=== PATIENT | female | born 1940 | race Caucasian/White ===

== ENCOUNTER 2020-12-29 07:42 | Outpatient (CLI) | payer MEDICARE, SELFPAY ==
--- NOTE | ~2020-12-29 | NM_ITS ---
EXAMINATION: NM bone scan whole body EXAM DATE: 12/29/2020 11:08 INDICATION: Right breast malignancy. TECHNIQUE: Bone scan was performed after injection of 26.4 mCi technetium 99 HDP and planar whole bod y images were obtained. COMPARISON: CT chest earlier same date FINDINGS: There is physiologic amount of renal excretion. Increased activity in the acromioclavicula r joints and knees bilaterally consistent with osteoarthritis. There is mild lumbar levoscoliosis. So me increased facet arthropathy projecting over the left T11 pedicle without any corresponding lesion identified on CT, probably the moderate to severe left facet arthropathy at T10-11 and T11-12. Simila r appearance to a left mid cervical vertebral body, probably C3-4, also most likely osteoarthritis bu t there is no other imaging of this location for correlation. IMPRESSION: 1. Mid cervical vertebral body activity most also likely arthritis. Consider correlating with fronta l and lateral cervical x-ray, or CT. 2. Polyarticular osteoarthritis. Reviewed, dictated and finalized at location B. IMPRESSION: 1. Mid cervical vertebral body activity most also likely arthritis. Consider c orrelating with frontal and lateral cervical x-ray, or CT. 2. Polyarticular osteoarthritis.
--- NOTE | ~2020-12-29 | CT_ITS ---
EXAMINATION: CT diagnostic chest w con EXAM DATE: 12/29/2020 08:25 INDICATION: Uterine, metastatic breast cancer. TECHNIQUE: Spiral CT of the chest following intravenous injection of 75 mL Omnipaque 350. Axial, cor onal and sagittal images of the chest were reviewed. Coronal maximum intensity pixel images of chest reviewed. The dose-length product (DLP) for this examination was 140.67 mGy-cm. The exposure was t ailored according to patient size (auto mA exposure control), and iterative reconstruction (ASIR) was used as additional dose reduction technique. There is no prior study for comparison. FINDINGS: Moderate to severe amount of bibasilar, moderate mid and upper lung zone interlobular sept al thickening with some interspersed groundglass opacities. 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 There are no pleural or pericardial effusions. T racheobronchial tree is patent. There is a right breast region measuring 1.7 cm, centrally low density but with focus of calcificatio n. Could be breast cancer or postoperative, please clinically correlate. Mildly enlarged right axilla ry lymph nodes, largest has some calcification, measures 9 x 12 mm. Smaller left breast opacity proba inna postoperative scarring given the additional left axillary surgical clips. No mediastinal or hilar lymphadenopathy. Moderate bronchiectasis. There is no pneumothorax. Mild ca rdiomegaly. There is mild to moderate coronary arterial calcification, arterial sclerosis. Several l iver lesions, density consistent with cysts. No osteoblastic or osteolytic lesions identified. IMPRESSION: 1. Right breast mass or postoperative scarring. Right axillary lymphadenopathy. 2. NSIP pattern interstitial lung disease. 3. Moderate bronchiectasis. 4. Cardiomegaly. Reviewed, dictated and finalized at location B. IMPRESSION: 1. Right breast mass or postoperative scarring. Right axillary lymphadenopathy . 2. NSIP pattern interstitial lung disease. 3. Moderate bronchiectasis. 4. Cardiomegaly.
[2020-12-29 08:17] LABS: Estimated Glomerular Filt Rate 48
== END 2020-12-29 07:43 | disposition home or self-care (01) ==
PROVIDERS: PCP Internal Medicine; Visit Provider Internal Medicine Medical Oncology
DX: C50.511 Malignant neoplasm of lower-outer quadrant of right female breast (principal); Z17.0 Estrogen receptor positive status [ER+]; R59.0 Localized enlarged lymph nodes; R92.8 Other abnormal and inconclusive findings on diagnostic imaging of breast; J84.89 Other specified interstitial pulmonary diseases; J47.9 Bronchiectasis, uncomplicated; I51.7 Cardiomegaly
CPT/HCPCS: 71260; 78306; A9561; Q9967

== ENCOUNTER 2021-04-19 09:55 | Outpatient (CLI) | payer MEDICARE, SELFPAY ==
--- NOTE | ~2021-04-19 | CT_ITS ---
EXAMINATION: CT diagnostic chest w con DATE: 04/19/2021 10:21 INDICATION: Shortness of breath, prior smoker, history of breast cancer TECHNIQUE: Transaxial computed tomographic images of the chest were obtained after the administration of 75 cc of Omnipaque 350 intravenous contrast. The dose-length product (DLP) was 134.43 mGy-cm. Ite rative reconstruction was used. COMPARISON: 12/29/2020 FINDINGS: A left internal jugular Port-A-Cath has been inserted which ends with its tip in the proxim al superior vena cava. There are unchanged widespread subpleural reticular and groundglass opacities. Some honeycombing is present in the lower lobes. The lungs are free of focal airspace opacities. The re is no pleural effusion or pneumothorax. No pathologically enlarged thoracic lymph nodes are identi fied. Cardiomegaly is noted. Coronary artery atherosclerosis is noted. Lumpectomy changes are present in the left breast. There are also changes of left axillary lymph node dissection. Heterogeneous att enuation of the spleen likely reflects phase of contrast administration. Cysts of the liver measure u p to 1.9 cm in the left hepatic lobe. There is moderate thoracic spondylosis. IMPRESSION: 1. Chronic interstitial lung disease with honeycombing of the lung bases, consistent with usual inter stitial pneumonia (UIP). 2. Cardiomegaly. Reviewed, dictated and finalized at location A. IMPRESSION: 1. Chronic interstitial lung disease with honeycombing of the lung bases, consi stent with usual interstitial pneumonia (UIP). 2. Cardiomegaly.
[2021-04-19 10:15] LABS: Estimated Glomerular Filt Rate 48
== END 2021-04-19 09:56 | disposition home or self-care (01) ==
LOC: ANHIMG 09:58
PROVIDERS: PCP Internal Medicine; Visit Provider Internal Medicine Medical Oncology
DX: C50.511 Malignant neoplasm of lower-outer quadrant of right female breast (principal); Z17.0 Estrogen receptor positive status [ER+]; J84.9 Interstitial pulmonary disease, unspecified; I51.7 Cardiomegaly
CPT/HCPCS: 71260; Q9967

== ENCOUNTER 2021-06-03 09:36 | Outpatient (CLI) | payer MEDICARE, SELFPAY ==
--- NOTE | ~2021-06-03 | CT_ITS ---
EXAMINATION: CT chest abdomen pelvis w con DATE: 06/03/2021 10:13 INDICATION: Breast cancer TECHNIQUE: Transaxial computed tomographic images of the chest, abdomen, and pelvis were obtained aft er the administration of 100 cc of Omnipaque 350 intravenous contrast. The dose-length product (DLP) was 574.32 mGy-cm. Automated exposure control and iterative reconstruction technique were employed. COMPARISON: 04/09/2021, 12/29/2020 FINDINGS: CHEST CT: There are changes of interval lumpectomy and axillary node dissection on the right. There is a 4.2 x 2.0 cm seroma in the right breast. There is a 2.2 cm seroma in the right axilla. Lumpectomy changes a re again noted in the left breast. There are changes of left axillary lymph node dissection. A left i nternal Port-A-Cath ends with its tip in the superior vena cava. Again noted are widespread subpleura l reticular and groundglass opacities. Areas of honeycombing are present in the lower lobes. No acute airspace opacities are identified. There is no pleural effusion or pneumothorax. Cardiomegaly is not ed. There are no pathologically enlarged thoracic lymph nodes. There is moderate thoracic spondylosis . ABDOMEN/PELVIS CT: Cysts of the liver measure up to 1.5 cm in the left hepatic lobe. The spleen, pancreas, gallbladder, and adrenal glands are normal. The kidneys are unremarkable. The kidneys are unremarkable. There is c alcified atherosclerosis of the aorta and many of the other arteries. No pathologically enlarged abdo bhaskar or pelvic lymph nodes are identified. There is no free intraperitoneal gas or evidence of bowel obstruction. Colonic diverticulosis is present without evidence of diverticulitis. IMPRESSION: 1. Changes of interval right lumpectomy and right axillary lymph node dissection with postoperative s eromas of the right breast and right axilla. 2. Chronic interstitial lung disease in a pattern of usual interstitial pneumonia (UIP). 3. No evidence of metastatic disease. Reviewed, dictated and finalized at location A. OL SPEECH LANGUAGE PATHOLOGIST IMPRESSION: 1. Changes of interval right lumpectomy and right axillary lymph node dissectio n with postoperative seromas of the right breast and right axilla. 2. Chronic interstitial lung disease in a pattern of usual interstitial pneumon ia (UIP). 3. No evidence of metastatic disease.
[2021-06-03 10:03] LABS: Estimated Glomerular Filt Rate 60
== END 2021-06-03 09:37 | disposition home or self-care (01) ==
LOC: ANHIMG 09:40
PROVIDERS: PCP Internal Medicine; Visit Provider Internal Medicine Medical Oncology
DX: C50.511 Malignant neoplasm of lower-outer quadrant of right female breast (principal); Z17.0 Estrogen receptor positive status [ER+]; J84.9 Interstitial pulmonary disease, unspecified
CPT/HCPCS: 71260; 74177; Q9967

== ENCOUNTER 2021-06-10 13:43 | Outpatient (CLI) | payer MEDICARE, SELFPAY ==
--- NOTE | 2021-06-10 | ECHO_ITS ---
Patient Info Name: Nesha Bettencourt Age: 80 years : 1940 Gender: Female Ht: 66 in Wt: 159 lbs BSA: 1.84 m2 HR: 97 bpm BP: 111 / 79 mmHg Technical Quality: Good Exam Date: 06/10/2021 2:05 PM Exam Location: [facility] Patient Status: Outpatient Admit Date: 06/10/2021 Staff Ordering Physician: Karina, Joshua Gamble DO Blockmason: Clara Kraft RDCS Attending Provider: Karina, Joshua Gamble DO Referring Physician: Karina LOUIE; Exam Type: CA echo doppler color flow Study Info Indications C50.011 - Malignant neoplasm of nipple and areola, right female breast Complete two-dimensional, color flow and Doppler transthoracic echocardiogram is performed. Summary 1. Complete two-dimensional, color flow and Doppler transthoracic echocardiogram is performed. 2. Left ventricular chamber dimension is normal. 3. Left ventricular systolic function is normal, estimated at 60-65%. 4. There is mildly increased left ventricular wall thickness. 5. The left ventricular diastolic function is grade I diastolic dysfunction. 6. E/e' 12 is mildly elevated. 7. Global longitudinal strain is abnormal at -15.2%. 8. There is moderate aortic valve sclerosis. 9. There is mild aortic valve stenosis with a peak velocity of 189 cm/s, mean gradient of 9 mmHg, and aortic valve area of 2.8 cm2. By planimetry, valve area is 1.9 cm2. 10. The mitral valve has moderately calcified annulus. 11. There is trace tricuspid valve regurgitation. 12. No pulmonary hypertension, estimated pulmonary arterial systolic pressure is 29 mmHg. Left Ventricle E/e' 12 is mildly elevated. Global longitudinal strain is abnormal at -15.2%. Left ventricular chamber dimension is normal. Left ventricular systolic function is normal, estimated at 60-65%. There is mildly increased left ventricular wall thickness. The left ventricular diastolic function is grade I diastolic dysfunction. Right Ventricle Moderator band noted in RV which is normal. Right ventricular chamber dimension is normal. Right ventricular systolic function is normal. Left Atria Left atrial chamber dimension is normal. Right Atria Right atrial chamber dimension is normal. Aortic Valve There is mild aortic valve stenosis with a peak velocity of 189 cm/s, mean gradient of 9 mmHg, and aortic valve area of 2.8 cm2. By planimetry, valve area is 1.9 cm2. The aortic valve is trileaflet. There is moderate aortic valve sclerosis. There is no aortic valve regurgitation. Pulmonic Valve There is no pulmonic regurgitation. Mitral Valve The mitral valve has moderately calcified annulus. There is no mitral valve stenosis. There is no mitral valve regurgitation. Tricuspid Valve There is trace tricuspid valve regurgitation. No pulmonary hypertension, estimated pulmonary arterial systolic pressure is 29 mmHg. Pericardium/Pleural There is no pericardial effusion. Inferior Vena Cava Normal inferior vena cava with >50% collapse upon inspiration consistent with normal right atrial pressure, 5 mmHg. Aorta The aortic root size at the sinus of Valsalva is normal. Left Ventricular Outflow Tract Name Value Normal LVOT 2D LVOT Diameter 2.0 cm
== END 2021-06-10 13:44 | disposition home or self-care (01) ==
PROVIDERS: PCP Internal Medicine; Visit Provider Internal Medicine Medical Oncology
DX: C50.511 Malignant neoplasm of lower-outer quadrant of right female breast (principal); Z17.0 Estrogen receptor positive status [ER+]; I35.0 Nonrheumatic aortic (valve) stenosis; I34.0 Nonrheumatic mitral (valve) insufficiency
CPT/HCPCS: 93306

== ENCOUNTER 2021-10-11 14:19 | Outpatient (CLI) | payer MEDICARE, SELFPAY ==
--- NOTE | ~2021-10-11 | CT_ITS ---
EXAMINATION:CT diagnostic chest wo con DATE: 10/11/2021 14:44 INDICATION: Dyspnea. TECHNIQUE: Computed tomography (CT) of the chest was performed without intravenous contrast. Automate d exposure control and iterative reconstruction technique were employed. The dose-length product (DLP ) was 129.31 mGy-cm. COMPARISON: Chest CT 06/03/2021 FINDINGS: The lung volumes are normal. There is widespread septal thickening in the lungs with a shilpa pheral and lower lung predominance that is out of proportion to the degree of associated groundglass opacities and small airspace opacities. There is bronchiectasis in the lungs with a lower lung predom inance. There are areas of peripheral honeycombing in the lungs. A calcified right lung nodule is con sistent with old granulomatous disease. There is a calcified pleural plaque at left lung apex. No ple ural effusion. Partially visualized are surgical changes in the breasts. There are surgical clips in the axillae. Partially visualized is a cyst in right axilla, likely a seroma. Partially visualized is a fluid collection in right breast, likely a seroma. The heart size is normal. There are coronary ar nati calcifications. No pericardial effusion. There are cysts in the liver measuring up to 15 mm. The re is mild thoracic spondylosis. IMPRESSION: 1. Severe diffuse lung disease with worsening in peripheral right lung, consistent with chronic inter stitial lung disease in a pattern of usual interstitial pneumonia (UIP). Worsened findings may be sup erimposed radiation pneumonitis or pneumonia. Reviewed, dictated and finalized at location B. IMPRESSION: 1. Severe diffuse lung disease with worsening in peripheral right lung, consist ent with chronic interstitial lung disease in a pattern of usual interstitial p neumonia (UIP). Worsened findings may be superimposed radiation pneumonitis or pneumonia.
== END 2021-10-11 14:20 | disposition home or self-care (01) ==
LOC: ANHIMG 14:28
PROVIDERS: PCP Internal Medicine; Visit Provider Internal Medicine
DX: R06.00 Dyspnea, unspecified (principal); R91.8 Other nonspecific abnormal finding of lung field
CPT/HCPCS: 71250

== ENCOUNTER 2021-12-15 08:53 | Outpatient (CLI) | payer MEDICARE, SELFPAY ==
--- NOTE | 2021-12-15 | ECHO_ITS ---
Patient Info Name: Nesha Bettencourt Age: 81 years : 1940 Gender: Female Ht: 66 in Wt: 150 lbs BSA: 1.79 m2 HR: 87 bpm BP: 128 / 84 mmHg Technical Quality: Good Exam Date: 12/15/2021 9:29 AM Exam Location: [facility] Patient Status: Outpatient Admit Date: 12/15/2021 Staff Ordering Physician: Karina, Joshua Gamble DO Director Of Nuclear Medicine: Clara Kraft RDCS Attending Provider: Karina, Joshua Gamble DO Referring Physician: Karina LOUIE; Exam Type: CA echo doppler color flow Study Info Indications R06.00 - Dyspnea, unspecified Complete two-dimensional, color flow and Doppler transthoracic echocardiogram is performed. Summary 1. Complete two-dimensional, color flow and Doppler transthoracic echocardiogram is performed. 2. Left ventricular chamber dimension is normal. 3. Left ventricular systolic function is normal, estimated at 60-65%. 4. There is mildly increased left ventricular wall thickness. 5. The left ventricular diastolic function is grade I diastolic dysfunction. 6. E/e' 13 is mildly elevated. 7. Global longitudinal strain is abnormal at -13.4%. 8. Left atrial chamber dimension is mildly enlarged. 9. There is severe aortic valve sclerosis. 10. There is moderate aortic valve stenosis with a peak velocity of 217 cm/s, mean gradient of 12 mmHg, and aortic valve area of 1.8 cm2. By planimetry aortic valve area is 1.3 cm2. 11. The mitral valve has moderately calcified annulus. 12. There is mild mitral valve regurgitation. 13. There is trace tricuspid valve regurgitation. 14. Severe pulmonary hypertension, estimated pulmonary arterial systolic pressure is 62 mmHg. 15. Small atheroma in posterior aortic root. Left Ventricle E/e' 13 is mildly elevated. Global longitudinal strain is abnormal at -13.4%. Left ventricular chamber dimension is normal. Left ventricular systolic function is normal, estimated at 60-65%. There is mildly increased left ventricular wall thickness. The left ventricular diastolic function is grade I diastolic dysfunction. Right Ventricle Right ventricular chamber dimension is normal. Right ventricular systolic function is normal. Left Atria Left atrial chamber dimension is mildly enlarged. Right Atria Right atrial chamber dimension is normal. Aortic Valve There is moderate aortic valve stenosis with a peak velocity of 217 cm/s, mean gradient of 12 mmHg, and aortic valve area of 1.8 cm2. By planimetry aortic valve area is 1.3 cm2. The aortic valve is trileaflet. There is severe aortic valve sclerosis. There is no aortic valve regurgitation. Pulmonic Valve There is no pulmonic regurgitation. Mitral Valve The mitral valve has moderately calcified annulus. There is no mitral valve stenosis. There is mild mitral valve regurgitation. Tricuspid Valve There is trace tricuspid valve regurgitation. Severe pulmonary hypertension, estimated pulmonary arterial systolic pressure is 62 mmHg. Pericardium/Pleural There is no pericardial effusion. Inferior Vena Cava Normal inferior vena cava with >50% collapse upon inspiration consistent with normal right atrial pressure, 5 mmHg. Aorta Small atheroma in posterior aortic root. The aortic root size at the sinus of Valsalva is normal. Left Ventricular Outflow Tract Name Value Normal
== END 2021-12-15 08:54 | disposition home or self-care (01) ==
LOC: ANHCARD 08:54
PROVIDERS: PCP Internal Medicine; Visit Provider Internal Medicine Medical Oncology
DX: C50.511 Malignant neoplasm of lower-outer quadrant of right female breast (principal); Z17.0 Estrogen receptor positive status [ER+]; R06.00 Dyspnea, unspecified; I08.3 Combined rheumatic disorders of mitral, aortic and tricuspid valves
CPT/HCPCS: 93306

== ENCOUNTER → 2022-07-20 12:12 | Outpatient (CLI) | payer MEDICARE, SELFPAY ==
--- NOTE | ~2022-07-20 | DEXA_ITS ---
Bone Density Report Name: [facility] Age: 81 Sex: Female Ethnicity: White Date of : 1940 Indication: osteopenia; height loss; hysterectomy; postmenopausal Referring Provider: PAUL, WILLIAM Bui Study: Bone densitometry was performed. Exam Date: July 20, 2022 Accession number: [id number] Bone Density: Region BMD T-score Z-score Classification AP Spine (L1-L4) 0.838 -1.9 0.8 Osteopenia Femoral Neck (Left) 0.709 -1.3 1.1 Osteopenia Total Hip (Left) 0.856 -0.7 1.4 Normal Femoral Neck (Right) 0.705 -1.3 1.0 Osteopenia Total Hip (Right) 0.777 -1.4 0.8 Osteopenia Total Hip Mean 0.817 -1.1 1.1 Osteopenia World Health Organization criteria for BMD impression classify patients as: Normal (T-score at or above -1.0), Osteopenia (T-score between -1.0 and -2.5), or Osteoporosis (T-score at or below -2.5). 10-year Fracture Risk(1): Major Osteoporotic Fracture 13% Hip Fracture 2.9% Reported Risk Factors: [place] (), Neck BMD=0.705, BMI=26.3 (1) FRAX(R) Version 3.08. Fracture probability calculated for an untreated patient. Fracture probability may be lower if the patient has received treatment. Previous Exams: Region Exam Age BMD T-score BMD Change BMD Change Date g/cm2 vs Baseline vs Previous AP Spine(L1-L4) 07/20/2022 81 0.838 -1.9 0.016 0.017 03/03/2009 68 0.821 -2.1 -0.001 -0.001 02/19/2006 65 0.822 -2.0 Total Hip(Left) 07/20/2022 81 0.856 -0.7 0.020 0.000 03/03/2009 68 0.855 -0.7 0.020 0.020 02/19/2006 65 0.836 -0.9 Total Hip(Right) 07/20/2022 81 0.777 -1.4 -0.048 -0.067* 03/03/2009 68 0.844 -0.8 0.018 0.018 02/19/2006 65 0.825 -1.0 *Denotes significance at 95% confidence level, LSC for AP Spine = 0.022 g/cm2, LSC for Total Hip = 0.027 g/cm2 Clinical Information Provided by Patient: Has used the following medications: Vitamin D, Calcium Has the following medical conditions: Hysterectomy Patient maximum height was 65.75 Menopause Age: 51 No regular weight bearing exercise Drinks caffeinated beverages Onset of menses at age 14 Number of children 3 Impression: The patient has low bone mass, based on the Total Spine T-score. The patient has an estimated ten-year risk of hip fracture of 2.9% and an estimated ten-year risk of major fracture of 13%, based on the WHO FRA
== END ==
PROVIDERS: PCP Internal Medicine; Visit Provider Internal Medicine
DX: Z78.0 Asymptomatic menopausal state (principal); M85.88 Other specified disorders of bone density and structure, other site; M85.852 Other specified disorders of bone density and structure, left thigh; M85.851 Other specified disorders of bone density and structure, right thigh
CPT/HCPCS: 77080

== ENCOUNTER 2023-03-21 06:36 | Outpatient (CLI) | payer MEDICARE, SELFPAY ==
--- NOTE | ~2023-03-21 | MR_ITS ---
EXAMINATION: MR brain IAC wo/w con DATE: 03/21/2023 07:50 INDICATION: Sensorineural hearing loss of left ear. TECHNIQUE: Magnetic resonance imaging (MRI) of the brain, brainstem, and internal auditory canals was performed without and with 14 mL MultiHance intravenous contrast. COMPARISON: head CT 05/08/19 FINDINGS: There are scattered areas of nonspecific increased T2-weighted signal intensity in the cere bral white matter and kelsey, which is within normal limits for the patient's age. There is an old lac unar infarct in the left basal ganglia. There is no intracranial hemorrhage, acute infarction, or abn ormal intracranial mass lesion. The ventricles are normal in size. There are likely changes of ocular lens replacement surgeries. There is mild mucosal thickening in the paranasal sinuses. The mastoid a ir cells are normal. The internal auditory canals are normal. IMPRESSION: 1. Old lacunar infarct in the left basal ganglia. Reviewed, dictated and finalized at location E.
== END 2023-03-21 06:37 | disposition home or self-care (01) ==
PROVIDERS: PCP Internal Medicine; Visit Provider Otolaryngology
DX: H90.5 Unspecified sensorineural hearing loss (principal)
CPT/HCPCS: 70553; A9577

== ENCOUNTER 2023-07-06 09:56 | Emergency (ER) | payer MEDICARE, SELFPAY ==
[2023-07-06] VITALS (11 sets, daily range): BP systolic 115–137; BP diastolic 58–84; PULSE 57–100; RESP 18–24; TEMP 36.7; O2SAT 92–100
--- NOTE | ~2023-07-06 | CT_ITS ---
EXAMINATION: CTA chest PE protocol DATE: 07/06/2023 11:50 INDICATION: Shortness of breath TECHNIQUE: Computed tomography angiography (CTA) of the chest was performed with 100 mL Omnipaque-350 intravenous contrast timed to evaluate the pulmonary arteries. Coronal maximum intensity projection 3D-reconstructions were created by the technologist. Automated exposure control and iterative reconst ruction technique were employed. Exam dose: 220.43 mGy-cm total exam DLP. COMPARISON: 07/06/2023 2 view chest 10/11/2021 CT chest 06/03/2021 CT chest abdomen FINDINGS: There is diagnostic contrast enhancement of the pulmonary arteries and no evidence of pulmo nary embolism. There is thoracic aortic, great vessel and coronary artery calcification. No thoracic aortic aneurysm or dissection is evident. There is extensive atherosclerotic change of the abdominal aorta as well, with prominent calcifications at the origins of celiac, superior mesenteric arteries. Cardiomegaly. No pericardial or pleural effusion. No hilar or mediastinal mass lesion or lymphadenopathy. 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 Small sliding hiatal hernia. Postoperative change and soft tissue asymmetry of the lower outer right breast. Chronic approximately 10 and 16 mm left hepatic hypoattenuating lesions, stable since 06/03/2021, con sistent with cysts. Normal morphology of the adrenal glands. IMPRESSION: No CT evidence of pulmonary embolism Usual interstitial pneumonia interstitial pulmonary fibrosis Cardiomegaly Small sliding hiatal hernia Stable left hepatic cysts Reviewed, dictated and finalized at Location A. Reviewed, dictated and finalized at location B. O TELEVISION TECHNICAL DIRECTOR
--- NOTE | ~2023-07-06 | XR_ITS ---
XR chest 2V DATE: 07/06/2023 10:42 INDICATION: Shortness of breath and cough for 2 to 3 weeks TECHNIQUE: PA and lateral views COMPARISON: October 11, 2021 CTA chest May 08, 2019 portable AP chest FINDINGS: There are extensive fibrotic changes of both lungs as demonstrated on October 11, [address] examination showing pattern of usual interstitial pneumonia interstitial fibrosis. Mild pulmonary vascular congestion and redistribution are suggested. Small right pleural effusion. Gi angelo the presence of small right pleural effusion and mild pulmonary vascular prominence/redistributio n, pulmonary interstitial edema superimposed upon chronic interstitial fibrosis is likely. Cardiomegaly. Thoracic aortic calcification. Mild bilateral apical capping. No hilar or mediastinal enlargement is noted. Surgical clips overlie the right breast and right axillary area. Status post left mastectomy, with donnelly rgical clips in the left axillary region. Diffuse osteopenia. 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
--- NOTE | 2023-07-06 10:00 | ECG_ITS ---
Measurements Intervals [place] Rate: 84 P: 42 [place]: 158 QRS: -20 QRSD: 93 T: 8 QT: 340 QTc: 403 Interpretive Statements SINUS RHYTHM LEFT VENTRICULAR HYPERTROPHY BORDERLINE R WAVE PROGRESSION, ANTERIOR LEADS BORDERLINE T WAVE ABNORMALITY- ANT/INF LEADS BASELINE ARTIFACT- I, II, III, AVR, AVL, AVF, V1, V2-V3 BORDERLINE ECG COMPARED TO ECG 05/08/2019 03:13:40 NO SIGNIFICANT CHANGES Electronically Signed On 07-06-2023 11:00:37 WEBSITE PROJECT MANAGER by Marino Dominguez D.O.
[2023-07-06] MEDS: IPRATROPIUM 0.5 MG/ALBUTEROL SULFATE 2.5 MG AMPUL.NEB 3 ML INHALATION (10:52)
--- NOTE | 2023-07-06 10:55 | ED.SOB ---
HPI - SOB/Dyspnea General Chief Complaint: Shortness of Breath/Dyspnea Stated Complaint: SOB Time Seen by Provider: 07/06/23 10:08 Source: patient Mode of arrival: ambulatory Limitations: no limitations History of Present Illness HPI Narrative: 82-year-old female with history of lung disease after radiation therapy for breast cancer several years ago presenting with shortness of breath worsening since Emilie. It has been worsening for the last approximately 3 weeks. She is not short of breath at all 1 number at rest but feels like she has got more short of breath when she exerts herself. Typically can walk to the mailbox and back without issue but has felt a little short of breath when getting in the house afterward. No chest pain. No other complaints. Related Data Home Medications Medication Instructions Recorded Confirmed aspirin 81 mg tablet,delayed 81 mg PO DAILY 03/01/21 03/15/21 release (Adult Low Dose Aspirin) calcium carbonate 600 mg calcium 600 mg PO BID 03/01/21 03/15/21 (1,500 mg) tablet (Calcium) clopidogrel 75 mg tablet 75 mg PO DAILY 03/01/21 03/15/21 ezetimibe 10 mg tablet 10 mg PO DAILY 03/01/21 03/15/21 hydrochlorothiazide 25 mg tablet 25 mg PO DAILY 03/01/21 03/15/21 levofloxacin 500 mg tablet 500 mg PO TID 03/01/21 03/15/21 levothyroxine 75 mcg capsule 75 mcg PO DAILY 03/01/21 03/15/21 losartan 100 mg tablet 100 mg PO DAILY 03/01/21 03/15/21 gabapentin 300 mg capsule 300 mg PO DAILY 03/15/21 03/15/21 Allergies Allergy/AdvReac Type Severity Reaction Status Date / Time No Known Allergies Allergy Verified 07/06/23 10:04 Review of Systems Review of Systems: All systems reviewed & are unremarkable except as noted in HPI and below (HPI) PMFSH Past Medical History Medical History Breast cancer Hypercholesterolemia Hypertension Uterine cancer Surgical History Surgical History H/O: hysterectomy History of lumpectomy Social History Social History Smoking status: Former smoker Additional smoking assessment comments: Quit 40 years ago Gender identity (if verbalized by the patient): Female Exam Narrative: Constitutional: Generally well appearing, no acute distress Head: Atraumatic, no deformities. Eyes: Pupils equal, round, and reactive to light. Neck: Supple, no tracheal deviation, no JVD. ENMT: Mucous membranes moist Cardiovascular: S1, S2 auscultated. No murmurs, rubs, or gallops. No S3/S4. Normal Distal pulses. No peripheral edema. Respiratory: Lung sounds equal. No wheezes, rales, or rhonchi. Gastrointestinal: Abdomen was soft and non-tender. Non-distended. No rebound or guarding. Genitourinary: Deferred Musculoskeletal: Normal muscle tone and bulk. No obvious deformities or tenderness over extremities. Skin: No rashes. Neurological: Strength 5/5 in extremities. Cranial nerves I-XII grossly intact. Distal sensation intact. Mental Status: Awake, alert and oriented x3. Follows commands Course Vital Signs Vital signs: Vital Signs Temperature 36.7 C 07/06/23 10:00 Pulse Rate 57 L 07/06/23 10:00 Respiratory Rate 23 H 07/06/23 10:00 Blood Pressure 128/58 L 07/06/23 10:00 Pulse Oximetry 93 07/06/23 10:00 Oxygen Delivery Room Air 07/06/23 10:00 Temperature 36.7 C 07/06/23 10:00 Pulse Rate 90 07/06/23 12:02 Respiratory Rate 22 H 07/06/23 12:02 Blood Pressure 117/63 07/06/23 12:02 Pulse Oximetry 94 07/06/23 12:11 Oxygen Delivery Room Air 07/06/23 12:11 MDM - SOB/Dyspnea MDM Narrative Medical decision making narrative: 82-year-old female presenting with shortness of breath on exertion for the last 3 weeks. Seems to be worse over the last few days. No other complaints. On exam, she is on the low-normal SpO2 at 93% on room air, otherwise normal vitals. Lungs
[2023-07-06 11:01] LABS: Basophils Percent Auto 0.2 % (0.2-1.2); Eosinophils Absolute Auto 0.2 K/mm3 (0-0.3); Eosinophils Percent Auto 3.9 % (0-4.4); Hematocrit 36.2 % (37.0-47.0); Hemoglobin 11.9 g/dL (12.0-15.0); Immature Granulocyte Absolute 0.01 K/mm3 (0.00-0.031); Immature Granulocyte Percent A 0.2 % (0-0.5); Lymphocytes Absolute Auto 1.14 K/mm3 (0.9-3.2); Lymphocytes Percent Auto 22.2 % (18.3-44.2); Mean Corpuscular HGB Conc 32.9 g/dl (32-36); Mean Corpuscular Volume 97.3 fl (80-100); Mean Platelet Volume 9.2 fl (7.4-10.4); Monocytes Absolute Auto 0.4 K/mm3 (0.1-0.6); Monocytes Percent Auto 7.6 % (2.6-8.5); Neutrophils Absolute Auto 3.4 K/mm3 (1.3-6.7); Neutrophils Percent Auto 65.9 % (45.5-73.1); Platelet Count Result 210 k/mm3 (150-375); Red Blood Count 3.72 M/mm3 (4.2-5.4); White Blood Count 5.1 K/mm3 (4.5-10.0)
[2023-07-06 11:14] LABS: Alanine Aminotransferase 15 U/L (6-35); Albumin Level 4.1 g/dL (3.5-5.1); Alkaline Phosphatase 50 U/L (38-126); Anion Gap 11 mmol/L (8-16); Aspartate Amino Transferase 26 U/L (14-36); Bilirubin,Total 0.6 mg/dL (0.2-1.3); Blood Urea Nitrogen 30 mg/dL (7-17); Calcium 9.9 mg/dL (8.4-10.2); Carbon Dioxide 24 mmol/L (22-30); Chloride 102 mmol/L (98-107); Estimated CRCL calculation 25 ml/min; Estimated Glomerular Filt Rate 36; Glucose 122 mg/dL (65-110); Potassium 3.1 mmol/L (3.4-5.0); Sodium 137 mmol/L (137-145)
[2023-07-06 11:23] LABS: NT Pro B Type Natriuretic Pept 329 pg/mL (19.9-100)
[2023-07-06 11:26] LABS: Troponin I < 0.012 ng/mL (0.000-0.034)
[2023-07-06 11:48] LABS: Influenza A QL RT-PCR Negative (Negative); Influenza B QL RT-PCR Negative (Negative); RSV RNA, RT-PCR Negative (Negative); SARS-CoV-2 RNA PCR Negative (Negative)
== END 2023-07-06 12:52 | disposition home or self-care (01) ==
PROVIDERS: Emergency Provider Emergency Medicine; PCP Internal Medicine
DX: J40 Bronchitis, not specified as acute or chronic (principal); J43.9 Emphysema, unspecified; Z20.822 Contact with and (suspected) exposure to COVID-19; I10 Essential (primary) hypertension; E78.00 Pure hypercholesterolemia, unspecified; Z85.3 Personal history of malignant neoplasm of breast; Z92.3 Personal history of irradiation; Z85.42 Personal history of malignant neoplasm of other parts of uterus; Z87.891 Personal history of nicotine dependence; Z90.710 Acquired absence of both cervix and uterus; Z79.82 Long term (current) use of aspirin; R94.31 Abnormal electrocardiogram [ECG] [EKG]; I51.7 Cardiomegaly; K44.9 Diaphragmatic hernia without obstruction or gangrene; K76.89 Other specified diseases of liver; I70.0 Atherosclerosis of aorta; Z90.13 Acquired absence of bilateral breasts and nipples; M85.88 Other specified disorders of bone density and structure, other site; J84.10 Pulmonary fibrosis, unspecified; J84.111 Idiopathic interstitial pneumonia, not otherwise specified
CPT/HCPCS: 36415; 71046; 71275; 80053; 83880; 84484; 85025; 85380; 87637; 93005; 94640; 96374; 99284; J1100; Q9967

== ENCOUNTER 2024-01-19 14:09 | Inpatient (IN) | payer MEDICARE, SELFPAY ==
[2024-01-19] VITALS (12 sets, daily range): BP systolic 124–146; BP diastolic 60–77; PULSE 76–101; RESP 18–26; TEMP 36.6–37; O2SAT 92–100
--- NOTE | ~2024-01-19 | US_ITS ---
US venous doppler [facility] DATE: 01/20/2024 07:51 INDICATION: Elevated d-dimer.] COVID positive patient. TECHNIQUE: Real-time and color flow imaging and Doppler analysis of the veins of the lower extremitie s COMPARISON: None FINDINGS: The greater saphenous veins are patent. There is spontaneous and phasic flow and normal aug mentation and color flow signal of the deep veins of both lower extremities. IMPRESSION: No evidence of deep venous thrombosis of the lower extremities Reviewed, dictated and finalized at Location A. Reviewed, dictated and finalized at location J.
--- NOTE | ~2024-01-19 | XR_ITS ---
XR chest 2V Ordering provider: Janes Palomino APRN History: 83 years Female with . sob/covid positive . Comparison: July 06, 2023 FINDINGS: MEDIASTINUM: The cardiac silhouette is slightly enlarged. Congestive brie. LUNGS: No effusions or pneumothorax. Bilateral basal opacification with opacification the left mid zo ne suggestive of bilateral pneumonia. Underlying fibrotic changes. Underlying pulmonary edema also no t excluded. OTHER: No free air under the diaphragm. Degenerative changes of the spine. IMPRESSION: Bilateral pneumonia. Underlying pulmonary edema is not excluded. Reviewed, dictated and finalized at location A.
--- NOTE | ~2024-01-19 | XR_ITS ---
EXAMINATION: XR hip LT min 2V DATE: 01/22/2024 16:42 INDICATION: Left groin pain. Fall. TECHNIQUE: 2 views of left hip were obtained. COMPARISON: None. FINDINGS: Bone alignment is normal. No fracture. There is mild left hip osteoarthritis. IMPRESSION: 1. Mild left hip osteoarthritis. Reviewed, dictated and finalized at location A.
--- NOTE | ~2024-01-19 | CT_ITS ---
CTA chest PE protocol Ordering provider: Janes Palomino APRN History: 83 years Female with . sob/covid +/elevated d-dimer . Comparison: July 06, 2023 Technique: CT angiogram chest was performed following timed intravenous injection of contrast. Thin s lice axial images and reformatted coronal images were obtained. Three dimensional reformatted images of the chest were also obtained using a [employer] workstation. . Automated exposure control and iterati ve reconstruction technique were employed. The dose-length product was 379.03 mGy-cm. 100 MLO Omnipaq ue 350 was given IV. Findings: PULMONARY ARTERIES: No pulmonary embolus. VISUALIZED THORACIC INLET: Normal. MEDIASTINUM: Aorta/coronary arteries: Mild atheromatous disease. Ascending aorta measures 3 cm. Multiple Intramura l hematomas seen in the descending aorta versus prominent atherosclerotic changes and noncalcified pl aques. Similar appearances seen in the upper abdominal aorta. Heart/other: The heart is slightly enlarged.. Prominent main pulmonary arteries which may indicate p ulmonary hypertension. Lymph nodes: No mediastinal or hilar adenopathy. LUNGS: Bilateral fibroticchanges of the lungs more prominent in the lower lobes. Superimpose pneumonitis is not excluded. No pulmonary nodules or masses. No infiltrates or effusions. No pneumothorax. VISUALIZED UPPER ABDOMEN: Hypodensity in the left lobe of the liver. This area measures 1.6 cm. Anoth er smaller one is seen which measures 0.9 cm. Both may represent cysts and appear unchanged from prev ious examination.. Slightly prominent pancreatic duct measuring 4.4 mm.. Otherwise, the visualized u pper abdomen is normal. MUSCULOSKELETAL: Soft tissues: The superficial soft tissues are normal. Bones: Age appropriate degenerative changes of the spine. IMPRESSION: 1. No pulmonary embolism. 2. Fibrotic changes of the lungs. Superimposed pneumonitis in the lower lobes cannot be excluded. 3. Intramural hematomas in the aorta versus prominent noncalcified plaques. 4. Hypodensities in the liver which are most likely cysts unchanged from previous examination. 5. prominent pancreatic duct. Follow-up advised. Reviewed, dictated and finalized at location A. IMPRESSION: 1. No pulmonary embolism. 2. Fibrotic changes of the lungs. Superimposed pneumonitis in the lower lobes cannot be excluded. 3. Intramural hematomas in the aorta versus prominent noncalcified plaques. 4. Hypodensities in the liver which are most likely cysts unchanged from previ ous examination. 5. prominent pancreatic duct. Follow-up advised.
--- NOTE | ~2024-01-19 | XR_ITS ---
XR foot LT min 3V Ordering provider: Janes Palomino APRN History: . 2nd and 3rd toe pain . Comparison: None. FINDINGS: BONES: No acute fracture or dislocation. Calcaneus spur. JOINT SPACES: Narrowing of the proximal and distal interphalangeal joints. No tarsal coalition. SOFT TISSUES: Normal. IMPRESSION: No acute osseous abnormality left foot. Reviewed, dictated and finalized at location A.
--- NOTE | 2024-01-19 14:27 | ED.SOB ---
HPI - SOB/Dyspnea General Chief Complaint: Shortness of Breath/Dyspnea Stated Complaint: COVID Positive Time Seen by Provider: 01/19/24 14:27 Source: patient and family Mode of arrival: ambulatory Limitations: no limitations History of Present Illness HPI Narrative: Nesha is an 83-year-old female patient with complaints of shortness of breath and nonproductive cough this been going on over the last 2-3 days. She has reports the shortness of breath was worse this morning. Took an at-home COVID test and it was positive. Oxygen level was in the 80s upon arrival. She denies any fevers but has had some hot sweats. Does report some weakness. Reports also that she fell in the shower a few days ago and injured her left groin and her 2nd and 3rd toe of the left foot. Related Data Home Medications Medication Instructions Recorded Confirmed aspirin 81 mg tablet,delayed 81 mg PO DAILY 03/01/21 03/15/21 release (Adult Low Dose Aspirin) calcium carbonate (Calcium 600) 600 mg PO BID 03/01/21 01/19/24 clopidogrel 75 mg tablet 75 mg PO DAILY 03/01/21 01/19/24 ezetimibe 10 mg tablet 10 mg PO DAILY 03/01/21 03/15/21 hydrochlorothiazide 25 mg tablet 25 mg PO DAILY 03/01/21 01/19/24 levofloxacin 500 mg tablet 500 mg PO TID 03/01/21 03/15/21 levothyroxine 75 mcg capsule 75 mcg PO DAILY 03/01/21 01/19/24 losartan 100 mg tablet 100 mg PO DAILY 03/01/21 01/19/24 gabapentin 300 mg capsule 300 mg PO DAILY 03/15/21 03/15/21 albuterol sulfate 90 mcg/actuation inhalation 01/19/24 aerosol inhaler ezetimibe 10 mg tablet mg 01/19/24 hydrochlorothiazide 25 mg tablet mg 01/19/24 levothyroxine 75 mcg tablet mcg 01/19/24 levothyroxine 75 mcg tablet mcg 01/19/24 tiotropium bromide 2.5 inhalation 01/19/24 mcg/actuation mist for inhalation (Spiriva Respimat) Allergies Allergy/AdvReac Type Severity Reaction Status Date / Time No Known Allergies Allergy Verified 07/06/23 10:04 Review of Systems Review of Systems: Pertinent positives per HPI. Patient denies any fever, rash, headache, visual changes, dizziness, runny nose, sore throat, chest pain, palpitations, nausea, vomiting, diarrhea, constipation, abdominal pain, or any urinary issues. [facility] Past Medical History Medical History (Updated 01/19/24 @ 17:43 by Padmini Romero PA-C) Breast cancer Hypercholesterolemia Hypertension Uterine cancer Surgical History Surgical History (Updated 01/19/24 @ 17:27 by Padmini Romero PA-C) History of hysterectomy History of lumpectomy Social History Social History (Updated 01/19/24 @ 17:27 by Padmini Romero PA-C) Smoking status: Former smoker Additional smoking assessment comments: Quit 40 years ago Comments At the time of my signature, I reviewed and agree with the nursing past medical, surgical, social, and family history. There is no relevant family history pertinent to the patient complaint. Exam Narrative: General: Well-developed, well nourished, in no apparent distress Head: Normocephalic, atraumatic Eyes: Pupils equally round and reactive to light bilaterally, EOM intact, sclera and conjunctive clear, no discharge, lids normal Ears: TMs intact and clear, ear canals clear, no drainage, grossly hearing normal. Nose: Nares patent, clear nasal discharge, no inflammation, no sinus tenderness. Mouth: Oropharynx without lesions or masses, good dentition, MMM. Neck: Supple, trachea midline, no enlargement of anterior or posterior cervical nodes, no thyroid masses or goiter palpable. Cardio: Regular rate and rhythm, s1 and s2 normal, no murmur appreciated. Resp: Lung sounds diminished, faint rhonchi and rales bilateral, no wheezing or rubs Musculoskeletal: No deformity, tender to palpation palpation of the 2nd and 3rd left toes with mild distal bruising, pain with flexion of the hip over the left inner groin muscle, grossly normal range of motion, muscle strength strong and equal, peripheral pulse strong,
--- NOTE | 2024-01-19 14:35 | ECG_ITS ---
Test Date: 2024-01-19 14:49:40 Measurements Intervals [place] Rate: 87 P: 38 SC: 152 QRS: -28 QRSD: 76 T: -11 QT: 358 QTc: 431 Interpretive Statements SINUS RHYTHM LEFT VENTRICULAR HYPERTROPHY BORDERLINE R WAVE PROGRESSION, ANTERIOR LEADS BORDERLINE T WAVE ABNORMALITY- ANT/INF LEADS BORDERLINE ECG No previous ECG available for comparison Electronically Signed On 01-20-2024 08:02:35 CDT by Marino Dominguez D.O.
[2024-01-19 14:59] LABS: Basophils Percent Auto 0.2 % (0.2-1.2); Eosinophils Absolute Auto 0.2 K/mm3 (0-0.3); Eosinophils Percent Auto 3.1 % (0-4.4); Hematocrit 31.8 % (37.0-47.0); Hemoglobin 10.5 g/dL (12.0-15.0); Immature Granulocyte Absolute 0.02 K/mm3 (0.00-0.031); Immature Granulocyte Percent A 0.4 % (0-0.5); Lymphocytes Absolute Auto 0.59 K/mm3 (0.9-3.2); Lymphocytes Percent Auto 12.3 % (18.3-44.2); Mean Corpuscular Hemoglobin 32.4 pg (26-34); Mean Corpuscular Volume 98.1 fl (80-100); Mean Platelet Volume 9.5 fl (7.4-10.4); Monocytes Absolute Auto 0.4 K/mm3 (0.1-0.6); Monocytes Percent Auto 8.1 % (2.6-8.5); Neutrophils Absolute Auto 3.7 K/mm3 (1.3-6.7); Neutrophils Percent Auto 75.9 % (45.5-73.1); Platelet Count Result 127 k/mm3 (150-375); Red Blood Count 3.24 M/mm3 (4.2-5.4); Red Cell Distribution Width 13.9 % (11.5-14.5); White Blood Count 4.8 K/mm3 (4.5-10.0)
--- NOTE | 2024-01-19 15:02 | PC.NURSE ---
Pt states being treated with Spiriva & Albuterol for lung issue Denies COPD. Pt unable to speak in full sentences without stopping to take a breath. History of bilateral breast CA. States fell in the shower couple days ago c/o left groin, left leg & left foot pain.
[2024-01-19 15:09] LABS: INR 1.1
[2024-01-19 15:10] LABS: Partial Thromboplastin Time 27.1 Seconds (22.3-36.8)
[2024-01-19 15:13] LABS: Alanine Aminotransferase 14 U/L (6-35); Albumin Level 3.8 g/dL (3.5-5.1); Alkaline Phosphatase 45 U/L (38-126); Anion Gap 9 mmol/L (4-12); Aspartate Amino Transferase 29 U/L (14-36); Bilirubin,Total 0.5 mg/dL (0.2-1.3); Blood Urea Nitrogen 34 mg/dL (7-17); Carbon Dioxide 24 mmol/L (22-30); Chloride 104 mmol/L (98-107); Estimated CRCL calculation 27 ml/min; Estimated Glomerular Filt Rate 39; Glucose 126 mg/dL (65-110); Potassium 3.9 mmol/L (3.4-5.0); Sodium 137 mmol/L (137-145)
[2024-01-19 15:21] LABS: D Dimer 1.67 ug/mL (<0.48)
[2024-01-19 15:33] LABS: Troponin I 0.183 ng/mL (0.000-0.034)
[2024-01-19 15:40] LABS: Influenza A QL RT-PCR Negative (Negative); Influenza B QL RT-PCR Negative (Negative); RSV RNA, RT-PCR Negative (Negative); SARS-CoV-2 RNA PCR Positive (Negative)
[2024-01-19] MEDS: SODIUM CHLORIDE 0.9% IV 1,000 ML 150 ML IV CONT (16:14)
--- NOTE | 2024-01-19 17:23 | PC.NURSE ---
Pt assessment unchanged. Pt seen by hospital & discussed POC. Pt & family agreeable. Padmini DETECTIVE SUPERVISOR verbal order to discontinue Lovenox.
--- NOTE | 2024-01-19 17:26 | PM.IMHP ---
H&P: HPI History of Present Illness Date/Time: 01/19/24 16:30 Chief Complaint: Shortness of breath. Narrative: This is a very pleasant 83-year-old female with history of stroke, hypertension, dyslipidemia, hypothyroidism, breast cancer, and chronic interstitial lung disease who presented to the emergency department from home for evaluation of shortness of breath. The patient provides the following history. She returned from a bus trip to [place] late last week and a couple of days thereafter she developed a nonproductive cough. Since that time she has started to feel a bit short of breath with decreased appetite, sweats, and generalized weakness. She took a COVID test today and was positive and she felt it was best to come in for evaluation. She also mentions injuring her left groin and the left 2nd and 3rd toe when she slipped in the shower last Sunday and that has impeded her walking some. She does not have any known sick contacts. She denies fever, headache, sinus congestion, change in smell and taste, chest and pleuritic pain, vomiting, diarrhea, calf pain, syncope, and near syncope. In the ED: She was afebrile on arrival with an SpO2 of 92% on room air and stable blood pressures. Labs are significant for WBC count of 4.8, hemoglobin 10.5, platelet 127, D-dimer 1.67, BUN 34, creatinine 1.30, lactic acid 0.9, troponin 0.183. SARS-CoV-2 by PCR was positive. X-ray of the foot did not show any acute findings. Chest CTA was negative for pulmonary embolism and showed fibrotic changes of the lungs with possible superimposed infection, prominent pancreatic duct, hyperdensities in the liver which are most likely cysts as they are unchanged from previous examination, and findings of intramural hematomas in the aorta versus prominent noncalcified plaques. Call was placed to [facility] and her imaging was reviewed with Dr. Rader, cardiothoracic surgeon. These findings were also noted on CT earlier this year and he feels a likely represent thrombosed calcified plaques. She is being admitted in this setting for further treatment and evaluation. Review of Systems Review of Systems: 12 systems were reviewed and are negative except for as per HPI. ON LICENSE OF [facility] Past Medical History Medical History (Updated 01/19/24 @ 22:03 by Padmini Romero PA-C) Breast cancer Cerebrovascular accident (2019) Chronic interstitial lung disease Hypercholesterolemia Hypertension Hypothyroidism Uterine cancer Surgical History Surgical History (Updated 01/19/24 @ 17:27 by Padmini Romero PA-C) History of hysterectomy History of lumpectomy Family History Family History Father Acute myocardial infarction Sibling Acute myocardial infarction Mother Asthma Son Diabetes mellitus Social History Social History (Updated 01/19/24 @ 22:06 by Padmini Romero PA-C) Social History: Surrogate medical decision maker: Mitch Bettencourt, son. Code status: Full code. Smoking packs per day: 0.75 Smoking cigarettes per day: 15.0 Years smoked: 10 Smoking pack-years: 7.50 Smoking status: Former smoker Tobacco type: cigarettes Additional smoking assessment comments: Quit 40 years ago Alcohol intake: never Substance use: never Substance use type: does not use Do You Feel Safe in your Home?: Yes Lack of Transportation: No Lack of Food: Never True Current Housing: I Have Housing Concerned About Future Housing: No Difficulty Paying Gas/Electric Bills: No Difficulty Paying for Meds: No Currently Unemployed: No Education: Decline to Answer Difficulty w/ Childcare or Family Care: No Spiritual care concerns: No Meds Home Medications and Allergies Home Medications Medication Instructions Recorded Confirmed Type calcium carbonate (Calcium 600) 600 mg PO BID 03/01/21 01/19/24 History clopidogrel 75 mg tablet 75 mg PO DAILY 03/01/21 0
--- NOTE | 2024-01-19 17:44 | PC.NURSE ---
This patient, Nesha Bettencourt, was admitted to IMU Room 203-01. Patient/family oriented to hospital policies and general routines including ID bracelet, bed and alarms, visiting hours, pain management, procedures, bathroom and other care routines, personal items, smoking policy, room service/diet, and visiting hours. Information on how to activate the Rapid Response Team has been discussed. Patient/Family are encouraged to report perceived risks to care and to ask questions if they do not understand what they are told or what they should do.
[2024-01-19 18:20] LABS: Procalcitonin 0.1 ng/mL
[2024-01-19 18:25] LABS: Lactic Acid Reflex 0.9 mmol/L (0.7-2.0)
[2024-01-19 18:31] LABS: CRP 2.5 mg/dL (<1.0)
[2024-01-19] MEDS: dexAMETHasone SOD PHOS INJ 10 MG/ML 1 ML VIAL 6 MG IV PUSH (18:31)
[2024-01-19] MEDS: AZITHROMYCIN 500 MG/NS 250 ML 500 MG/250 ML BAG 250 MG IVPB (18:31)
[2024-01-19 18:45] LABS: Troponin I 0.204 ng/mL (0.000-0.034)
[2024-01-19] MEDS: REMDESIVIR 200 MG/NS 250 ML 200 MG/250 ML BAG 250 MG IVPB (20:28)
[2024-01-19] MEDS: guaiFENesin 12 HR 600 MG TABCR 1200 MG PO (20:29)
[2024-01-19] MEDS: ALBUTEROL SULFATE (*SP) AEROSOL 1 PUFF 2 PUFF INHALATION (21:30)
[2024-01-19 22:30] LABS: Troponin I 0.164 ng/mL (0.000-0.034)
[2024-01-19 22:55] LABS: MRSA (PCR) NOT DETECTED (NOT DETECTE)
[2024-01-20] VITALS (17 sets, daily range): BP systolic 113–136; BP diastolic 50–73; PULSE 68–102; RESP 14–20; TEMP 36.4–37; O2SAT 93–100
[2024-01-20] MEDS: ALBUTEROL SULFATE (*SP) AEROSOL 1 PUFF 2 PUFF INHALATION ×4 (02:10→21:15)
[2024-01-20 04:48] LABS: Basophils Percent Auto 0.4 % (0.2-1.2); Hematocrit 29.7 % (37.0-47.0); Hemoglobin 9.7 g/dL (12.0-15.0); Immature Granulocyte Absolute 0.01 K/mm3 (0.00-0.031); Immature Granulocyte Percent A 0.4 % (0-0.5); Lymphocytes Absolute Auto 0.36 K/mm3 (0.9-3.2); Lymphocytes Percent Auto 13.1 % (18.3-44.2); Mean Corpuscular HGB Conc 32.7 g/dl (32-36); Mean Corpuscular Hemoglobin 32.9 pg (26-34); Mean Corpuscular Volume 100.7 fl (80-100); Mean Platelet Volume 9.4 fl (7.4-10.4); Monocytes Absolute Auto 0.1 K/mm3 (0.1-0.6); Monocytes Percent Auto 4.4 % (2.6-8.5); Neutrophils Absolute Auto 2.2 K/mm3 (1.3-6.7); Neutrophils Percent Auto 81.7 % (45.5-73.1); Platelet Count Result 117 k/mm3 (150-375); Red Blood Count 2.95 M/mm3 (4.2-5.4); Red Cell Distribution Width 13.4 % (11.5-14.5); White Blood Count 2.7 K/mm3 (4.5-10.0)
[2024-01-20 05:05] LABS: Alanine Aminotransferase 13 U/L (6-35); Albumin Level 3.4 g/dL (3.5-5.1); Alkaline Phosphatase 37 U/L (38-126); Anion Gap 12 mmol/L (4-12); Aspartate Amino Transferase 29 U/L (14-36); Bilirubin,Total 0.4 mg/dL (0.2-1.3); Blood Urea Nitrogen 25 mg/dL (7-17); Calcium 8.2 mg/dL (8.4-10.2); Carbon Dioxide 20 mmol/L (22-30); Chloride 105 mmol/L (98-107); Estimated CRCL calculation 34 ml/min; Estimated Glomerular Filt Rate 53; Glucose 141 mg/dL (65-110); Lactate Dehydrogenase 292 U/L (120-246); Magnesium 1.8 mg/dL (1.6-2.3); Sodium 137 mmol/L (137-145)
[2024-01-20] MEDS: LEVOTHYROXINE SODIUM 75 MCG TABLET PO (06:42)
[2024-01-20] MEDS: UMECLIDINIUM BROMIDE 62.5 MCG ELLIPTA 1 PUFF INHALATION (08:09)
[2024-01-20] MEDS: MULTIVITAMINS /C LUTEIN (CENTRUM SILVER) TABLET *BKC 1 TAB PO (08:47)
[2024-01-20] MEDS: FENOFIBRATE NANOCRYSTALLIZED 145 MG TABLET PO (08:47)
[2024-01-20] MEDS: guaiFENesin 12 HR 600 MG TABCR 1200 MG PO ×2 (08:47→21:51)
[2024-01-20] MEDS: CLOPIDOGREL BISULFATE 75 MG TABLET PO (08:48)
--- NOTE | 2024-01-20 11:48 | PM.IMPN ---
Progress Note: A&P Assessment and Plan (1) COVID-19: Code(s): U07.1 - COVID-19 Status: Acute (2) Pneumonia: Code(s): J18.9 - Pneumonia, unspecified organism Status: Acute (3) Elevated troponin: Code(s): R79.89 - Other specified abnormal findings of blood chemistry Status: Acute (4) Weakness: Code(s): R53.1 - Weakness Status: Acute (5) Renal insufficiency: Code(s): N28.9 - Disorder of kidney and ureter, unspecified Status: Acute (6) Chronic interstitial lung disease: Code(s): J84.9 - Interstitial pulmonary disease, unspecified Status: Acute (7) Hypothyroidism: Code(s): E03.9 - Hypothyroidism, unspecified Status: Acute Plan This is a very pleasant 83-year-old female with history of stroke, hypertension, dyslipidemia, hypothyroidism, breast cancer, and chronic interstitial lung disease who presented to the emergency department from home for evaluation of shortness of breath. The patient provides the following history. She returned from a bus trip to [place] late last week and a couple of days thereafter she developed a nonproductive cough. Since that time she has started to feel a bit short of breath with decreased appetite, sweats, and generalized weakness. She took a COVID test and was positive and she felt it was best to come in for evaluation. She also mentions injuring her left groin and the left 2nd and 3rd toe when she slipped in the shower last Sunday and that has impeded her walking some. She does not have any known sick contacts. She denies fever, headache, sinus congestion, change in smell and taste, chest and pleuritic pain, vomiting, diarrhea, calf pain, syncope, and near syncope. In the ED: She was afebrile on arrival with an SpO2 of 92% on room air and stable blood pressures. Labs are significant for WBC count of 4.8, hemoglobin 10.5, platelet 127, D-dimer 1.67, BUN 34, creatinine 1.30, lactic acid 0.9, troponin 0.183. SARS-CoV-2 by PCR was positive. X-ray of the foot did not show any acute findings. Chest CTA was negative for pulmonary embolism and showed fibrotic changes of the lungs with possible superimposed infection, prominent pancreatic duct, hyperdensities in the liver which are most likely cysts as they are unchanged from previous examination, and findings of intramural hematomas in the aorta versus prominent noncalcified plaques. Call was placed to [facility] and her imaging was reviewed with Dr. Rader, cardiothoracic surgeon. These findings were also noted on CT earlier this year and he feels a likely represent thrombosed calcified plaques. She is being admitted in this setting for further treatment and evaluation. Acute COVID infection with pneumonia: Evidence of pneumonia in addition to chronic interstitial lung disease on chest x-ray. CT chest CTA was negative for PE started on remdesivir and dexamethasone. Also started on ceftriaxone azithromycin for concomitant bacterial pneumonia she does have normal WBC count. Sputum culture to attempt. CRP 2.5 and procalcitonin 0.1 acute hypoxic respiratory failure on oxygen supplementation via nasal cannula Elevated troponin flat trend cardiology has been consulted. 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 prior levels used to be normal Moderate aortic valve stenosis 2021 recheck echo grade 1 diastolic dysfunction DVT prophylaxis: Lovenox Subjective Date/time seen: 01/20/24 11:48 Interval history: feeling better. Has minimal cough. Shortness of breath with exertion. No chest pain. Review of Systems Review of Systems: All systems reviewed & are unremarkable except as noted in HPI and below Exam Narrative: General: Elderl
[2024-01-20] MEDS: ENOXAPARIN 40 MG/0.4 ML SYRINGE SUB-Q (12:45)
--- NOTE | 2024-01-20 13:25 | PM.CNCAR ---
Assessment and Plan Assessment and plan (1) Elevated troponin: Code(s): R79.89 - Other specified abnormal findings of blood chemistry Status: Acute Plan Mildly elevated troponin likely demand ischemia type 2 in the setting of acute hypoxemic respiratory failure and pneumonia Acute hypoxemic respiratory failure secondary to COVID pneumonia BERTRAND improving Hypertension controlled Calcified thrombosed plaque in the aorta Plan Transthoracic echocardiogram Plavix 75 mg daily Continue ezetimibe Continue losartan History of Present Illness History of Present Illness Consult date/time: 01/20/24 13:25 Reason For Visit: Pneumonia/Elevated D Dimer/Trop/Covid Narrative: 83-year-old female patient presents to the hospital with cough and shortness of breath has been present for 3 days. The patient was not travel when she started feeling weak fatigue night sweats associated with cough is mostly dry associated with shortness of breath that has been moderate to severe. She has limited physical activity using a cane and has been short of breath with minor activity. She denies any chest pain or prior history of heart disease. She has history of lung cancer prior chemo radiotherapy last more than 2 years ago. She was noted on admission to have mildly elevated cardiac enzymes. Review of Systems Review of Systems: All systems reviewed & are unremarkable except as noted in HPI and below PMFSH Past Medical History Medical History (Updated 01/19/24 @ 22:03 by Padmini Romero PA-C) Breast cancer Cerebrovascular accident (2019) Chronic interstitial lung disease Hypercholesterolemia Hypertension Hypothyroidism Uterine cancer Surgical History Surgical History (Updated 01/19/24 @ 17:27 by Padmini Romero PA-C) History of hysterectomy History of lumpectomy Family History Family History Father Acute myocardial infarction Sibling Acute myocardial infarction Mother Asthma Son Diabetes mellitus Social History Social History (Updated 01/19/24 @ 22:06 by Padmini Romero PA-C) Social History: Surrogate medical decision maker: Mitch Bettencourt, son. Code status: Full code. Smoking packs per day: 0.75 Smoking cigarettes per day: 15.0 Years smoked: 10 Smoking pack-years: 7.50 Smoking status: Former smoker Tobacco type: cigarettes Additional smoking assessment comments: Quit 40 years ago Alcohol intake: never Substance use: never Substance use type: does not use Do You Feel Safe in your Home?: Yes Lack of Transportation: No Lack of Food: Never True Current Housing: I Have Housing Concerned About Future Housing: No Difficulty Paying Gas/Electric Bills: No Difficulty Paying for Meds: No Currently Unemployed: No Education: Decline to Answer Difficulty w/ Childcare or Family Care: No Spiritual care concerns: No Meds Home Medications and Allergies Home Medications Medication Instructions Recorded Confirmed Type calcium carbonate (Calcium 600) 600 mg PO HS 03/01/21 01/20/24 History clopidogrel 75 mg tablet 75 mg PO QAM 03/01/21 01/20/24 History levothyroxine 75 mcg capsule 75 mcg PO DAILY 03/01/21 01/19/24 History losartan 100 mg tablet 100 mg PO HS 03/01/21 01/20/24 History albuterol sulfate 90 mcg/actuation 2 puff inhalation QID PRN 01/19/24 01/19/24 History aerosol inhaler Shortness Of Breath Or Wheezing ezetimibe 10 mg tablet 10 mg PO HS 01/19/24 01/20/24 History fenofibrate nanocrystallized 145 145 mg PO QAM 01/19/24 01/20/24 History mg tablet multivitamin-ferrous 1 tablet PO QAM 01/19/24 01/20/24 History fumarate-folic acid 18 mg-400 mcg tablet (Centrum Women) tiotropium bromide 2.5 2 puff inhalation QNOON 01/19/24 01/19/24 History mcg/actuation mist for inhalation (Spiriva Respimat) anastrozole 1 mg tablet 1 mg PO QAM 01/20/24 01/20/24 History cholecalciferol (vitamin
[2024-01-20] MEDS: dexAMETHasone SOD PHOS INJ 10 MG/ML 1 ML VIAL 6 MG IV PUSH (17:15)
[2024-01-20] MEDS: AZITHROMYCIN 500 MG/NS 250 ML 500 MG/250 ML BAG 250 MG IVPB (17:15)
[2024-01-20] MEDS: LOSARTAN POTASSIUM 100 MG TABLET PO (21:50)
[2024-01-20] MEDS: REMDESIVIR 100 MG/NS 250 ML 100 MG/250 ML BAG 250 MG IVPB (21:51)
[2024-01-20] MEDS: EZETIMIBE 10 MG TABLET PO (21:51)
[2024-01-20] MEDS: CALCIUM CARBONATE (OSCAL) 500 MG TABLET PO (21:51)
[2024-01-20] MEDS: ACETAMINOPHEN 325 MG TABLET 650 MG PO (21:54)
[2024-01-21] VITALS (22 sets, daily range): BP systolic 115–150; BP diastolic 58–72; PULSE 56–105; RESP 14–28; TEMP 36.6–37.4; O2SAT 92–100
--- NOTE | 2024-01-21 | ECHO_ITS ---
Patient Info Name: Nesha Bettencourt Age: 83 years : 1940 Gender: Female Ht: 65 in Wt: 154 lbs BSA: 1.80 m2 HR: 71 bpm BP: 132 / 59 mmHg Heart Rhythm: Sinus Rhythm Technical Quality: Good Exam Date: 01/21/2024 2:35 PM Exam Location: Echo Lab Patient Status: Inpatient Admit Date: 01/19/2024 Staff Ordering Physician: Padmini Romero PA-C Digital X Ray Service Engineer: Ness Maxwell RDCS Attending Provider: Bakari Burleson MD Referring Physician: Nick FIGUEROA; Exam Type: CA echo doppler color flow Study Info Indications - elevated troponin, murmur Complete two-dimensional, color flow and Doppler transthoracic echocardiogram is performed. Summary 1. Complete two-dimensional, color flow and Doppler transthoracic echocardiogram is performed. 2. Normal left ventricular size with mild concentric hypertrophy and preserved systolic function. 3. Left atrial enlargement. 4. Moderate aortic valve stenosis. 5. Tricuspid regurgitation velocity consistent with at least moderately elevated pulmonary artery pressure. Left Ventricle Left ventricular chamber dimension is normal. Left ventricular systolic function is normal, estimated at 55-60%. There is mild concentric increased left ventricular wall thickness. The left ventricular diastolic function is grade I diastolic dysfunction. Right Ventricle Right ventricular chamber dimension is normal. Left Atria Left atrial chamber dimension is moderately enlarged. Right Atria Right atrial chamber dimension is normal. Aortic Valve The aortic valve is trileaflet. There is moderate aortic valve stenosis with a peak velocity of 258 cm/s, mean gradient of 18 mmHg, and aortic valve area of 1.1 cm2. Pulmonic Valve The pulmonic valve is not well visualized. Mitral Valve The mitral valve has normal leaflets. There is trace mitral valve regurgitation. The mitral valve annulus is mildly calcified. Tricuspid Valve The tricuspid valve leaflets are normal. There is mild tricuspid valve regurgitation. Moderate pulmonary hypertension, estimated pulmonary arterial systolic pressure is 57 mmHg. Pericardium/Pleural The pericardium appears normal. Aorta The aortic root size at the sinus of Valsalva is normal. Left Ventricular Outflow Tract Name Value Normal LVOT 2D LVOT Diameter 2.1 cm LVOT Doppler LVOT Peak Gradient 3 mmHg LVOT Mean Gradient 2 mmHg LVOT VTI 22 cm LVOT VTI/AV VTI Ratio 0.3 LVOT Stroke Volume 78 ml LVOT CO 5.9 l/min LVOT CI 3.3 l/min/m2 Pulmonic Valve Name Value Normal PV Doppler PV Peak Gradient 6 mmHg Mitral Valve Name Value Normal
[2024-01-21] MEDS: ALBUTEROL SULFATE (*SP) AEROSOL 1 PUFF 2 PUFF INHALATION ×4 (02:28→20:26)
[2024-01-21 04:35] LABS: Hematocrit 29.6 % (37.0-47.0); Hemoglobin 9.7 g/dL (12.0-15.0); Immature Granulocyte Absolute 0.01 K/mm3 (0.00-0.031); Immature Granulocyte Percent A 0.3 % (0-0.5); Lymphocytes Absolute Auto 0.36 K/mm3 (0.9-3.2); Lymphocytes Percent Auto 11.1 % (18.3-44.2); Mean Corpuscular HGB Conc 32.8 g/dl (32-36); Mean Corpuscular Volume 97.7 fl (80-100); Mean Platelet Volume 9.3 fl (7.4-10.4); Monocytes Absolute Auto 0.2 K/mm3 (0.1-0.6); Monocytes Percent Auto 6.5 % (2.6-8.5); Neutrophils Absolute Auto 2.7 K/mm3 (1.3-6.7); Neutrophils Percent Auto 82.1 % (45.5-73.1); Platelet Count Result 135 k/mm3 (150-375); Red Blood Count 3.03 M/mm3 (4.2-5.4); Red Cell Distribution Width 13.5 % (11.5-14.5); White Blood Count 3.3 K/mm3 (4.5-10.0)
[2024-01-21 04:41] LABS: INR 1.1; Prothrombin Time 14.9 Seconds (11.1-14.7)
[2024-01-21 04:50] LABS: Alanine Aminotransferase 15 U/L (6-35); Albumin Level 3.5 g/dL (3.5-5.1); Alkaline Phosphatase 46 U/L (38-126); Anion Gap 9 mmol/L (4-12); Aspartate Amino Transferase 29 U/L (14-36); Bilirubin,Total 0.3 mg/dL (0.2-1.3); Blood Urea Nitrogen 24 mg/dL (7-17); Calcium 8.9 mg/dL (8.4-10.2); Carbon Dioxide 23 mmol/L (22-30); Chloride 105 mmol/L (98-107); Estimated CRCL calculation 32 ml/min; Estimated Glomerular Filt Rate 48; Glucose 147 mg/dL (65-110); Magnesium 1.8 mg/dL (1.6-2.3); Potassium 3.8 mmol/L (3.4-5.0); Sodium 137 mmol/L (137-145)
[2024-01-21 04:51] LABS: Alanine Aminotransferase 14 U/L (6-35); Albumin Level 3.4 g/dL (3.5-5.1); Alkaline Phosphatase 46 U/L (38-126); Aspartate Amino Transferase 29 U/L (14-36); Bilirubin,Total 0.3 mg/dL (0.2-1.3)
[2024-01-21] MEDS: LEVOTHYROXINE SODIUM 75 MCG TABLET PO (06:17)
[2024-01-21] MEDS: UMECLIDINIUM BROMIDE 62.5 MCG ELLIPTA 1 PUFF INHALATION (07:55)
[2024-01-21] MEDS: ACETAMINOPHEN 325 MG TABLET 650 MG PO ×2 (08:14→19:04)
[2024-01-21] MEDS: MULTIVITAMINS /C LUTEIN (CENTRUM SILVER) TABLET *BKC 1 TAB PO (08:16)
[2024-01-21] MEDS: FENOFIBRATE NANOCRYSTALLIZED 145 MG TABLET PO (08:16)
[2024-01-21] MEDS: CLOPIDOGREL BISULFATE 75 MG TABLET PO (08:16)
[2024-01-21] MEDS: guaiFENesin 12 HR 600 MG TABCR 1200 MG PO ×2 (08:16→20:54)
[2024-01-21] MEDS: ENOXAPARIN 40 MG/0.4 ML SYRINGE SUB-Q (08:17)
--- NOTE | 2024-01-21 11:31 | PM.IMPN ---
Progress Note: A&P Assessment and Plan (1) COVID-19: Code(s): U07.1 - COVID-19 Status: Acute (2) Pneumonia: Code(s): J18.9 - Pneumonia, unspecified organism Status: Acute (3) Elevated troponin: Code(s): R79.89 - Other specified abnormal findings of blood chemistry Status: Acute (4) Weakness: Code(s): R53.1 - Weakness Status: Acute (5) Renal insufficiency: Code(s): N28.9 - Disorder of kidney and ureter, unspecified Status: Acute (6) Chronic interstitial lung disease: Code(s): J84.9 - Interstitial pulmonary disease, unspecified Status: Acute (7) Hypothyroidism: Code(s): E03.9 - Hypothyroidism, unspecified Status: Acute Plan This is a very pleasant 83-year-old female with history of stroke, hypertension, dyslipidemia, hypothyroidism, breast cancer, and chronic interstitial lung disease who presented to the emergency department from home for evaluation of shortness of breath. The patient provides the following history. She returned from a bus trip to [place] late last week and a couple of days thereafter she developed a nonproductive cough. Since that time she has started to feel a bit short of breath with decreased appetite, sweats, and generalized weakness. She took a COVID test and was positive and she felt it was best to come in for evaluation. She also mentions injuring her left groin and the left 2nd and 3rd toe when she slipped in the shower last Sunday and that has impeded her walking some. She does not have any known sick contacts. She denies fever, headache, sinus congestion, change in smell and taste, chest and pleuritic pain, vomiting, diarrhea, calf pain, syncope, and near syncope. In the ED: She was afebrile on arrival with an SpO2 of 92% on room air and stable blood pressures. Labs are significant for WBC count of 4.8, hemoglobin 10.5, platelet 127, D-dimer 1.67, BUN 34, creatinine 1.30, lactic acid 0.9, troponin 0.183. SARS-CoV-2 by PCR was positive. X-ray of the foot did not show any acute findings. Chest CTA was negative for pulmonary embolism and showed fibrotic changes of the lungs with possible superimposed infection, prominent pancreatic duct, hyperdensities in the liver which are most likely cysts as they are unchanged from previous examination, and findings of intramural hematomas in the aorta versus prominent noncalcified plaques. Call was placed to [facility] and her imaging was reviewed with Dr. Rader, cardiothoracic surgeon. These findings were also noted on CT earlier this year and he feels a likely represent thrombosed calcified plaques. She is being admitted in this setting for further treatment and evaluation. Acute COVID infection with pneumonia: Evidence of pneumonia in addition to chronic interstitial lung disease on chest x-ray. CT chest CTA was negative for PE started on remdesivir and dexamethasone. Also started on ceftriaxone azithromycin for concomitant bacterial pneumonia she does have normal WBC count. Sputum culture to attempt. CRP 2.5 and procalcitonin 0.1. Day 3 of remdesivir and dexamethasone. acute hypoxic respiratory failure on oxygen supplementation via nasal cannula continue taper Elevated troponin flat trend cardiology has been consulted. Likely due to underlying hypoxia and COVID infection. 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 prior levels used to be normal Moderate aortic valve stenosis 2021 recheck echo grade 1 diastolic dysfunction DVT prophylaxis: Lovenox Subjective Date/time seen: 01/21/24 11:31 Interval history: No overnight events. Shortness of breath improving. Remains on 2 L oxygen. Desaturates with exertion. Review of Systems Review of Systems: All systems reviewed & are
[2024-01-21] MEDS: AZITHROMYCIN 500 MG/NS 250 ML 500 MG/250 ML BAG 250 MG IVPB (17:41)
[2024-01-21] MEDS: dexAMETHasone SOD PHOS INJ 10 MG/ML 1 ML VIAL 6 MG IV PUSH (17:41)
[2024-01-21] MEDS: CALCIUM CARBONATE (OSCAL) 500 MG TABLET PO (20:54)
[2024-01-21] MEDS: EZETIMIBE 10 MG TABLET PO (20:55)
[2024-01-21] MEDS: LOSARTAN POTASSIUM 100 MG TABLET PO (20:55)
[2024-01-21] MEDS: REMDESIVIR 100 MG/NS 250 ML 100 MG/250 ML BAG 250 MG IVPB (22:12)
[2024-01-22] VITALS (15 sets, daily range): BP systolic 124–155; BP diastolic 53–78; PULSE 64–92; RESP 14–22; TEMP 36.3–37.2; O2SAT 93–99
[2024-01-22] MEDS: ALBUTEROL SULFATE (*SP) AEROSOL 1 PUFF 2 PUFF INHALATION ×4 (02:25→19:41)
[2024-01-22 04:44] LABS: Basophils Percent Auto 0.3 % (0.2-1.2); Hematocrit 31.9 % (37.0-47.0); Hemoglobin 10.4 g/dL (12.0-15.0); Immature Granulocyte Absolute 0.01 K/mm3 (0.00-0.031); Immature Granulocyte Percent A 0.3 % (0-0.5); Lymphocytes Absolute Auto 0.56 K/mm3 (0.9-3.2); Lymphocytes Percent Auto 16.4 % (18.3-44.2); Mean Corpuscular HGB Conc 32.6 g/dl (32-36); Mean Corpuscular Hemoglobin 31.8 pg (26-34); Mean Corpuscular Volume 97.6 fl (80-100); Mean Platelet Volume 9.3 fl (7.4-10.4); Monocytes Absolute Auto 0.2 K/mm3 (0.1-0.6); Monocytes Percent Auto 5.6 % (2.6-8.5); Neutrophils Absolute Auto 2.6 K/mm3 (1.3-6.7); Neutrophils Percent Auto 77.4 % (45.5-73.1); Platelet Count Result 162 k/mm3 (150-375); Red Blood Count 3.27 M/mm3 (4.2-5.4); Red Cell Distribution Width 13.6 % (11.5-14.5); White Blood Count 3.4 K/mm3 (4.5-10.0)
[2024-01-22 05:08] LABS: Alanine Aminotransferase 15 U/L (6-35); Albumin Level 3.7 g/dL (3.5-5.1); Alkaline Phosphatase 47 U/L (38-126); Anion Gap 8 mmol/L (4-12); Aspartate Amino Transferase 27 U/L (14-36); Bilirubin,Total 0.3 mg/dL (0.2-1.3); Blood Urea Nitrogen 25 mg/dL (7-17); Calcium 9.1 mg/dL (8.4-10.2); Carbon Dioxide 26 mmol/L (22-30); Chloride 103 mmol/L (98-107); Estimated CRCL calculation 32 ml/min; Estimated Glomerular Filt Rate 48; Glucose 133 mg/dL (65-110); Magnesium 1.8 mg/dL (1.6-2.3); Sodium 137 mmol/L (137-145)
[2024-01-22] MEDS: LEVOTHYROXINE SODIUM 75 MCG TABLET PO (05:49)
[2024-01-22] MEDS: UMECLIDINIUM BROMIDE 62.5 MCG ELLIPTA 1 PUFF INHALATION (08:27)
[2024-01-22] MEDS: guaiFENesin 12 HR 600 MG TABCR 1200 MG PO ×2 (08:59→21:45)
[2024-01-22] MEDS: CLOPIDOGREL BISULFATE 75 MG TABLET PO (08:59)
[2024-01-22] MEDS: FENOFIBRATE NANOCRYSTALLIZED 145 MG TABLET PO (08:59)
[2024-01-22] MEDS: MULTIVITAMINS /C LUTEIN (CENTRUM SILVER) TABLET *BKC 1 TAB PO (08:59)
[2024-01-22] MEDS: ENOXAPARIN 40 MG/0.4 ML SYRINGE SUB-Q (08:59)
--- NOTE | 2024-01-22 12:10 | PM.IMPN ---
Progress Note: A&P Assessment and Plan (1) COVID-19: Code(s): U07.1 - COVID-19 Status: Acute (2) Pneumonia: Code(s): J18.9 - Pneumonia, unspecified organism Status: Acute (3) Elevated troponin: Code(s): R79.89 - Other specified abnormal findings of blood chemistry Status: Acute (4) Weakness: Code(s): R53.1 - Weakness Status: Acute (5) Renal insufficiency: Code(s): N28.9 - Disorder of kidney and ureter, unspecified Status: Acute (6) Chronic interstitial lung disease: Code(s): J84.9 - Interstitial pulmonary disease, unspecified Status: Acute (7) Hypothyroidism: Code(s): E03.9 - Hypothyroidism, unspecified Status: Acute Plan This is a very pleasant 83-year-old female with history of stroke, hypertension, dyslipidemia, hypothyroidism, breast cancer, and chronic interstitial lung disease who presented to the emergency department from home for evaluation of shortness of breath. The patient provides the following history. She returned from a bus trip to [place] late last week and a couple of days thereafter she developed a nonproductive cough. Since that time she has started to feel a bit short of breath with decreased appetite, sweats, and generalized weakness. She took a COVID test and was positive and she felt it was best to come in for evaluation. She also mentions injuring her left groin and the left 2nd and 3rd toe when she slipped in the shower last Sunday and that has impeded her walking some. She does not have any known sick contacts. She denies fever, headache, sinus congestion, change in smell and taste, chest and pleuritic pain, vomiting, diarrhea, calf pain, syncope, and near syncope. In the ED: She was afebrile on arrival with an SpO2 of 92% on room air and stable blood pressures. Labs are significant for WBC count of 4.8, hemoglobin 10.5, platelet 127, D-dimer 1.67, BUN 34, creatinine 1.30, lactic acid 0.9, troponin 0.183. SARS-CoV-2 by PCR was positive. X-ray of the foot did not show any acute findings. Chest CTA was negative for pulmonary embolism and showed fibrotic changes of the lungs with possible superimposed infection, prominent pancreatic duct, hyperdensities in the liver which are most likely cysts as they are unchanged from previous examination, and findings of intramural hematomas in the aorta versus prominent noncalcified plaques. Call was placed to [facility] and her imaging was reviewed with Dr. Rader, cardiothoracic surgeon. These findings were also noted on CT earlier this year and he feels a likely represent thrombosed calcified plaques. She is being admitted in this setting for further treatment and evaluation. Acute COVID infection with pneumonia: Evidence of pneumonia in addition to chronic interstitial lung disease on chest x-ray. CT chest CTA was negative for PE started on remdesivir and dexamethasone. Also started on ceftriaxone azithromycin for concomitant bacterial pneumonia she does have normal WBC count. Sputum culture to attempt. CRP 2.5 and procalcitonin 0.1. Day 4/5 of remdesivir and dexamethasone. Will give a bit early remdesivir tomorrow for potential discharge tomorrow acute hypoxic respiratory failure on oxygen supplementation via nasal cannula continue taper. Still needing oxygen supplementation with exertion. Will do home oxygen evaluation in Elevated troponin flat trend cardiology has been consulted. Likely due to underlying hypoxia and COVID infection. 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 prior levels used to be normal Moderate aortic valve stenosis 2021 recheck echo grade 1 diastolic dysfunction DVT prophylaxis: Lovenox Subjective Date/time seen:
[2024-01-22] MEDS: AMOXICILLIN/CLAVULANATE K 875-125 MG TAB 1 TABLET PO ×2 (12:39→21:45)
[2024-01-22] MEDS: AZITHROMYCIN 250 MG TABLET 500 MG PO (17:22)
[2024-01-22] MEDS: dexAMETHasone SOD PHOS INJ 10 MG/ML 1 ML VIAL 6 MG IV PUSH (17:22)
--- NOTE | 2024-01-22 18:20 | PC.NURSE ---
This patient, Nesha Bettencourt, was received from [id number] on 01/22/24 at 1820. Patient/family oriented to unit policies and routines
--- NOTE | 2024-01-22 18:33 | PC.NURSE ---
This patient, Nesha Bettencourt, was transferred to [facility] on 01/22/24 at 1818. Personal belongings sent with patient. Report given to Ellie. Appropriate documentation sent with patient.
[2024-01-22] MEDS: LOSARTAN POTASSIUM 100 MG TABLET PO (21:45)
[2024-01-22] MEDS: EZETIMIBE 10 MG TABLET PO (21:45)
[2024-01-22] MEDS: CALCIUM CARBONATE (OSCAL) 500 MG TABLET PO (21:45)
[2024-01-22] MEDS: REMDESIVIR 100 MG/NS 250 ML 100 MG/250 ML BAG 250 MG IVPB (21:45)
[2024-01-23] VITALS (7 sets, daily range): BP systolic 146; BP diastolic 69–76; PULSE 72–92; RESP 16–18; TEMP 36.3–36.7; O2SAT 92–97
[2024-01-23] MEDS: LEVOTHYROXINE SODIUM 75 MCG TABLET PO (06:09)
[2024-01-23] MEDS: ACETAMINOPHEN 325 MG TABLET 650 MG PO ×2 (06:09→14:12)
[2024-01-23 06:19] LABS: INR 1.1; Prothrombin Time 14.7 Seconds (11.1-14.7)
[2024-01-23 06:28] LABS: Alanine Aminotransferase 15 U/L (6-35); Albumin Level 3.9 g/dL (3.5-5.1); Alkaline Phosphatase 47 U/L (38-126); Aspartate Amino Transferase 29 U/L (14-36); Bilirubin,Total 0.5 mg/dL (0.2-1.3)
--- NOTE | 2024-01-23 06:52 | PC.NURSE ---
I have reviewed the LPNs charting at this time and I agree with the documentation. Will continue to monitor patient at this time.
[2024-01-23 07:54] LABS: Anion Gap 14 mmol/L (4-12); Blood Urea Nitrogen 28 mg/dL (7-17); Calcium 9.3 mg/dL (8.4-10.2); Carbon Dioxide 22 mmol/L (22-30); Chloride 102 mmol/L (98-107); Estimated CRCL calculation 32 ml/min; Estimated Glomerular Filt Rate 48; Glucose 104 mg/dL (65-110); Potassium 4.1 mmol/L (3.4-5.0); Sodium 138 mmol/L (137-145)
[2024-01-23] MEDS: UMECLIDINIUM BROMIDE 62.5 MCG ELLIPTA 1 PUFF INHALATION (08:02)
[2024-01-23] MEDS: ALBUTEROL SULFATE (*SP) AEROSOL 1 PUFF 2 PUFF INHALATION ×2 (08:06→14:21)
[2024-01-23] MEDS: FENOFIBRATE NANOCRYSTALLIZED 145 MG TABLET PO (08:54)
[2024-01-23] MEDS: ENOXAPARIN 40 MG/0.4 ML SYRINGE SUB-Q (08:54)
[2024-01-23] MEDS: AMOXICILLIN/CLAVULANATE K 875-125 MG TAB 1 TABLET PO (08:55)
[2024-01-23] MEDS: CLOPIDOGREL BISULFATE 75 MG TABLET PO (08:55)
[2024-01-23] MEDS: guaiFENesin 12 HR 600 MG TABCR 1200 MG PO (08:55)
[2024-01-23] MEDS: MULTIVITAMINS /C LUTEIN (CENTRUM SILVER) TABLET *BKC 1 TAB PO (08:55)
--- NOTE | 2024-01-23 11:36 | HOMEO2EVAL ---
Evaluation was performed at [facility] Home Oxygen Evaluation RC: Home Oxygen (O2) Evaluation Start: 01/23/24 07:21 Freq: ONCE Status: Active Protocol: RPE Activity Type Activity Date Activity User E-sign Co-sign Detail Recorded Client Recorded Date Recorded By Document 01/23/24 11:00 [facility] [id number] 01/23/24 11:35 [facility] Document 01/23/24 11:05 [facility] [id number] 01/23/24 11:35 [facility] Document 01/23/24 11:15 [facility] [id number] 01/23/24 11:35 [facility] 01/23/24 01/23/24 01/23/24 11:00 11:05 11:15 Home O2 Evaluation [Oxygen] -Test Phase Resting Exercise Resting -Oxygen Delivery Room Air Room Air Room Air [Pulse Oximetry] -Pulse Oximetry (90-100 %) 95 93 95 [Pulse Rate] -Pulse Rate (60-100 beats/min) 72 92 79 [Evaluation] -Activity Tolerance Fair
--- NOTE | 2024-01-23 11:36 | PCRCNOTE ---
HOME O2 EVAL COMPLETE, NO REQUIREMENTS
--- NOTE | 2024-01-23 11:47 | PM.IMPN ---
Progress Note: A&P Assessment and Plan (1) COVID-19: Code(s): U07.1 - COVID-19 Status: Acute (2) Pneumonia: Code(s): J18.9 - Pneumonia, unspecified organism Status: Acute (3) Elevated troponin: Code(s): R79.89 - Other specified abnormal findings of blood chemistry Status: Acute (4) Weakness: Code(s): R53.1 - Weakness Status: Acute (5) Renal insufficiency: Code(s): N28.9 - Disorder of kidney and ureter, unspecified Status: Acute (6) Chronic interstitial lung disease: Code(s): J84.9 - Interstitial pulmonary disease, unspecified Status: Acute (7) Hypothyroidism: Code(s): E03.9 - Hypothyroidism, unspecified Status: Acute Plan This is a very pleasant 83-year-old female with history of stroke, hypertension, dyslipidemia, hypothyroidism, breast cancer, and chronic interstitial lung disease who presented to the emergency department from home for evaluation of shortness of breath. The patient provides the following history. She returned from a bus trip to [place] late last week and a couple of days thereafter she developed a nonproductive cough. Since that time she has started to feel a bit short of breath with decreased appetite, sweats, and generalized weakness. She took a COVID test and was positive and she felt it was best to come in for evaluation. She also mentions injuring her left groin and the left 2nd and 3rd toe when she slipped in the shower last Sunday and that has impeded her walking some. She does not have any known sick contacts. She denies fever, headache, sinus congestion, change in smell and taste, chest and pleuritic pain, vomiting, diarrhea, calf pain, syncope, and near syncope. In the ED: She was afebrile on arrival with an SpO2 of 92% on room air and stable blood pressures. Labs are significant for WBC count of 4.8, hemoglobin 10.5, platelet 127, D-dimer 1.67, BUN 34, creatinine 1.30, lactic acid 0.9, troponin 0.183. SARS-CoV-2 by PCR was positive. X-ray of the foot did not show any acute findings. Chest CTA was negative for pulmonary embolism and showed fibrotic changes of the lungs with possible superimposed infection, prominent pancreatic duct, hyperdensities in the liver which are most likely cysts as they are unchanged from previous examination, and findings of intramural hematomas in the aorta versus prominent noncalcified plaques. Call was placed to [facility] and her imaging was reviewed with Dr. Rader, cardiothoracic surgeon. These findings were also noted on CT earlier this year and he feels a likely represent thrombosed calcified plaques. She is being admitted in this setting for further treatment and evaluation. Acute COVID infection with pneumonia: Evidence of pneumonia in addition to chronic interstitial lung disease on chest x-ray. CT chest CTA was negative for PE started on remdesivir and dexamethasone. Also started on ceftriaxone azithromycin for concomitant bacterial pneumonia she does have normal WBC count. Sputum culture to attempt. CRP 2.5 and procalcitonin 0.1 acute hypoxic respiratory failure on oxygen supplementation via nasal cannula Elevated troponin flat trend cardiology has been consulted. 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 prior levels used to be normal Moderate aortic valve stenosis 2021 recheck echo grade 1 diastolic dysfunction DVT prophylaxis: Lovenox Subjective Date/time seen: 01/23/24 11:47 Interval history: 83yo female with CVA, HTN, breat CA and ILD here for shortness of breath. Assuming care. Chart reviewed. S Feeling better. Minimal cough. Desaturates when ambulate. Complains of left hip pain. Exam Narrative: General: Elderly
[2024-01-23] MEDS: REMDESIVIR 100 MG/NS 250 ML 100 MG/250 ML BAG 250 MG IVPB (14:58)
--- NOTE | 2024-01-23 15:19 | PM.DS ---
DS: Admitting Diagnosis Discharge Date 01/23/24 Admitting Diagnosis Shortness of breath DS: Discharge Diagnosis Discharge Diagnosis (1) COVID-19: Code(s): U07.1 - COVID-19 Status: Acute (2) Pneumonia: Code(s): J18.9 - Pneumonia, unspecified organism Status: Acute (3) Elevated troponin: Code(s): R79.89 - Other specified abnormal findings of blood chemistry Status: Acute (4) Weakness: Code(s): R53.1 - Weakness Status: Acute (5) Renal insufficiency: Code(s): N28.9 - Disorder of kidney and ureter, unspecified Status: Acute (6) Chronic interstitial lung disease: Code(s): J84.9 - Interstitial pulmonary disease, unspecified Status: Acute (7) Hypothyroidism: Code(s): E03.9 - Hypothyroidism, unspecified Status: Acute DS: Summary Hospital Course Reason for hospitalization: 83yo female with hx of CVA, HTN, breast CA and ILD here for shortness of breath. Please see H&P for details. Hospital Course: In the ED: She was afebrile on arrival with an SpO2 of 92% on room air and stable blood pressures. Labs are significant for WBC count of 4.8, hemoglobin 10.5, platelet 127, D-dimer 1.67, BUN 34, creatinine 1.30, lactic acid 0.9, troponin 0.183. SARS-CoV-2 by PCR was positive. X-ray of the foot did not show any acute findings. Chest CTA was negative for pulmonary embolism and showed fibrotic changes of the lungs with possible superimposed infection, prominent pancreatic duct, hyperdensities in the liver which are most likely cysts as they are unchanged from previous examination, and findings of intramural hematomas in the aorta versus prominent noncalcified plaques. Call was placed to [facility] and her imaging were reviewed with Dr. Rader, cardiothoracic surgeon. These findings were also noted on CT earlier this year and he feels it likely represents thrombosed calcified plaques. She was started on remdesivir and dexamethasone. She needed up to 2L of oxygen. She was also started on Rocephin and azithromycin. She was weaned off oxygen. She completed azithromycin. She began to feel better. She had leukopenia at 2700 but this improved. Hemoglobin dropped to 9.7 before improving. She platelet count dropped to 117K before normalizing. Venous Doppler was negative for DVT. Hip x-ray showed mild left hip osteoarthritis. Creatinine trend down to 1.1. TSH normal. Procalcitonin 0.1. Blood cultures are no growth to date. Sputum culture pending. EKG showed LVH, normal sinus rhythm, borderline R-wave progression and borderline T-wave changes. Echocardiogram showed normal LV size and mild concentric LVH with EF 55-60%. She had moderate aortic stenosis and grade 1 diastolic dysfunction. She has at least moderate pulmonary hypertension. She worked with therapy and did well. She did not require oxygen at discharge. She overall did well and was able be discharged home on 01/23/2024. Discussed with family. All questions were answered. Status at Discharge Cognitive/behavioral status at discharge: stable Time Spent with Patient Time attestation: Total time spent providing and/or coordinating discharge services: 36 minutes Time spent: Greater than 30 minutes Exam Narrative: AF 98.0 146/69 79 16 96% ra Gen - NARD Chest - dry, bibasilar inspiratory crackles CV - RRR S1/S2 with murmur loudest in the upper sternal border. Abd - Soft, NT/ND, Positive BS Ext - No pedal edema. 2+ DP pulses bilaterally. Neuro - Alert and appropriate Psych - Nml mood and affect Skin - Warm and dry DS: Data Data Completed and Pending Labs on day of discharge: Labs from last 24 hours 01/23/24 05:50 PT 14.7 INR 1.1 Sodium 138 Potassium 4.1 Chloride 102 Carbon Dioxide 22 Anion Gap 14 H BUN 28 H Creatinine 1.10 H Estim Creat Clear Calc 32 Estimated GFR 48 L Glucose 104 Calcium 9.3 Total Bilirubin 0.5 Direct B
[2024-01-23] MEDS: AZITHROMYCIN 250 MG TABLET 500 MG PO (17:00)
--- NOTE | 2024-01-29 08:50 | PC.NURSE ---
Sputum cx shows no growth. Dr. Senthil martins.
== END 2024-01-23 17:25 | disposition home or self-care (01) | DRG 177 ==
LOC: ANHED 16:30 → ANHIMU 01-22 16:16 → ANH3MEDSUR 01-23 15:39 → ANHIMU 01-24 09:07
PROVIDERS: Internal Medicine; Physician Assistant; Admitting Provider Hospitalist; Emergency Provider Nurse Practitioner Family; PCP Internal Medicine; Visit Provider Internal Medicine
DX: U07.1 COVID-19 (principal); J12.82 Pneumonia due to coronavirus disease 2019; J84.9 Interstitial pulmonary disease, unspecified; E78.00 Pure hypercholesterolemia, unspecified; E03.9 Hypothyroidism, unspecified; I10 Essential (primary) hypertension; I70.0 Atherosclerosis of aorta; I27.20 Pulmonary hypertension, unspecified; M16.12 Unilateral primary osteoarthritis, left hip; R79.89 Other specified abnormal findings of blood chemistry; Z85.42 Personal history of malignant neoplasm of other parts of uterus; Z86.73 Personal history of transient ischemic attack (TIA), and cerebral infarction without residual deficits; Z79.82 Long term (current) use of aspirin; Z79.02 Long term (current) use of antithrombotics/antiplatelets; Z85.3 Personal history of malignant neoplasm of breast; Z87.891 Personal history of nicotine dependence
CPT/HCPCS: 36415; 71046; 71275; 73502; 73630; 80048; 80053; 80076; 82728; 83605; 83615; 83735; 84145; 84443; 84484; 85025; 85380; 85610; 85730; 86140; 87040; 87070; 87205; 87637; 87641; 93005; 93306; 93970; 94640; 97110; 97116; 97161; 97166; 99285; A9270; J0248; J0456; J0696; J1100; J1650; J7030; Q9967

== ENCOUNTER 2024-07-31 13:34 | Emergency (ER) | payer MEDICARE, SELFPAY ==
--- OUTSIDE RECORDS SUMMARY | 2024-07-31 13:43 | XMS_ITS | Referral Summary ---
Author Organization [place] [id number] [facility] Address [address] [place] [address] Care Team Providers Care Erp Implementation Consultant Name Role Phone Bar Gomez MD Primary Care Provider [phone] Joshua Collins DO Unavailable [phone] Neisha Mathis MD Unavailable [phone] Kristopher Elizabeth MD Unavailable [phone] Krishna Keen MD Unavailable [phone] Encounters Date Type Department Care Team Description 06/06/2024 11:15 AM PUMP ROOM OPERATOR Office Visit [facility] [address] [place] [address] [address] [place] [address] Joshua Collins DO 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, estrogen receptor positive (HCC) (Primary Dx) from Last 3 Months Allergies Active Allergy Reactions Criticality Noted Date Comments Adhesive Rash Medium 11/19/2020 Lisinopril Cough Low 01/09/2022 Zdkvqnl-Isv-Npc Reductase Inhibitors Muscle pain,Unknown High 01/09/2022 Medications levothyroxine (SYNTHROID) 75 mcg tablet Take 1 tablet (75 mcg total) 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 Active losartan (COZAAR) 100 mg tablet Take 1 tablet (100 mg total) by mouth daily Active hydroCHLOROthiazide (HYDRODIURIL) 25 mg tablet Take 1 tablet (25 mg total) by mouth daily Active ezetimibe (ZETIA) 10 mg tablet Take 1 tablet (10 mg total) by mouth daily Active tiotropium bromide (SPIRIVA RESPIMAT) 2.5 mcg/actuation inhaler Spiriva Respimat 2.5 mcg/actuation solution for inhalation INHALE 2 PUFFS BY MOUTH EVERY DAY Active calcium carbonate-vitamin D3 (CALTRATE 600 + D) 1500 mg (600 mg elemental) -400 units per tablet Act vinicio cholecalciferol (VITAMIN D-3) 50,000 unit capsule Vitamin D3 50mcg Active clopidogreL (PLAVIX) 75 mg tablet Take 1 tablet (75 mg total) by mouth daily 01/14/20 22 Active triamcinolone (NASACORT) 55 mcg nasal inhalerIndications:N baltazar congestion Administer 2 sprays into each nostril daily 16.9 mL 3 03/02/20 23 Active multivitamin capsule Take by mouth Active fenofibrate nanocrystallized (TRICOR) 145 mg tablet Take 1 tablet (145 mg total) by mouth daily 05/10/20 23 Active albuterol HFA (PROVENTIL HFA,VENTOLIN HFA,PROAIR HFA) 90 mcg/actuation inhaler as needed for shortness of breath or wheezing 11/01/19 24 Active cyanocobalamin (Vitamin B-12) 1,000 mcg sublingual tablet Take 1 tablet (1,000 mcg total) by mouth daily Active anastrozole (ARIMIDEX) 1 mg tablet Take 1 tablet (1 mg total) by mouth daily 90 tablet 1 03/12/20 24 Active Active Problems Patient Care Coordination No te Formatting of this note migh t be different from the original. Survivorship careplan given to patient Problem Noted Date Diagnosed Date Sensorineural hearing loss ( SNHL) of left ear with restricted hearing of right ear 03/02/2023 Nasal congestion 03/02/2023 Dysfunction of left eustachian tube 03/02/2023 MGUS (monoclonal gammopathy of unknown significa nce) 08/24/2022 Personal history of radiation therapy 09/14/2021 Epistaxis 04/27/2021 HX: anticoagulation 04/27/2021 Occlusion of central line (CMS/HCC) 01/28/2021 Malignant neoplasm of lower- outer quadrant of right breast of female, estrogen receptor positive 11/17/2020 Cancer Staging:Clinical stage from 12/09/2020:Stage IA(cT1c, cN0, cM0, G3, ER+, OH+, HER2-) - Signed by Neisha Mathis MD on 12/09/2020 Pathologic stage from 06/02/2021:No Stage Recommended(ypT1c, pN2, cM0, G3, ER+, OH+, HER2+) - Signed by Neisha Mathis MD on 06/02/2021 Hot flashes due to menopause 10/09/2016 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 14 Urinary tract infection 03/21/2013 Bacterial vaginosis 08/22/2012 Postmenopausal bleeding 07/08/2012 Hyperlipidemia 07/08/2012 Immunizations Name Administration Dates Next Due Influenza, Quadrivalent, Hig h Dose, Preservative Free, Intrr 04/14/2022 Influenza, Unspecified 06/08/2021 Pfizer SARS-CoV-2 Monovalent Vaccination (12+ Yrs) PURPLE 09/09/2020,08/17/2020 Social History Tobacco Use Types Packs/Day Years Used Date Smoking Tobacco: Former Cigarettes 0.5 11 1 962 - 06/25/1972 Smokeless Tobacco: Never Tobacco Cessation:Counseling Given: Not Answered AUDIT-C Answer Date Recorded Q1: How often do you have a drink containing alc ohol? Monthly or less 01/14/2021 Q2: How many drinks containi ng alcohol do you have on a typical day when you are drinking? 1 or 2 01/14/2021 Q3: How often do you have si x or more drinks on one occasion? 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 Not on file Not on file Last Filed Vital Signs Vital Sign Reading Time Taken Comments Blood Pressure 135/75 06/06/2024 11:08 AM PUMP ROOM OPERATOR Pulse 87 06/06/2024 11:08 AM PUMP ROOM OPERATOR Temperature 36.4 C (97.5 F) 06/06/2024 11:08 AM PUMP ROOM OPERATOR Respiratory Rate 18 06/06/2024 11:0 8 AM PUMP ROOM OPERATOR Oxygen Saturation 96% 06/06/2024 11: 08 AM PUMP ROOM OPERATOR Inhaled Oxygen Concentration - - Weight 68.5 kg (151 lb 0.2 oz) 06/06/20 11:08 AM PUMP ROOM OPERATOR with shoes Height 166.4 cm (5' 5.5 ) 06/01/2023 10 :59 AM PUMP ROOM OPERATOR Body Mass Index 24.75 06/01/2023 10:59 AM PUMP ROOM OPERATOR Plan of Treatment Not on file Medical Devices Explanted Type Area Meal Temperer Device Identifier Shelf Expiration Date Model / Serial / Lot [employer] [id number] Powerport Mri Airguard 8fr 1 Lumen Attachable Catheter Latex Free - [id number] Implanted:Qty: 1 on 01/20/2021 by Kristopher Elizabeth MD at [facility] Explanted:Qty: 1 on 05/05/2021 by Kristopher Elizabeth MD [employer] [id number] / / [employer] [id number] [employer] 20ga 7.5cm 2 Part Stabilizer Repositionable Depth Kodi - [id number] Explanted:Qty: 1 on 05/05/2021 at [facility] Right: Breast [employer] [id number] 10/22/2025 [id number] / / [id number] Insurance TNA MEDICARE AETNA MEDICARE AET MEDICARE [address] [place] [id number] Care Teams Erp Implementation Consultant Relationship Specialty Start Date End Date Bar Gomez MD PCP - General 11/24/20 Joshua Collins DO [address] [place] [address] MEDICAL ONCOLOGY, [address] [address] Medical Oncologist/[facility] 11/17/20 Neisha Mathis MD [address] [place] [address] MEDICAL ONCOLOGY, [facility] [address] [place] [address] Radiation Oncologist Radiation Oncology 12/09/20 Kristopher Elizabeth MD [address] [place] [address] [phone] Surgeon Surgery 12/09/20 Krishna Keen MD [address] [place] [address] [phone] Surgeon General Surgery 03/22/23
--- OUTSIDE RECORDS SUMMARY | 2024-07-31 13:43 | XMS_ITS | Encounter Summary ---
Author Organization [facility] Address [address] [address] Care Team Providers Care [place] Name Role Phone Bar Gomez MD Primary Care Provider + [phone] Reason for Visit * Reason Comments Shortness of Breath Pt presents to the E D with c/o SOB x1 week. Pt has hx of interstitial lung disease and states this has happened before but never this bad. Pt has a couple of inhalers at home, including rescue inhaler but hasn't used rescue inhaler. Pt arrives O2 88% RA, was placed on 2L NC and went up to 97%. Pt denies chest pain. Pt also endorses chills but denies fever, n/v/d, or cough. Encounter Details Date Type Department Care Team (Late st Contact Info) Description 07/29/2024 6:55 PM GRILL ATTENDANT - 07/29/2024 8:26 PM [facility] Emergency [facility] EMERGENCY DEPARTMENT [address] [place] [address] Shortness of breath Discharge Disposition: Left Against Medical Advice/Discontinued Care Social History Tobacco Use Types Packs/Day Years Used Date Smoking Tobacco: Former Cigarettes Smokeless Tobacco: Never Alcohol Use Standard Drinks/Week Comments Yes 0 (1 standard drink = 0.6 oz pur e alcohol) social, infrequent PHQ-2 Answer Date Recorded PHQ2 TOTAL SCORE 0 06/22/2022 Sex and Gender Information Value Date Recorded Sex Assigned at Not on file Gender Identity Not on file Sexual Orientation Not on file documented as of this encounter Last Filed Vital Signs Vital Sign Reading Time Taken Comments Blood Pressure 145/72 07/29/2024 2:02 PM GRILL ATTENDANT Pulse 88 07/29/2024 2:02 PM GRILL ATTENDANT Temperature 36.6 C (97.8 F) 07/29/2024 2:02 PM GRILL ATTENDANT Respiratory Rate 20 07/29/2024 2:02 PM GRILL ATTENDANT Oxygen Saturation 97% 07/29/2024 2:02 PM GRILL ATTENDANT Inhaled Oxygen Concentration - - Weight 65.3 kg (144 lb) 07/29/2024 2:02 PM GRILL ATTENDANT Height 165.1 cm (5' 5 ) 07/29/2024 2:02 PM GRILL ATTENDANT Body Mass Index 23.96 07/29/2024 2:02 PM GRILL ATTENDANT documented in this encounter Functional Status Functional Status Response Date of Assess ment Is person deaf or have serious hearing difficult y? No 05/08/2019 Is person blind or have serious difficulty seein g? No 05/08/2019 Does person have serious dif ficulty walking/climbing stairs? No 05/08/2019 Does person have difficulty dressing/bathing? No 05/08/2019 Does person have difficulty doing errands alone? No 05/08/2019 Cognitive Status Response Date of Assessm ent Does person have difficulty concentrating/remembering/making decisions? No 05/08/2019 documented as of this encounter Medications at Time of Discharge Medication Sig Dispensed Refills Start Date End Date Albuterol Sulfate 108 (90 Base) MCG/ACT Inhale 2 puffs by mouth every 6 hours as needed amoxicillin-clavulanate (Augmentin) 875-125 MG tablet Take 1 (one) tablet by mouth 2 times daily with morning and evening meal anastrozole (ARIMIDEX) 1 MG tablet Take 1 (one) tablet by mouth once daily 11/28/2021 Calcium Carbonate+Vitamin D 600-200 MG-UNIT TABS Take 1 tablet by mouth once daily Cholecalciferol (VITAMIN D3) 1.25 MG (08931 UT) capsule Take 1 (one) capsule by mouth every 7 days clopidogrel (PLAVIX) 75 MG tablet Take 1 tablet by mouth once daily 30 tablet 05/10/2019 ezetimibe (Zetia) 10 MG tablet Take 1 (one) tablet by mouth once daily fenofibrate (Tricor) 145 MG tablet Take 1 (one) tablet by mouth once daily 05/10/2023 hydroCHLOROthiazide (Hydrodiuril) 25 MG tablet Take 1 (one) tablet by mouth once daily 07/10/2022 levothyroxine (Synthroid) 300 MCG tablet Take 1 (one) tablet by mouth once daily levothyroxine (Synthroid) 75 MCG tablet Take 1 (one) tablet by mouth once daily 04/05/2023 losartan (Cozaar) 100 MG tablet Take 1 (one) tablet by mouth once daily 04/10/2022 Multiple Vitamin (MULTI-VITAMINS PO) tiotropium (SPIRIVA RESPIMAT) 2.5 MCG/ACT inhaler 2 (two) puffs once daily documented as of this encounter ED Notes * Lindsey Salazar RN - 07/29/2024 6:42 PM CST Pt approached desk stating they were going to leave. Pt signed AMA form and form uploaded into chart. Pt exited ED WR independently. L ATTENDANT * Dinah Flores - 07/29/2024 5:41 PM CST Patient continues to wait in WR att. L ATTENDANT * Nicole Abernathy APRN-CNP - 07/29/2024 2:47 PM CST Medical Screening Exam 07/29/2024 2:47 PM Provider contact with the patient Nesha Bettencourt CC: Shortness of Breath (Pt presents to the ED with c/o SOB x1 week. Pt has hx of interstitial lungdisease and states this has happened before but never this bad. Pt has a couple of inhalers at home, including rescue inhaler but hasn't used rescue inhaler. Pt arrives O2 88% RA, was placed on 2L NCand went up to 97%. Pt denies chest pain. Pt also endorses chills but denies fever, n/v/d, or cough. ) Chief complaint narrative was entered by triage nurse, not by provider Provider in Triage HPI: Nesha Bettencourt is a 83 year old female PMH as noted below who presents withincreasing shortness of breath over the last week. PMH of interstitial lung disease and pulmonary fibrosis. Is not on oxygen at home. No nasal drainage or fevers. +cough not atypical from her regularcough. Noting night sweats recently. No cp or nausea. Pt at rest is mid 90s but when tries to walk across the room, drops to the 80s. Pt sent down from [employer] [facility] office. Pt is on oxygen-2 liters n/c. PMH breast cancer. No leg swelling. Pt is on clopidogrel. Limited Chart History: Past Medical History: Diagnosis Date Depression Hyperlipidemia Hypertension Hypothyroidism Malignant neoplasm of female breast (HCC) of both breasts at different times Uterine cancer (HCC) Past Surgical History: Procedure Laterality Date Breast Lumpectomy Bilateral Hysterectomy No current facility-administered medications for this encounter. Current Outpatient Medications Medication Sig Dispense Refill Albuterol Sulfate 108 (90 Base) MCG/ACT Inhale 2 puffs by mouth every 6 hours as needed amoxicillin-clavulanate (Augmentin) 875-125 MG tablet Take 1 (one) tablet by mouth 2 times daily with morning and evening meal (Patient not taking: Reported on 08/31/2023) anastrozole (ARIMIDEX) 1 MG tablet Take 1 (one) tablet by mouth once daily Calcium Carbonate+Vitamin D 600-200 MG-UNIT TABS Take 1 tablet by mouth once daily Cholecalciferol (VITAMIN D3) 1.25 MG (97129 UT) capsule Take 1 (one) capsule by mouth every 7 days clopidogrel (PLAVIX) 75 MG tablet Take 1 tablet by mouth once daily 30 tablet 0 ezetimibe (Zetia) 10 MG tablet Take 1 (one) tablet by mouth once daily fenofibrate (Tricor) 145 MG tablet Take 1 (one) tablet by mouth once daily hydroCHLOROthiazide (Hydrodiuril) 25 MG tablet Take 1 (one) tablet by mouth once daily (Patient nottaking: Reported on 11/06/2023) levothyroxine (Synthroid) 300 MCG tablet Take 1 (one) tablet by mouth once daily levothyroxine (Synthroid) 75 MCG tablet Take 1 (one) tablet by mouth once daily losartan (Cozaar) 100 MG tablet Take 1 (one) tablet by mouth once daily Multiple Vitamin (MULTI-VITAMINS PO) tiotropium (SPIRIVA RESPIMAT) 2.5 MCG/ACT inhaler 2 (two) puffs once daily Allergies Allergen Reactions Hmg-Coa-R Inhibitors Myalgias Lisinopril Cough 5-Alpha Reductase Inhibitors Unknown PCP: Bar Gomez MD (Above may be pending completion) Review of Systems: Primary System Noted in HPI. All other systems reviewed and are negative. Vital Signs reviewed in Triage BP 145/72 Pulse 88 Temp 97.8 ??F (36.6 ??C) (Temporal) Resp 20 Ht 1.651 m (5' 5 ) Wt 65.3kg (144 lb) SpO2 97% Pertinent Physical Findings: Constitutional: vitals as above, groomed, nontoxic, nad at rest in wheelchair Head: Head normocephalic, atraumatic Eyes: conjunctiva clear ENT: no rhinorrhea Neck: neck supple, Resp: respirations even and unlabored, lungs clear bilaterally, oxygen on 2 liters, mask given. CV: regular rate and rhythm Skin: warm, dry,color normal for ethnicity MSK: wheelchair Neuro: A&O x 3, Psych: Normal affect Complete physical exam is limited due to patient sitting in up right position in chair MDM: I have reviewed all lab and imaging resulted ordered during this visit and available at the time ofthis note. Triage notes and available nursing notes reviewed. Previous medical record reviewed whenavailable. Management options include but not limited to: physical exam, laboratory testing, discussion with other providers. PLAN Diagnostic tests ordered: No orders of the defined types were placed in this encounter. MEDICATIONS FOR CURRENT ENCOUNTER: SCHEDULED MEDICATIONS: No current facility-administered medications for this encounter. CONTINUOUS MEDICATIONS: No current facility-administered medications for this encounter. PRN MEDICATIONS: No current facility-administered medications for this encounter. Clinical Impression: 1.SOB, Hypoxia. Based on the Medical Screening Exam performed and diagnostic tests at this time, further evaluationis indicated and will be performed. Patient will be transferred to a main ED room when one is available and care will be transferred to ER provider. KATHRINE Bernabe L ATTENDANT * Loreto Phan RN - 07/29/2024 2:02 PM CST Pt presents to the ED with c/o SOB x1 week. Pt has hx of interstitial lung disease and states this has happened before but never this bad. Pt has a couple of inhalers at home, including rescue inhaler but hasn't used rescue inhaler. Pt arrives O2 88% RA, was placed on 2L NC and went up to 97%. Pt denies chest pain. Pt also endorses chills but denies fever, n/v/d, or cough. Past Medical History: Diagnosis Date Depression Hyperlipidemia Hypertension Hypothyroidism Malignant neoplasm of female breast (HCC) of both breasts at different times Uterine cancer (HCC) Past Surgical History: Procedure Laterality Date Breast Lumpectomy Bilateral Hysterectomy L ATTENDANT documented in this encounter Plan of Treatment Upcoming Encounters Date Type Department Care Team (Late st Contact Info) Description 03/18/2025 10:00 AM CDT Ancillary Procedure [facility] - Echosonography [address] [facility], [address] [address] 03/18/2025 11:20 AM CDT Office Visit [facility] - Cardiology [address] [facility], [place] [id number] [place] [address] Verito Norris MD [address] [address] Pending Results Name Type Priority Associated Diagnoses Date /Time EKG 12-LEAD ECG STAT Shortness of breath 07/29/2024 3:14 PM GRILL ATTENDANT Scheduled Orders Name Type Priority Associated Diagnoses Orde r Schedule TROPONIN-I HIGH SENSITIVE REFLEX 1HOUR Lab Timed Once for 1 Occurrences starting 07/29/2024 until 07/29/2024 documented as of this encounter Procedures Procedure Name Priority Date/Time Associated Diagnosis Comments CT CHEST WO CONTRAST STAT 07/29/2024 4:18 PM GRILL ATTENDANT Shortness of breath RESPIRATORY PANEL WITH SARS-COV-2 BY PCR (STL) STAT 07/29/2024 3:33 PM GRILL ATTENDANT PT-INR [facility] STAT 07/29/2024 3:31 PM GRILL ATTENDANT TROPONIN-I HIGH SENSITIVE BASELINE + 1HR STAT 07/29/2024 3:31 PM GRILL ATTENDANT CBC W AUTO DIFFERENTIAL STAT 07/29/2024 3:31 PM GRILL ATTENDANT B-TYPE NATRIURETIC PEPTIDE STAT 07/29/2024 3:31 PM GRILL ATTENDANT COMPREHENSIVE METABOLIC PANEL STAT 07/29/2024 3:31 PM GRILL ATTENDANT MAGNESIUM BLOOD STAT 07/29/2024 3:31 PM GRILL ATTENDANT EKG 12-LEAD STAT 07/29/2024 3:14 PM GRILL ATTENDANT Shortness of breath documented in this encounter Results * CT Chest Wo Contrast (07/29/2024 4:18 PM GRILL ATTENDANT) Anatomical Region Laterality Modality Chest Computed Tomogra phy 07/29/2024 5:20 PM GRILL ATTENDANT Impressions 07/29/2024 7:08 PM GRILL ATTENDANT Impression: Bilateral bronchiectasis, honeycombing at the lower lobes, as well as peripheral reticulation. The appearance is similar to prior and consistent with UIP pattern interstitial lung disease. No new acute process in the chest. > Dictated by Angela Ordoñez MD (residential direct support professional). I, Josemanuel Shelby have personally reviewed and interpreted this examination/study. > Interpreting Provider: Josemanuel Shelby on 07/29/2024 7:08 PM Narrative 07/29/2024 7:08 PM GRILL ATTENDANT PROCEDURE: CT CHEST WO CONTRAST, DATE/TIME OF EXAM: 07/29/2024 4:18 PM, LOCATION [facility] INDICATION: R06.02: Shortness of breath ADDITIONAL CLINICAL INFORMATION: Ordering Provider Reason For Exam: r/o pneumonia, other, Technologist Note: Additional: COMPARISON: None. TECHNIQUE: CT of the chest was performed without contrast according to standard protocol. Findings: Evaluation of visceral and vascular structures is limited due to lack of intravenous contrast administration. Lower Neck and Axillae: Normal. Lungs: Bilateral bronchiectasis, honeycombing at the lower lobes, as well as peripheral reticulation. The appearance is similar to prior and consistent with UIP pattern interstitial lung disease. No pleural fluid or pneumothorax is present. Heart and Pericardium: The cardiac chambers are normal in size. Coronary calcifications. No pericardial fluid or thickening is present. Mediastinum and Deanne: Subcentimeter mediastinal lymph nodes are present. Thoracic Vasculature: The aorta and its branch vessels are atherosclerotic. Bones and Chest Wall: Bone windows demonstrate no suspicious lytic or blastic lesions. The visible osseous structures are intact. Postoperative changes of the bilateral breasts and bilateral axilla. Upper Abdomen: The visible portions of the upper abdominal organs are normal. Procedure Note Josemanuel Shelby MD - 07/29/2024 PROCEDURE: CT CHEST WO CONTRAST, DATE/TIME OF EXAM: 07/29/2024 4:18 PM, LOCATION [facility] INDICATION: R06.02: Shortness of breath ADDITIONAL CLINICAL INFORMATION: Ordering Provider Reason For Exam: r/o pneumonia, other, Technologist Note: Additional: COMPARISON: None. TECHNIQUE: CT of the chest was performed without contrast according to standard protocol. Findings: Evaluation of visceral and vascular structures is limited due to lack of intravenous contrast administration. Lower Neck and Axillae: Normal. Lungs: Bilateral bronchiectasis, honeycombing at the lower lobes, as well as peripheral reticulation. The appearance is similar to prior andconsistent with UIP pattern interstitial lung disease. No pleural fluid or pneumothorax is present. Heart and Pericardium: The cardiac chambers are normal in size. Coronary calcifications. No pericardial fluid or thickening is present. Mediastinum and Deanne: Subcentimeter mediastinal lymph nodes are present. Thoracic Vasculature: The aorta and its branch vessels are atherosclerotic. Bones and Chest Wall: Bone windows demonstrate no suspicious lytic or blastic lesions. The visible osseous structures are intact. Postoperative changes of the bilateral breasts and bilateral axilla. Upper Abdomen: The visible portions of the upper abdominal organs are normal. Impression: Bilateral bronchiectasis, honeycombing at the lower lobes, as well as peripheral reticulation. The appearance is similar to prior andconsistent with UIP pattern interstitial lung disease. No new acute process in the chest. > Dictated by Angela Ordoñez MD (residential direct support professional). IJosemanuel have personally reviewed and interpreted this examination/study. > Interpreting Provider: Josemanuel Shelby on 07/29/2024 7:08 PM Nicole Abernathy DELIVERY MGR-HAND WORKER CT ORDERABLE S * RESPIRATORY PANEL WITH SARS-COV-2 BY PCR (STL) (07/29/2024 3:33 PM GRILL ATTENDANT) Adenovirus PCR Not detected Not detected 07/30/2024 12:03 AM GRILL ATTENDANT [facility] Coronavirus 229E PCR Not detected Not detected 07/30/2024 12:03 AM GRILL ATTENDANT [facility] Coronavirus HKU1 PCR Not detected Not detected 07/30/2024 12:03 AM GRILL ATTENDANT [facility] Coronavirus NL63 PCR Not detected Not detected 07/30/2024 12:03 AM GRILL ATTENDANT [facility] Coronavirus OC43 PCR Not detected Not detected 07/30/2024 12:03 AM GRILL ATTENDANT [facility] COVID-19 PCR Not detected Not detected 07/30/2024 12:03 AM GRILL ATTENDANT [facility] Human Metapneumovirus PCR Not detected Not detected 07/30/2024 12:03 AM GRILL ATTENDANT [facility] Human Rhinovirus/Enterov irus PCR Not detected Not detected 07/30/2024 12:03 AM GRILL ATTENDANT [facility] Influenza A PCR Not detected Not detected 07/30/2024 12:03 AM GRILL ATTENDANT [facility] Influenza B PCR Not detected Not detected 07/30/2024 12:03 AM GRILL ATTENDANT [facility] Parainfluenza Virus 1 PCR Not detected Not detected 07/30/2024 12:03 AM GRILL ATTENDANT [facility] Parainfluenza Virus 2 PCR Not detected Not detected 07/30/2024 12:03 AM GRILL ATTENDANT [facility] Parainfluenza Virus 3 PCR Not detected Not detected 07/30/2024 12:03 AM GRILL ATTENDANT [facility] Parainfluenza Virus 4 PCR Not detected Not detected 07/30/2024 12:03 AM GRILL ATTENDANT [facility] Respiratory Syncytial Virus PCR Not detected Not detected 07/30/2024 12:03 AM GRILL ATTENDANT [facility] Bordetella parapertussis PCR Not detected Not detected 07/30/2024 12:03 AM GRILL ATTENDANT [facility] Bordetella pertussis PCR Not detected Not detected 07/30/2024 12:03 AM GRILL ATTENDANT [facility] Chlamydia pneumoniae PCR Not detected Not detected 07/30/2024 12:03 AM [facility] Mycoplasma pneumoniae PCR Not detected Not detected 07/30/2024 12:03 AM [facility] Microbiology SPECIMEN FROM NASOPHARYNGEAL STRUCTURE / Unknown Collection / Unknown 07/29/2024 3:33 PM GRILL ATTENDANT 07/29/2024 3:38 PM GRILL ATTENDANT Narrative [facility] - 07/30/2024 12:03 AM GRILL ATTENDANT This nucleic amplification assay has received FDA authorization via the [employer]. Nicole Abernathy DELIVERY MGR-HAND WORKER LAB - MICROB IOLOGY ORDERABLES [facility] [address] [place] [address], [facility] [phone] * PT-INR [facility] (07/29/2024 3:31 PM GRILL ATTENDANT) PT 13.7 12.1 - 14.8 Seconds 07/29/2024 4:07 PM [facility] INR 1.1 See Comment 07/29/2024 4:07 PM [facility] Comment:The suggested therap eutic range for standard coumadin (warfarin) therapy is an INR of 2.0-3.0. For high-risk patients (Mechanical Mitral Valve Prosthesis, etc.), the suggested prophylactic therapeutic range is an INR of 2.5-3.5. Blood BLOOD SPECIMEN / Unknown Venipuncture / Unknown 07/29/2024 3:31 PM GRILL ATTENDANT 07/29/2024 3:38 PM GRILL ATTENDANT Nicole Abernathy DELIVERY MGR-HAND WORKER LAB - COAGUL ATION ORDERABLES [facility] [address] [place] [address], [place] [phone] * MAGNESIUM BLOOD (07/29/2024 3:31 PM GRILL ATTENDANT) Magnesium 2.0 1.6 - 2.6 mg/dL 07/29/2024 4:39 PM [facility] Blood BLOOD SPECIMEN / Unknown Venipuncture / Unknown 07/29/2024 3:31 PM GRILL ATTENDANT 07/29/2024 3:41 PM GRILL ATTENDANT Nicole Calderontravis [place]-HAND WORKER [facility] - CHEMIS TRY ORDERABLES Performing Organization Address City/[facility]/ZIP Co de Phone Number [facility] [address] [place] [address], [facility] [phone] * (ABNORMAL) B-TYPE NATRIURETIC PEPTIDE (07/29/2024 3:31 PM GRILL ATTENDANT) Pathologist [facility] BNP 102(H) <100 pg/mL 07/29/2024 4:41 PM GRILL ATTENDANT [facility] Comment: A decision threshold of 100 pg/mL has been demonstrated to provide the maximal combination of sensitivity, specificity and predictive value for the diagnosis of congestive heart failure (CHF). Virtually all patients with no evidence of CHF have BNP values less than 100 pg/mL. A BNP value greater than 100 pg/mL is consistent with the diagnosis of CHF in the appropriate clinical setting. In a study of 693 patients (male and female) with diagnosed CHF, the following values were determined based on the NYHA functional classification system: NYHA Functional Class Mean Valule (pg/mL) % >100 pg/mL I 320 58.1 II 432 73.0 III 656 79.0 IV 1635 98.3 Blood BLOOD SPECIMEN / Unknown Venipuncture / Unknown 07/29/2024 3:31 PM GRILL ATTENDANT 07/29/2024 3:41 PM GRILL ATTENDANT Nicole Calderontravis DELIVERY MGR-HAND WORKER LAB - CHEMIS TRY ORDERABLES [facility] [address] [place] [address], [facility] [phone] * (ABNORMAL) COMPREHENSIVE METABOLIC PANEL (07/29/2024 3:31 PM GRILL ATTENDANT) Pathologist [facility] BUN 19 7 - 26 mg/dL 07/29/2024 4:39 PM GRILL ATTENDANT [facility] Creatinine 1.07(H) 0.56 - 0.96 mg/dL 07/29/2024 4:39 PM GRILL ATTENDANT [facility] Sodium 139 136 - 145 mmol/L 07/29/2024 4:39 PM [facility] Potassium 3.9 3.5 - 4.5 mmol/L 07/29/2024 4:39 PM [facility] Chloride 106 98 - 107 mmol/L 07/29/2024 4:39 PM [facility] CO2 25 22 - 29 mmol/L 07/29/2024 4:39 PM [facility] Glucose 101(H) 70 - 99 mg/dL 07/29/2024 4:39 PM [facility] Calcium 9.6 8.4 - 10.2 mg/dL 07/29/2024 4:39 PM [facility] Protein Total 7.5 6.0 - 8.3 g/dL 07/29/2024 4:39 PM [facility] Albumin 3.5 3.4 - 5.0 g/dL 07/29/2024 4:39 PM [facility] Bilirubin Total 0.4 0.2 - 1.2 mg/dL 07/29/2024 4:39 PM [facility] Alkaline Phosphatase 46 40 - 150 U/L 07/29/2024 4:39 PM [facility] ALT 9 5 - 55 U/L 07/29/2024 4:39 PM [facility] AST 18 5 - 34 U/L 07/29/2024 4:39 PM [facility] Anion Gap 8 6 - 16 07/29/2024 4:39 PM [facility] BUN/Creatinine Ratio 18 7 - 23 07/29/2024 4:39 PM [facility] Osmolality Calculated 290 275 - 295 mOsm/kg 07/29/2024 4:39 PM [facility] Albumin/Globulin Ratio 0.9(L) 1.1 - 2.3 07/29/2024 4:39 PM [facility] eGFR by CKD-EPI 52(L) >=90 mL/min/1.7 3 m2 07/29/2024 4:39 PM [facility] Blood BLOOD SPECIMEN / Unknown Venipuncture / Unknown 07/29/2024 3:31 PM GRILL ATTENDANT 07/29/2024 3:41 PM [facility] Nicole Abernathy DELIVERY MGR-HAND WORKER LAB - CHEMIS TRY ORDERABLES [facility] [address] [place] [phone], [facility] [phone] * (ABNORMAL) CBC W AUTO DIFFERENTIAL (07/29/2024 3:31 PM GRILL ATTENDANT) WBC 5.1 4.0 - 10.7 x10E9/L 07/29/2024 3:56 PM [facility] RBC Count 3.88(L) 3.90 - 5.20 x10E12/L 07/29/2024 3:56 PM [facility] Hemoglobin 12.0 11.9 - 15.8 g/dL 07/29/2024 3:56 PM [facility] Hematocrit 36.0 34.8 - 46.1 % 07/29/2024 3:56 PM [facility] MCV 92.8 80.0 - 98.0 fL 07/29/2024 3:56 PM [facility] MCH 30.9 26.7 - 33.6 pg 07/29/2024 3:56 PM [facility] MCHC 33.3 31.7 - 36.3 g/dL 07/29/2024 3:56 PM [facility] RDW-CV 13.4 11.3 - 14.8 % 07/29/2024 3:56 PM [facility] Platelet Count 224 150 - 420 x10E9/L 07/29/2024 3:56 PM [facility] MPV 8.7 7.8 - 11.4 fL 07/29/2024 3:56 PM [facility] Neutrophil % 64.0 41.0 - 74.0 % 07/29/2024 3:56 PM [facility] Lymphocyte % 25.1 17.0 - 47.0 % 07/29/2024 3:56 PM [facility] Monocyte % 7.2 3.0 - 11.0 % 07/29/2024 3:56 PM [facility] Eosinophil % 2.9 0.0 - 7.0 % 07/29/2024 3:56 PM [facility] Basophil % 0.2 0.0 - 1.6 % 07/29/2024 3:56 PM [facility] Immature Granulocytes % 0.6 0.0 - 1.0 % 07/29/2024 3:56 PM [facility] Neutrophil Absolute 3.28 1.60 - 7.50 x10E9/L 07/29/2024 3:56 PM [facility] Lymphocyte Absolute 1.29 1.00 - 4.40 x10E9/L 07/29/2024 3:56 PM [facility] Monocyte Absolute 0.37 0.15 - 1.00 x10E9/L 07/29/2024 3:56 PM [facility] Eosinophil Absolute 0.15 0.00 - 0.60 x10E9/L 07/29/2024 3:56 PM [facility] Basophil Absolute 0.01 0.00 - 0.13 x10E9/L 07/29/2024 3:56 PM [facility] Blood BLOOD SPECIMEN / Unknown Venipuncture / Unknown 07/29/2024 3:31 PM GRILL ATTENDANT 07/29/2024 3:41 PM GRILL ATTENDANT Nicole Abernathy APRN-HAND WORKER LAB - HEMATO LOGY ORDERABLES [address] [address], [facility] [phone] * TROPONIN-I HIGH SENSITIVE BASELINE + 1HR (07/29/2024 3:31 PM GRILL ATTENDANT) Troponin I High Sensitive 7 <=14 ng/L 07/29/2024 4:44 PM GRILL ATTENDANT [facility] Blood BLOOD SPECIMEN / Unknown Venipuncture / Unknown 07/29/2024 3:31 PM GRILL ATTENDANT 07/29/2024 3:41 PM GRILL ATTENDANT Nicole Abernathy APRN-HAND WORKER LAB - CHEMIS TRY ORDERABLES [address] [address], [facility] [phone] documented in this encounter Visit Diagnoses Diagnosis Shortness of breath documented in this encounter Administered Medications Inactive Administered Medications - up to 3 most recent administrations Medication Order MAR Action Action Date Dose Rate Site 0.9% NaCl injection 1-10 mL 1-10 mL, Intracatheter, PRN, Other, peripheral line flush, Starting on Sun07/29/24 at 1455, Until Sun07/29/24 at 2126, Flush peripheral IV catheter with 1-10 mL of normal saline before and after medications and prn to clear blood from the line or to verify patency. 0.9% NaCl injection 3 mL 3 mL, Intracatheter, EVERY 8 HOURS, First dose on Sun07/29/24 at 1530, Until Discontinued, Flush peripheral IV catheter with 3 mL of normal saline every 8 hours. documented in this encounter Active and Recently Administered Medications Times are shown in GRILL ATTENDANT. Scheduled Medication Order 07/27/2024 07/28/2024 07/29/2024 0.9% NaCl injection 3 mL(Linked Group 1) 3 mL, Intracatheter, EVERY 8 HOURS, First dose on Sun07/29/24 at 1530, Until Discontinued, Flush peripheral IV catheter with 3 mL of normal saline every 8 hours. 1533 (Canceled Entry - Provider: Alfred Hunt RN) PRN Medication Order 07/27/2024 07/28/2024 07/29/2024 0.9% NaCl injection 1-10 mL(Linked Group 1) 1-10 mL, Intracatheter, PRN, Other, peripheral line flush, Starting on Sun07/29/24 at 1455, Until Sun07/29/24 at 2126, Flush peripheral IV catheter with 1-10 mL of normal saline before and after medications and prn to clear blood from the line or to verify patency. Linked Groups Order Group 1: SALINE LOCK, INSERT AND MAINTAIN (CANCELED) Routine, CONTINUOUS, Starting on Sun07/29/24 at 1500, Until Specified, New collection, Task Completed: Yes And 0.9% NaCl injection 3 mLJump to med 3 mL, Intracatheter, EVERY 8 HOURS, First dose on Sun07/29/24 at 1530, Until Discontinued, Flush peripheral IV catheter with 3 mL of normal saline every 8 hours. And 0.9% NaCl injection 1-10 mLJump to med 1-10 mL, Intracatheter, PRN, Other, peripheral line flush, Starting on 07/29/24 at 1455, Until 07/29/24 at 2126, Flush peripheral IV catheter with 1-10 mL of normal saline before and after medications and prn to clear blood from the line or to verify patency. 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
--- OUTSIDE RECORDS SUMMARY | 2024-07-31 13:43 | XMS_ITS | Encounter Summary ---
Author Organization [facility] Health Address [address] [place] [address] Care Team Providers Care Rug Receiving Clerk Name Role Phone Bar Gomez MD Primary Care Provider Encounter Details Date Type Department Care Team (Late st Contact Info) Description 07/30/2024 Telephone [facility] - Pulmonology [address] [facility] [place] [id number] Brody Yoder MD [address] [place] [address] Social History Tobacco Use Types Packs/Day Years [...] on file documented as of this encounter Functional Status Functional Status Response [...] No 05/08/2019 documented as of this encounter Miscellaneous Notes * Telephone Encounter - Kira Bragg RN - 07/30/2024 3:32 PM CST Patient called inquiring about a medication you were possibly going to prescribe her. She was in the ED last night, and said she had a lot of test done, but did not get anything. Patients call back number is [phone]. 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 documented in this encounter Plan of Treatment Upcoming Encounters Date Type Department Care Team (Late st Contact Info) Description 03/18/2025 10:00 AM CDT Ancillary Procedure [facility] - Echosonography [address] [facility], [address] [phone] 03/18/2025 11:20 AM CDT Office Visit [facility] - Cardiology [address] [facility], [place] [id number] [place] [address] Verito Norris MD [address] [place] [id number] documented as of this encounter Visit Diagnoses Not on filedocumented in this encounter Additional Health Concerns Infection Onset Date Last Indicated Resolved Time COVID-19 Under Investigation 07/29/2024 07/29/2024 07/30/2024 12:03 AM 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
--- OUTSIDE RECORDS SUMMARY | 2024-07-31 13:43 | XMS_ITS | Data Portability ---
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 Edger Tailer variances may occur. Despite proofreading, typographical errors may occur. Occasional wrong-word or 'zguoy-[id number]' substitutions may have occurred due to the inherent limitations of voice recording. Read the chart carefully and recognize, using context, where substitutions have occurred. Not available 12/31/2023 14:22:16 Plan of Treatment Reminders Order Date Submit Date Provider Last Modified By Organization Details Last Modified Time Details Appointments Any 15 2024 11:30A Efren Miller MD Not available Not available Not available Establish ed Patient 30 2024 01:00P Efren Jones MD Not available Not available Not available Medicare Wellness 15 2024 11:00A Efren Miller MD Not available Not available Not available Lab lipid panel, serum [address] [facility] (Lab), [address] [place], [address], 01/24/2024 08:11:28 TSH, serum or plasma [address] [facility] (Lab), [address] [place], [address], 01/24/2024 08:11:28 Referral home health referral - please eval and treat with PT/OT for leg pain, she is not able to drive and needs in home therapy; if she is not able to obtain in home therapy, can we try to arrange for transport ation to outpient 2023 024 [email or web address] [facility] ([facility] [address], [address], 03/06/2024 10:36:58 Procedures None recorded. Surgeries None recorded. Imaging XR, foot, 3 or more view [email or web address] [place] [address] [facility] [place], [address], [place], [address], 12/31/2023 15:14:17 XR, foot, 3 or more view [email or web address] [place] [address] [facility] [place], [address], [place], [address], 03/10/2024 08:53:26 Medication Orders cyclobenz aprine 5 mg tablet 2023 024 [id number], [address] [facility] [address] [place] [address], [id number], 05/15/2024 09:57:36 tramadol 50 mg tablet 2023 024 [email or web address] #36149, [address] [facility] [address] [place] [address], [id number], 05/15/2024 09:57:28 pregabali n 50 mg capsule 2023 024 JUAN [facility] #[id number], [address], [id number], 05/15/2024 10:31:05 Patient Targets Encounter Date Encounter Id Patient Goals Patient Target Last Modified By Organization Details Last Modified Time This note is dictated and transcribed by [employer] Direct Software. Edger Tailer variances may occur. Despite proofreading, typographical errors may occur. Occasional wrong-word or '[id number]' substitutions may have occurred due to the inherent limitations of voice recording. Read the chart carefully and recognize, using context, where substitutions have occurred. Not available 03/10/2024 08:52:20 Patient Instructions Encounter Date Encounter Id Patient Instructions Last Modified By Organization Details Last Modified Time 01/10/2024 [id number] dementia rating scale-2* Not available 01/10/2024 12:54:33 alcohol misuse* Not available 01/10/2024 12:54:33 depression screening* Not available 01/10/2024 12:54:33 multi-dimensiona l health assessment questionnaire* Not available 01/10/2024 12:54:33 Personalized a lt Plan and Screening Recommendations Advance Directives - Do you have one? Yes You have indicated that you are capable of preparing your advance care directive Advance Directives - Do we have your advance directive on file in your health record? No, please bring in a copy at your earliest convenience Primary Prevention/Interven tion (prevents or decreases the chance of common diseases from occurring) Smoking Risk: Non Smoker Alcohol Misuse Screening: Negative Weight: Appropriate Physical activity: Need more exercise/physical activity minimum of 10-20 minutes of activity that causes mild breathlessness/day Nutrition: Good Average Refer to attached handout Heart-Healthy Diet: After Your Visit Fall Risk (screened today): Low Refer to attached handout Preventing Falls: After your Visit Vaccines Pneumococcal: Ordered Recommended today Recommended today, but you have declined No further needed Influenza: Your next one in the fall of this year Chronic Disease Risks Stroke: Low Risk Intermediate Risk I have no recommendations Act vinicio diagnosis, Continue current treatment plan Heart Attack: Low risk Intermediate Risk I have no recommendations Act vinicio diagnosis, Continue current treatment plan Clogging of the Arteries: Low risk Intermediate Risk I have no recommendations Act vinicio diagnosis, Continue current treatment plan Diabetes: Low Risk I have no recommendations Secondary Prevention/Interven tion (detects treatable diseases before they may cause symptoms, disability, or ) Breast Cancer Screening with mammogram: No screening necessary Cervical/Uterine/Ov carlos enrique Cancer Screening: No screening necessary Osteoporosis Screening: No screening necessary Date Screening Last Performed: Colon Cancer Screening: Colonoscopy No screening necessary Date Screening Last Performed: 2019 Eye Disease Screening: Dementia Risk: Low I have no recommendations Depression Screening: Negative [email or web address] Not available 01/10/2024 12:03:58 Reason for Referral Home Health Referral for Bunny n in left lower limb please eval and treat with PT/OT for leg pain, she is not able to drive and needs in home therapy; if she is not able to obtain in home therapy, can we try to arrange for transportation to outpient Referring Physician: Lucia Ratliff, Family Medicine, Encounter Date: 02/01/2024 Results Created Date Observation Date Name Description Value Unit Range Abnormal Flag Note LastModifiedBy Organization Detail LastModifiedTime 12/31/19 24 XR, foot, 3 or more view No observ ation record ed. [email or web address] [facility] [place] [address], [place], [address], 12/31/2023 15:14:15 03/10/20 24 XR, foot, 3 or more view No observ ation record ed. [email or web address] [facility] [place] [address], [place], [address], 03/10/2024 08:53:24 Result Notes None recorded. 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 Not Available [facility] 4 12:21:55 Laborato ry test result abnormal 060109898 Completed Not Available [facility] 3 02:55:29 Impacted cerumen 12961485 Completed Not Available [facility] 3 02:55:29 Intersti tial lung disease 210569906 Active 2021 Not Available [facility] 4 12:21:55 Malignan t tumor of breast 490170062 Active 2021 Not Available [facility] 4 12:21:55 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 730776291 Active 2021 Not Available [facility] 4 12:21:55 History of cerebrov ascular disease 589740672 Active 2020 Not Available [facility] 4 12:21:55 Knee pain Completed Not Available [facility] 3 02:55:30 Osteopen ia 202299314 Active Not Available [facility] 4 12:21:56 Vitamin D deficien cy 69298492 Active Not Available [facility] 4 12:21:56 Arthriti s 8078472 Active Not Available [facility] 4 12:21:56 Neuropat hy 011223597 Active 2021 Not Available [facility] 4 12:21:56 Divertic ular disease 705558350 Active Not Available [facility] 4 12:21:56 Onychomy cosis of toenails 589604059 Completed 201809/12/2018 Not Available [facility] 3 02:55:30 Hypothyr oidism 10760747 Active Not Available [facility] 4 12:21:56 Acute urinary tract infectio n 700108249 Completed 202102/08/2022 Chance Jones MD [address] [place] [address], [address] , [facility] 4 17:04:20 Hyperlip idemia 12006968 Active Not Available [facility] 4 12:21:56 Essentia l hyperten deb 15895125 Active 2018 Not Available [facility] 4 12:21:56 Tinea pedis 2722328 Completed 201802/08/2022 Not Available [facility] 3 02:55:31 Aortic valve stenosis 33686154 Active 2021 Not Available [facility] 4 12:21:56 Pulmonar y hyperten deb 66484778 Active 2021 Not Available [facility] 4 12:21:56 Neck pain 65128174 Completed Not Available [facility] 3 02:55:31 Dystroph ia unguium 48399221 Completed 201702/08/2022 Not Available [facility] 3 02:55:31 Heart murmur 85562237 Active 2017 Not Available [facility] 4 12:21:56 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 267767685 Active 2022 Not Available [facility] 4 12:21:56 Hearing loss 63968038 Active 2022 Not Available [facility] 4 12:21:55 Mixed hyperlip idemia 750031313 Active 2022 Not Available [facility] 4 12:21:55 Closed fracture of fifth metatars al bone 31870765 Active 2023 Tej Madrigal DPM [address], [place], [address] , [facility] 4 16:17:33 Chronic diarrhea 277416510 Active 2023 Ashly verduzco, A null, [place] [facility] 4 10:04:50 Chronic kidney disease stage 3 609244263 Active 2023 William Miller MD [address], [address], [place], [address] , [facility] 4 10:29:24 Kidney disease 68273707 Active 2023 William Miller MD [address], [address], [place], [address] , [facility] 4 10:29:37 Fracture of foot 79592789 Active 2023 William Miller MD [address], [address], [place], [address] , [place] [employer] 4 10:33:50 Pain in left lower limb 118687401 Active 2023 Lucia Ratliff NP [address] [facility], [facility] [address], [place], [address] , [employer] 4 14:40:17 Notes:Medical History: CVA D epression COVID infection 05/2021 Eosinophils 160/uL IgE 31 IU/mL Hypothyroidism Mixed hyperlipidemia Hypertension HFpEF 60% Mild MR Mod Alpha-1 antitrypsin PiMM 191 mg% Mild COPD Mod ILD with bronchiectasis, off exertional O2 (+) Aurebasidium pullulans antibodies (+) SIMONE 1:640 homogeneous (+) SIMONE 1:160 speckled (+) CCP antibodies Severe pulm hypertension Small hiatal hernia Left hepatic cysts Diverticulosis Vit D deficiency Osteopenia Thoracic spondylosis DVT on Xarelto Tinea pedis Procedure History: Colonoscopy 2008 [facility]TER-BSO for ca Left breast lumpectomy + radiation 1994 Right breast lumpectomy + chemo + radiation 2020 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 Procedures Surgical History Date Name Laterality Status Provider Name and Address Organization Details Recorded Time 01/10/20 24 Medicare Wellness CPT Code, subsequent completed Juanita Richards RN [place] [facility] 01/10/2024 10:54:16 12/07/19 23 Medicare Wellness CPT Code, subsequent completed Kerri De Guzman RN [place] [facility] 12/06/2022 10:23:44 10/30/19 20 Date of Last Colonoscopy completed Not Available [facility] 08/23/2022 02:48:28 09/22/19 20 Most Recent Bone Density completed Not Available [facility] 08/23/2022 02:48:28 screening for malignant neoplasm of breast completed Sandra Gruber [employer] 09/03/2023 14:55:32 Imaging Results Imaging Date Name Status LastModified by Organiz ation Details LastModified Time 12/31/2023 XR, foot, 3 or more view completed [email or web address] [facility] [place] [address], [place], [address], 12/31/2023 15:14:15 03/10/2024 XR, foot, 3 or more view completed [email or web address] [facility] [place] [address], [place], [address], 03/10/2024 08:53:24 Procedure Notes None recorded. Medical Equipment None Reported. Allergies Allergen ID Allergen Name Allergen Category Reaction Reaction Severity Criticality Documentation Date Start Date Code Code System Note Provider Name and Address Organization Details Recorded Time 4852 Product containin g 3-hydroxy -3-methyl glutaryl- coenzyme A reductase inhibitor (product) medicatio n Not available Not available Not available 08/23/2022 89714 009 SNOMED muscl e cramp s Not Available [facility] 3 03:04:07 4853 lisinopri l medicatio n cough Not available Not available 08/23/2022 42230 RxNorm Not Available [facility] 3 03:04:07 Medications Name Sig Start Date Stop Date Status Note LastModified by Organization Details LastModified Time losartan 50 mg tablet TAKE 1 TABLET BY MOUTH DAILY 08/21 completed Not Available Not Available Not Available atorvasta tin 40 mg tablet TK 1 T PO QD active Not Available Not Available No t Available anastrozo le 1 mg tablet Take 1 tablet every day by oral route for 90 days. active Not Available Not Available No t Available venlafaxi ne ER 37.5 mg capsule,e xtended release 24 hr Take 1 capsule every day by oral route. 01/14 completed Not Available Not Available Not Available venlafaxi ne ER 75 mg capsule,e xtended release 24 hr TAKE 1 CAPSULE BY MOUTH EVERY DAY active Not Available Not Available No t Available azithromy natalia 250 mg tablet 2 tabs po qd x 1 day then 1 tab po qd x 4 days 07/31 completed Not Available Not Available Not Available lisinopri l 20 mg tablet TAKE 1 TABLET BY MOUTH EVERY DAY active Not Available Not Available No t Available ondansetr on HCl 4 mg tablet 10/12 completed Not Available Not Available Not Available clindamyc in HCl 150 mg capsule TAKE 1 CAPSULE BY MOUTH EVERY 8 HOURS FOR 10 DAYS 06/08 completed Not Available Not Available Not Available clopidogr el 75 mg tablet TAKE 1 TABLET BY MOUTH EVERY DAY 2024 active Not Available Not Available Not Avai lable ciproflox acin 250 mg tablet TAKE 1 TABLET BY MOUTH TWICE DAILY FOR 5 DAYS DIRECTED 09/02 completed Not Available Not Available Not Available aspirin 81 mg tablet,de layed release Take 1 tablet every day by oral route. 06/08 completed Not Available Not Available Not Available tramadol 50 mg tablet TAKE 1 TABLET BY MOUTH EVERY 8 HOURS 05/15 completed Not Available Not Available Not Available simvastat in 40 mg tablet TAKE 1 TABLET BY MOUTH EVERY DAY active Not Available Not Available No t Available levothyro xine 25 mcg tablet Take 1 tablet every day by oral route. active Not Available Not Available No t Available levothyro xine 75 mcg tablet TAKE 1 TABLET BY MOUTH EVERY DAY 2024 active Not Available Not Available Not Avai lable ciclopiro x 8 % topical solution APPLY TO THE AFFECTED AREA(S) BY TOPICAL ROUTE ONCE DAILY PREFERAB LY AT BEDTIME OR 8 HOURS BEFORE WASHING active Not Available Not Available No t Available prednisol one acetate 1 % eye drops,fantasma pension 01/14 completed Not Available Not Available Not Available triamcino lone acetonide 0.025 % topical cream JACQUELINE SML AMT EXT AA BID 01/14 completed Not Available Not Available Not Available Kenalog 10 mg/mL suspensio n for injection In office injectio n administ ered by the provider 12/16 completed [facility]: [phone] 4-20 Not Available Not Available Not Available phenazopy ridine 100 mg tablet TAKE 2 TABLETS BY MOUTH THREE TIMES DAILY FOR 2 DAYS 05/08 completed Not Available Not Available Not Available benzonata te 100 mg capsule 09/02 completed Not Available Not Available Not Available levothyro xine 50 mcg tablet TAKE 1 TABLET BY MOUTH EVERY DAY 09/04 completed Not Available Not Available Not Available venlafaxi ne 37.5 mg tablet TK 1 T PO QD active Not Available Not Available No t Available clotrimaz ole-betam ethasone 1 %-0.05 % topical cream APPLY TO THE AFFECTED AND SURROUND ING AREAS OF Great toe SKIN BY TOPICAL ROUTE 2 TIMES PER DAY IN THE MORNING AND EVENING FOR 2 WEEKS active Not Available Not Available No t Available triamcino lone acetonide 55 mcg nasal spray aerosol USE 2 SPRAYS IN EACH NOSTRIL DAILY 05/08 completed Not Available Not Available Not Available gabapenti n 300 mg capsule 05/08 completed Not Available Not Available Not Available diclofena c sodium 75 mg tablet,de layed release Take 1 tablet every 12 hours by oral route as needed. active Not Available Not Available No t Available hydrochlo rothiazid e 25 mg tablet TAKE 1 TABLET BY MOUTH EVERY DAY 10/28 completed Not Available Not Available Not Available mupirocin 2 % topical ointment APPLY TO ANTERIOR NASAL PASSAGE TWICE DAILY 06/08 completed Not Available Not Available Not Available levofloxa natalia 500 mg tablet 06/08 completed Not Available Not Available Not Available methylpre dnisolone 4 mg tablets in a dose pack TK UTD 08/21 completed Not Available Not Available Not Available albuterol sulfate HFA 90 mcg/actua tion aerosol inhaler INHALE 1 PUFF BY MOUTH EVERY 4 HOURS NEEDED active Not Available Not Available No t Available Vitamin D2 1,250 mcg (50,000 unit) capsule Take 1 capsule every week by oral route. active Not Available Not Available No t Available losartan 100 mg tablet TAKE 1 TABLET BY MOUTH EVERY DAY 2023 active Not Available Not Available Not Avai lable doxycycli ne hyclate 100 mg tablet TAKE 1 TABLET BY MOUTH TWICE DAILY 09/02 completed Not Available Not Available Not Available amoxicill in 875 mg-potass ium clavulana te 125 mg tablet TAKE 1 TABLET BY MOUTH EVERY 12 HOURS 01/31 completed Not Available Not Available Not Available amoxicill in 500 mg-potass ium clavulana te 125 mg tablet 08/21 completed Not Available Not Available Not Available oxycodone 5 mg tablet 06/08 completed Not Available Not Available Not Available neomycin 3.5 mg/g-poly myxin B 10,000 unit/g-de xameth 0.1 % eye oint 08/21 completed Not Available Not Available Not Available ezetimibe 10 mg tablet TAKE 1 TABLET BY MOUTH EVERY DAY 2023 active HARPAL 05/15/24 NOV 09/11/24 ok to rf Not Available Not Available Not Available cyclobenz aprine 5 mg tablet TAKE 1 TABLET BY MOUTH THREE TIMES DAILY NEEDED 05/15 completed Not Available Not Available Not Available rosuvasta tin 10 mg tablet TK 1 T PO QD 09/12 completed insuranc e switched to tier 2 Not Available Not Available Not Available rosuvasta tin 20 mg tablet TK 1 T PO ONCE D 08/21 completed Not Available Not Available Not Available nitrofura ntoin monohydra te/macroc rystals 100 mg capsule TAKE 1 CAPSULE BY MOUTH TWICE DAILY FOR 7 DAYS 05/15 completed Not Available Not Available Not Available Vytorin 10 mg-40 mg tablet Take 1 tablet(s ) every day by oral route. active Not Available Not Available No t Available pregabali n 50 mg capsule Take 1 capsule twice a day by oral route. 2023 active Not Available Not Available Not Avai lable Aspir-81 05/17 completed Not Available Not Available Not Available Vitamin D3 50mcg 2021 active Not Available Not Available Not Avai lable Centrum active Not Available Not Avail able Not Available Calcium with Vitamin D QD 12/31 completed Not Available Not Available Not Available Calcium 600 + D(3) 2021 active Not Available Not Available Not Avai lable fenofibra te 09/05 completed Not Available Not Available Not Available lidocaine (PF) 10 mg/mL (1 %) injection solution In office injectio n administ ered by the provider 12/16 completed [facility]: 0409-427 6-17 Not Available Not Available Not Available fenofibra te nanocryst allized 145 mg tablet TAKE 1 TABLET BY MOUTH EVERY DAY 2023 active HARPAL 05/15/24 NOV 09/12/23 ok to rf Not Available Not Available Not Available FeroSul 325 mg (65 mg iron) tablet TAKE 1 TABLET BY MOUTH DAILY WITH BREAKFAS T 10/17 completed Not Available Not Available Not Available Gavilyte- C 240 gram-22.7 2 gram-6.72 gram-5.84 gram oral solution MIX AND DRINK UTD active Not Available Not Available No t Available Suprep Bowel Prep Kit 17.5 gram-3.13 gram-1.6 gram oral solution active Not Available Not Available Not Available Xarelto 20 mg tablet 01/30 completed Not Available Not Available Not Available Ofev 150 mg capsule 05/08 completed Not Available Not Available Not Available Spiriva Respimat 2.5 mcg/actua tion solution for inhalatio n INHALE 2 PUFFS BY MOUTH EVERY DAY active Not Available Not Available No t Available Caltrate- D3 Plus Minerals QD 10/12 completed Not Available Not Available Not Available Vitals Date Recorded Body height Heart rate Systolic blood pressure Diastolic blood pressure Provider Name and Address Organization Details Last Updated DateTime 12/31/2023 165.1 cm 80 /min 170 mm[Hg] 94 mm[Hg] Michelle Love [facility] [employer] 12/31/2023 14:24:34 Date Recorded Body height Body mass index (BMI) Body weight Body temperature Heart rate Oxygen saturation Oxygen saturation in Arterial blood by Pulse oximetry Systolic blood pressure Diastolic blood pressure Provider Name and Address Organization Details Last Updated DateTime 4 165.1 cm 25.6 kg/m2 55141.2 2 g 97.6 [degF] 90 /min 92 % 92 % 164 mm[Hg] 84 mm[Hg] MARYBEL Olmedo [facility] [employer] 4 10:27:11 Date Recorded Pain severity - 0-10 verbal numeric rating [Score] - Reported Provider Name and Address Organization Details Last Updated DateTime 01/10/2024 0 Juanita Richards RN [facility] [employer] [facility] 01/10/2024 11:59:53 Date Recorded Body height Body mass index (BMI) Body weight Body temperature Heart rate Oxygen saturation Oxygen saturation in Arterial blood by Pulse oximetry Systolic blood pressure Diastolic blood pressure Provider Name and Address Organization Details Last Updated DateTime 4 165.1 cm 25 kg/m2 52524.8 6 g 98.4 [degF] 94 /min 97 % 97 % 130 mm[Hg] 72 mm[Hg] Kelli Nagel [place] [employer] [facility] [employer] [facility] 4 14:32:23 Date Recorded Body height Body mass index (BMI) Body weight Heart rate Respiratory rate Body temperature Systolic blood pressure Diastolic blood pressure Provider Name and Address Organization Details Last Updated DateTime 4 165.1 cm 25 kg/m2 68233.8 6 g 86 /min 14 /min 98.6 [degF] 130 mm[Hg] 70 mm[Hg] Kerri Lorenzo MA [facility] 4 16:13:39 Date Recorded Body height Body mass index (BMI) Body weight Body temperature Heart rate Oxygen saturation Oxygen saturation in Arterial blood by Pulse oximetry Systolic blood pressure Diastolic blood pressure Provider Name and Address Organization Details Last Updated DateTime 4 165.1 cm 25 kg/m2 79177.8 6 g 97.4 [degF] 94 /min 98 % 98 % 136 mm[Hg] 72 mm[Hg] MARYBEL Olmedo [facility] 4 09:52:38 Social History Question Answer Notes LastModified by Organization Details LastModified Time Tobacco Smoking Status Former Smoker Sandra tovar [facility] 05/08/2023 10:19:54 Do You Have An Advance Directive? Yes [id number] Information not available 08/23/2022 What Is Your Level Of Alcohol Consumption? Occasional [id number] Information not available 08/23/2022 How Many Years Have You Consumed Alcohol? 21 [email or web address] Information not available 01/10/2024 Are You Blind Or Do You Have Difficulty Seeing? No Information not available 05/08/2023 Is Blood Transfusion Acceptable In An Emergency? Yes [email or web address] Information not available 01/10/2024 What Is Your Level Of Caffeine Consumption? Occasional Information not available 09/03/2023 What Is Your Code Status? Other [email or web address] Information not available 01/10/2024 In The 14 Days Before Symptom Onset, Have You Had Close Contact With A Laboratory-confi rmed COVID-19 While That Case Was Ill? No Information not available 05/08/2023 In The 14 Days Before Symptom Onset, Have You Had Close Contact With A Person Who Is Under Investigation For COVID-19 While That Person Was Ill? No Information not available 05/08/2023 Are You Currently Employed? No [email or web address] Information not available 01/10/2024 Are You Deaf Or Do You Have Serious Difficulty Hearing? Yes Has A Hearing Aid For The Left Ear, Since Mar 2023 [email or web address] Information not available 01/10/2024 What Type Of Diet Are You Following? REGULAR [id number] [id number] Information not available 08/23/2022 Do You Or Have You Ever Used E-cigarettes Or Vape? Never Used Electronic Cigarettes Information not available 05/08/2023 What Is The Highest Grade Or Level Of School You Have Completed Or The Highest Degree You Have Received? [id number] [email or web address] Information not available 01/10/2024 Do You Have An Electrostatic Air Filter? No Information not available 05/08/2023 What Is Your Occupation? Retired Information not available 05/08/2023 How Many Days Of Moderate To Strenuous Exercise, Like A Brisk Walk, Did You Do In The Last 7 Days? 5 [email or web address] Information not available 01/10/2024 On Those Days That You Engage In Moderate To Strenuous Exercise, How Many Minutes, On Average, Do You Exercise? 20 [email or web address] Information not available 01/10/2024 Have There Been Any Changes To Your Family Or Social Situation? No [email or web address] Information not available 01/10/2024 What Is The Fluoride Status Of Your Home? Fluoridated Information not available 05/08/2023 When Did You Quit Smoking? 16+yearssincelastc igarette Information not available 05/08/2023 Are There Any Guns Present In Your Home? No Information not available 05/08/2023 Do You Have A Humidifier? Yes Information not available 05/08/2023 Do You Use Insect Repellent Routinely? No [email or web address] Information not available 01/10/2024 Where Do You Live? SingleLevelHouse Information not available 05/08/2023 Presence Of Domestic Violence No [email or web address] Information not available 01/10/2024 Guns Present In The Home? No [email or web address] Information not available 01/10/2024 Are You Able To Care For Yourself? Yes [email or web address] Information not available 01/10/2024 Are You Blind Or Do Yo Have Difficulty Seeing? No [email or web address] Information not available 01/10/2024 Are You Deaf Or Do You Have Serious Difficulty Hearing? Yes [email or web address] Information not available 01/10/2024 General Stress Level? Low [email or web address] Information not available 01/10/2024 Live Alone Of With Others? Alone [email or web address] Information not available 01/10/2024 Do You Have A Medical Power Of Board [place]? Yes Information not available 05/08/2023 Do You Have Moisture Problems In Your Home? No Information not available 05/08/2023 What Was The Date Of Your Most Recent Tobacco Screening? 01/10/2024 [email or web address] Information not available 01/10/2024 How Many Children Do You Have? 3 [email or web address] Information not available 01/10/2024 What Is Your Current Pack Years? 10packyears [email or web address] Information not available 01/10/2024 Have You Ever Been Counseled For Unhealthy Alcohol Use? No Information not available 05/08/2023 Do You Have Any Pets? No Information not available 05/08/2023 What Is Your Relationship Status? [email or web address] Information not available 01/10/2024 Do You Use Your Seat Belt Or Car Seat Routinely? Yes Information not available 05/08/2023 Are You Sexually Active? No [email or web address] Information not available 01/10/2024 Do You Have Smoke And Carbon Monoxide Detectors In Your Home? Yes Information not available 05/08/2023 At What Age Did You Start Smoking Tobacco? 21 Information not available 05/08/2023 Are You Passively Exposed To Smoke? No Information not available 05/08/2023 Do You Or Have You Ever Used Smokeless Tobacco? Never Used Smokeless Tobacco [id number] [id number] Information not available 08/23/2022 Are There Any Smokers In Your House? No [email or web address] Information not available 01/10/2024 How Much Tobacco Do You Smoke? 0.5 PPD [id number] [id number] Information not available 08/23/2022 What Types Of Sporting Activities Do You Participate In? None [email or web address] Information not available 01/10/2024 Do You Feel Stressed (tense, Restless, Nervous, Or Anxious, Or Unable To Sleep At Night)? [id number] [email or web address] Information not available 01/10/2024 Do You Use Any Illicit Or Recreational Drugs? No Information not available 05/08/2023 Do You Use Sunscreen Routinely? Yes Information not available 05/08/2023 Has Tobacco Cessation Counseling Been Provided? No Information not available 09/03/2023 How Many Years Have You Smoked Tobacco? 10 Information not available 05/08/2023 Have You Recently Traveled Abroad? No Information not available 05/08/2023 Do You Have Any Dietary Restrictions? No Information not available 05/08/2023 Do You Or Have You Ever Used Any Other Forms Of Tobacco Or Nicotine? No Information not available 05/08/2023 How Many Days In The Past Year Have You Consumed 4 Or More Drinks? 0 [email or web address] Information not available 01/10/2024 Sex: Unknown Functional Status Question Answer Note LastModified by Organizat ion Details LastModified Time Do you have difficulty walking or climbing stairs? No Information not available 05/08/2023 Do you have transportation difficulties? No Information not available 05/08/2023 Are you able to walk? [email or web address] Information not available 05/08/2023 Do you have difficulty doing errands alone? No Information not available 05/08/2023 Are you able to care for yourself? Yes Information n ot available 05/08/2023 Do you have difficulty dressing or bathing? No Information not available 05/08/2023 What is your exercise level? Occasional [email or web address] Information not available 01/10/2024 Mental Status Question Answer Note LastModified by Organization D etails LastModified Time Do you have difficulty concentrating, remembering or making decisions? No Information no t available 05/08/2023 Family History Relationship Description Onset Age of this Age Resolved Age Notes LastModified by Organization Details LastModified Time Father Hypertensive disorder [id number] Not available 08/23/2022 02:48:34 Father Coronary arterioscler osis [email or web address] Not available 2023 15:51:04 Father Heart disease [email or web address] Not available 2023 14:54:43 Brother Coronary arterioscler osis [email or web address] Not available 2023 15:51:04 Brother Heart disease [email or web address] Not available 2023 14:54:43 Brother Hypertensive disorder [id number] Not available 08/23/2022 02:48:34 Son Crohn's disease [email or web address] Not available 2023 15:51:04 Mother Family history of malignant neoplasm [email or web address] Not available 2023 15:51:04 Notes:cancer - mother Medical History Condition Response MRSA N SLEEP APNEA N ALLERGIES/HAYFEVER N LUNG DISEASE/DISORDER Y INSOMNIA N HISTORY OF DRUG ABUSE N RADIATION / CHEMOTHERAPY Y COPD N HIGH CHOLESTEROL / HYPERLIPIDEMIA Y HYPERTHYROIDISM N BLOOD DISEASES N EAR OR HEARING PROBLEMS N HYPOTHYROIDISM N SHINGLES N DEPRESSION (INCLUDING POST ) N BOWEL PROBLEMS Y HAVE YOU BEEN HOSPITALIZED OR SEEN IN [facility] ER IN THE PAST YEAR ? N STROKE/TIA Y THYROID DISEASE Y ULCERS N OBESITY N ANEURYSM N HISTORY WITH COMPLICATIONS WITH ANESTHES IA ? N URINARY/BLADDER/KIDNEY PROBLEMS Y ARTHRITIS Y USE OF BLOOD THINNERS Y NO SIGNIFICANT PAST MEDICAL HISTORY N DIABETES, TYPE N PARATHYROID DISEASE N ENT N SEASONAL ALLERGIES N HEARTBURN / REFLUX N BLOOD CLOTS Y HEPATITIS / LIVER DISEASE N SLEEP DISORDER N HEADACHES/MIGRAINES N SEIZURES/EPILEPSY N CHF N PACEMAKER N DIZZINESS N HEART DISEASE/HEART PROBLEMS N AIDS/HIV N FRACTURES N HYPERTENSION N CANCER: SPECIFY Y TOURETTE'S N BLOOD TRANSFUSION N ANESTHESIA COMPLICATIONS N ANEMIA/BLOOD DISORDER N CHRONIC EAR INFECTIONS N TUBERCULOSIS N Gynecological History Statement/Question Response Date of Last Mammogram 10/27/2020 Date of Last Colonoscopy 10/30/2019 Most Recent Bone Density 09/22/2019 Obstetrics History GPAL:G 0 P 0 0 0 0 Immunizations Vaccine Type Date Status Note Provider Nam e and Address Organization Details Recorded Time influenza, unspecified formulation 3 completed Not Available [facility] 08/04/2023 12:21:57 pneumococcal polysaccharide PPV23 7 completed Not Available [facility] 08/04/2023 12:21:57 SARS-COV-2 (COVID-19) vaccine, UNSPECIFIED 1 completed Not Available [facility] 08/04/2023 12:21:57 SARS-COV-2 (COVID-19) vaccine, UNSPECIFIED 1 completed Not Available [facility] 08/04/2023 12:21:57 pneumococcal polysaccharide PPV23 6 completed Not Available [facility] 08/04/2023 12:21:57 Influenza, high-dose, quadrivalent, PF 1 completed Not Available [facility] 08/04/2023 12:21:57 Influenza, high-dose, quadrivalent, PF 0 completed Not Available [facility] 08/04/2023 12:21:57 Influenza, high-dose, trivalent, PF 9 completed Not Available [facility] 08/04/2023 12:21:57 Pneumococcal conjugate PCV 13 6 completed Not Available [facility] 08/04/2023 12:21:57 Past Encounters Encounter ID Performer Location Encounter Start Date Encounter Closed Date Diagnosis/Indication Diagnosis SNOMED-CT Code Diagnosis ICD10 Code Diagnosis Note [id number] [facility] [address] [facility] [place] [place] [address] 09/13/2020 00:00:00 09/13/2020 14:02:06 [id number] [facility] [place] [address] [facility] [address] [place] [address] 10/15/2020 00:00:00 10/15/2020 09:54:52 [id number] [facility] [address] [place] [address] 01/06/2021 00:00:00 01/06/2021 13:38:02 [id number] [facility] [place] [address] [facility] [address] [place] [address] 02/03/2021 00:00:00 02/03/2021 16:47:16 [id number] [facility] [address] [place] [address] 06/08/2021 00:00:00 06/08/2021 17:22:17 [id number] [facility] [address] [place] [address] 10/07/2021 00:00:00 10/10/2021 13:16:22 [id number] [facility] [address] [place] [address] 10/17/2021 00:00:00 10/17/2021 16:59:01 [id number] [facility] [address] [address] 10/31/2021 00:00:00 10/31/2021 19:10:59 [id number] [facility] [address] [address] 01/30/2022 00:00:00 01/30/2022 14:43:49 [id number] [facility] [address] [address] 02/10/2022 00:00:00 02/10/2022 11:56:12 [id number] [facility] [address] [address] 06/06/2022 00:00:00 06/06/2022 09:49:52 [id number] Chance Jones MD [facility] [address] [address] 11/16/2022 09:44:06 11/17/2022 08:29:03 Interstitial lung disease 093571986 J84.9 Mild chron ic obstructive pulmonary disease 129717726 J44.9 [id number] William Miller MD [facility] [address] [address] 12/06/2022 09:37:57 12/06/2022 10:20:14 Essential hypertension 42567305 I10 under control Hyperlipidemia 73961828 E78.5 watch diet Malignant tumor of breast 524844301 C50.919 s/p right lumpectomy Menopausal syndrome 1237 92499 N95.9 Off Effexor and has no symptoms Osteopenia 456175428 M85 .80 Dexa up to date Vitamin D deficiency 347 86887 E55.9 on otc Hypothyroidism 44807307 E03.9 TSH Diverticular disease 397 760507 K57.90 s/p colonoscop y and barium enema due to incomplete colon exam in 2013 Heart murmur 57287053 R0 1.1 echo 01/2022 History of cerebrovascular disease 125514405 Z86.79 plavix Idiopathic pulmonary fibrosis 101360894 J84.112 seeing pulmonary Pulmonary hypertension 77697817 I27.20 seeing pulmonary Neuropathy 828015030 G62 .9 no meds History of deep vein thrombosis 382968537 Z86.718 off meds Adult heal th examination 369703725 Z00.00 Colonoscop y- 07/08/2018 , then 2013, was not complete, Had CT, Colonogram 10/2019 Mammogram- 10/27/20 DEXA- 06/2022 Pneumovax- 01/16/2007 Prevnar 13- 10/07/2015 FLU- 05/2021 COVID- 08/17/20, 09/09/20 Interstiti al lung disease 900826075 J84.9 Aortic valve stenosis 60 997153 I35.0 gets echo at cardiology Hearing loss 81002404 H9 1.92 wants to wait for the hearing testing Screening for disorder 212504687 Z13.9 [id number] William Miller MD [facility] [address] [place] [address] 05/08/2023 10:19:26 05/08/2023 11:10:00 Mixed hyperlipidemia 891136815 E78.2 watch diet Essential hypertension 77076345 I10 under control Malignant tumor of breast 513323827 C50.919 s/p right lumpectomy Menopausal syndrome 1237 58207 N95.9 Off Effexor and has no symptoms Osteopenia 728216135 M85 .80 Dexa up to date Vitamin D deficiency 347 79439 E55.9 on otc Hypothyroidism 21610145 E03.9 TSH Diverticular disease 397 926993 K57.90 s/p colonoscop y and barium enema due to incomplete colon exam in 2013 Heart murmur 02627027 R0 1.1 echo 01/2022 History of cerebrovascular disease 748446272 Z86.79 plavix Idiopathic pulmonary fibrosis 899271545 J84.112 seeing pulmonary Pulmonary hypertension 14462880 I27.20 seeing pulmonary Neuropathy 773950115 G62 .9 no meds History of deep vein thrombosis 395382214 Z86.718 off meds Adult heal th examination 718741454 Z00.00 Colonoscop y- 07/08/2018 , then 2013, was not complete, Had CT, Colonogram 10/2019Mam mogram- 10/27/20DEXA - ne umovax- 01/16/2007 Prevnar 13- 10/07/2015 FLU- 05/08/2023 COVID- 08/17/20, 09/09/20 Interstiti al lung disease 663307458 J84.9 seeing pulm Aortic valve stenosis 60 953067 I35.0 gets echo at cardiology Hearing loss 73379431 H9 1.92 needs hearing testing Chronic diarrhea 0626089 09 K52.9 otc, metamucil [id number] Tej Madrigal DPM [facility] [place] [address] [place] [address] 09/03/2023 14:44:50 09/03/2023 17:24:11 Closed fracture of fifth metatarsal bone 89004317 S92.352A Crutches dispensedR x cam boot, dispenseri ce therapyrec ommend nonweightb earing left foot- 5 weeksfollo w-up 3 weeks for repeat x-rays [id number] William Miller MD [facility] [address] [place] [address] 09/06/2023 09:58:24 09/06/2023 10:38:26 Mixed hyperlipidemia 777635866 E78.2 watch diet Essential hypertension 82314206 I10 under control Malignant tumor of breast 671756945 C50.919 s/p right lumpectomy Menopausal syndrome 1237 77354 N95.9 Off Effexor and has no symptoms Osteopenia 960845789 M85 .80 Dexa up to date Vitamin D deficiency 347 71629 E55.9 on otc Hypothyroidism 84791389 E03.9 TSH Diverticular disease 397 990431 K57.90 s/p colonoscop y and barium enema due to incomplete colon exam in 2013 Heart murmur 73431405 R0 1.1 echo 01/2022 History of cerebrovascular disease 226260780 Z86.79 plavix Pulmonary hypertension 05755194 I27.20 seeing pulmonary Neuropathy 851945193 G62 .9 no meds History of deep vein thrombosis 293568755 Z86.718 off meds Adult heal th examination 258096195 Z00.00 Colonoscop y- 07/08/2018 , then 2013, was not complete, Had CT, Colonogram 10/2019Mam mogram- gets it sitemanDEX A- 07/19/2022 Pneumovax- 01/16/2007 Prevnar 13- 10/07/2015 FLU- 05/08/2023 COVID- 08/17/20, 09/09/20 Interstiti al lung disease 517016007 J84.9 seeing pulm Aortic valve stenosis 60 061782 I35.0 gets echo at cardiology Hearing loss 49912662 H9 1.92 had hearing testing Chronic diarrhea 5728950 09 K52.9 otc, metamucil Kidney disease 89494392 N08 stop HCTZ Fracture of foot 6782080 5 S92.902A has a boot [id number] Tej Madrigal DPM [facility] [place] [address] [place] [address] 09/24/2023 14:11:16 09/24/2023 16:20:51 Closed fracture of fifth metatarsal bone 35636385 S92.352A Crutches dispensed , not usingRx cam boot, dispenseri ce therapyrec ommend nonweightb earing left foot- 5 weeksfollo w-up 4 weeks for repeat x-rays [id number] Tej Madrigal DPM [facility] [place] [address] [place] [address] 10/29/2023 17:31:11 10/30/2023 13:22:15 Closed fracture of fifth metatarsal bone 77334016 S92.352D Crutches dispensed , not usingRx cam boot, continuedr ecommend completely nonweightb earingreco mmend crutches/w heelchair- not usingrice therapyrec ommend nonweightb earing left foot- 5 weeksfollo w-up 4-5 weeks for repeat x-rays [id number] Chance Jones MD [facility] [place] [address] [facility] [address] [place] [address] 11/14/2023 14:03:53 11/14/2023 15:41:50 Mild chronic obstructive pulmonary disease 893841046 J44.9 Interstiti al lung disease 364205210 J84.9 [id number] Tej Madrigal DPM [facility] [place] [address] [place] [address] 11/26/2023 15:34:26 12/20/2023 14:05:20 Fracture of foot 83723217 S92.902A continue minimal weight-trisha ringmay transition to normal shoe gearfollow -up 5 weeks for repeat x-rays [id number] Tej Madrigal DPM [facility] [place] [address] [place] [address] 12/31/2023 14:13:20 12/31/2023 16:12:15 Fracture of foot 35311639 S92.902A continue minimal weight-trisha ringmay transition to normal shoe gearfollow -up 5 weeks for repeat x-rays [id number] William Miller MD [facility] [address] [place] [address] 01/10/2024 10:21:42 01/10/2024 11:17:39 Mixed hyperlipidemia 763557664 E78.2 watch diet Essential hypertension 94978555 I10 BP was high, rechecked and was 144/88, watch Malignant tumor of breast 469937689 C50.919 s/p right lumpectomy Menopausal syndrome 1237 08089 N95.9 Off Effexor and has no symptoms Osteopenia 416353139 M85 .80 Dexa 07/17 Vitamin D deficiency 347 51382 E55.9 on otc Hypothyroidism 45082251 E03.9 Diverticular disease 397 573628 K57.90 s/p colonoscop y and barium enema due to incomplete colon exam in 2013 Heart murmur 31254788 R0 1.1 echo 01/2022 History of cerebrovascular disease 058605188 Z86.79 plavix Pulmonary hypertension 76500778 I27.20 seeing pulmonary Neuropathy 311985718 G62 .9 no meds History of deep vein thrombosis 850910400 Z86.718 off meds Interstiti al lung disease 748940914 J84.9 seeing pulm Aortic valve stenosis 60 068889 I35.0 gets echo at cardiology Hearing loss 87435765 H9 1.92 had hearing testing Chronic diarrhea 5483134 09 K52.9 otc, metamucil Adult heal th examination 912095960 Z00.00 Colonoscop y- 07/08/2018 , then 2013, was not complete, Had CT, Colonogram 10/2019Mam mogram- gets it siteman. Last one was EXA - 07/19/2022 Pneumovax- 01/16/2007 Prevnar 13- 10/07/2015 FLU- 05/08/2023 COVID- 08/17/20, 09/09/20 Kidney disease 66800367 N08 SEEING NEPHROLOGY Fracture of foot 5206754 5 S92.902A has a boot Screening for disorder 208797398 Z13.9 [id number] Lucia Ratliff NP [facility] [address] [place] [address] 02/01/2024 14:15:29 02/01/2024 14:59:37 Pain in left lower limb 254855859 M79.605 has no transporta tion to go to inpatient therapy, would like to try for home health to eval and treat with PT/OTwould like some medication for pain and for muscle relaxation . hospital records reviewed and states that she was evaluated for dvt and was negative and also hip xray was normal discussed redoing hip xray but she feels she has more of a muscle problem as apposed to a break; she would like pain meds, muscle relaxer and home health for PT/OTwe discussed ortho and she has seen ortho years ago but wants to see if PT will help her first. [id number] Tej Madrigal DPM [facility] [place] [address] [place] [address] 03/06/2024 15:49:40 03/10/2024 10:49:12 Fracture of foot 01145623 S92.902A continue minimal weight-trisha ringmay transition to normal shoe gearfollow -up 5 weeks for repeat x-rays Closed fra cture of fifth metatarsal bone 62687332 S92.352D x-rays reviewed with the patientPat ient may wear normal shoe gearIf pain or swelling starts to the area of fracture she needs to return to the boot.Follo w-up as needed, no strenuous activities for 1 month [id number] William Miller MD [facility] [address] [place] [address] 05/15/2024 09:44:46 05/15/2024 10:37:30 Essential hypertension 93679927 I10 under control Mixed hyperlipidemia 267 570871 E78.2 watch diet, better Malignant tumor of breast 473115064 C50.919 s/p right lumpectomy Menopausal syndrome 1237 98318 N95.9 Off Effexor and has no symptoms Osteopenia 372455013 M85 .80 Dexa 07/17 Vitamin D deficiency 347 77171 E55.9 on otc Hypothyroidism 32745127 E03.9 under control Diverticular disease 397 441901 K57.90 s/p colonoscop y and barium enema due to incomplete colon exam in 2013 History of cerebrovascular disease 856624525 Z86.79 plavix Pulmonary hypertension 59761453 I27.20 seeing pulmonary Neuropathy 020651220 G62 .9 no meds History of deep vein thrombosis 110303722 Z86.718 off meds Interstiti al lung disease 631292825 J84.9 seeing pulm Aortic valve stenosis 60 242931 I35.0 gets echo at cardiology Hearing loss 88884207 H9 1.92 had hearing testing Chronic diarrhea 1475644 09 K52.9 otc Adult heal th examination 751174082 Z00.00 Colonoscop y- 07/08/2018 , then 2013, was not complete, Had CT[facility] Last one was EXA - 07/19/2022 Pneumovax- 01/16/2007 Prevnar 13- 10/07/2015 FLU- 03/27/2024 ([facility] )RSV- 03/27/2024 OVID- 08/17/20, 09/09/20 Kidney disease 82702630 N08 improving Health Concerns Section Related Observation LastModified by Organization Detai ls LastModified Time None Recorded Concern Status LastModified by Organization Details LastModified Time None Recorded Advance Directives Directive Y: Payers Encounter Date Sequence Insurance Name Policy Number Policy Clark Covered Member ID Clark Member ID Guarantor Name 12/31/2023 1 [employer] (MEDICARE REPLACEMENT PPO) [id number] 1 Nesha A Sg [id number] Nesha A Sg 01/10/2024 1 [employer] (MEDICARE REPLACEMENT PPO) [id number] 1 Nesha A Sg [id number] Nesha A Sg 02/01/2024 1 [employer] (MEDICARE REPLACEMENT PPO) [id number] 1 Nesha A Sg [id number] Nesha A Sg 03/06/2024 1 [employer] (MEDICARE REPLACEMENT PPO) [id number] Nesha A Sg [id number] Nesha A Sg 05/15/2024 1 [employer] (MEDICARE REPLACEMENT PPO) [id number] 1 Nesha A Sg [id number] Nesha A Sg Notes Date Note Type Note Provider Name and Address Organization Details Recorded Time 12/31/2023 text/html . Patient is an 83-year-old female who returns the office for follow-up left foot fracture x-rays. patient states overall she has continued normal shoe gear she states that she has not been walking significant distances. Patient states that overall she is doing better. Patient states she does have an occasional discomfort but states it is very mild in nature and intermittent. Patient states she still has some mild swelling to the area but denies any open wounds. Patient states when she is at rest she has no pain at all. Patient had repeat x-rays which does show a healing fracture of an avulsion of the 5th metatarsal. Patient denies wanting any surgery and does not want to be nonweightbearing As she lives alone and has no help at home. Tej Madrigal, DANIELE [address] [facility], [facility] [address], [place], [address], [facility] [employer] 12/31/2023 15:14:33 01/10/2024 text/html Here for a follo w up. compliant with meds. HEARING LOSS, USING HEARING AIDS Medicare Wellness Exam Pt is fasting HTN- bp is under control , HCTZ was stoppedMeds- Losartan 100 mg daily, Hypothyroidism- on meds, TSH was nlMeds- Levothyroxine 75 mcg dailyHyperlipidemia- TC- was 264, now 216, Stopped taking simvastatin due to leg cramps, all statins bother her. she is watching diet,Meds- Ezetimibe 10 mg daily Post- menopausal symptoms- symptoms are better without effexor H/o CVA 2019- s/p right sided weakness. and slurred speech,Meds- Clopidogrel 75mg dailyCT of head and MRI of Brain were done while in hospital. she had small lacunar infarct, . Dx- small vessel ischemic stroke.Left IJ DVT diagnosed in 04/14, finished xareltoMeds- Clopidogrel 75mg daily Vit D def- on taking OTC H/o breast cancer- left in the past, had recurrence, s/p right lumpectomy, chemo and surgery and RT, Dr jama, mammogram 11/15 ,in remissionOsteopenia- on Calcium +Vit D, dexa 07/17 Pulm fibrosis- seen dr JONES, sent to dr Shin, had PFT 11/01/2023, Does have some SOBMeds- Spirive daily, alb prn Pulm HTN- Aortic stenosis- moderate, seeing cardiology, Dr at [facility]- was on gabapentin, seen neurology, some times gets stiffness in the legs in the morning. Dr. Madrigal started her on Vitamin B12 to see if that helpsRecurrent uti- Currently on ABX Chronic diarrhea- imodium helps , TR- HAD echo, seen cardiology at [facility], no symptoms Kidney disease- GFR was 36, seeing nephrology William Miller MD [address] [facility], [facility] [address], [place], [address], [place] [facility] [employer] 01/10/2024 12:54:38 02/01/2024 text/html She was seen in the ER almost 2 weeks ago with positive covid and pneumonia, she was admitted to the hospital at that time. She also made them aware that she had fallen in the shower and over stretched her left leg and her hip and thigh were hurting at the time. xray normal and no dvt per hospital records reviewed. She got PT in the hospital and began to feel better but now the leg pain is getting worse and she is having a hard time walking. Lucia Ratliff, ARMANDO [address] [facility], [place], [address], [facility] [employer] [facility] [employer] 02/01/2024 15:09:13 03/06/2024 text/html . Patient is an 83-year-old female she returns the office for follow-up on metatarsal fracture of the left foot. Patient had x-rays today which shows healing she states she has been walking she has absolutely no pain or swelling to the area. Patient denies any other complaints or difficulty with weight-bearing. Tej Madrigal, DANIELE [address] [facility], [address], [place], [address], [facility] [employer] [facility] [employer] 03/10/2024 08:53:44 05/15/2024 text/html Here for her [facility] m [facility] follow up. compliant with meds. HEARING LOSS, USING HEARING AIDS PT IS NOT FASTING End of December she had Covid and it went to pneumonia and was in [place] for 4 days HTN- bp is under control , HCTZ was stoppedMeds- Losartan 100 mg daily, Hypothyroidism- on meds, TSH was nlMeds- Levothyroxine 75 mcg dailyHyperlipidemia- TC- was 264, now 178, Stopped taking simvastatin due to leg cramps, all statins bother her. she is watching diet,Meds- Ezetimibe 10 mg daily, Fenofibrate 145mg daily Post- menopausal symptoms- symptoms are better without effexor H/o CVA 2018- s/p right sided weakness. and slurred speech,Meds- Clopidogrel 75mg dailyCT of head and MRI of Brain were done while in hospital. she had small lacunar infarct, . Dx- small vessel ischemic stroke.Left IJ DVT diagnosed in 04/14, finished xareltoMeds- Clopidogrel 75mg daily Vit D def- on taking OTC H/o breast cancer- left in the past, had recurrence, s/p right lumpectomy, chemo and surgery and RT, Dr jama, mammogram 11/15 ,in remissionOsteopenia- on Calcium +Vit D, dexa 07/17 Pulm fibrosis- seen dr JONES, sent to dr Shin, had PFT 11/01/2023, Does have some SOB, not getting worseMeds- spiriva daily, alb prn Pulm HTN- Aortic stenosis- moderate, seeing cardiology, Dr at [facility]- was on gabapentin, seen neurology, some times gets stiffness in the legs in the morning. Dr. Madrigal started her on Vitamin B12 to see if that helps, not helpingsymptoms are getting worseRecurrent uti- nothing recent Chronic diarrhea- imodium helps , TR- HAD echo, seen cardiology at [place], no symptoms Kidney disease- GFR was 36, seeing nephrology, Dr Dedrick Miller MD [address] [facility], [facility] [address], [place], [address], [place] [facility] 05/15/2024 10:31:42 OBGyn Episode No OBEpisode recorded.
--- OUTSIDE RECORDS SUMMARY | 2024-07-31 13:43 | XMS_ITS | Clinical Summary ---
Author Organization [place] [id number] [facility] Address [address] [place] [address] Care Team Providers Care Accountant Bookkeeper Name Role Phone Bar Gomez MD Primary Care Provider Joshua Collins DO Unavailable [phone] Neisha Mathis MD Unavailable [phone] Kristopher Elizabeth MD Unavailable [phone] Krishna Keen MD Unavailable [phone] Allergies Active Allergy Reactions Criticality Noted Date Comments Adhesive Rash Medium 11/19/2020 Lisinopril Cough Low 01/09/2022 Julxzrj-[id number]-Kcv Reductase Inhibitors Muscle pain,Unknown High 01/09/2022 Medications levothyroxine (SYNTHROID) 75 mcg tablet Take 1 tablet (75 mcg total) by mouth radiologist diagnostic before breakfast Active losartan (COZAAR) 100 mg [...] from 12/09/2020:Stage IA(cT1c, cN0, cM0, G3, ER+, WY+, HER2-) - Signed by Neisha Mathis MD on 12/09/2020 Pathologic stage from 06/02/2021:No Stage Recommended(ypT1c, pN2, cM0, G3, ER+, WY+, HER2+) - Signed by Neisha Mathis MD on 06/02/2021 Hot flashes due to menopause 10/09/2016 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, estrogen receptor positive (HCC) (Primary Dx) from Last 3 Months Immunizations Name Administration Dates Next Due Influenza, Quadrivalent, Hig h Dose, Preservative Free, Intrr 04/14/2022 Influenza, Unspecified 06/08/2021 Pfizer SARS-CoV-2 Monovalent Vaccination (12+ Yrs) PURPLE 09/09/2020,08/17/2020 Surgical History Surgery Date Site/Laterality Comments WY COLONOSCOPY FLX DX W/COLLJ SPEC WHEN PFRMD Complete Colonoscopy - (Added by TW Conv) WY TOTAL ABDOMINAL HYSTERECT W/WO RMVL TUBE OVARY 06/25/2012 - 06/24/2013 Hysterectomy - (Added by TW Conv) CATARACT EXTRACTION Bilateral Cataract Surgery - (Added by TW Conv) COLONOSCOPY US GUIDED BIOPSY LYMPH NODE SUPERFICIAL LEFT 12/14/2020 N/A WY EXC CYST/ABERRANT BREAST TISSUE OPEN 1/> LESION 06/25/1993 - 06/24/1994 Left Breast Surgery Lumpectomy - (Added by TW Conv) BREAST BIOPSY 10/23/2020 - 11/22/2020 Right Invasive ductal carcinoma BREAST LUMPECTOMY 05/05/2021 Right Invasive Ductal Carcinoma Medical History Medical History Date Comments Hyperlipidemia Hypothyroidism Malignant neoplasm of female breast Left (CMS/HCC) 1993 Breast cancer - (Added by TW Conv) Breast cancer, right breast (HCC) 07/2020 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 Hypertension 2017 Frequent nosebleeds 04/26/2021 pt is seeing ENT 04/27 regarding this--may be related to xarelto Deep vein thrombosis (CMS/HCC) (HCC) Breast cancer (HCC) Left breast- -approx 1996 History of radiation therapy 05/2021 Rig ht breast History of chemotherapy 05/2021 Breast C ancer Ear problems Family History Medical History Relation Name Comments Heart failure Brother Cardiac Failur e - (Added by TW Conv) Heart failure Father Cardiac Failur e - (Added by TW Conv) Cancer Maternal Grandmother Cancer Mother Cancer - (Added by TW Conv) Breast cancer Neg Hx Relation Name Status Comments Brother Alive Father Maternal Grandmother Mother Social History Tobacco Use Types Packs/Day Years [...] on file Legal Sex Female 4:29 AM BOXING AND PRESSING SUPERVISOR Gender Identity Not on file Sexual Orientation Choose not to disclose 2023 10:51 AM CDT Sexual Orientation Straight 11/16/2023 10 :51 AM CDT 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 file Not on file Not on file Obstetrics History Para Term AB IAB SAB Ectopic Multiple Livin g Live Births 3 3 3 Date Outcome GA Total Labor Labor/2nd/3rd Weight Sex Type Anes PTL Jonelle A1 A5 Name Clin Term Term Term Last Filed Vital Signs Vital Sign Reading Time Taken Comments Blood Pressure 135/75 06/06/2024 11:08 AM BOXING AND PRESSING SUPERVISOR Pulse 87 06/06/2024 11:08 AM BOXING AND PRESSING SUPERVISOR Temperature 36.4 C (97.5 F) 06/06/2024 11:08 AM BOXING AND PRESSING SUPERVISOR Respiratory Rate 18 06/06/2024 11:0 8 AM BOXING AND PRESSING SUPERVISOR Oxygen Saturation 96% 06/06/2024 11: 08 AM BOXING AND PRESSING SUPERVISOR Inhaled Oxygen Concentration - - Weight 68.5 kg (151 lb 0.2 oz) 06/06/20 11:08 AM BOXING AND PRESSING SUPERVISOR with shoes Height 166.4 cm (5' 5.5 ) 06/01/2023 10 :59 AM BOXING AND PRESSING SUPERVISOR Body Mass Index 24.75 06/01/2023 10:59 AM BOXING AND PRESSING SUPERVISOR Plan of Treatment Health Maintenance Due Date Last Done Comments Depression Screening 1941 Pneumococcal vaccine 65+ (1 of 2 - PCV) 1947 DTaP/Tdap/Td Vaccine (1 - Tdap) 1952 Hepatitis B Screening 1959 Zoster Vaccine (1 of 2) 1960 Well Visit 65+ 2006 Fall Risk Assessment 01/20/2022 01/20/2021 Osteoporosis Screening-Bone Density Scan 02/09/2024 02/08/2022 Covid-19 Vaccine ( season) 2024 09/28/2021, 09/09/2020, 08/17/2020 Influenza Vaccine (#1) 2024 , 04/14/2022, 06/08/2021 Medical Devices Explanted Type Area Medicaid Specialist Device Identifier Shelf Expiration Date Model / Serial / Lot [employer] [id number] Powerport Mri Airguard 8fr 1 Lumen Attachable Catheter Latex Free - [id number] Implanted:Qty: 1 on 01/20/2021 by Kristopher Elizabeth MD at [facility] Explanted:Qty: 1 on 05/05/2021 by Kristopher Elizabeth MD [employer] [id number] / / [employer] [id number] [place] 20ga 7.5cm 2 Part Stabilizer Repositionable Depth Kodi - [id number] Explanted:Qty: 1 on 05/05/2021 at [facility] Right: Breast [employer] [id number] 10/22/2025 [id number] / / [id number] Insurance [employer] MEDICARE MEDICARE Care Teams Accountant Bookkeeper Relationship Specialty Start Date End Date Bar Gomez MD PCP - General 11/24/20 Joshua Collins DO [address] [place] [address] MEDICAL ONCOLOGY, [address] [address] Medical Oncologist/Tungsten Refiner Hematology and Oncology 11/17/20 Neisha Mathis MD [address] [place] [address] MEDICAL ONCOLOGY, [address] [address] Radiation Oncologist Radiation Oncology 12/09/20 Kristopher Elizabeth MD [address] [place] [address] [phone] Surgeon Surgery 12/09/20 Krishna Keen MD [address] [place] [address] [phone] Surgeon General Surgery 03/22/23
--- OUTSIDE RECORDS SUMMARY | 2024-07-31 13:43 | XMS_ITS ---
Author Organization [place] [id number] [facility] Address [address] [place] [address] Care Team Providers Care Oracle Forms Developer Name Role Phone Bar Gomez MD Primary Care Provider [phone] Joshua Collins DO Unavailable [phone] Neisha Mathis MD Unavailable [phone] Kristopher Elizabeth MD Unavailable [phone] Krishna Keen MD Unavailable [phone] Active Problems Patient Care Coordination No te [...] from 12/09/2020:Stage IA(cT1c, cN0, cM0, G3, ER+, AL+, HER2-) - Signed by Neisha Mathis MD on 12/09/2020 Pathologic stage from 06/02/2021:No Stage Recommended(ypT1c, pN2, cM0, G3, ER+, AL+, HER2+) - Signed by Neisha Mathis MD on 06/02/2021 Hot flashes due to menopause 10/09/2016 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 Past Plans Line Care Plan Name Start Date Discontinue Date Treatment Medications Discontinue Reason Plan Provider IV Maintenance Therapy Plan 01/28/2021 11/29/2021 No medications scheduled. Therapy Complete Joshua Collins DO Oncology Chemotherapy Treatment Plan Name Start Date Discontinue Date Treatment Medications Discontinue Reason Plan Provider Cycles PACLItaxel / Trastuzumab Weekly x 4 Cycles then Trastuzumab Q21 Days - Breast 1 11/29/2021 PACLitaxel (TAXOL)PACLItaxe l (TAXOL) IVPB in 250 mLtrastuzumab (HERCEPTIN)trast uzumab (HERCEPTIN) IVPB Therapy Complete Joshua Collins DO 5 of 17 cycles started Radiation Treatments * Plan Last Treated On Elapsed Days Fractions Treated Prescribed Fraction Dose Prescribed Total Dose R BREAST 08/08/2021 56 25 200 cGy 5,000 cGy R SCV 08/08/2021 56 25 200 cGy 5,000 cGy RLOQ RBRS BST 08/01/2021 49 5 200 cGy 1,000 cGy Reference Point Last Treated On Elapsed Days Session Dose Total Dose scv dpv 08/08/2021 56 200 cGy 5,000 cGy saucedo dpv 08/08/2021 56 200 cGy 5,000 cGy BST DPV 08/01/2021 49 200 cGy 1,000 cGy Lifetime Dose Tracking * Chemical Lifetime Dose Automatic Entry Manual Entr y Fluoro Time 2 minutes 2 minutes 0 minutes Air kerma at the reference point (Ka,r) 1.6 mGy 1 .6 mGy 0 mGy DLP 320 mGycm 320 mGycm 0 mGycm Treatment Summaries 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, estrogen receptor positive (HCC)* Images from the original note were not included. [facility] [address], [address] [place], [place] [id number] This Survivorship Care Plan is a cancer treatment summary and follow-up plan and is provided to youto keep with your health care records and to share with your primary care provider or any of your doctors and nurses. This summary is a brief record of major aspects of your cancer treatment not a detailed or comprehensive record of your care. You should review this with your cancer provider. Treatment Summary and Survivorship Care Plan for Breast Cancer General Information Patient name Nesha Bettencourt (home) Date of 1940 Health Care Providers (Including Names, Institutions) Provider Name: Contact Information: Primary Care Physician Bar Gomez MD [phone] Surgeon Kristopher Elizabeth MD [phone] Radiation Oncologist Neisha Mathis MD [phone] Medical Oncologist Joshua Collins DO [phone] Treatment Summary Cancer Diagnosis Information Diagnosis 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, estrogen receptor positive (CMS/HCC) (HCC) Diagnosis date 11/17/2020 Staging information Cancer Staging 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, estrogen receptor positive (CMS/HCC) (HCC) Staging form: Breast, AJCC 8th Edition - Clinical stage from 12/09/2020: Stage IA (cT1c, cN0, cM0, G3, ER+, AL+, HER2-) - Signed by Neisha Mathis MD on 12/09/2020 Estrogen: Positive Progesterone: Positive HER2: Negative Treatment Completed Surgery Surgery date 12/14/2020 Surgical procedure / location / findings Ultrasound guided needle biopsy of right axillary lymph node Surgery date 01/20/2021 Surgical procedure / location / findings Power port a cath placement Surgery date 05/05/2021 Surgical procedure / location / findings RIGHT NEEDLE LOCALIZATION LUMPECTOMY WITH SENTINEL LYMPH NODE DISSECTION PORT A CATH REMOVAL Radiation Radiation Treatments Active Plans R BREAST Most recent treatment: Dose planned: 200 cGy (fraction 25 on 08/08/2021) Total: Dose planned: 5,000 cGy Elapsed Days: 56 R SCV Most recent treatment: Dose planned: 200 cGy (fraction 25 on 08/08/2021) Total: Dose planned: 5,000 cGy Elapsed Days: 56 RLOQ RBRS BST Most recent treatment: Dose planned: 200 cGy (fraction 5 on 08/01/2021) Total: Dose planned: 1,000 cGy Elapsed Days: 49 Reference Points BST DPV Most recent treatment: Dose given: 200 cGy (on 08/01/2021) Total: Dose given: 1,000 cGy Elapsed Days: 49 scv dpv Most recent treatment: Dose given: 200 cGy (on 08/08/2021) Total: Dose given: 5,000 cGy Elapsed Days: 56 saucedo dpv Most recent treatment: Dose given: 200 cGy (on 08/08/2021) Total: Dose given: 5,000 cGy Elapsed Days: 56 Historical No historical radiation treatments to show. Systemic Therapy (chemotherapy, hormonal therapy, other) PACLItaxel / Trastuzumab Weekly x 4 Cycles then Trastuzumab Q21 Days - Breast Treatment goal [No plan goal] Status Active Start Date 01/21/2021 End Date 02/17/2022 (Planned) Provider Joshua Collins, DO Chemotherapy trastuzumab (HERCEPTIN) 315 mg in sodium chloride 0.9% 250 mL IVPB, 4 mg/kg = 315 mg, intravenous, Once, 4 of 17 cycles Administration: 315 mg (01/21/2021), 159 mg (02/04/2021), 155 mg (02/11/2021), 155 mg (03/11/2021), 158mg (01/28/2021), 155 mg (02/18/2021), 155 mg (02/25/2021), 155 mg (03/04/2021), 155 mg (03/18/2021), 153 mg (03/25/2021), 153 mg (04/01/2021), 149 mg (04/08/2021) PACLitaxeL (TAXOL) 153 mg in sodium chloride 0.9% (PVC-FREE) 250 mL IVPB, 80 mg/m2 = 153 mg, intravenous, Once, 4 of 4 cycles Administration: 153 mg (01/21/2021), 150 mg (02/11/2021), 150 mg (03/11/2021), 153 mg (01/28/2021), 150 mg (02/18/2021), 150 mg (03/04/2021), 150 mg (03/25/2021), 150 mg (04/01/2021) Lifetime Dose Tracking Lifetime Dose Tracking No doses have been documented on this patient for the following tracked chemicals: doxorubicin, epirubicin, idarubicin, daunorubicin, mitoxantrone, bleomycin, mitomycin, cyclophosphamide, carmustine,cisplatin, ifosfamide, carboplatin, fluorouracil, etoposide, doxorubicin HCl pegylated liposomal, et oposide phosphate, valrubicin, doxorubicin isotoxic equivalent Research Studies Persistent symptoms or side effects that have continued after finishing treatment: fatigue, numbness Family History Cancer Cancer-related family history includes Cancer in her maternal grandmother andmother. Genetic Testing Lab Performed: Testing Complete Results Oncotype DX Recurrence Score 41 Tell your provider if there is a history of cancer in your family, if another member of your familywas diagnosed with cancer since your last visit. The following risk factors may indicate that breast cancer could run in the family: Congregational heritage History of ovarian cancer in the patient or any 1st or 2nd degree relative Any 1st degree relative with breast cancer before the age of 50 Two or more 1st or 2nd degree relative diagnosed with breast cancer at any age Patient or relative diagnosed with bilateral breast cancer History of breast cancer in a male relative Treatment Ongoing Additional Treatment Start Date Planned Duration Possible Side Effects Aromatase Inhibitors (anastrozole, exemestane and letrozole) 09/05/2021 5 years Hot flashes, joint/muscle aches, vaginal dryness and bone loss (common); hair thinning (rare) Other rare side effects may occur. Herceptin 01/21/2021 04/08/2021 Rarely shortness of breath, new swelling in legs (if these occur please notify your medical oncologist). Calcium + Vitamin D 19-50 years age and males age 51-70 years: recommend 1,000 mg/day calcium & 600 IU/day vitamin D Females age 51-70 1200 mg/day calcium and 600 IU/day vitamin D Over 70 years age take 1200 mg/day calcium and 800 IU/day of vitamin D 2000 international units daily Lifelong An irregular heartbeat; nausea, constipation; weakness, drowsiness, headache; dry mouth,or a metallic taste in your mouth; or muscle or bone pain. Follow-up Care Plan Your follow-up care plan is design to inform you and primary care providers regarding the recommended and required follow-up, cancer screening and routine health maintenance that is needed to maintain optimal health. Coordinating Provider When/How often Joshua Collins DO Every 3-6 months for year 1 to 3 Joshua Collins DO Every 6-12 months for year 4 to 5 Neisha Mathis MD Every 3 to 6 months for the first year and then yearly Kristopher Elizabeth MD Yearly Bar Gomez After 5 years, annual follow up Cancer Surveillance or other Recommended Tests Coordinating Provider Test How Often Joshua Collins DO - Year 1-5, Bar Gomez MD - After year 5 Mammogram for remaining breast(s) Yearly Joshua Collins DO Cardiac monitoring Every 3 months while on Herceptin INTERNAL AUDITOR: No care collection team lead to display Pap/pelvic exam (woman only) As indicated by provider Medical Oncologist: Joshua Collins DO, PCP: Bar Gomez Bone Density Every 2 years if on anaromatase inhibitor or as indicated by your provider CT/PET and tumor markers. Not recommended in the absence of signs or symptoms of cancer recurrence Possible late- and long-term effects that someone with this type of cancer and treatment may experience: Peripheral Neuropathy This may feel like numbness, tingling or painful sensations that develop in your hands and feet. Neuropathy can occur during or shortly after treatment. Sometimes it goes away. For some patients the symptoms can be chronic. Talk to your provider about your symptoms. Some medications may lessen the symptoms. Other approaches include acupuncture, physical therapy and exercise. Cardiovascular disease Some patients may be at risk of developing heart disease due to previous chemotherapy or local effects of radiation to the left chest. Congestive heart failure may develop in a small number of patients. Contact your provider is you have the following symptoms: Shortness of breath Difficulty breathing Fast or irregular heartbeat New or increased cough Swelling of the feet or lower legs A heart healthy lifestyle that includes diet and physical activity are proven to be helpful. Fatigue Many patients experience some level of fatigue. Some patients experience severe and ongoing fatigue. An active lifestyle with healthy sleep patterns can improve your energy levels. Talk to your provider about ongoing (more than 3 months) fatigue. It is important to remember that these symptoms can be due to other causes like diabetes or with normal aging. If these or any other new symptoms occur bring these to attention of your health care provider. These symptoms should be brought to the attention of your provider: Anything that represents a brand new symptom; Anything that represents a persistent symptom; Anything you are worried about that might be related to the cancer coming back. Please continue to see your primary care provider for all general health care recommended for a patient your age such as routine immunizations, and routine non-breast cancer screening like colonoscopy or bone density exams. Consult with your health care provider about prevention and screening for bone loss using bone density tests. Cancer survivors may experience issues with the areas listed below. If you have any concerns in these or other areas, please speak with your doctors or nurses to find out how you can get help with them. Anxiety and depression Emotional and mental health Fatigue Fertility Financial advice or assistance Insurance Memory or concentration loss Parenting Physical functioning School/work Sexual functioning Stopping smoking Weight changes Other A number of lifestyle/behaviors can affect your ongoing health, including the risk for the cancer coming back or developing another cancer. Discuss these recommendations with your doctor or nurse: Eat a healthy diet: focus on lean meats and proteins, more fruits, vegetables and whole grains and low in sugars and fats. Limit red meat and avoid processed meat. Maintain a healthy weight; avoid being overweight. Aim for a normal body mass index (BMI) of 18.5-24.9. Help learning to eat healthier, call the sausage wrapper at: Nicole Fisher [phone] Have an active lifestyle, strive for 30 minutes of moderate exercise 5 times a week and strength orresistance training at least twice a week. Use broad-spectrum (UVA+UVB) sunscreen with SPF 30 or greater, is water resistant, limit time spentin the sun (10 am-4 pm), wear hat, wear UV protective clothing, wear sunglasses. Never use a tanning bed. Skin that was irradiated may be more sensitive over your lifetime. Do not smoke or chew tobacco; participate in a smoking cessation program. Limit alcohol intake, 1 drink per day for a woman and 2 drinks per day for a man. Resources you may be interested in: [facility] A National Cancer [place] [facility] http://www.[facility]/ [facility] Information [facility] [address] [facility] [phone]. Computer access, educational material, counseling services (FREE) Cancer Resources: www.cancer.net French Disabilities Act: The U.S. Department of Justice provides information about the Americans with Disabilities Act (ADA). Toll free number http://www.ada.gov/ Occupational Therapy at [facility]. Improve memory and thinking following chemotherapy. Improve your performance at home, work and in the community. or Toll free www.ot.[facility]/patients Managing your weight after a cancer diagnosis: http://www.cancer.net/sites/cancer.net/files/weight_after_cancer_diagnosis.pdf National Coalition for Cancer Survivorship: http://www.canceradvocacy.org/ French Cancer Society Cancer Survivors Network: http://csn.cancer.org/ [employer] Beyond Cancer: https://survivorship.cancer.gov/ an online tool for cancer survivors andcaregivers created by the French Cancer Society and the National Cancer [place] Portal. It provides: Information on dealing with side effects from cancer and treatment Caregivers with support and resources Practical advice about talking to friends and family about cancer Questions to ask their health care team Help understanding their rights in the workplace
[2024-07-31 13:44] VITALS: BP 140/77; PULSE 97; RESP 28; TEMP 36.9; O2SAT 91
--- NOTE | 2024-07-31 13:44 | ED.URI ---
HPI - URI/Sore Throat General Chief Complaint: Upper Respiratory Infection Stated Complaint: SOB Time Seen by Provider: 07/31/24 13:35 Source: patient Mode of arrival: ambulatory Limitations: no limitations History of Present Illness HPI Narrative: Patient is an 83-year-old female that presents with shortness of breath on exertion. States that she went to her airport maintenance chief MD Yoder at [facility] on Sunday and was sent to the ER for blood work, EKG and CT scan. Patient states after she was told it would be 3-4 more hours for results she left AMA. Patient states she called pulmonology office for results and they were dismissive to her on the phone. Patient states she was told by pulmonology that she needs steroids or antibiotic course but has not received them. Patient denies any fever, chills, nausea, vomiting, diarrhea, congestion, cough. Patient has chronic interstitial lung disease since having chemo and radiation for breast cancer. Related Data Home Medications ?Medication ?Instructions ?Recorded ?Confirmed ?Last Taken ?Type calcium carbonate (Calcium 600) 600 mg PO 03/01/21 01/20/24 Unknown History clopidogrel 75 mg tablet 75 mg PO QAM 03/01/21 01/20/24 Unknown History levothyroxine 75 mcg capsule 75 mcg PO DAILY 03/01/21 01/19/24 Unknown History losartan 100 mg tablet 100 mg PO HS 03/01/21 01/20/24 Unknown History albuterol sulfate 90 mcg/actuation 2 puff inhalation QID PRN 01/19/24 01/19/24 Unknown History aerosol inhaler Shortness Of Breath Or Wheezing ezetimibe 10 mg tablet 10 mg PO HS 01/19/24 01/20/24 Unknown History fenofibrate nanocrystallized 145 145 mg PO QAM 01/19/24 01/20/24 Unknown History mg tablet tiotropium bromide 2.5 2 puff inhalation QNOON 01/19/24 01/19/24 Unknown History mcg/actuation mist for inhalation (Spiriva Respimat) anastrozole 1 mg tablet 1 mg PO QAM 01/20/24 01/20/24 Unknown History cholecalciferol (vitamin D3) 50 50 mcg PO HS 01/20/24 01/20/24 Unknown History mcg (2,000 unit) capsule (Vitamin D3) cyanocobalamin (vitamin B-12) 500 mcg PO DAILY 07/31/24 Unknown History 1,000 mcg tablet (Vitamin B-12) Allergies Allergy/AdvReac Type Severity Reaction Status Date / Time No Known Allergies Allergy Verified 07/31/24 13:46 Review of Systems Review of Systems: All systems reviewed & are unremarkable except as noted in HPI and below Constitutional: Constitutional: Denies chills, Denies fatigue, Denies fever(s), Denies headache(s), Denies malaise and Denies weakness Eyes: Eyes: Denies blurry vision, Denies itchy eyes and Denies loss of vision ENT: Denies otalgia, Denies headache(s), Denies nasal congestion, Denies sinus pain and Denies sore throat Cardiovascular: Cardiovascular: Denies chest pain, Denies irregular heart rhythm and Reports dyspnea Respiratory: Respiratory: Denies cough and Denies dyspnea Gastrointestinal: Gastrointestinal: Denies abdominal pain, Denies diarrhea, Denies nausea and Denies vomiting Musculoskeletal: Musculoskeletal: Denies back pain, Denies myalgias and Denies arthralgias Integumentary/Breasts: Skin/Breast: Denies pruritus and Denies rash Neurologic: Denies headache(s), Denies loss of vision and Denies weakness Psychiatric: Psychiatric: Reports no additional psychiatric complaints Endocrine: Endocrine: Denies fatigue Allergic/Immunologic: Allergic/Immunologic: Denies itchy eyes PMFSH Past Medical History Medical History Hypothyroidism Cerebrovascular accident (2019) Chronic interstitial lung disease Hypercholesterolemia Hypertension Uterine cancer Breast cancer Surgical History Surgical History History of hysterectomy History of lumpectomy Family History Family History Father Acute myocardial infarction Sibling Acute myocardial infarction Mother Asthma Son Diabetes mellitus Social History Social History Social History: Surrogate medical decision maker: Mitch Bettencourt, son. Code status: Full code. Smoking packs per day: 0.75 Smoking cigarettes per day: 15.0 Years smoked: 10 Smoking pack-years: 7.50 Smoking status: Former smoker Tobacco type: cigarettes Additional smoking assessment comments: Quit 40 years ago Alcohol intake: never Substance use: never Substance use type: does not use Do You Feel Safe in your Home?: Yes Lack of Transportation: No Lack of Food: Never True Current Housing: I Have Housing Concerned About Future Housing: No Difficulty Paying Gas/Electric Bills: No Difficulty Paying for Meds: No Currently Unemployed: No Education: Decline to Answer Difficulty w/ Childcare or Family Care: No Spiritual care concerns: No Comments At time of signature, agree with nursing past medical, surgical, social and family history. There is no relevant family history pertinent to the presenting complaint. Exam Const: General: cooperative, healthy appearing, comfortable, no acute distress and well nourished Nutritional Appearance: well nourished Orientation/consciousness: patient oriented x3 Limitations: no limitations HENMT: Head: normal to inspection, normocephalic and atraumatic Ears: hearing grossly normal bilaterally, external ears normal, TM's normal bilaterally, EAC's normal and no periauricular adenopathy Face/Nose/Sinus: Normal external nose present, Abnormal mucous membranes and turbinates present erythematous bilateral and diffuse, normal facial exam, sinuses nontender and face symmetric Face and sinus: normal facial exam, sinuses nontender and face symmetric Mouth: Yes Normal oral and palatal mucosa present, Yes lip normal, Yes tongue normal, Yes Normal salivary glands and ducts present, Yes oropharynx normal and Yes moist mucous membranes Teeth and gingiva: dentition normal Throat: posterior oropharynx normal, tonsils normal and uvula midline Eyes: General: appearance normal, both eyes and all related structures Alignment and Position: alignment normal and position normal Periorbital: periorbital findings normal Eyelids: eyelids normal Pupils: Equal, round and reactive pupils present Neck: Neck: normal visual inspection, full ROM, no lymphadenopathy and supple Chest: Chest palpation & inspection: normal inspection of the chest and normal palpation of entire chest wall Resp: Effort & Inspection: normal respiratory effort, able to speak in complete sentences, no grunting, not labored, no nasal flaring, no pursed lip breathing, no respiratory distress and tachypneic Auscultation: clear to auscultation bilaterally, no crackles, no rales, no rhonchi and no wheezes Cardio: Rate: regular rate Rhythm: regular rhythm Heart sounds: S1 normal heart sound present and S2 normal heart sound present GI: Inspection: normal to inspection Skin: General skin exam: normal color and no rashes or lesions noted Neuro: General: patient oriented x3 and moves all extremities Cranial nerves: Yes Equal, round and reactive pupils present Speech: normal speech Gait exam (Neuro): Normal gait present Extrem: General: normal to inspection, full ROM and no edema Psych: Appearance: grossly normal and well kempt Mental Status: mental status grossly normal Speech and movement: Normal speech and movement present Affect: normal affect Attitude: cooperative Thought process: Normal thought process present Course Course Emergency Course: Discharge instructions reviewed with patient, as well as provided in writing per nursing staff. The instructions also include specific and strict return/GO TO THE ER as well as f/u information. All questions have been answered, and the patient deny any further questions with discharge and discharge plan. Portions of this record may have been created with voice recognition software Level of Care: Express Care Visit Vital Signs Vital signs: Vital Signs Temperature 36.9 C 07/31/24 13:44 Pulse Rate 97 07/31/24 13:44 Respiratory Rate 28 H 07/31/24 13:44 Blood Pressure 140/77 07/31/24 13:44 Pulse Oximetry 91 07/31/24 13:44 Oxygen Delivery Room Air 07/31/24 13:44 Temperature 36.9 C 07/31/24 13:44 Pulse Rate 97 07/31/24 13:44 Respiratory Rate 34 H 07/31/24 13:48 Blood Pressure 140/77 07/31/24 13:44 Pulse Oximetry 91 07/31/24 13:48 Oxygen Delivery Room Air 07/31/24 13:48 Reviewed MDM - URI/Sore Throat MDM Narrative Medical decision making narrative: While examining patient, patient received call from Dr. Yoder.While on speaker, discussed symptoms with Dr including that she is sating low 80s while active. MD Yoder then states so the same as you were in clinic on Sunday? Patient states yes the same. went over CT results with patient and denies evidence of pneumonia, however is given her a short course of antibiotics. Dr. Yoder also prescribed 5 day course of steroids and states he will call her on Sunday to see if there is improvement. If there is he will prescribed longer course for a taper. Informed patient if symptoms persist or worsen to call office or go straight to the ER. Patient and son-in-law verbalize understanding and are happy with plan of care. Pt well hydrated appearing, hemodynamically stable. Is in no respiratory distress but is anxious and tachypneic. Recommend supportive care. The patient is stable at time of discharge the clinical impression was discussed and the patient was given the opportunity to ask questions, which were addressed as completely as possible given the information available at present. Anticipatory guidance and return to care precautions were discussed and the importance of primary care follow-up was stressed and encouraged. The patient voiced understanding of the plan, indications to return, and the need for follow-up. Differential diagnosis considered: Little virus, strep pharyngitis, allergic rhinitis, upper respiratory tract infection, sinusitis, rhinosinusitis, nasopharyngitis. viral pharyngitis, otitis media, otitis externa, otitis effusion, foreign body, cerumen impaction, viral syndrome, and influenza.? Exam findings show no acute concerns or changes; patient is non-toxic appearing and is in no distress.? Patient is appropriate for outpatient treatment and follow-up.? Medical Records Attestation: I reviewed the patient's medical records. Discharge Plan Discharge Clinical Impression: Shortness of breath, Chronic interstitial lung disease Patient Disposition: Home, Self-Care Condition: Stable Instructions: Chronic Lung Disease and Infection Prevention (ED) Additional Instructions: Per , you have received antibiotics and steroids. Take antibiotic as prescribed. Take steroids in the morning with food for 5 days. Your airport maintenance chief will call you on Sunday and see if that is helping. If it is you will be prescribed additional steroids for taper. If you are having worsening shortness of breath or oxygen levels are not returning to normal after rest please go directly to the emergency department or call Dr. Collier's office. Other symptomatic treatments include: -Alternate Tylenol and Motrin per package directions for fever or pain: Tylenol 650-1000mg by mouth every 4-6 hours. Do not exceed 4000mg in 24 hours. Advil (Ibuprofen) 600 mg by mouth every 6 hours. Do not exceed 2400mg in 24 hours. 8 AM: Tylenol 11 AM: Ibuprofen 2 PM: Tylenol 5 PM: Ibuprofen 8 PM: Tylenol 11 PM: Ibuprofen 2 AM: Tylenol 5 AM: Ibuprofen -Antihistamine medication such as Benadryl at night and Zyrtec/Claritin/Karoline during the day can help improve symptoms. -Use Flonase twice a day for 5 days then daily to help reduce the inflammation and dry up your sinuses. -You can also use Sudafed or Mucinex. Be sure to drink plenty of water with these medications at least 8 ounces with every dose and it is important to drink 8 to 10 glasses of water per day. Water is a natural decongestant -Eat and drink things that are easy to swallow, like tea or soup, or popsicles. -Oral rinses such as: Salt water gargles and/or may use topical anesthetic (eg. Chloraseptic spray) or lozenges to relieve dryness or throat pain). -Frequent hand washing or hand environmental remediation consultant is one of the best ways to prevent spread of infection. -Using a vaporizer or humidifier at night will also help thin secretions and help with coughing up phlegm. -Follow up with primary care provider in 3-5 days if condition is not improving - For new or worsening symptoms go directly to the nearest ER Patient Language: Burkinan Prescriptions: No Action cyanocobalamin (vitamin B-12) [Vitamin B-12] 1,000 mcg tablet 500 mcg PO DAILY levothyroxine 75 mcg capsule 75 mcg PO DAILY clopidogrel 75 mg tablet 75 mg PO QAM losartan 100 mg tablet 100 mg PO HS calcium carbonate [Calcium 600] 600 mg calcium (1,500 mg) tablet 600 mg PO HS albuterol sulfate 90 mcg/actuation HFA aerosol inhaler 2 puff INHALATION QID PRN (Reason: Shortness Of Breath Or Wheezing) ezetimibe 10 mg tablet 10 mg PO HS Spiriva Respimat 2.5 mcg/actuation mist 2 puff INHALATION QNOON fenofibrate nanocrystallized 145 mg tablet 145 mg PO QAM anastrozole 1 mg Tablet 1 mg PO QAM cholecalciferol (vitamin D3) [Vitamin D3] 50 mcg (2,000 unit) Capsule 50 mcg PO HS Follow-up/Referrals: Nando,Brody Helms [Other] - 3 Days Time of Disposition: 14:03
--- OUTSIDE RECORDS SUMMARY | 2024-07-31 13:44 | XMS_ITS | Clinical Summary ---
Author Organization [facility] Facility Address [address] [place] [address] Care Team Providers Care Supervisor Riveting Name Role Phone Patricia Dinero MD Primary Care Provider [phone] Social History Tobacco Use Types Packs/Day Years Used Date Smoking Tobacco: Never Assessed Comments Unknown Sex and Gender Information Value Date Recorded Sex Assigned at Not on file Legal Sex Female 3:26 PM EDT Gender Identity Not on file Sexual Orientation Not on file Last Filed Vital Signs Vital Sign Reading Time Taken Comments Blood Pressure 160/80 04/15/2024 1:31 PM CDT Pulse 83 04/15/2024 1:31 PM CDT Temperature 36.7 C (98 F) 04/15/2024 1:31 PM CDT Respiratory Rate 18 04/15/2024 1:31 PM CDT Oxygen Saturation 97% 04/15/2024 1:31 PM CDT Inhaled Oxygen Concentration - - Weight 67.5 kg (148 lb 12.8 oz) 04/15/2024 1:31 PM CDT Height - - Body Mass Index - - Plan of Treatment Upcoming Encounters Date Type Department Care Team (Late st Contact Info) Description 04/21/2025 12:30 PM CDT Office Visit [facility], [facility] [address] [place] [address] Kishor Tse DO [address] [facility] [address] [place] [address] Health Maintenance Due Date Last Done Comments Influenza Vaccine (#1) 2024 3, 06/08/2021, 05/20/2019 Pneumococcal Vaccine: 65+ Years Completed 10/07/2015, 10/07/2015, 01/16/2007 Hepatitis B Vaccine Aged Out No longe r eligible based on patient's age to complete this topic Insurance [employer] MCR ADV PPO ([id number]) Advance Directives Documents on File Type Date Recorded Patient Supervising Deputy Expl anation Advance Care Planning 10/12/2023 2:00 PM Care Teams Supervisor Riveting Relationship Specialty Start Date End Date Patricia Dinero MD [address] [place] [id number] PCP - General Internal Medicine 09/06/23
--- OUTSIDE RECORDS SUMMARY | 2024-07-31 13:44 | XMS_ITS | Referral Summary ---
Author Organization [facility] Address [address] [facility] [place] [address] Care Team Providers Care Supervisor Roving Department Name Role Phone Bar Gomez MD Primary Care Provider Source Comments [facility],non-owned Affiliates and Associated Physician Practices is amultiple site organization consisting of ambulatory clinics and hospital sitesin [place], [place], [place] and [place]. This disclosure is being madepursuant to the Care Everywhere program and may not contain all information available regarding this patient. Last updated 18.[facility] Encounters Date Type Department Care Team Description 07/30/2024 Telephone [facility] - Pulmonology [address] [place] [phone] Brody Yoder MD 07/29/2024 6:55 PM PULVERIZING AND SIFTING OPERATOR - 07/29/2024 8:26 PM PULVERIZING AND SIFTING OPERATOR Emergency [facility] EMERGENCY [facility]PART[facility] [address] [place] [address] Shortness of breath Discharge Disposition: Left Against Medical Advice/Discontinued Care 07/29/2024 Travel 07/29/2024 1:00 PM PULVERIZING AND SIFTING OPERATOR Office Visit [facility] - Pulmonology [address] [place] [phone] Brody Yoder MD ILD (interstitial lung disease) (HCC) (Primary Dx); Pulmonary hypertension (HCC); Restrictive ventilatory defect; Dyspnea on exertion 06/19/2024 Telephone [facility] - Pulmonology [address] [facility], [place] [address] Brody Yoder MD Results 06/04/2024 Travel 06/04/2024 7:58 AM PULVERIZING AND SIFTING OPERATOR - 06/04/2024 11:59 PM PULVERIZING AND SIFTING OPERATOR Hospital Encounter [facility] PFT [address] [place] [address] Chano Du MD Discharge Disposition: Home or Self Care 05/13/2024 Travel 05/13/2024 3:30 PM PULVERIZING AND SIFTING OPERATOR Office Visit [facility] - Pulmonology [address] [place] [address] Brody Yoder MD ILD (interstitial lung disease) (HCC) (Primary Dx); Pulmonary hypertension (HCC); Restrictive ventilatory defect; Encounter for immunization from Last 3 Months Allergies Active Allergy Reactions Criticality Noted Date Comments 5-Alpha Reductase Inhibitors Unknown 023 Hmg-Coa-R Inhibitors Myalgias High 01/09/2022 Lisinopril Cough Medium 01/09/2022 Medications * Be aware that medications may not be up to date on this document. Alwaysverify current medications with the patient. Medication Sig Dispensed Refills Start Date End Date Status clopidogrel (PLAVIX) 75 MG tablet Take 1 tablet by mouth once daily 30 tablet 05/10/2019 Active Calcium Carbonate+Vitamin D 600-200 MG-UNIT TABS Take 1 tablet by mouth once daily Active tiotropium (SPIRIVA RESPIMAT) 2.5 MCG/ACT inhaler 2 (two) puffs once daily Active Cholecalciferol (VITAMIN D3) 1.25 MG (98412 UT) capsule Take 1 (one) capsule by mouth every 7 days Active ezetimibe (Zetia) 10 MG tablet Take 1 (one) tablet by mouth once daily Active anastrozole (ARIMIDEX) 1 MG tablet Take 1 (one) tablet by mouth once daily 11/28/2021 Active levothyroxine (Synthroid) 300 MCG tablet Take 1 (one) tablet by mouth once daily Active losartan (Cozaar) 100 MG tablet Take 1 (one) tablet by mouth once daily 04/10/2022 Active hydroCHLOROthiazide (Hydrodiuril) 25 MG tablet Take 1 (one) tablet by mouth once daily 07/10/2022 Active Albuterol Sulfate 108 (90 Base) MCG/ACT Inhale 2 puffs by mouth every 6 hours as needed Active Multiple Vitamin (MULTI-VITAMINS PO) Activ e fenofibrate (Tricor) 145 MG tablet Take 1 (one) tablet by mouth once daily 05/10/2023 Active levothyroxine (Synthroid) 75 MCG tablet Take 1 (one) tablet by mouth once daily 04/05/2023 Active amoxicillin-clavulana te (Augmentin) 875-125 MG tablet Take 1 (one) tablet by mouth 2 times daily with morning and evening meal Active Active Problems Problem Noted Date Diagnosed Date Aortic stenosis 09/15/2022 Pulmonary hypertension 09/15/2022 Dyslipidemia 09/15/2022 Atherosclerosis of aorta 09/15/2022 Dyspnea 09/15/2022 ILD (interstitial lung disease) 09/15/2022 Weakness 05/08/2019 Immunizations Name Administration Dates Next Due INFLUENZA VACCINE 04/05/2023 INFLUENZA VACCINE, HIGH-DOSE , QUADR. (FLUZONE HIGH-DOSE QUADRIVALENT; 65Y+), 0.7 ML (HD-IIV4) 04/06/2023,04/14/2022,06/08/2021,2019,05/20/2019 PNEUMOCOCCAL PPSV23 10/07/2015 PNEUMOCOCCAL PPV VACCINE 01/16/2007 Pneumococcal Pcv13 Conj 10/07/2015 Social History Tobacco Use Types Packs/Day Years Used Date Smoking Tobacco: Former Cigarettes Smokeless Tobacco: Never Tobacco Cessation:Counseling Given: Not Answered Alcohol Use Standard Drinks/Week Comments Yes 0 [...] Comments Blood Pressure 145/72 07/29/2024 2:02 PM PULVERIZING AND SIFTING OPERATOR Pulse 88 07/29/2024 2:02 PM PULVERIZING AND SIFTING OPERATOR Temperature 36.6 C (97.8 F) 07/29/2024 2:02 PM PULVERIZING AND SIFTING OPERATOR Respiratory Rate 20 07/29/2024 2:02 PM PULVERIZING AND SIFTING OPERATOR Oxygen Saturation 97% 07/29/2024 2:02 PM PULVERIZING AND SIFTING OPERATOR Inhaled Oxygen Concentration - - Weight 65.3 kg (144 lb) 07/29/2024 2:02 PM PULVERIZING AND SIFTING OPERATOR Height 165.1 cm (5' 5 ) 07/29/2024 2:02 PM PULVERIZING AND SIFTING OPERATOR Body Mass Index 23.96 07/29/2024 2:02 PM PULVERIZING AND SIFTING OPERATOR Functional Status Functional Status Response Date of [...] person have difficulty concentrating/remembering/making decisions? No 05/08/2019 Plan of Treatment Upcoming Encounters Date Type Department Care Team (Late st Contact Info) Description 03/18/2025 10:00 AM CDT Ancillary Procedure [facility] - Echosonography [address] [facility], [address] [address] 03/18/2025 11:20 AM CDT Office Visit [facility] - Cardiology [address] [facility], [place] [phone] [place] [address] Verito Norris MD [address] [address] Procedures Procedure Name Priority Date/Time Associated Diagnosis Comments CT CHEST WO CONTRAST STAT 07/29/2024 4:18 PM PULVERIZING AND SIFTING OPERATOR Shortness of breath RESPIRATORY PANEL WITH SARS-COV-2 BY PCR (STL) STAT 07/29/2024 3:33 PM PULVERIZING AND SIFTING OPERATOR PT-INR [facility] STAT 07/29/2024 3:31 PM PULVERIZING AND SIFTING OPERATOR MAGNESIUM BLOOD STAT 07/29/2024 3:31 PM PULVERIZING AND SIFTING OPERATOR B-TYPE NATRIURETIC PEPTIDE STAT 07/29/2024 3:31 PM PULVERIZING AND SIFTING OPERATOR COMPREHENSIVE METABOLIC PANEL STAT 07/29/2024 3:31 PM PULVERIZING AND SIFTING OPERATOR CBC W AUTO DIFFERENTIAL STAT 07/29/19 3:31 PM PULVERIZING AND SIFTING OPERATOR TROPONIN-I HIGH SENSITIVE BASELINE + 1HR STAT 07/29/2024 3:31 PM PULVERIZING AND SIFTING OPERATOR EKG 12-LEAD STAT 07/29/2024 3:14 PM PULVERIZING AND SIFTING OPERATOR Shortness of breath COMPLETE PFT W/WO BRONCHODILATOR Routine 06/04/2024 3:57 PM PULVERIZING AND SIFTING OPERATOR ILD (interstitial lung disease) (HCC) SIX MINUTE WALK Routine 06/04/2024 2:29 PM PULVERIZING AND SIFTING OPERATOR ILD (interstitial lung disease) (HCC) HOME O2 EVAL (DESATURATION SCREEN) Routine 06/04/2024 1:24 PM PULVERIZING AND SIFTING OPERATOR ILD (interstitial lung disease) (HCC) from Last 3 Months Results * CT Chest Wo Contrast (07/29/2024 4:18 PM PULVERIZING AND SIFTING OPERATOR) Anatomical Region Laterality Modality Chest Computed Tomogra phy 07/29/2024 5:20 PM PULVERIZING AND SIFTING OPERATOR Impressions 07/29/2024 7:08 PM PULVERIZING AND SIFTING OPERATOR Impression: Bilateral bronchiectasis, honeycombing at the lower lobes, as well as peripheral reticulation. The appearance is similar to prior and consistent with UIP pattern interstitial lung disease. No new acute process in the chest. > Dictated by Angela Ordoñez MD (residential green building designer). IJosemanuel have personally reviewed and interpreted this examination/study. > Interpreting Provider: Josemanuel Shelby on 07/29/2024 7:08 PM Narrative 07/29/2024 7:08 PM PULVERIZING AND SIFTING OPERATOR PROCEDURE: CT CHEST WO CONTRAST, DATE/TIME OF EXAM: 07/29/2024 4:18 PM, LOCATION [facility] INDICATION: R06.02: Shortness of breath ADDITIONAL CLINICAL [...] DATE/TIME OF EXAM: 07/29/2024 4:18 PM, LOCATION [facility] INDICATION: R06.02: Shortness of breath ADDITIONAL CLINICAL [...] > Dictated by Angela Ordoñez MD (residential green building designer). I, Josemanuel Shelby have personally reviewed and interpreted this examination/study. > Interpreting Provider: Josemanuel Shelby on 07/29/2024 7:08 PM Nicole Abernathy PROGRAM FACILITATOR-MANAGER INTELLIGENCE CT ORDERABLE S * RESPIRATORY PANEL WITH SARS-COV-2 BY PCR (STL) (07/29/2024 3:33 PM PULVERIZING AND SIFTING OPERATOR) Adenovirus PCR Not detected Not detected 07/30/2024 12:03 AM PULVERIZING AND SIFTING OPERATOR [facility] Coronavirus 229E PCR Not detected Not detected 07/30/2024 12:03 AM PULVERIZING AND SIFTING OPERATOR [facility] Coronavirus HKU1 PCR Not detected Not detected 07/30/2024 12:03 AM PULVERIZING AND SIFTING OPERATOR [facility] Coronavirus NL63 PCR Not detected Not detected 07/30/2024 12:03 AM PULVERIZING AND SIFTING OPERATOR [facility] Coronavirus OC43 PCR Not detected Not detected 07/30/2024 12:03 AM PULVERIZING AND SIFTING OPERATOR [facility] COVID-19 PCR Not detected Not detected 07/30/2024 12:03 AM PULVERIZING AND SIFTING OPERATOR [facility] Human Metapneumovirus PCR Not detected Not detected 07/30/2024 12:03 AM PULVERIZING AND SIFTING OPERATOR [facility] Human Rhinovirus/Enterov irus PCR Not detected Not detected 07/30/2024 12:03 AM PULVERIZING AND SIFTING OPERATOR [facility] Influenza A PCR Not detected Not detected 07/30/2024 12:03 AM PULVERIZING AND SIFTING OPERATOR [facility] Influenza B PCR Not detected Not detected 07/30/2024 12:03 AM PULVERIZING AND SIFTING OPERATOR [facility] Parainfluenza Virus 1 PCR Not detected Not detected 07/30/2024 12:03 AM PULVERIZING AND SIFTING OPERATOR [facility] Parainfluenza Virus 2 PCR Not detected Not detected 07/30/2024 12:03 AM PULVERIZING AND SIFTING OPERATOR [facility] Parainfluenza Virus 3 PCR Not detected Not detected 07/30/2024 12:03 AM PULVERIZING AND SIFTING OPERATOR [facility] Parainfluenza Virus 4 PCR Not detected Not detected 07/30/2024 12:03 AM PULVERIZING AND SIFTING OPERATOR [facility] Respiratory Syncytial Virus PCR Not detected Not detected 07/30/2024 12:03 AM [facility] Bordetella parapertussis PCR Not detected Not detected 07/30/2024 12:03 AM [facility] Bordetella pertussis PCR Not detected Not detected 07/30/2024 12:03 AM [facility] Chlamydia pneumoniae PCR Not detected Not detected 07/30/2024 12:03 AM [facility] Mycoplasma pneumoniae PCR Not detected Not detected 07/30/2024 12:03 AM [facility] Microbiology SPECIMEN FROM NASOPHARYNGEAL STRUCTURE / Unknown Collection / Unknown 07/29/2024 3:33 PM PULVERIZING AND SIFTING OPERATOR 07/29/2024 3:38 PM PULVERIZING AND SIFTING OPERATOR Narrative [facility] - 07/30/2024 12:03 AM PULVERIZING AND SIFTING OPERATOR This nucleic amplification assay has received FDA authorization via the [employer]. Nicole Abernathy APRN-[facility] IOLOGY ORDERABLES Performing Organization Address City/[facility]/ZIP Co de Phone Number [facility] [address] [place] [address], [facility] [phone] * PT-INR [facility] (07/29/2024 3:31 PM PULVERIZING AND SIFTING OPERATOR) PT 13.7 12.1 - 14.8 Seconds 07/29/2024 4:07 PM [facility] INR 1.1 See Comment 07/29/2024 4:07 PM [facility] Comment:The suggested therap eutic range for standard coumadin (warfarin) therapy is an INR of 2.0-3.0. For high-risk patients (Mechanical Mitral Valve Prosthesis, etc.), the suggested prophylactic therapeutic range is an INR of 2.5-3.5. Blood BLOOD SPECIMEN / Unknown Venipuncture / Unknown 07/29/2024 3:31 PM PULVERIZING AND SIFTING OPERATOR 07/29/2024 3:38 PM PULVERIZING AND SIFTING OPERATOR Nicole Abernathy PROGRAM FACILITATOR-MANAGER INTELLIGENCE LAB - COAGUL ATION ORDERABLES [facility] [address] [place] [address], [place] [phone] * TROPONIN-I HIGH SENSITIVE BASELINE + 1HR (07/29/2024 3:31 PM PULVERIZING AND SIFTING OPERATOR) [facility] Troponin I High Sensitive 7 <=14 ng/L 07/29/2024 4:44 PM [facility] Blood BLOOD SPECIMEN / Unknown Venipuncture / Unknown 07/29/2024 3:31 PM PULVERIZING AND SIFTING OPERATOR 07/29/2024 3:41 PM PULVERIZING AND SIFTING OPERATOR Nicole Abernathy PROGRAM FACILITATOR-MANAGER INTELLIGENCE LAB - CHEMIS TRY ORDERABLES [facility] [address] [place] [address], [facility] [phone] * (ABNORMAL) CBC W AUTO DIFFERENTIAL (07/29/2024 3:31 PM PULVERIZING AND SIFTING OPERATOR) [facility] WBC 5.1 4.0 - 10.7 x10E9/L 07/29/2024 3:56 PM [facility] RBC Count 3.88(L) 3.90 - 5.20 x10E12/L 07/29/2024 3:56 PM [facility] Hemoglobin 12.0 11.9 - 15.8 g/dL 07/29/2024 3:56 PM [facility] Hematocrit 36.0 34.8 - 46.1 % 07/29/2024 3:56 PM [facility] MCV 92.8 80.0 - 98.0 fL 07/29/2024 3:56 PM [facility] MCH 30.9 26.7 - 33.6 pg 07/29/2024 3:56 PM [facility] MCHC 33.3 31.7 - 36.3 g/dL 07/29/2024 3:56 PM [facility] RDW-CV 13.4 11.3 - 14.8 % 07/29/2024 3:56 PM [facility] Platelet Count 224 150 - 420 x10E9/L 07/29/2024 3:56 PM [facility] MPV 8.7 7.8 - 11.4 fL 07/29/2024 3:56 PM [facility] Neutrophil % 64.0 41.0 - 74.0 % 07/29/2024 3:56 PM [facility] Lymphocyte % 25.1 17.0 - 47.0 % 07/29/2024 3:56 PM [facility] Monocyte % 7.2 3.0 - 11.0 % 07/29/2024 3:56 PM [facility] Eosinophil % 2.9 0.0 - 7.0 % 07/29/2024 3:56 PM [facility] Basophil % 0.2 0.0 - 1.6 % 07/29/2024 3:56 PM [facility] Immature Granulocytes % 0.6 0.0 - 1.0 % 07/29/2024 3:56 PM [facility] Neutrophil Absolute 3.28 1.60 - 7.50 x10E9/L 07/29/2024 3:56 PM [facility] Lymphocyte Absolute 1.29 1.00 - 4.40 x10E9/L 07/29/2024 3:56 PM [facility] Monocyte Absolute 0.37 0.15 - 1.00 x10E9/L 07/29/2024 3:56 PM [facility] Eosinophil Absolute 0.15 0.00 - 0.60 x10E9/L 07/29/2024 3:56 PM [facility] Basophil Absolute 0.01 0.00 - 0.13 x10E9/L 07/29/2024 3:56 PM [facility] Blood BLOOD SPECIMEN / Unknown Venipuncture / Unknown 07/29/2024 3:31 PM PULVERIZING AND SIFTING OPERATOR 07/29/2024 3:41 PM [facility] Nicole Abernathy PROGRAM FACILITATOR-MANAGER INTELLIGENCE LAB - HEMATO LOGY ORDERABLES [facility] [address] [place] [phone], [facility] [phone] * (ABNORMAL) B-TYPE NATRIURETIC PEPTIDE (07/29/2024 3:31 PM PULVERIZING AND SIFTING OPERATOR) BNP 102(H) <100 pg/mL 07/29/2024 4:41 PM [facility] Comment: A decision threshold of 100 [...] Unknown Venipuncture / Unknown 07/29/2024 3:31 PM PULVERIZING AND SIFTING OPERATOR 07/29/2024 3:41 PM PULVERIZING AND SIFTING OPERATOR Nicole Abernathy PROGRAM FACILITATOR-MANAGER INTELLIGENCE LAB - CHEMIS TRY ORDERABLES [facility] [address] [place] [phone], [facility] [phone] * (ABNORMAL) COMPREHENSIVE METABOLIC PANEL (07/29/2024 3:31 PM PULVERIZING AND SIFTING OPERATOR) BUN 19 7 - 26 mg/dL 07/29/2024 4:39 PM [facility] Creatinine 1.07(H) 0.56 - 0.96 mg/dL 07/29/2024 4:39 PM [facility] Sodium 139 136 - 145 mmol/L 07/29/2024 4:39 PM [facility] Potassium 3.9 3.5 - 4.5 mmol/L 07/29/2024 4:39 PM [facility] Chloride 106 98 - 107 mmol/L 07/29/2024 4:39 PM [facility] CO2 25 22 - 29 mmol/L 07/29/2024 4:39 PM [facility] Glucose 101(H) 70 - 99 mg/dL 07/29/2024 4:39 PM [facility] Calcium 9.6 8.4 - 10.2 mg/dL 07/29/2024 4:39 PM [facility] Protein Total 7.5 6.0 - 8.3 g/dL 07/29/2024 4:39 PM [facility] Albumin 3.5 3.4 - 5.0 g/dL 07/29/2024 4:39 PM [facility] Bilirubin Total 0.4 0.2 - 1.2 mg/dL 07/29/2024 4:39 PM [facility] Alkaline Phosphatase 46 40 - 150 U/L 07/29/2024 4:39 PM [facility] ALT 9 5 - 55 U/L 07/29/2024 4:39 PM [facility] AST 18 5 - 34 U/L 07/29/2024 4:39 PM [facility] Anion Gap 8 6 - 16 07/29/2024 4:39 PM [facility] BUN/Creatinine Ratio 18 7 - 23 07/29/2024 4:39 PM [facility] Osmolality Calculated 290 275 - 295 mOsm/kg 07/29/2024 4:39 PM [facility] Albumin/Globulin Ratio 0.9(L) 1.1 - 2.3 07/29/2024 4:39 PM [facility] eGFR by CKD-EPI 52(L) >=90 mL/min/1.7 3 m2 07/29/2024 4:39 PM [facility] Blood BLOOD SPECIMEN / Unknown Venipuncture / Unknown 07/29/2024 3:31 PM PULVERIZING AND SIFTING OPERATOR 07/29/2024 3:41 PM PULVERIZING AND SIFTING OPERATOR Nicole Abernathy PROGRAM FACILITATOR-MANAGER INTELLIGENCE LAB - CHEMIS TRY ORDERABLES Performing Organization Address City/State/[facility] Co de Phone Number [address] [address], [facility] [phone] * MAGNESIUM BLOOD (07/29/2024 3:31 PM PULVERIZING AND SIFTING OPERATOR) Magnesium 2.0 1.6 - 2.6 mg/dL 07/29/2024 4:39 PM [facility] Blood BLOOD SPECIMEN / Unknown Venipuncture / Unknown 07/29/2024 3:31 PM PULVERIZING AND SIFTING OPERATOR 07/29/2024 3:41 PM PULVERIZING AND SIFTING OPERATOR Nicole Abernathy PROGRAM FACILITATOR-MANAGER INTELLIGENCE LAB - CHEMIS TRY ORDERABLES [facility] [address] [place] [address], [facility] [phone] * COMPLETE PFT W/WO BRONCHODILATOR (06/04/2024 3:57 PM PULVERIZING AND SIFTING OPERATOR) Impressions [facility] - 06/04/2024 3:57 PM PULVERIZING AND SIFTING OPERATOR [facility] DEPARTMENT OF PULMONARY, CRITICAL CARE, AND SLEEP MEDICINE PULMONARY FUNCTION TEST Please see technologist's comments mentioned in the report. INTERPRETATION: SPIROMETRY: FVC: decreased. FEV1: normal. FEV1/FVC ratio is normal. BRONCHODILATOR RESPONSE: There is a significant positive response to bronchodilators. FLOW-VOLUME LOOPS: Inspection of the flow-volume loops shows small flow-volume loops. LUNG VOLUMES: Lung volumes by body plethysmography show decreased TLC and decreased residual volume. DIFFUSION CAPACITY - DLCO did not meet ATS/ERS 2017 criteria AIRWAY RESISTANCE The airway resistance is decreased and the specific conductance is increased. ARTERIAL BLOOD GAS ANALYSIS: Not performed. IMPRESSION: 1. Severe restrictive ventilatory limitation. 2. DLCO not able to be interpreted as it did not meet criteria. 3. There is a significant bronchodilator response. 4. There is no previous study available for comparison. Al Arreola DO Pulmonary & Critical Care Fellow Division of Pulmonary, Critical Care, and Sleep Medicine [facility] I have reviewed this study and agree with the interpretation by the Hand Brim Ironer. Tung Jamil M.D. Information Assurance of Internal Medicine Division of Pulmonary, Critical Care and Sleep Medicine [facility] Narrative [facility] - 06/04/2024 3:57 PM PULVERIZING AND SIFTING OPERATOR Al Arreola DO 06/06/2024 10:25 PM Chano Du MD RESPIRATORY [facility] ORDERABLES [facility] [address] [place] [address], [place] * SIX MINUTE WALK (06/04/2024 2:29 PM PULVERIZING AND SIFTING OPERATOR) Impressions [facility] - 06/04/2024 2:29 PM PULVERIZING AND SIFTING OPERATOR [facility] DEPARTMENT OF PULMONARY, CRITICAL CARE, AND SLEEP MEDICINE SIX MINUTE WALK TEST Nesha Sg 06/07/2024 Interpretation: The patient walked for 6 minutes, initially on room air then requiring 2 L/min supplemental O2 and covered total distance of 270 meters. On the Alethea scale at baseline, reported dyspnea was 0 and fatigue was 0. At the end of the study, the Alethea reported dyspnea was 0 and fatigue was 3. There were no additional symptoms reported, but the patient became hypoxic and required 2 L/min oxygen due to desaturation to 88%. Returned to 99% at rest at discharge. IMPRESSION: 1. Total 6 minute walk distance is 270 meters, which is above the lower limit of normal of 247 meters for this patient. 2. There is no available study for comparison. Al Arreola DO Pulmonary & Critical Care Fellow Division of Pulmonary, Critical Care, and Sleep Medicine [facility] I have reviewed this study and agree with the interpretation by the Hand Brim Ironer. Tung Jamil M.D. Information Assurance of Internal Medicine Division of Pulmonary, Critical Care and Sleep Medicine [facility] Narrative [facility] - 06/04/2024 2:29 PM PULVERIZING AND SIFTING OPERATOR Al Arreola DO 06/07/2024 2:28 PM Chano Du MD RESPIRATORY [facility] ORDERABLES [place] [id number] [place] [address], [facility] * AMBULATORY OXIMETRY (06/04/2024 1:24 PM PULVERIZING AND SIFTING OPERATOR) Impressions [facility] - 06/04/2024 1:24 PM PULVERIZING AND SIFTING OPERATOR [facility] DEPARTMENT OF PULMONARY, CRITICAL CARE, AND SLEEP MEDICINE OXYGEN TITRATION STUDY Nesha Sg 06/07/2024 INTERPRETATION The test was performed with free walking at room air. The patient was able to walk for 345 meters during the 8 minutes on room air with lowest SpO2 of 90%. The patient's SpO2 dropped to 90% at minute 3 and oxygen saturation remained above 90 throughout the test. IMPRESSION 1. At the above level of activity the patient's oxygen saturation remained 90 % and above on room air. Al Arreola DO Pulmonary & Critical Care Fellow Division of Pulmonary, Critical Care, and Sleep Medicine [facility] I have reviewed this study and agree with the interpretation by the Hand Brim Ironer. Tung Jamil M.D. Information Assurance of Internal Medicine Division of Pulmonary, Critical Care and Sleep Medicine [facility] Narrative [facility] - 06/04/2024 1:24 PM PULVERIZING AND SIFTING OPERATOR Al Arreola DO 06/07/2024 2:32 PM Chano Du MD RESPIRATORY [facility] ORDERABLES [facility] [address] [place] [address], [facility] from Last 3 Months Advance Directives * Full Code (Latest Code Status on File) Date Activated Date Inactivated Comments 05/08/2019 5:40 AM 05/09/2019 1:57 PM Care Teams Supervisor Roving Department Relationship Specialty Start Date End Date Bar Gomez MD [address] [facility] [address] [place] [address] PCP - General Internal Medicine 05/08/19
--- OUTSIDE RECORDS SUMMARY | 2024-07-31 13:44 | XMS_ITS | Patient Health Summary ---
Author Organization [facility] Address [address] [place] [address] Care Team Providers Care Certified Industrial Hygienist Name Role Phone Bar Gomez MD Primary Care Provider [phone] Note from [facility],non-owned Affiliates and Associated Physician Practices is amultiple site organization consisting of ambulatory clinics and hospital sitesin [place], [place] and [place]. This disclosure is being madepursuant to the Care Everywhere program and may not contain all information available regarding this patient. Last updated 18.[facility] Allergies * 5-Alpha Reductase Inhibitors(Unknown) * Hmg-Coa-R Inhibitors(Myalgias) -High Criticality * Lisinopril(Cough) -Medium Criticality Medications * Be aware that medications may not be up to date on this document. Alwaysverify current medications with the patient. * clopidogrel (PLAVIX) 75 MG tablet(Started 05/10/2019) Take 1 tablet by mouth once daily * Calcium Carbonate+Vitamin D 600-200 MG-UNIT TABS Take 1 tablet by mouth once daily * tiotropium (SPIRIVA RESPIMAT) 2.5 MCG/ACT inhaler 2 (two) puffs once daily * Cholecalciferol (VITAMIN D3) 1.25 MG (57837 UT) capsule Take 1 (one) capsule by mouth every 7 days * ezetimibe (Zetia) 10 MG tablet Take 1 (one) tablet by mouth once daily * anastrozole (ARIMIDEX) 1 MG tablet(Started 11/28/2021) Take 1 (one) tablet by mouth once daily * levothyroxine (Synthroid) 300 MCG tablet Take 1 (one) tablet by mouth once daily * losartan (Cozaar) 100 MG tablet(Started 04/10/2022) Take 1 (one) tablet by mouth once daily * hydroCHLOROthiazide (Hydrodiuril) 25 MG tablet(Started 07/10/2022) Take 1 (one) tablet by mouth once daily * Albuterol Sulfate 108 (90 Base) MCG/ACT Inhale 2 puffs by mouth every 6 hours as needed * Multiple Vitamin (MULTI-VITAMINS PO) * fenofibrate (Tricor) 145 MG tablet(Started 05/10/2023) Take 1 (one) tablet by mouth once daily * levothyroxine (Synthroid) 75 MCG tablet(Started 04/05/2023) Take 1 (one) tablet by mouth once daily * amoxicillin-clavulanate (Augmentin) 875-125 MG tablet Take 1 (one) tablet by mouth 2 times daily with morning and evening meal Active Problems Problem Noted Date Diagnosed Date Aortic stenosis 09/15/2022 Pulmonary hypertension 09/15/2022 Dyslipidemia 09/15/2022 Atherosclerosis of aorta 09/15/2022 Dyspnea 09/15/2022 ILD (interstitial lung disease) 09/15/2022 Weakness 05/08/2019 Immunizations * INFLUENZA VACCINE(Given 04/05/2023) * INFLUENZA VACCINE, HIGH-DOSE, QUADR. (FLUZONE HIGH-DOSE QUADRIVALENT; 65Y+), 0.7 ML (HD-IIV4)(Given 04/06/2023, 04/14/2022, 06/08/2021, 05/17/2020, 05/20/2019) * PNEUMOCOCCAL PPSV23(Given 10/07/2015) * PNEUMOCOCCAL PPV VACCINE(Given 01/16/2007) * Pneumococcal Pcv13 Conj(Given 10/07/2015) Social History Tobacco Use Types Packs/Day Years [...] Comments Blood Pressure 145/72 07/29/2024 2:02 PM WAREHOUSE MAN Pulse 88 07/29/2024 2:02 PM [employer]HOUSE MAN Temperature 36.6 C (97.8 F) 07/29/2024 2:02 PM [employer]HOUSE MAN Respiratory Rate 20 07/29/2024 2:02 PM [employer]HOUSE MAN Oxygen Saturation 97% 07/29/2024 2:02 PM [employer]AREHOUSE MAN Inhaled Oxygen Concentration - - Weight 65.3 kg (144 lb) 07/29/2024 2:02 PM [employer]HOUSE MAN Height 165.1 cm (5' 5 ) 07/29/2024 2:02 PM [employer]HOUSE MAN Body Mass Index 23.96 07/29/2024 2:02 PM [employer]AREHOUSE MAN Procedures * CT CHEST WO CONTRAST(Performed 07/29/2024) Performed for Shortness of breath * RESPIRATORY PANEL WITH SARS-COV-2 BY PCR (STL)(Performed 07/29/2024) * PT-INR [facility](Performed 07/29/2024) * MAGNESIUM BLOOD(Performed 07/29/2024) * B-TYPE NATRIURETIC PEPTIDE(Performed 07/29/2024) * COMPREHENSIVE METABOLIC PANEL(Performed 07/29/2024) * CBC W AUTO DIFFERENTIAL(Performed 07/29/2024) * TROPONIN-I HIGH SENSITIVE BASELINE + 1HR(Performed 07/29/2024) * EKG 12-LEAD(Performed 07/29/2024) Performed for Shortness of breath * COMPLETE PFT W/WO BRONCHODILATOR(Performed 06/04/2024) Performed for ILD (interstitial lung disease) ([facility]) * SIX MINUTE WALK(Performed 06/04/2024) Performed for ILD (interstitial lung disease) ([facility]) * HOME O2 EVAL (DESATURATION SCREEN)(Performed 06/04/2024) Performed for ILD (interstitial lung disease) ([facility]) * ECHO COMPLETE(Performed 03/19/2024) Performed for Nonrheumatic aortic valve stenosis * CARDIAC EKG ORDER(Performed 09/03/2023) * ECHO COMPLETE(Performed 08/17/2023) Performed for Undiagnosed cardiac murmurs * NM MYOCARD PERF REST STRESS(Performed 07/13/2023) Performed for Nonrheumatic aortic valve stenosis, Weakness, Dyspnea, unspecified type * STRESS TEST(Performed 07/13/2023) Performed for Nonrheumatic aortic valve stenosis, Weakness, Dyspnea, unspecified type * EKG 12-LEAD(Performed 06/15/2023) Performed for 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 ([facility]) * LIPID PROFILE(Performed 09/19/2022) Performed for Dyslipidemia * CBC W AUTO DIFFERENTIAL(Performed 09/19/2022) Performed for Dyslipidemia * BASIC METABOLIC PANEL (CALCIUM TOTAL)(Performed 09/19/2022) Performed for Dyslipidemia * CT CHEST WO CONT AND HIRES(Performed 2022) Performed for Interstitial lung disease (HCC) * SIMONE BLOOD SINGLE PATTERN(Performed 06/22/2022) Performed for Interstitial lung disease (HCC), Positive SIMONE (antinuclear antibody) * SIMOEN BLOOD SINGLE PATTERN(Performed 06/22/2022) Performed for Interstitial lung disease (HCC), Positive SIMONE (antinuclear antibody) * SIMONE HEP-2 IGG BY IFA(Performed 06/22/2022) Performed for Interstitial lung disease (HCC), Positive SIMONE (antinuclear antibody) * IMMUNOFIXATION BLOOD(Performed 06/22/2022) Performed for Interstitial lung disease (HCC), Positive SIMONE (antinuclear antibody) * SS-A (SJOGREN'S) 52+60 ANTIBODIES(Performed 06/22/2022) Performed for Interstitial lung disease (HCC), Positive SIMONE (antinuclear antibody) * VALERIO/PRODUCT DEVELOPMENT ACTUARY (GWEN) ANTIBODY IGG(Performed 06/22/2022) Performed for Interstitial lung disease (HCC), Positive SIMONE (antinuclear antibody) * HMGCR ANTIBODY IGG(Performed 06/22/2022) Performed for Positive SIMONE (antinuclear antibody) * SS-B (SJOGREN'S) ANTIBODY(Performed 06/22/2022) Performed for Interstitial lung disease (HCC), Positive SIMONE (antinuclear antibody) * VALERIO (SM) ANTIBODY GWEN(Performed 06/22/2022) Performed for Interstitial lung disease (HCC), Positive SIMONE (antinuclear antibody) * DNA ANTIBODY DS CRITHIDIA TITER(Performed 06/22/2022) Performed for Interstitial lung disease (HCC), Positive SIMONE (antinuclear antibody) * CHROMATIN ANTIBODY(Performed 06/22/2022) Performed for Interstitial lung disease (HCC), Positive SIMONE (antinuclear antibody) * SIMONE BLOOD SCREEN W/REFLEX TITER(Performed 06/22/2022) Performed for Interstitial lung disease (HCC), Positive SIMONE (antinuclear antibody) * CENTROMERE B ANTIBODIES(Performed 06/22/2022) Performed for Interstitial lung disease (HCC), Positive SIMONE (antinuclear antibody) * SCLERODERMA COMPREHENSIVE AB PANEL(Performed 06/22/2022) Performed for Interstitial lung disease (HCC), Positive SIMONE (antinuclear antibody) * URINALYSIS W/MICROSCOPIC REFLEX TO CULTURE(Performed 06/22/2022) Performed for Interstitial lung disease (HCC), Positive SIMONE (antinuclear antibody) * PROTEIN CREATININE RATIO URINE RANDOM PNL(Performed 06/22/2022) Performed for Interstitial lung disease (HCC), Positive SIMONE (antinuclear antibody) * PROTEIN ELECTROPHORESIS URINE RANDOM(Performed 06/22/2022) Performed for Interstitial lung disease (HCC), Positive SIMONE (antinuclear antibody) * PROTEIN ELECTROPHORESIS BLOOD(Performed 06/22/2022) Performed for Interstitial lung disease (HCC), Positive SIMONE (antinuclear antibody) * COMPREHENSIVE METABOLIC PANEL(Performed 06/22/2022) Performed for Interstitial lung disease (HCC), Positive SIMONE (antinuclear antibody) * CBC W AUTO DIFFERENTIAL(Performed 06/22/2022) Performed for Interstitial lung disease (HCC), Positive SIMONE (antinuclear antibody) * RHEUMATOID FACTOR BLOOD QUANTITATIVE(Performed 06/22/2022) Performed for Interstitial lung disease (HCC), Positive SIMONE (antinuclear antibody) * CYCLIC CITRULLINATED PEPTIDE(CCP) AB IGG(Performed 06/22/2022) Performed for Interstitial lung disease (HCC), Positive SIMONE (antinuclear antibody) * MYOSITIS ANTIBODY PANEL COMPREHENSIVE(Performed 06/22/2022) Performed for Interstitial lung disease (HCC), Positive SIMONE (antinuclear antibody) * CK BLOOD(Performed 06/22/2022) Performed for Interstitial lung disease (HCC), Positive SIMONE (antinuclear antibody) * ALDOLASE(Performed 06/22/2022) Performed for Interstitial lung disease (HCC), Positive SIMONE (antinuclear antibody) * HEPATITIS C AB SCREEN RFLX NAAT QUANT(Performed 06/22/2022) Performed for Interstitial lung disease (HCC), Positive SIMONE (antinuclear antibody) * HEPATITIS B SURFACE ANTIGEN W RFLX CONFIRMATION(Performed 06/22/2022) Performed for Interstitial lung disease (HCC), Positive SIMONE (antinuclear antibody) * HEPATITIS B CORE ANTIBODY TOTAL(Performed 06/22/2022) Performed for Interstitial lung disease (HCC), Positive SIMONE (antinuclear antibody) * XR KNEE BILAT STANDING 1VW(Performed 06/22/2022) Performed for Interstitial lung disease (HCC), Positive SIMONE (antinuclear antibody) * XR FOOT RIGHT WT BEARING 3VW(Performed 06/22/2022) Performed for Interstitial lung disease (HCC), Positive SIMONE (antinuclear antibody) * XR WRIST RIGHT 3VW OR MORE(Performed 06/22/2022) Performed for Interstitial lung disease (HCC), Positive SIMONE (antinuclear antibody) * XR WRIST LEFT 3VW OR MORE(Performed 06/22/2022) Performed for Interstitial lung disease (HCC), Positive SIMONE (antinuclear antibody) * XR HAND RIGHT 3VW OR MORE(Performed 06/22/2022) Performed for Interstitial lung disease (HCC), Positive SIMONE (antinuclear antibody) * XR HAND LEFT 3VW OR MORE(Performed 06/22/2022) Performed for Interstitial lung disease (HCC), Positive SIMONE (antinuclear antibody) * XR FOOT LEFT WT BEARING 3VW(Performed 06/22/2022) Performed for Interstitial lung disease (HCC), Positive SIMONE (antinuclear antibody) * ECHO COMPLETE(Performed 03/17/2022) Performed for Pulmonary hypertension (HCC) * HEPATIC FUNCTION PANEL(Performed 03/13/2022) Performed for Heart failure with preserved ejection fraction, unspecified HF chronicity (HCC) * LAB RESULTS ORDER(Performed 02/22/2022) * COMPREHENSIVE METABOLIC PANEL(Performed 02/21/2022) Performed for Heart failure with preserved ejection fraction, unspecified HF chronicity (HCC) * CBC W AUTO DIFFERENTIAL(Performed 02/21/2022) Performed for Heart failure with preserved ejection fraction, unspecified HF chronicity (HCC) * PROC EKG IN CLINIC(Performed 02/15/2022) Performed for Heart failure with preserved ejection fraction, unspecified HF chronicity (HCC), Nonrheumatic aortic valve stenosis * HEPATIC FUNCTION PANEL(Performed 02/10/2022) * HEPATIC FUNCTION PANEL(Performed 01/09/2022) * CARDIAC EKG ORDER(Performed 02/22/2020) * CARDIAC PROCEDURE ORDER(Performed 05/13/2019) * CARDIAC EKG ORDER(Performed 05/13/2019) * MRI BRAIN WO CONTRAST(Performed 05/09/2019) Performed for Weakness * T4 FREE(Performed 05/09/2019) * TSH(Performed 05/09/2019) * LIPID PROFILE(Performed 05/09/2019) * CBC W/O DIFFERENTIAL(Performed 05/09/2019) * BASIC METABOLIC PANEL (CALCIUM TOTAL)(Performed 05/09/2019) * TROPONIN I(Performed 05/09/2019) * CT HEAD WO CONTRAST(Performed 05/09/2019) Performed for Weakness * GLUCOSE - POINT OF CARE(Performed 05/09/2019) * ECHO COMPLETE W BUBBLE STUDY(Performed 05/08/2019) Performed for Weakness * TYPE + SCREEN PANEL(Performed 05/08/2019) * HEMOGLOBIN A1C(Performed 05/08/2019) * TROPONIN I(Performed 05/08/2019) * PT-INR [facility](Performed 05/08/2019) * COMPREHENSIVE METABOLIC PANEL(Performed 05/08/2019) * CBC W AUTO DIFFERENTIAL(Performed 05/08/2019) * EKG 12-LEAD(Performed 05/08/2019) Performed for Weakness * PT EVAL AND TREAT(Performed 05/08/2019) * OT EVAL AND TREAT(Performed 05/08/2019) * CREATININE BLOOD - POCT (IP) [facility](Performed 05/08/2019) Performed for Weakness * CT ANGIO BRAIN AND NECK(Performed 05/08/2019) Performed for Weakness * CT BRAIN STROKE(Performed 05/08/2019) Performed for Weakness Results * CT Chest Wo Contrast (07/29/2024 4:18 PM WAREHOUSE MAN) Anatomical Region Laterality Modality Chest Computed Tomogra phy 07/29/2024 5:20 PM [employer] Impressions 07/29/2024 7:08 PM [employer] Impression: Bilateral bronchiectasis, honeycombing at the lower lobes, as well as peripheral reticulation. The appearance is similar to prior and consistent with UIP pattern interstitial lung disease. No new acute process in the chest. > Dictated by Angela Ordoñez MD (assistant vice president). I, Josemanuel Shelby have personally reviewed and interpreted this examination/study. > Interpreting Provider: Josemanuel Shelby on 07/29/2024 7:08 PM Narrative 07/29/2024 7:08 PM [employer]HOUSE [employer] PROCEDURE: CT CHEST WO CONTRAST, DATE/TIME OF EXAM: 07/29/2024 4:18 PM, LOCATION [facility] INDICATION: R06.02: Shortness of breath ADDITIONAL [...] DATE/TIME OF EXAM: 07/29/2024 4:18 PM, LOCATION [facility] INDICATION: R06.02: Shortness of breath ADDITIONAL [...] chest. > Dictated by Angela Ordoñez MD (assistant vice president). I, Josemanuel Shelby have personally reviewed and interpreted this examination/study. > Interpreting Provider: Josemanuel Shelby on 07/29/2024 7:08 PM Nicole Abernathy FORM SETTER/DRIVER-CORONARY CARE UNIT NURSE CT ORDERABLE S * RESPIRATORY PANEL WITH SARS-COV-2 BY PCR (STL) (07/29/2024 3:33 PM [employer]HOUSE MAN) Adenovirus PCR Not detected Not detected 07/30/2024 12:03 AM [employer]SE [facility] Coronavirus 229E PCR Not detected Not detected 07/30/2024 12:03 AM [facility] Coronavirus HKU1 PCR Not detected Not detected 07/30/2024 12:03 AM [facility] Coronavirus NL63 PCR Not detected Not detected 07/30/2024 12:03 AM [employer] [facility] Coronavirus OC43 PCR Not detected Not detected 07/30/2024 12:03 AM [employer] [facility] COVID-19 PCR Not detected Not detected 07/30/2024 12:03 AM [employer] [facility] Human Metapneumovirus PCR Not detected Not detected 07/30/2024 12:03 AM [employer] [facility] Human Rhinovirus/Enterov irus PCR Not detected Not detected 07/30/2024 12:03 AM [employer] [facility] Influenza A PCR Not detected Not detected 07/30/2024 12:03 AM [employer] [facility] Influenza B PCR Not detected Not detected 07/30/2024 12:03 AM [employer] [facility] Parainfluenza Virus 1 PCR Not detected Not detected 07/30/2024 12:03 AM [employer] [facility] Parainfluenza Virus 2 PCR Not detected Not detected 07/30/2024 12:03 AM [employer] [facility] Parainfluenza Virus 3 PCR Not detected Not detected 07/30/2024 12:03 AM [employer] [facility] Parainfluenza Virus 4 PCR Not detected Not detected 07/30/2024 12:03 AM [facility] Respiratory Syncytial Virus PCR Not detected Not detected 07/30/2024 12:03 AM [facility] Bordetella parapertussis PCR Not detected Not detected 07/30/2024 12:03 AM [facility] Bordetella pertussis PCR Not detected Not detected 07/30/2024 12:03 AM [facility] Chlamydia pneumoniae PCR Not detected Not detected 07/30/2024 12:03 AM [facility] Mycoplasma pneumoniae PCR Not detected Not detected 07/30/2024 12:03 AM [facility] Microbiology SPECIMEN FROM NASOPHARYNGEAL STRUCTURE / Unknown Collection / Unknown 07/29/2024 3:33 PM WAREHOUSE MAN 07/29/2024 3:38 PM [employer]HOUSE MAN Narrative [facility] - 07/30/2024 12:03 AM W[employer]HOUSE MAN This nucleic amplification assay has received FDA authorization via the [employer]. Nicole Abernathy FORM SETTER/DRIVER-CORONARY CARE UNIT NURSE LAB - MICROB IOLOGY ORDERABLES [facility] [address] [place], [place] [address], [facility] [phone] * PT-INR [facility] (07/29/2024 3:31 PM WAREHOUSE MAN) Only the most recent of2 resultswithin the time period is included. PT 13.7 12.1 - 14.8 Seconds 07/29/2024 4:07 PM [facility] INR 1.1 See Comment 07/29/2024 4:07 PM [facility] Comment:The suggested therap eutic range for standard coumadin (warfarin) therapy is an INR of 2.0-3.0. For high-risk patients (Mechanical Mitral Valve Prosthesis, etc.), the suggested prophylactic therapeutic range is an INR of 2.5-3.5. Blood BLOOD SPECIMEN / Unknown Venipuncture / Unknown 07/29/2024 3:31 PM WAREHOUSE MAN 07/29/2024 3:38 PM [employer]HOUSE MAN Nicole Abernathy APRN-CORONARY CARE UNIT NURSE LAB - COAGUL ATION ORDERABLES [address] [address], [facility] [phone] * TROPONIN-I HIGH SENSITIVE BASELINE + 1HR (07/29/2024 3:31 PM WAREHOUSE MAN) [facility] Troponin I High Sensitive 7 <=14 ng/L 07/29/2024 4:44 PM [facility] Blood BLOOD SPECIMEN / Unknown Venipuncture / Unknown 07/29/2024 3:31 PM [employer]HOU[employer] MAN 07/29/2024 3:41 PM [employer] MAN Nicole Abernathy APRN-CORONARY CARE UNIT NURSE LAB - CHEMIS TRY ORDERABLES [address] [address], [facility] [phone] * (ABNORMAL) CBC W AUTO DIFFERENTIAL (07/29/2024 3:31 PM WAREHOUSE MAN) Only the most recent of5 resultswithin the time period is included. [facility] WBC 5.1 4.0 - 10.7 x10E9/L 07/29/2024 3:56 PM [facility] RBC Count 3.88(L) 3.90 - 5.20 x10E12/L 07/29/2024 3:56 PM [facility] Hemoglobin 12.0 11.9 - 15.8 g/dL 07/29/2024 3:56 PM [facility] Hematocrit 36.0 34.8 - 46.1 % 07/29/2024 3:56 PM [facility] MCV 92.8 80.0 - 98.0 fL 07/29/2024 3:56 PM [facility] MCH 30.9 26.7 - 33.6 pg 07/29/2024 3:56 PM [facility] MCHC 33.3 31.7 - 36.3 g/dL 07/29/2024 3:56 PM [facility] RDW-CV 13.4 11.3 - 14.8 % 07/29/2024 3:56 PM [facility] Platelet Count 224 150 - 420 x10E9/L 07/29/2024 3:56 PM [facility] MPV 8.7 7.8 - 11.4 fL 07/29/2024 3:56 PM [facility] Neutrophil % 64.0 41.0 - 74.0 % 07/29/2024 3:56 PM [facility] Lymphocyte % 25.1 17.0 - 47.0 % 07/29/2024 3:56 PM [facility] Monocyte % 7.2 3.0 - 11.0 % 07/29/2024 3:56 PM [facility] Eosinophil % 2.9 0.0 - 7.0 % 07/29/2024 3:56 PM [facility] Basophil % 0.2 0.0 - 1.6 % 07/29/2024 3:56 PM [facility] Immature Granulocytes % 0.6 0.0 - 1.0 % 07/29/2024 3:56 PM [facility] Neutrophil Absolute 3.28 1.60 - 7.50 x10E9/L 07/29/2024 3:56 PM [facility] Lymphocyte Absolute 1.29 1.00 - 4.40 x10E9/L 07/29/2024 3:56 PM [facility] Monocyte Absolute 0.37 0.15 - 1.00 x10E9/L 07/29/2024 3:56 PM [facility] Eosinophil Absolute 0.15 0.00 - 0.60 x10E9/L 07/29/2024 3:56 PM [facility] Basophil Absolute 0.01 0.00 - 0.13 x10E9/L 07/29/2024 3:56 PM [facility] Blood BLOOD SPECIMEN / Unknown Venipuncture / Unknown 07/29/2024 3:31 PM [employer]HOUSE MAN 07/29/2024 3:41 PM [facility] Nicole Abernathy FORM SETTER/DRIVER-CORONARY CARE UNIT NURSE LAB - HEMATO LOGY ORDERABLES [facility] [address] [place] [address], [facility] [phone] * (ABNORMAL) B-TYPE NATRIURETIC PEPTIDE (07/29/2024 3:31 PM WAREHOUSE MAN) [facility] BNP 102(H) <100 pg/mL 07/29/2024 4:41 PM [facility] Comment: A decision threshold of 100 [...] Unknown Venipuncture / Unknown 07/29/2024 3:31 PM [employer]HOUSE MAN 07/29/2024 3:41 PM [employer] MAN Nicole Abernathy FORM SETTER/DRIVER-CORONARY CARE UNIT NURSE LAB - CHEMIS TRY ORDERABLES [address] [address], [facility] [phone] * (ABNORMAL) COMPREHENSIVE METABOLIC PANEL (07/29/2024 3:31 PM WAREHOUSE MAN) Only the most recent of4 resultswithin the time period is included. [facility] BUN 19 7 - 26 mg/dL 07/29/2024 4:39 PM [facility] Creatinine 1.07(H) 0.56 - 0.96 mg/dL 07/29/2024 4:39 PM [facility] Sodium 139 136 - 145 mmol/L 07/29/2024 4:39 PM [facility] Potassium 3.9 3.5 - 4.5 mmol/L 07/29/2024 4:39 PM [facility] Chloride 106 98 - 107 mmol/L 07/29/2024 4:39 PM [facility] CO2 25 22 - 29 mmol/L 07/29/2024 4:39 PM [facility] Glucose 101(H) 70 - 99 mg/dL 07/29/2024 4:39 PM [facility] Calcium 9.6 8.4 - 10.2 mg/dL 07/29/2024 4:39 PM [facility] Protein Total 7.5 6.0 - 8.3 g/dL 07/29/2024 4:39 PM [facility] Albumin 3.5 3.4 - 5.0 g/dL 07/29/2024 4:39 PM [facility] Bilirubin Total 0.4 0.2 - 1.2 mg/dL 07/29/2024 4:39 PM [facility] Alkaline Phosphatase 46 40 - 150 U/L 07/29/2024 4:39 PM [facility] ALT 9 5 - 55 U/L 07/29/2024 4:39 PM [facility] AST 18 5 - 34 U/L 07/29/2024 4:39 PM [facility] Anion Gap 8 6 - 16 07/29/2024 4:39 PM [facility] BUN/Creatinine Ratio 18 7 - 23 07/29/2024 4:39 PM [facility] Osmolality Calculated 290 275 - 295 mOsm/kg 07/29/2024 4:39 PM [facility] Albumin/Globulin Ratio 0.9(L) 1.1 - 2.3 07/29/2024 4:39 PM [facility] eGFR by CKD-EPI 52(L) >=90 mL/min/1.7 3 m2 07/29/2024 4:39 PM [facility] Blood BLOOD SPECIMEN / Unknown Venipuncture / Unknown 07/29/2024 3:31 PM [employer] 07/29/2024 3:41 PM [employer] Nicole Abernathy FORM SETTER/DRIVER-CORONARY CARE UNIT NURSE LAB - CHEMIS TRY ORDERABLES [facility] [address] [place] [id number], [facility] [phone] * MAGNESIUM BLOOD (07/29/2024 3:31 PM WAREHOUSE MAN) Magnesium 2.0 1.6 - 2.6 mg/dL 07/29/2024 4:39 PM WAREHOUSE MAN [facility] Blood BLOOD SPECIMEN / Unknown Venipuncture / Unknown 07/29/2024 3:31 PM [employer] 07/29/2024 3:41 PM [employer] Nicole Abernathy FORM SETTER/DRIVER-CORONARY CARE UNIT NURSE LAB - CHEMIS TRY ORDERABLES Performing Organization Address [facility]/ZIP Co de Phone Number [facility] [address] [place] [address], [facility] [phone] * COMPLETE PFT W/WO BRONCHODILATOR (06/04/2024 3:57 PM WAREHOUSE MAN) Impressions [facility] - 06/04/2024 3:57 PM WAREHOUSE MAN [facility] DEPARTMENT OF PULMONARY, CRITICAL CARE, AND SLEEP [...] of Pulmonary, Critical Care, and Sleep Medicine [facility] I have reviewed this study and agree with the interpretation by the Director Of Extension Work. Tung Jamil M.D. [facility] Division of Pulmonary, Critical Care and Sleep Medicine [facility] Narrative [facility] - 06/04/2024 3:57 PM WAREHOUSE MAN Al Arreola DO 06/06/2024 10:25 PM Chano Du MD RESPIRATORY [facility] ORDERABLES [place] [id number] [place] [address], [facility] * SIX MINUTE WALK (06/04/2024 2:29 PM WAREHOUSE MAN) Impressions [facility] - 06/04/2024 2:29 PM WAREHOUSE MAN [facility] DEPARTMENT OF PULMONARY, CRITICAL CARE, AND SLEEP MEDICINE SIX MINUTE WALK TEST Nesha Keyll 06/07/2024 Interpretation: The patient walked for 6 [...] of Pulmonary, Critical Care, and Sleep Medicine [facility] I have reviewed this study and agree with the interpretation by the Director Of Extension Work. Tung Jamil M.D. [facility] Division of Pulmonary, Critical Care and Sleep Medicine [facility] Narrative [facility] - 06/04/2024 2:29 PM WAREHOUSE MAN Al Arreola DO 06/07/2024 2:28 PM Chano Du MD [facility] ORDER[facility] Performing Organization Address [facility]/State/ZIP [place] [address], [facility] * AMBULATORY OXIMETRY (06/04/2024 1:24 PM WAREHOUSE MAN) Impressions [facility] - 06/04/2024 1:24 PM WAREHOUSE MAN [facility] DEPARTMENT OF PULMONARY, CRITICAL CARE, AND SLEEP [...] of Pulmonary, Critical Care, and Sleep Medicine [facility] I have reviewed this study and agree with the interpretation by the Director Of Extension Work. Tung Jamil M.D. [facility] Division of Pulmonary, Critical Care and Sleep Medicine [facility] Narrative [facility] - 06/04/2024 1:24 PM WAREHOUSE MAN Al Arreola DO 06/07/2024 2:32 PM Chano Du MD RESPIRATORY THE RAPY ORDERABLES [facility] [address] [place] [address], [facility] * ECHO COMPLETE (03/19/2024 12:01 PM CDT) Only the most recent of2 resultswithin the time period is included. LA vol index 0.027 l/m SSM CV FUJI PACS Myocardial strain charge 2 unitless SSM CV FUJI PACS IVSd 2D 0.979 cm SSM CV FUJ I PACS LVIDd 4.379 cm SSM CV FUJ I PACS LVIDs 3.053 cm SSM CV FUJ I PACS LVOT diam 2.045 cm SSM CV FUJ I PACS LVPWd 0.962 cm SSM CV FUJ I PACS LV biplane EF 53.814 % SSM CV FUJI PACS LV A2C EF 54.096 % SSM CV FUJ I PACS LV A4C EF 55.401 % SSM CV FUJ I PACS LV EDV A2C 48.405 ml SSM CV FU JI PACS LV EDV A4C 52.304 ml SSM CV FU JI PACS LV ESV A2C 22.22 ml SSM CV FU JI PACS LV ESV A4C 23.327 ml SSM CV FU JI PACS LVOT pk parvez 104.357 cm/s SSM CV F UJI PACS LVOT VTI 19.876 cm SSM CV FUJ I PACS RVIDd 2.686 cm SSM CV FUJ I PACS RVOT pk parvez 65.618 cm/s SSM CV F UJI PACS RVOT VTI 8.189 cm SSM CV FUJ I PACS LA vol BP 47.581 ml SSM CV FUJ I PACS RA area 12.893 cm SSM CV FUJI PACS AV mn grad 19.795 mmHg SSM CV FU JI PACS AV pk parvez 291.11 cm/s SSM CV FUJ I PACS AV VTI 62.265 cm SSM CV FUJ I PACS MV A pk parvez 124.921 cm/s SSM CV F UJI PACS MV E pk parvez 75.471 cm/s SSM CV F UJI PACS MV E' lateral parvez 5.729 cm/s SSM CV FUJI PACS MV mn grad 2.388 mmHg SSM CV FU JI PACS MV VTI 21.148 cm SSM CV FUJ I PACS PV pk parvez 153.33 cm/s SSM CV FUJ I PACS TAPSE 1.899 cm SSM CV FUJ I PACS TR pk parvez 296.606 cm/s SSM CV FUJ I PACS Ascending aorta 3.278 cm SSM CV FUJI PACS IVC Diam Expiration 1.223 cm SSM CV FUJI PACS Sinus of Valsalva 3.102 cm SSM CV FUJI PACS Anatomical Region Laterality Modality Ultrasound 03/19/2024 11:4 6 AM CDT Narrative 03/19/2024 4:42 PM CDT Summary * The left ventricle is normal in size, with low normal systolic function and an estimated ejection fraction of 54 % by biplane method of disks. Left ventricular wall motion is normal. * The left ventricular mass is normal with concentric remodeling. * The left ventricular diastolic function is consistent with grade II diastolic dysfunction. * Right ventricle is normal in size with normal systolic function. * The pulmonary artery systolic pressure is borderline elevated, 38 mmHg. * The aortic valve is possibly trileaflet. The non coronary and left coronary cusps appears fused. * There is moderate to severe aortic valve stenosis with a peak velocity of 3 m/s, mean gradient of 20 mmHg, and aortic valve area of 1.05 cm2. Patient Info Name: Nesha Bettencourt Age: 83 years : 1940 Gender: Female Ht: 65 in Wt: 146 lb BSA: 1.75 m2 HR: 83 bpm BP: 120 / 80 mmHg Heart Rhythm: Sinus Rhythm Exam Date: 03/19/2024 11:46 AM Patient Status: O Study Site: [facility] Primary Location: [facility] Exam Type: ECHO COMPLETE Indications I35.0 - Nonrheumatic aortic valve stenosis Procedure(s) * A complete 2D, color Doppler, spectral Doppler, and M-Mode transthoracic echocardiogram was performed. Staff Referring Physician: Padmini Norris Ordering Provider: Padmini Norris Document Advisor: Minh Mabry Left Ventricle Left ventricular systolic function is low normal with an estimated ejection fraction of 54 % by biplane method of disks. The left ventricle is normal in size. The left ventricular mass is normal with concentric remodeling. Left ventricular segmental wall motion is normal. The left ventricular diastolic function is consistent with grade II diastolic dysfunction. Right Ventricle The right ventricle is normal in size. Right ventricular systolic function is normal. Left Atrium The left atrium is normal in size with a left atrial volume index of 27 ml/m2 by BP MOD. Right Atrium The right atrium is normal in size. Atrial Septum Intact interatrial septum visualized by 2D and color Doppler imaging. Aortic Valve The aortic valve is possibly trileaflet. The non coronary and left coronary cusps appears fused. There is no aortic valve regurgitation. There is moderate to severe aortic valve stenosis with a peak velocity of 3 m/s, mean gradient of 20 mmHg, and aortic valve area of 1.05 cm2. Pulmonic Valve The pulmonic valve is grossly normal. There is no pulmonic valve stenosis. There is trace pulmonic regurgitation. Mitral Valve There is moderate mitral annular calcification. Posterior leaflet is restricted. There is no mitral valve stenosis. There is trace mitral valve regurgitation. Tricuspid Valve The tricuspid valve is normal. There is mild tricuspid valve regurgitation. The pulmonary artery systolic pressure is borderline elevated, 38 mmHg. No stenosis. Inferior Vena Cava The inferior vena cava is normal in size (< 2.1 cm). There is > 50% collapse of the IVC upon inspiration with an estimated right atrial pressure of 3 mmHg. Pericardium/Pleural There is no pericardial effusion. Aorta The aortic root at the sinus of Valsalva is normal in size measuring 3.1 cm with an index of 1.8 cm/m2. The ascending aorta is normal in size measuring 3.3 cm with an index of 1.9 cm/m2. Measurements Left Ventricular Outflow Tract Name Value Normal LVOT 2D LVOT Diameter 2.0 cm LVOT Area 3.3 cm2 LVOT Doppler LVOT Peak Velocity 1.0 m/s LVOT Peak Gradient 4 mmHg LVOT Mean Velocity 71.05 cm/s LVOT Mean Gradient 2 mmHg LVOT VTI 19.9 cm LVOT VTI/AV VTI Ratio 0.3 LVOT Stroke Volume 65 ml LVOT Stroke Volume Index 37 ml/m2 35-58 LVOT CO 5.1 l/min LVOT CI 2.9 l/min/m2 Pulmonic Valve Name Value Normal RVOT Doppler RVOT Peak Velocity 0.7 m/s RVOT Peak Gradient 2 mmHg RVOT Mean Gradient 0 mmHg PV Doppler PV Peak Velocity 1.5 m/s PV Peak Gradient 3 mmHg PV Mean Gradient 5 mmHg PV Accel Time 62.80 ms Mitral Valve Name Value Normal MV Doppler MV Peak Gradient 8 mmHg MV Mean Gradient 2 mmHg MV DI (VTI) 1.06 MV PHT 55 ms MV Area (PHT) 4.03 cm2 4.00-5.00 MV Area (Cont Eq VTI) 3.09 cm2 MV Diastolic Function MV E Peak Velocity 0.8 m/sec MV A Peak Velocity 1.2 m/sec MV E/A 0.6 MV Decel Time (PW) 225 ms MV A Wave Duration 107 ms MV Annular TDI MV Septal e' Velocity 4 cm/s >=8 MV E/e' (Septal) 19 <=8 MV Lateral e' Velocity 6 cm/s >=10 MV E/e' (Lateral) 13 <=8 MV e' Average 5 cm/s MV E/e' (Average) 16 Tricuspid Valve Name Value Normal TV Regurgitation Doppler TR Peak Velocity 3.0 m/s TR Peak Gradient 35 mmHg Estimated PAP/RSVP RA Pressure 3 mmHg <=5 PA Systolic Pressure 38 mmHg <35 RV Systolic Pressure 38 mmHg <36 TV Annular TDI TV Lateral Gris s' Velocity 13 cm/s 10-19 Pulmonary Vessels Name Value Normal Pulmonary Veins Pulm Vein Peak Systolic Velocity 73.9 cm/s Pulm Vein Peak Diastolic Velocity 51.1 cm/s Pulm Vein S/D Velocity Ratio 1 Pulm Vein Ar Velocity 45.2 cm/s Pulm Vein Ar Dur - MV A Dur -13 ms Aorta Name Value Normal Ascending Aorta Sinus of Valsalva Diameter 3.1 cm 2.4-3.6 Sinus of Valsalva Index 1.8 cm/m2 1.4-2.2 Asc Ao Diameter 3.3 cm 1.9-3.5 Asc Ao Diameter Index 1.9 cm/m2 1.0-2.2 Venous Name Value Normal IVC/SVC IVC Diameter 1.2 cm <=2.1 Aortic Valve Name Value Normal AV 2D/MM AV Area (Planimetry) 1.13 cm2 >=3.00 AV Doppler AV Peak Velocity 2.91 m/s AV Peak Gradient 33 mmHg AV Mean Gradient 20 mmHg AV VTI 62 cm AV Area (Cont Eq VTI) 1.05 cm2 >=2.00 AV Area (Cont Eq Parvez) 1.18 cm2 AV DI (VTI) 0.32 AV DI (Parvez) 0.36 AV Regurgitation 2D LVOT Area 3.28 cm2 Ventricles Name Value Normal LV Dimensions 2D/MM IVS Diastolic Thickness (2D) 1.0 cm 0.6-0.9 LVID Diastole (2D) 4.4 cm 3.8-5.2 LVPW Diastolic Thickness (2D) 1.0 cm 0.6-0.9 LVID Systole (2D) 3.1 cm 2.2-3.5 LV Mass (2D Cubed) 141 g 67-162 LV Mass Index (2D Cubed) 80 g/m2 43-95 Relative Wall Thickness (2D) 0.44 <=0.42 LV Fractional Shortening/Ejection Fraction 2D/MM LV Fractional Shortening (2D) 30 % 27-45 LV EF (2D Teicholz) 58 % 54-74 LV Diastolic Volume (4C MOD) 52 ml LV EF (4C MOD) 55 % LV Diastolic Volume (2C MOD) 48 ml LV EF (2C MOD) 54 % LV Diastolic Volume (BP MOD) 51 ml 46-106 LV Diastolic Volume Index (BP MOD) 29 ml/m2 29-61 LV Systolic Volume (BP MOD) 23 ml 14-42 LV Systolic Volume Index (BP MOD) 13 ml/m2 8-24 LV EF (BP MOD) 54 % 54-74 LV Diastolic Length (4C) 7.1 cm LV Systolic Length (4C) 6.4 cm LV Stroke Volume (4C MOD) 29 ml RV Dimensions 2D/MM RVID Diastole (2D) 2.7 cm 2.5-3.5 TAPSE 1.9 cm >=1.7 Atria Name Value Normal LA Dimensions LA Volume (BP MOD) 48 ml LA Volume Index (BP MOD) 27 ml/m2 16-34 RA Dimensions RA Area (4C) 13 cm2 <=18 RA Area (4C) Index 7 cm2/m2 RA ESV (4C MOD) 30 ml 15-27 RA ESV Index (4C MOD) 17 ml/m2 16-34 Report Signatures Finalized by Nadege Gao on 03/19/2024 04:42 PM Procedure Note Nadege Gao MD - 03/19/2024 Summary * The left ventricle is normal in size, with low normal systolicfunction and an estimated ejection fraction of 54 % by biplane method of disks.Left ventricular wall motion is normal. * The left ventricular mass is normal with concentric remodeling. * The left ventricular diastolic function is consistent with grade II diastolic dysfunction. * Right ventricle is normal in size with normal systolic function. * The pulmonary artery systolic pressure is borderline elevated, 38mmHg. * The aortic valve is possibly trileaflet. The non coronary and left coronary cusps appears fused. * There is moderate to severe aortic valve stenosis with a peak velocityof 3 m/s, mean gradient of 20 mmHg, and aortic valve area of 1.05 cm2. Patient Info Name: Nesha Bettencourt Age: 83 years : 1940 Gender: Female Ht: 65 in Wt: 146 lb BSA: 1.75 m2 HR: 83 bpm BP: 120 / 80 mmHg Heart Rhythm: Sinus Rhythm Exam Date: 03/19/2024 11:46 AM Patient Status: O Study Site: [facility] Primary Location: [facility] EStudy Info Exam Type: ECHO COMPLETE Indications I35.0 - Nonrheumatic aortic valve stenosis Procedure(s) * A complete 2D, color Doppler, spectral Doppler, and M-Modetransthoracic echocardiogram was performed. Staff Referring Physician: Padmini Norris Ordering Provider: Padmini Norris Document Advisor: Minh Mabry Left Ventricle Left ventricular systolic function is low normal with an estimatedejection fraction of 54 % by biplane method of disks. The left ventricle is normalin size. The left ventricular mass is normal with concentric remodeling.Left ventricular segmental wall motion is normal. The left ventriculardiastolic function is consistent with grade II diastolic dysfunction. Right Ventricle The right ventricle is normal in size. Right ventricular systolicfunction is normal. Left Atrium The left atrium is normal in size with a left atrial volume index of27 ml/m2 by BP MOD. Right Atrium The right atrium is normal in size. Atrial Septum Intact interatrial septum visualized by 2D and color Doppler imaging. Aortic Valve The aortic valve is possibly trileaflet. The non coronary and leftcoronary cusps appears fused. There is no aortic valve regurgitation. There ismoderate to severe aortic valve stenosis with a peak velocity of 3 m/s, meangradient of 20 mmHg, and aortic valve area of 1.05 cm2. Pulmonic Valve The pulmonic valve is grossly normal. There is no pulmonic valvestenosis. There is trace pulmonic regurgitation. Mitral Valve There is moderate mitral annular calcification. Posterior leaflet is restricted. There is no mitral valve stenosis. There is trace mitralvalve regurgitation. Tricuspid Valve The tricuspid valve is normal. There is mild tricuspid valveregurgitation. The pulmonary artery systolic pressure is borderline elevated, 38 mmHg.No stenosis. Inferior Vena Cava The inferior vena cava is normal in size (< 2.1 cm). There is > 50%collapse of the IVC upon inspiration with an estimated right atrial pressure of 3mmHg. Pericardium/Pleural There is no pericardial effusion. Aorta The aortic root at the sinus of Valsalva is normal in size measuring 3.1cm with an index of 1.8 cm/m2. The ascending aorta is normal in sizemeasuring 3.3 cm with an index of 1.9 cm/m2. Measurements Left Ventricular Outflow Tract Name Value Normal LVOT 2D LVOT Diameter 2.0 cm LVOT Area 3.3 cm2 LVOT Doppler LVOT Peak Velocity 1.0 m/s LVOT Peak Gradient 4 mmHg LVOT Mean Velocity 71.05 cm/s LVOT Mean Gradient 2 mmHg LVOT VTI 19.9 cm LVOT VTI/AV VTI Ratio 0.3 LVOT Stroke Volume 65 ml LVOT Stroke Volume Index 37 ml/m2 35-58 LVOT CO 5.1 l/min LVOT CI 2.9 l/min/m2 Pulmonic Valve Name Value Normal RVOT Doppler RVOT Peak Velocity 0.7 m/s RVOT Peak Gradient 2 mmHg RVOT Mean Gradient 0 mmHg PV Doppler PV Peak Velocity 1.5 m/s PV Peak Gradient 3 mmHg PV Mean Gradient 5 mmHg PV Accel Time 62.80 ms Mitral Valve Name Value Normal MV Doppler MV Peak Gradient 8 mmHg MV Mean Gradient 2 mmHg MV DI (VTI) 1.06 MV PHT 55 ms MV Area (PHT) 4.03 cm2 4.00-5.00 MV Area (Cont Eq VTI) 3.09 cm2 MV Diastolic Function MV E Peak Velocity 0.8 m/sec MV A Peak Velocity 1.2 m/sec MV E/A 0.6 MV Decel Time (PW) 225 ms MV A Wave Duration 107 ms MV Annular TDI MV Septal e' Velocity 4 cm/s >=8 MV E/e' (Septal) 19 <=8 MV Lateral e' Velocity 6 cm/s >=10 MV E/e' (Lateral) 13 <=8 MV e' Average 5 cm/s MV E/e' (Average) 16 Tricuspid Valve Name Value Normal TV Regurgitation Doppler TR Peak Velocity 3.0 m/s TR Peak Gradient 35 mmHg Estimated PAP/RSVP RA Pressure 3 mmHg <=5 PA Systolic Pressure 38 mmHg <35 RV Systolic Pressure 38 mmHg <36 TV Annular TDI TV Lateral Gris s' Velocity 13 cm/s 10-19 Pulmonary Vessels Name Value Normal Pulmonary Veins Pulm Vein Peak Systolic Velocity 73.9 cm/s Pulm Vein Peak Diastolic Velocity 51.1 cm/s Pulm Vein S/D Velocity Ratio 1 Pulm Vein Ar Velocity 45.2 cm/s Pulm Vein Ar Dur - MV A Dur -13 ms Aorta Name Value Normal Ascending Aorta Sinus of Valsalva Diameter 3.1 cm 2.4-3.6 Sinus of Valsalva Index 1.8 cm/m2 1.4-2.2 Asc Ao Diameter 3.3 cm 1.9-3.5 Asc Ao Diameter Index 1.9 cm/m2 1.0-2.2 Venous Name Value Normal IVC/SVC IVC Diameter 1.2 cm <=2.1 Aortic Valve Name Value Normal AV 2D/MM AV Area (Planimetry) 1.13 cm2 >=3.00 AV Doppler AV Peak Velocity 2.91 m/s AV Peak Gradient 33 mmHg AV Mean Gradient 20 mmHg AV VTI 62 cm AV Area (Cont Eq VTI) 1.05 cm2 >=2.00 AV Area (Cont Eq Parvez) 1.18 cm2 AV DI (VTI) 0.32 AV DI (Parvez) 0.36 AV Regurgitation 2D LVOT Area 3.28 cm2 Ventricles Name Value Normal LV Dimensions 2D/MM IVS Diastolic Thickness (2D) 1.0 cm 0.6-0.9 LVID Diastole (2D) 4.4 cm 3.8-5.2 LVPW Diastolic Thickness (2D) 1.0 cm 0.6-0.9 LVID Systole (2D) 3.1 cm 2.2-3.5 LV Mass (2D Cubed) 141 g 67-162 LV Mass Index (2D Cubed) 80 g/m2 43-95 Relative Wall Thickness (2D) 0.44 <=0.42 LV Fractional Shortening/Ejection Fraction 2D/MM LV Fractional Shortening (2D) 30 % 27-45 LV EF (2D Teicholz) 58 % 54-74 LV Diastolic Volume (4C MOD) 52 ml LV EF (4C MOD) 55 % LV Diastolic Volume (2C MOD) 48 ml LV EF (2C MOD) 54 % LV Diastolic Volume (BP MOD) 51 ml 46-106 LV Diastolic Volume Index (BP MOD) 29 ml/m2 29-61 LV Systolic Volume (BP MOD) 23 ml 14-42 LV Systolic Volume Index (BP MOD) 13 ml/m2 8-24 LV EF (BP MOD) 54 % 54-74 LV Diastolic Length (4C) 7.1 cm LV Systolic Length (4C) 6.4 cm LV Stroke Volume (4C MOD) 29 ml RV Dimensions 2D/MM RVID Diastole (2D) 2.7 cm 2.5-3.5 TAPSE 1.9 cm >=1.7 Atria Name Value Normal LA Dimensions LA Volume (BP MOD) 48 ml LA Volume Index (BP MOD) 27 ml/m2 16-34 RA Dimensions RA Area (4C) 13 cm2 <=18 RA Area (4C) Index 7 cm2/m2 RA ESV (4C MOD) 30 ml 15-27 RA ESV Index (4C MOD) 17 ml/m2 16-34 Report Signatures Finalized by Nadege Gao on 03/19/2024 04:42 PM Padmini Norris MD ECHO CUPID * CARDIAC EKG ORDER (09/03/2023 1:10 PM CDT) Only the most recent of3 resultswithin the time period is included. Narrative 09/03/2023 1:10 PM CDT Ordered by an unspecified provider. Scanned Document CARDIAC SERVICES ORD ERABLES * NM MYOCARD PERF REST STRESS (07/13/2023 11:48 AM WAREHOUSE MAN) Anatomical Region Laterality Modality Chest Nuclear Medicine 07/13/2023 1:21 PM WAREHOUSE MAN Addenda Addendum by Sourav Renner MD on 04/21/2024 6:30 PM CDT Addendum: Low dose CT portion of the study which was not reported, revealed: Extensive Atherosclerotic calcifications along the coronary arteries and the thoracic aorta, partially visualized extensive atherosclerotic calcifications along the abdominal aorta and indents branches, redemonstration of the interstitial lung disease changes including reticulations, traction bronchiectasis, and honeycombing in bilateral lungs. > Dictated by Doc Meyers MD (Operating System Designer) 04/17/2024 11:46 PM Sourav Alvarez MD have personally reviewed and interpreted this examination/study. > Interpreting Provider: Sourav Renner MD on 04/21/2024 6:28 PM Impressions 07/13/2023 2:03 PM WAREHOUSE MAN Impression: 1. No evidence of myocardial infarction or stress-induced ischemia. 2. Normal left ventricular wall motion and thickening. 3. The calculated left ventricular ejection fraction of 82%. 4. Calcium score is consistent with the 89th percentile for age and race matched control. I, Arjun Levine M.D. have personally reviewed and interpreted this examination/study. > Interpreting Provider: Arjun Levine M.D. on 07/13/2023 2:03 PM Narrative 07/13/2023 2:03 PM WAREHOUSE MAN PROCEDURE: NM MYOCARD PERF REST STRESS, DATE/TIME OF EXAM: 07/13/2023 11:48 AM, LOCATION [facility] INDICATION: I35.0: Nonrheumatic aortic valve stenosis R53.1: Weakness R06.00: Dyspnea, unspecified type ADDITIONAL CLINICAL INFORMATION: Ordering Provider Reason For Exam: Dr. Norris Patient is an 82-year-old woman with a history of hypertension, hyperlipidemia, aortic stenosis, and interstitial lung disease who presents for nuclear perfusion study to evaluate dyspnea. COMPARISON: None. Rest and Pharmacologic stress SPECT/CT myocardial imaging with gating- 1 day protocol Procedure: The rest intravenous injection of 8.07 mCi of Tc-99m Myoview was administered IV. Myocardial perfusion imaging was performed 30 minutes post-injection. Preliminary rest EKG demonstrated no evidence of ischemic changes. At the conclusion of the rest imaging, pharmacologic stress testing was performed with 0.4 mg of Regadenoson administered IV. No low-level exercise was performed in conjunction with the vasodilator infusion. The patient experienced mild chest and abdominal discomfort which resolved completely in recovery. Preliminary stress ECG demonstrated subtle ST elevation in aVL with reciprocal depression in II, III, aVF, V6. After approximately 10 seconds, the patient was injected with 26.1 mCi of Tc-99m Myoview IV. Gated SPECT/CT myocardial perfusion imaging was performed 30 minutes post-injection. Patient's height 165.1 cm; weight 71.7 kg. Low-dose noncontrast CT of the region of the heart was performed for attenuation correction only. Calcium scoring: Multiple unenhanced computed tomographic images with a section thickness of 2.5 mm were obtained throughout the entire heart. Image acquisition use a low radiation dose ECG synchronized CT protocol with the breath-hold. Calcium quantification and scoring was performed using an independent workstation. The heart rate at rest was 100 at baseline and increased to 101 beats per minute during the vasodilator infusion. The BP was 138/73 at rest and 145/69 after the stress procedure. A separate ECG report will be read by Cardiology. Findings: The image quality is technically excellent without significant motion or adjacent bowel activity. In the stress and rest SPECT/CT images, the left ventricle is normal in size. The stress SPECT/CT images show a moderate-sized area of moderately reduced counts in the basal inferoseptal, inferior, and inferolateral stoddard which reverses with rest. There is no significant change in the perfusion pattern at rest. On attenuation corrected images, there are no perfusion abnormalities. Gated SPECT/CT images show normal myocardial thickening and normal wall motion. The calculated left ventricular ejection fraction is 82%. CT Calcium score: Calcium scoring to reveal subtle calcification with calcium score in the left main artery of 141.5, LAD of 888.7, LCX 438.3 and RCA 221.7. Total calcium score is 1690.2. According to [employer] Risk Score Calculator (https://www.tirado-nhlbi.org/Calcium/input.aspx), this is consistent with the 89th percentile for age and race matched control. Procedure Note Arjun Levine MD / Sourav Renner MD - 07/13/2023 PROCEDURE: NM MYOCARD PERF REST STRESS, DATE/TIME OF EXAM: 07/13/2023 11:48 AM, LOCATION [facility] INDICATION: I35.0: Nonrheumatic aortic valve stenosis R53.1: Weakness R06.00: Dyspnea, unspecified type ADDITIONAL CLINICAL INFORMATION: Ordering Provider Reason For Exam: Dr. Norris Patient is an 82-year-old woman with a history of hypertension, hyperlipidemia, aortic stenosis, and interstitial lung disease whopresents for nuclear perfusion study to evaluate dyspnea. COMPARISON: None. Rest and Pharmacologic stress SPECT/CT myocardial imaging with gating- 1 day protocol Procedure: The rest intravenous injection of 8.07 mCi of Tc-99m Myoview was administered IV. Myocardial perfusion imaging was performed 30 minutes post-injection. Preliminary rest EKG demonstrated no evidence ofischemic changes. At the conclusion of the rest imaging, pharmacologic stress testing was performed with 0.4 mg of Regadenoson administered IV. No low-level exercise was performed in conjunction with the vasodilator infusion. The patient experienced mild chest and abdominal discomfortwhich resolved completely in recovery. Preliminary stress ECG demonstratedsubtle ST elevation in aVL with reciprocal depression in II, III, aVF, V6.After approximately 10 seconds, the patient was injected with 26.1 mCi ofTc-99m Myoview IV. Gated SPECT/CT myocardial perfusion imaging was performed 30 minutes post-injection. Patient's height 165.1 cm; weight 71.7 kg.Low-dose noncontrast CT of the region of the heart was performed for attenuation correction only. Calcium scoring: Multiple unenhanced computed tomographic images with a section thickness of 2.5 mm were obtained throughout the entire heart. Image acquisition use a low radiation dose ECG synchronized CT protocol with the breath-hold. Calcium quantification and scoring was performed using an independent workstation. The heart rate at rest was 100 at baseline and increased to 101 beatsper minute during the vasodilator infusion. The BP was 138/73 at rest and 145/69 after the stress procedure. A separate ECG report will be read by Cardiology. Findings: The image quality is technically excellent without significant motion or adjacent bowel activity. In the stress and rest SPECT/CT images, theleft ventricle is normal in size. The stress SPECT/CT images show a moderate-sized area of moderately reduced counts in the basalinferoseptal, inferior, and inferolateral stoddard which reverses with rest. There is no significant change in the perfusion pattern at rest. On attenuation corrected images, there are no perfusion abnormalities. Gated SPECT/CT images show normal myocardial thickening and normal wall motion. The calculated left ventricular ejection fraction is 82%. CT Calcium score: Calcium scoring to reveal subtle calcification with calcium score in the left main artery of 141.5, LAD of 888.7, LCX 438.3and RCA 221.7. Total calcium score is 1690.2. According to [employer] Risk Score Calculator (https://www.tirado-nhlbi.org/Calcium/input.aspx), this is consistent with the 89th percentile for age and race matched control. Impression: 1. No evidence of myocardial infarction or stress-induced ischemia. 2. Normal left ventricular wall motion and thickening. 3. The calculated left ventricular ejection fraction of 82%. 4. Calcium score is consistent with the 89th percentile for age and race matched control. I, Arjun Levine M.D. have personally reviewed and interpreted this examination/study. > Interpreting Provider: Arjun Levine M.D. on 07/13/2023 2:03 PM Padmini Norris MD PA ORDERABLES * STRESS TEST Pharm-Lexiscan (Regadenoson) (07/13/2023 10:57 AM WAREHOUSE MAN) Predicted METS 4.2 METS [facility] Target HR 118 bpm [facility] Max Age Predicted HR 139 bpm [facility] Baseline HR 90 bpm [facility] Stress peak HR 106 bpm [facility] Max HR Percent 76 % [facility] Baseline BP 149/75 mmHg [facility] Post peak BP 149/75 mmHg [facility] Target HR Percent 90 % [facility] ST Depression (mm) 0 mm [facility] Anatomical Region Laterality Modality Cardiac Electrop hysiology Narrative 07/19/2023 11:09 AM WAREHOUSE MAN Stress: A pharmacological stress test was performed using regadenoson (0.4 mg). The patient reported chest discomfort, dizziness, flushing, headaches and nausea during the stress test. Symptoms began at minute 1032 during stress and ended at minute 1046 during recovery. The patient reached the end of the protocol. A peak heart rate of 106 bpm (76% of max predicted heart rate) was achieved. Blood pressure demonstrated a normal response and heart rate demonstrated a normal response to stress. The patient's heart rate recovery was normal. The patient's resting blood pressure was 149/75 mmHg. The patient's peak stress blood pressure was 149/75 mmHg. ECG: Resting ECG: Normal. Normal sinus rhythm. Stress ECG: No clinically relevant ST-segment deviation. The ECG was negative for ischemia. 1031 pt present for Nuc Med Lexiscan stress test; VSS; informed consent obtained per Dr. Huang; 1032 Lexiscan / Myoview adm'd; pt symptoms as noted 1046 test completed; symptoms resolved; VSS 1050 IV d/c'd cannula intact; pt ambulated to waiting area; awaiting post stress imaging Stress Findings A pharmacological stress test was performed using regadenoson (0.4 mg). The patient reported chest discomfort, dizziness, flushing, headaches and nausea during the stress test. Symptoms began at minute 1032 during stress and ended at minute 1046 during recovery. The patient reached the end of the protocol. A peak heart rate of 106 bpm (76% of max predicted heart rate) was achieved. Blood pressure demonstrated a normal response and heart rate demonstrated a normal response to stress. The patient's heart rate recovery was normal. The patient's resting blood pressure was 149/75 mmHg. The patient's peak stress blood pressure was 149/75 mmHg. ECG Resting ECG: Normal. Normal sinus rhythm. Stress ECG: No clinically relevant ST-segment deviation. The ECG was negative for ischemia. Padmini Norris MD [facility] * EKG 12-LEAD (06/15/2023 1:39 PM WAREHOUSE MAN) Only the most recent of2 resultswithin the time period is included. Pathologist [facility] Ventricular Rate 79 BPM [facility] Atrial Rate 79 BPM [facility] P-R Interval 144 ms [facility] QRS Duration ms 72 ms [facility] Q-T Interval ms 370 ms [facility] QTC Calculation (Bezet) 424 ms [facility] Calculated P [place] 52 degrees [facility] Calculated R [place] -18 degrees [facility] Calculated T [place] 20 degrees [facility] Interpretation EKG NORMAL SINUS RHYTHM MINIMAL VOLTAGE CRITERIA FOR LVH, MAY BE NORMAL VARIANT ( R in aVL ) BORDERLINE ECG WHEN COMPARED WITH ECG OF 08-MAY-2019 05:51, T WAVE INVERSION NOW EVIDENT IN ANTERIOR LEADS Confirmed by STEVEN PELLETIER, PADMINI MCKEON ([id number]) on 10/27/2023 12:51:33 PM [facility] 06/15/2023 1:39 PM WAREHOUSE MAN 10/27/2023 12:51 PM CDT Padmini Norris MD ECG ORDERABLES [facility] * (ABNORMAL) BASIC METABOLIC PANEL (CALCIUM TOTAL) (09/19/2022 10:58 AM CDT) Only the most recent of2 resultswithin the time period is included. Glucose 109(H) 70 - 99 mg/dL [facility] INSURANCE BILL BUN 19 8 - 27 mg/dL [facility] INSURANCE BILL Creatinine 1.03(H) 0.57 - 1.00 mg/dL [facility] INSURANCE BILL eGFR by CKD-EPI 55(L) >59 mL/min/1.7 3 [facility] INSURANCE BILL BUN/Creatinine Ratio 18 12 - 28 [facility] INSURANCE BILL Sodium 142 134 - 144 mmol/L [facility] INSURANCE BILL Potassium 3.8 3.5 - 5.2 mmol/L [facility] INSURANCE BILL Chloride 101 96 - 106 mmol/L [facility] INSURANCE BILL CO2 26 20 - 29 mmol/L [facility] INSURANCE BILL Calcium 9.8 8.7 - 10.3 mg/dL [facility] INSURANCE BILL Comment:FASTING Blood BLOOD SPECIMEN / Unknown 09/19/2022 10:58 AM CDT 09/19/2022 Narrative Resulting Agency Comment Lab Testing performed at: [facility] [address] [facility] [phone] Padmini Norris MD LAB - CHEMISTRY ORD ERABLES [facility] INSURANCE BILL [address] [place] [address] * (ABNORMAL) LIPID PROFILE (09/19/2022 10:58 AM CDT) Only the most recent of2 resultswithin the time period is included. Cholesterol 234(H) 100 - 199 mg/dL [facility] INSURANCE BILL Triglycerides 227(H) 0 - 149 mg/dL [facility] INSURANCE BILL HDL Cholesterol 51 >39 mg/dL [facility] INSURANCE BILL VLDL Calculated 41(H) 5 - 40 mg/dL [facility] INSURANCE BILL LDL Calculated 142(H) 0 - 99 mg/dL [facility] INSURANCE BILL Comment NOT AVAILABLE [facility] INSURANCE BILL Comment: FASTING Result cannot be obtained for this observation. Blood BLOOD SPECIMEN / Unknown 09/19/2022 10:58 AM CDT 09/19/2022 Narrative Resulting Agency Comment Lab Testing performed at: [facility] [address] [facility] [phone] Padmini Norris MD LAB - CHEMISTRY ORD ERABLES [facility] INSURANCE BILL [address] [place] [address] * CT CHEST WO CONT AND HIRES (2022 12:16 PM WAREHOUSE MAN) Anatomical Region Laterality Modality Chest Computed Tomogra phy 2022 11:2 8 PM WAREHOUSE MAN Impressions 2022 11:50 PM WAREHOUSE MAN IMPRESSION: 1. Bilateral lower lobe predominant peripheral reticulations with traction bronchiectasis and honeycombing, with involvement of the anterior upper lobes. There is slight improvement in the right upper lobe compared to prior. 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 > Interpreting Provider: Jesús Bansal MD on 2022 11:50 PM Narrative 2022 11:50 PM WAREHOUSE MAN PROCEDURE: CT CHEST WO CONT AND HIRES, DATE/TIME OF EXAM: 2022 12:17 PM, LOCATION [facility] INDICATION: J84.9: Interstitial lung disease (CMS/HCC) ADDITIONAL CLINICAL INFORMATION: Ordering Provider Reason For Exam: Prior UIP Pattern ILD. Last done 10/14, comparison for any clinical improvement or worsening COMPARISON: 10/11/2021. TECHNIQUE: CT of the chest was performed without intravenous contrast utilizing a high-resolution protocol. CT dose reduction technique was used, including Automated Exposure Control. FINDINGS: There is lower lobe predominant reticulations with honeycombing and traction bronchiectasis involving predominantly lower lungs with involvement of the anterior upper lobes. There is no significant air trapping. Comparison to prior study dated 10/11/2021 demonstrates improvement in the right upper lobe. The visualized thyroid gland is normal. There is mild cardiomegaly. There are coronary artery atherosclerotic calcifications. Thoracic aorta is normal in caliber with atherosclerotic calcifications. There are calcifications of the aortic valve. Visualized liver, gallbladder, spleen, pancreas, adrenal glands and kidneys are normal. No suspicious osseous lytic or blastic lesion. Procedure Note Jesús Bansal MD - 2022 PROCEDURE: CT CHEST ALEX[place]RIA LOMELI, DATE/TIME OF EXAM: 2:17 PM, LOCATION [facility] INDICATION: J84.9: Interstitial lung disease (CMS/HCC) ADDITIONAL CLINICAL INFORMATION: Ordering Provider Reason For Exam: Prior UIP Pattern ILD. Last done10/14, comparison for any clinical improvement or worsening COMPARISON: 10/11/2021. TECHNIQUE: CT of the chest was performed without intravenous contrast utilizing a high-resolution protocol. CT dose reduction technique was used, including Automated ExposureControl. FINDINGS: There is lower lobe predominant reticulations with honeycombing and traction bronchiectasis involving predominantly lower lungs with involvement of the anterior upper lobes. There is no significant air trapping. Comparison to prior study dated 10/11/2021 demonstrates improvement inthe right upper lobe. The visualized thyroid gland is normal. There is mild cardiomegaly.There are coronary artery atherosclerotic calcifications. Thoracic aorta is normal in caliber with atherosclerotic calcifications. There are calcifications of the aortic valve. Visualized liver, gallbladder, spleen, pancreas, adrenal glands andkidneys are normal. No suspicious osseous lytic or blastic lesion. IMPRESSION: 1. Bilateral lower lobe predominant peripheral reticulations withtraction bronchiectasis and honeycombing, with involvement of the anterior upper lobes. There is slight improvement in the right upper lobe compared to prior. 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 > Interpreting Provider: Jesús Bansal MD on 2022 11:50 PM Gaby Jamison MD CT ORDERABLES * (ABNORMAL) SIMONE BLOOD SINGLE PATTERN (06/22/2022 12:36 PM WAREHOUSE MAN) Only the most recent of2 resultswithin the time period is included. SIMONE Pattern Speckled( A) 06/24/2022 11:02 AM WAREHOUSE MAN [employer] ([facility]) SIMONE Titer 1:320(A) 06/24/2022 11:02 AM WAREHOUSE MAN [employer] ([facility]) Comment: Performed By: [employer] [address] [place] [id number] [employer] Professional: Steve Cuevas MD, PhD Blood BLOOD SPECIMEN / Unknown Lab Venipuncture / Unknown 06/22/2022 12:36 PM WAREHOUSE MAN 06/22/2022 2:09 PM WAREHOUSE MAN Gaby Jamison MD LAB - CHEMISTRY [place] [employer] ([facility]) [address] * HEPATITIS C AB SCREEN RFLX NAAT QUANT (06/22/2022 12:36 PM WAREHOUSE MAN) Pathologist [facility] Hepatitis C Antibody Non-react vinicio Non-reac tive 06/22/2022 4:24 PM WAREHOUSE MAN [facility] Comment:Hepatitis C Antibody screen indicates no serologic evidence of past or current infection with Hepatitis C Virus. Patients with unexplained liver disease who are immunocompromised or suspected of having acute Hepatitis C infection may benefit from Nucleic Acid Test (RAQUEL) for Hepatitis C Viral RNA to confirm Hepatitis C status. Blood BLOOD SPECIMEN / Unknown Lab Venipuncture / Unknown 06/22/2022 12:36 PM WAREHOUSE MAN 06/22/2022 2:09 PM WAREHOUSE MAN Gaby Jamison MD LAB - CHEMISTRY [place] [facility] [address] [place], [place] [id number] [phone] * (ABNORMAL) SIMONE HEP-2 IGG BY IFA (06/22/2022 12:36 PM WAREHOUSE MAN) Pathologist [facility] SIMONE HEp-2 IgG Detected (H) <1:80 06/24/2022 11:02 AM WAREHOUSE MAN [employer] ([facility]) SIMONE Interpretive Comment See Note 06/24/2022 11:02 AM WAREHOUSE MAN [employer] ([facility]) Comment: Speckled Pattern Clinical associations: SLE, SSc, SjS, DM, PM, MCTD, UCTD. May also be found in healthy individuals Main autoantibodies: Anti-SSA-52 (Ro52), anti-SSA-60 (Ro60), anti-SS-B/LA, anti-Aravind-1 (anti-Scl-70), Valerio, anti-U1-PRODUCT DEVELOPMENT [employer], anti-U2-PRODUCT DEVELOPMENT [employer], anti-Mi-2, anti-p155/140 (TIF1g), anti-Ku, anti-RNA polymerase, anti-DFS70/LEDGF-P75 List of Abbreviations Antisynthetase syndrome (ARS), chronic active hepatitis (CAH), inflammatory myopathies (IM) [dermatomyositis (DM), polymyositis (PM), necrotizing autoimmune myopathy (NAM)], interstitial lung disease (ILD), juvenile idiopathic arthritis (JOSE), mixed connective tissue disease (MCTD), primary biliary cholangitis (PBC), rheumatoid arthritis (RA), systemic autoimmune rheumatic diseases (SARD), Sjogren syndrome (SjS), systemic lupus erythematosus (SLE), systemic sclerosis (SSc), undifferentiated connective tissue disease (UCTD). INTERPRETIVE INFORMATION: SIMONE Interpretive Comment Presence of antinuclear antibodies (SIMONE) is a hallmark feature of systemic autoimmune rheumatic diseases (SARD). However, SIMONE lacks diagnostic specificity and is associated with a variety of diseases (cancers, autoimmune, infectious, and inflammatory conditions) and may also occur in healthy individuals in varying prevalence. The lack of diagnostic specificity requires confirmation of positive SIMONE by more specific serologic tests. SIMONE (nuclear reactivity) positive patterns reported include centromere, homogeneous, nuclear dots, nucleolar, or speckled. SIMONE (cytoplasmic reactivity) positive patterns reported include reticular/AMA, discrete/GW body-like, polar/golgi-like, cytoplasmic speckled or rods and rings. All positive patterns are reported to endpoint titers (1:2560). Reported patterns may help guide differential diagnosis, although they may not be specific for individual antibodies or diseases. Mitotic staining patterns not reported. Negative results do not necessarily rule out SARD. Performed By: [employer] [address] [place] [address] [employer] Professional: Steve Cuevas MD, PhD Blood BLOOD SPECIMEN / Unknown Lab Venipuncture / Unknown 06/22/2022 12:36 PM WAREHOUSE MAN 06/22/2022 2:09 PM WAREHOUSE MAN Gaby Jamison MD LAB - SEROLOGY ORDER NAYANA [employer] ([facility]) [address] [place] [id number], [facility] * (ABNORMAL) SCLERODERMA COMPREHENSIVE AB PANEL (06/22/2022 12:36 PM WAREHOUSE MAN) SIMONE HEp-2 IgG Detected(H ) <1:80 06/26/2022 6:42 PM WAREHOUSE MAN [facility] ([facility]) SIMONE Interpretive Comment See Note 06/26/2022 6:42 PM WAREHOUSE MAN [facility] ([facility]) Comment: Speckled Pattern Clinical associations: SLE, SSc, SjS, DM, PM, MCTD, UCTD. May also be found in healthy individuals Main autoantibodies: Anti-SSA-52 (Ro52), anti-SSA-60 (Ro60), anti-SS-B/LA, anti-Aravind-1 (anti-Scl-70), Valerio, anti-U1-[employer]ODUCT [employer], anti-U2-PRODUCT DEVELOPMENT [employer], anti-Mi-2, anti-p155/140 (TIF1g), anti-Ku, anti-RNA polymerase, anti-DFS70/LEDGF-P75 List of Abbreviations Antisynthetase syndrome (ARS), chronic active hepatitis (CAH), inflammatory myopathies (IM) [dermatomyositis (DM), polymyositis (PM), necrotizing autoimmune myopathy (NAM)], interstitial lung disease (ILD), juvenile idiopathic arthritis (JOSE), mixed connective tissue disease (MCTD), primary biliary cholangitis (PBC), rheumatoid arthritis (RA), systemic autoimmune rheumatic diseases (SARD), Sjogren syndrome (SjS), systemic lupus erythematosus (SLE), systemic sclerosis (SSc), undifferentiated connective tissue disease (UCTD). INTERPRETIVE INFORMATION: SIMONE Interpretive Comment Presence of antinuclear antibodies (SIMONE) is a hallmark feature of systemic autoimmune rheumatic diseases (SARD). However, SIMONE lacks diagnostic specificity and is associated with a variety of diseases (cancers, autoimmune, infectious, and inflammatory conditions) and may also occur in healthy individuals in varying prevalence. The lack of diagnostic specificity requires confirmation of positive SIMONE by more specific serologic tests. SIMONE (nuclear reactivity) positive patterns reported include centromere, homogeneous, nuclear dots, nucleolar, or speckled. SIMONE (cytoplasmic reactivity) positive patterns reported include reticular/AMA, discrete/GW body-like, polar/golgi-like, cytoplasmic speckled or rods and rings. All positive patterns are reported to endpoint titers (1:2560). Reported patterns may help guide differential diagnosis, although they may not be specific for individual antibodies or diseases. Mitotic staining patterns not reported. Negative results do not necessarily rule out SARD. SCL-70 Antibody 4 0 - 40 AU/mL 06/26/2022 6:42 PM [facility] [employer] ([facility]) Comment: INTERPRETIVE INFORMATION: Scleroderma (Scl-70) (GWEN) Ab, IgG 29 AU/mL or Less ............. Negative 30 - 40 AU/mL ................ Equivocal 41 AU/mL or Greater .......... Positive The presence of Scl-70 antibodies (also referred to as topoisomerase I, aravind-I or DHARMESH) is considered diagnostic for systemic sclerosis (SSc). Scl-70 antibodies alone are detected in about 20 percent of SSc patients and are associated with the diffuse form of the disease, which may include specific organ involvement and poor prognosis. Scl-70 antibodies have also been reported in a varying percentage of patients with systemic lupus erythematosus (SLE). Scl-70 (aravind-1) is a DNA binding protein and anti-DNA/DNA complexes in the sera of SLE patients may bind to aravind-I, leading to a false-positive result. The presence of Scl-70 antibody in sera may also be due to contamination of recombinant Scl-70 with DNA derived from cellular material used in immunoassays. Strong clinical correlation is recommended if both Scl-70 and dsDNA antibodies are detected. Negative results do not necessarily rule out the presence of SSc. If clinical suspicion remains, consider further testing for centromere, RNA polymerase III and U3-[employer]ELOP[employer], PM/Scl, or Th/To antibodies. RNA Polymerase 3 Antibody IgG 174(H) 0 - 19 Units 06/26/2022 6:42 PM [facility] [employer] ([facility]) Comment: INTERPRETIVE INFORMATION: RNA Polymerase III Antibody, IgG 19 Units or less ......Negative 20 - 39 Units .........Weak Positive 40 - 80 Units .........Moderate Positive 81 Units or greater ...Strong Positive The presence of RNA polymerase III IgG antibody, when considered in conjunction with other laboratory and clinical findings, is an aid in the diagnosis of systemic sclerosis (SSc) with increased incidence of skin involvement and renal crisis with the diffuse cutaneous form of SSc. RNA polymerase III IgG antibody occur in about 11-23 percent of SSc patients, and typically in the absence of anti-centromere and anti-Scl-70 antibodies. A negative result indicates no detectable IgG antibodies to the dominant antigen of RNA polymerase III and does not rule out the possibility of SSc. False-positive results may also occur due to non-specific binding of immune complexes. Strong clinical correlation is recommended. If clinical suspicion remains, consider additional testing for other antibodies associated with SSc, including centromere, Scl-70, U3-PRODUCT DEVELOP[employer], PM/Scl, or Th/To. Valerio/PRODUCT DEVELOPMENT ACTUARY (GWEN) Antibody IgG 3 0 - 19 Units 06/26/2022 6:[address] [facility] ([facility]) Comment: INTERPRETIVE INFORMATION: Valerio/PRODUCT DEVELOPMENT ACTUARY (GWEN) Antibody, IgG 19 Units or Less ............. Negative 20 to 39 Units ............... Weak Positive 40 to 80 Units ............... Moderate Positive 81 Units or greater .......... Strong Positive Valerio/PR[employer]OPMENT [employer] antibodies are frequently seen in patients with mixed connective tissue disease (MCTD) and are also associated with other systemic autoimmune rheumatic diseases (SARDs) such as systemic lupus erythematosus (SLE), systemic sclerosis, and myositis. Antibodies targeting the Valerio/PRODUCT [employer]ELOPMENT [employer] antigenic complex also recognize Valerio antigens, therefore, the Valerio antibody response must be considered when interpreting these results. PM/Scl 100 Antibody IgG Negative Negative 06/26/2022 6:[address] [facility] ([facility]) Comment: INTERPRETIVE INFORMATION: PM/Scl-100 Antibody, IgG by Immunoblot The presence of PM/Scl-100 IgG antibody along with a positive SIMONE IFA nucleolar pattern is associated with connective tissue diseases such as polymyositis (PM), dermatomyositis (DM), systemic sclerosis (SSc), and polymyositis/systemic sclerosis overlap syndrome. The clinical relevance of PM/Scl-100 IgG antibody with a negative SIMONE IFA nucleolar pattern is unknown. PM/Scl-100 is the main target epitope of the PM/Scl complex, although antibodies to other targets not detected by this assay may occur. This test was developed and its performance characteristics determined by [employer]. It has not been cleared or approved by the [place] Food and Drug Administration. This test was performed in a CLIA certified laboratory and is intended for clinical purposes. Fibrillarin (U3 PRODUCT DEVELOPMENT [employer]) Antibody IgG Negative Negative 06/26/2022 6:[address] [facility] [employer] ([facility]) Comment: Interpretive Information: Fibrillarin (U3 PRODUCT [employer]EL[employer]) Antibody, IgG The presence of fibrillarin (U3-PRODUCT DEVELOPMENT [employer]) IgG antibodies in association with an SIMONE IFA nucleolar pattern is suggestive of systemic sclerosis (SSc). In SSc, these antibodies are associated with distinct clinical features, such as younger age at disease onset, frequent internal organ involvement (pulmonary hypertension, myositis and renal disease). Fibrillarin antibodies are detected more frequently in patients with SSc compared to other ethnic groups. Strong correlation with SIMONE IFA results is recommended. In a multi-ethnic cohort of SSc patients (n=98), U3-PRODUCT DEVELOPMENT [employer] antibodies detected by immunoblot had an agreement of 98.9 percent with the gold standard immunoprecipitation (IP) assay. Approximately 71 percent (5/7) of the borderline U3-[employer]EL[employer] results with SIMONE nucleolar pattern in this cohort were IP negative. This test was developed and its performance characteristics determined by [facility] [employer]. It has not been cleared or approved by the [place] Food and Drug Administration. This test was performed in a CLIA certified laboratory and is intended for clinical purposes. Performed By: [employer] [address] [place] [address] [employer] Professional: Steve Cuevas MD, PhD Blood BLOOD SPECIMEN / Unknown Lab Venipuncture / Unknown 06/22/2022 12:36 PM WAREHOUSE MAN 06/22/2022 2:09 PM WAREHOUSE MAN Gaby Jamison MD LAB - SEROLOGY ORDER NAYANA [facility] [employer] [facility]) [address] * SS-A (SJOGREN'S) 52+60 ANTIBODIES (06/22/2022 12:36 PM WAREHOUSE MAN) SS-A 52 Antibody 6 0 - 40 AU/mL 06/23/2022 10:[address] [facility] [employer] ([facility]) Comment: INTERPRETIVE INFORMATION: SSA-52 (Ro52) (GWEN) Antibody, IgG 29 AU/mL or Less ............. Negative 30 - 40 AU/mL ................ Equivocal 41 AU/mL or Greater .......... Positive SSA-52 (Ro52) and/or SSA-60 (Ro60) antibodies are associated with a diagnosis of Sjogren syndrome, systemic lupus erythematosus (SLE), and systemic sclerosis. SSA-52 antibody overlaps significantly with the major SSc-related antibodies. SSA-52 (Ro52) antibody occurs frequently in patients with inflammatory myopathies, often in the presence of interstitial lung disease. SS-A 60 Antibody 2 0 - 40 AU/mL 06/23/2022 10:39 PM WAREHOUSE MAN [employer] ([facility]) Comment: REFERENCE INTERVAL: SSA-60 (Ro60) (GWEN) Antibody, IgG 29 AU/mL or Less ............. Negative 30 - 40 AU/mL ................ Equivocal 41 AU/mL or Greater .......... Positive Performed By: [employer] [address] [place] [address] [employer] Professional: Steve Cuevas MD, PhD Blood BLOOD SPECIMEN / Unknown Lab Venipuncture / Unknown 06/22/2022 12:36 PM WAREHOUSE MAN 06/22/2022 2:09 PM WAREHOUSE MAN Gaby Jamison MD LAB - CHEMISTRY [place] [facility] Organization Address City/State/ZIP Co de Phone Number [employer] [facility]) [address] * VALERIO/[employer] (GWEN) ANTIBODY IGG (06/22/2022 12:36 PM WAREHOUSE MAN) Pathologist [facility] Valerio/PRODUCT DEVELOPMENT ACTUARY (GWEN) Antibody IgG 3 0 - 19 Units 06/24/2022 10:48 AM WAREHOUSE MAN [employer] ([facility]) Comment: INTERPRETIVE INFORMATION: Valerio/PRODUCT DEVELOPMENT ACTUARY (GWEN) Antibody, IgG 19 Units or Less ............. Negative 20 to 39 Units ............... Weak Positive 40 to 80 Units ............... Moderate Positive 81 Units or greater .......... Strong Positive Valerio/PRODUCT DEVELOPMENT ACTUARY antibodies are frequently seen in patients with mixed connective tissue disease (MCTD) and are also associated with other systemic autoimmune rheumatic diseases (SARDs) such as systemic lupus erythematosus (SLE), systemic sclerosis, and myositis. Antibodies targeting the Valerio/PRODUCT DEVELOPMENT ACTUARY antigenic complex also recognize Valerio antigens, therefore, the Valerio antibody response must be considered when interpreting these results. Performed By: [place] [address] Resolute Professional: Steve Cuevas MD, PhD Blood BLOOD SPECIMEN / Unknown Lab Venipuncture / Unknown 06/22/2022 12:36 PM WAREHOUSE MAN 06/22/2022 2:10 PM WAREHOUSE MAN Gaby Jamison MD LAB - CHEMISTRY ORDE SILVIA Performing Organization Address [facility] de Phone Number [facility] ([facility]) [address] [place] [address] * CENTROMERE B ANTIBODIES (06/22/2022 12:36 PM WAREHOUSE MAN) [facility] Centromere B Antibody <0.2 0.0 - 0.9 AI 06/23/2022 1:08 PM WAREHOUSE MAN [facility] ([facility]) Blood BLOOD SPECIMEN / Unknown Lab Venipuncture / Unknown 06/22/2022 12:36 PM WAREHOUSE MAN 06/22/2022 2:09 PM WAREHOUSE MAN Narrative [facility] ([facility]) - 06/23/2022 1:08 PM WAREHOUSE MAN Performed at: [facility] - [facility] [address], [place] [id number] Rhit: Aryan Shannon PhD, Phone: [phone] Gaby Jamison MD LAB - SEROLOGY ORDER NAYANA Performing Organization Address City/[facility] Co de Phone Number [facility] ([facility]) [address] [place] [address], [facility] * HMGCR ANTIBODY IGG (06/22/2022 12:36 PM WAREHOUSE MAN) [facility] HMGCR Ab IgG <3 0 - 19 Units 06/30/2022 2:58 PM WAREHOUSE MAN [facility] ([facility]) Comment: INTERPRETIVE INFORMATION: HMGCR Antibody, IgG IgG antibodies to 5-dkrycko-1-methylglutaryl-coenzyme A reductase (HMGCR) are mainly associated with necrotizing autoimmune myopathy (NAM) in a subset of statin-treated patients. Although infrequent, these antibodies may also be observed in statin-naive patients with NAM. Strong clinical correlation is recommended in the absence of muscle fiber necrosis, elevated serum creatine kinase, perimysial pathology, and/or statin exposure. This test was developed and its performance characteristics determined by [employer]. It has not been cleared or approved by the US Food and Drug Administration. This test was performed in a CLIA certified laboratory and is intended for clinical purposes. Performed By: [facility] [employer] [address] [place] [address] Resolute Professional: Steve Cuevas MD, PhD Blood BLOOD SPECIMEN / Unknown Lab Venipuncture / Unknown 06/22/2022 12:36 PM WAREHOUSE MAN 06/22/2022 2:09 PM WAREHOUSE MAN Gaby Jamison MD LAB - CHEMISTRY ORDE SILVIA [facility] Organization Address City/State/ZIP Co de Phone Number [facility]) [address] [place] [address] * CHROMATIN ANTIBODY (06/22/2022 12:36 PM WAREHOUSE MAN) Chromatin Antibody 12 0 - 19 Units 06/24/2022 10:37 PM WAREHOUSE MAN [facility] ([facility]) Comment: INTERPRETIVE INFORMATION: Chromatin Antibody, IgG 19 Units or less: Negative 20 - 60 Units: Moderate Positive 61 Units or greater: Strong Positive The presence of anti-chromatin antibodies may be useful in the diagnosis of systemic lupus erythematosus (SLE) or drug-induced lupus (DIL) and have been reported to be predictive of lupus nephritis, especially when antibody levels are high. Performed By: [facility] [employer] [address] [place] [address] Resolute Professional: Steve Cuevas MD, PhD Blood BLOOD SPECIMEN / Unknown Lab Venipuncture / Unknown 06/22/2022 12:36 PM WAREHOUSE MAN 06/22/2022 2:09 PM WAREHOUSE MAN Gaby Jamison MD LAB - SEROLOGY ORDER NAYANA [facility]) [address] [place] [address], [facility] * MYOSITIS ANTIBODY PANEL COMPREHENSIVE (06/22/2022 12:36 PM WAREHOUSE MAN) SAE1 (SUMO activating enzyme) Ab Negative Negative 07/02/2022 12:18 PM WAREHOUSE MAN [facility] ([facility]) NXP2 (Nuclear matrix protein-2) Ab Negative Negative 07/02/2022 12:18 PM WAREHOUSE MAN [facility]) MDA5 (CADM-140) Ab Negative Negative 2022 12:18 PM WAREHOUSE MAN [facility]) TIF-1 gamma (155 kDa) Ab Negative Negative 07/02/2022 12:18 PM WAREHOUSE MAN [facility] ([facility]) Myositis Panel Interpretive Data See Note 07/02/2022 12:18 PM WAREHOUSE MAN [facility] ([facility]) Comment: INTERPRETIVE INFORMATION: Extended Myositis Panel If present, myositis-specific antibodies (MSA) are specific for myositis, and may be useful in establishing diagnosis as well as prognosis. MSAs are generally regarded as mutually exclusive with rare exceptions; the occurrence of two or more MSAs should be carefully evaluated in the context of patient's clinical presentation. Myositis-associated antibodies (MAA) may be found in patients with CTD including overlap syndromes, and are generally not specific for myositis. The following table will help in identifying the association of any antibodies found as either MSAs or Roni. Antibody Specificity . . . . . . . . . . . . MSA . . . . MAA SSA 52 (Ro) (GWEN) Antibody IgG . . . . . . . . . . . . . X SSA 60 (Ro) (GWEN) Antibody IgG . . . . . . . . . . . . . X Valerio/PRODUCT DEVELOPMENT ACTUARY (GWEN) Ab, IgG . . . . . . . . . . . . . . . . X Ashanti-1 (histidyl-tRNA synthetase) Ab, IgG . . X PL-12 (alanyl-tRNA synthetase) Antibody . . X PL-7 (threonyl-tRNA synthetase) Antibody . . X EJ (glycyl-tRNA synthetase) Antibody . . . . X OJ (isoleucyl-tRNA synthetase) Antibody . . X SRP (Signal Recognition Particle) Ab . . . . X Ku Antibody . . . . . . . . . . . . . . . . . . . . . . X PM/SCL 100 Antibody, IgG . . . . . . . . . . . . . . . . X Fibrillarin (U3 PRODUCT DEVELOPMENT ACTUARY) Ab, IgG . . . . . . . . . . . . . . X Mi-2 (nuclear helicase protein) Antibody . . X P155/140 Antibody . . . . . . . . . . . . . X TIF-1 gamma (155 kDa) Ab . . . . . . . . . . X SAE1 (SUMO activating enzyme) Ab . . . . . . X MDA5 (CADM-140) Ab . . . . . . . . . . . . X NXP2 (Nuclear matrix proten-2)Ab . . . . . . X This test was developed and its performance characteristics determined by [employer]. It has not been cleared or approved by the US Food and Drug Administration. This test was performed in a CLIA certified laboratory and is intended for clinical purposes. Mi-2 Antibody Negative Negative 07/02/2022 12:18 PM WAREHOUSE MAN [employer] [facility]) P155/140 Antibody Negative Negative 023 12:18 PM WAREHOUSE MAN [employer] [facility]) PL-12 Antibody See Note Negative 07/02/2022 12:18 PM WAREHOUSE MAN [employer] [facility]) Comment: Immunoprecipitation (IP) assay shows bands of questionable migration, presence of weak PL-12 antibodies or other autoantibodies associated with systemic autoimmune rheumatic disease (SARD) cannot be ruled out. Consider repeat testing in 6-8 weeks if there is strong clinical suspicion for anti-synthetase syndrome or interstitial lung disease. PL-7 Antibody Negative Negative 07/02/2022 12:18 PM WAREHOUSE MAN [employer] ([facility]) OJ Antibody Negative Negative 07/02/2022 12:18 PM WAREHOUSE MAN [employer] [facility]) EJ Antibody Negative Negative 07/02/2022 12:18 PM WAREHOUSE MAN [employer] [facility]) SRP Antibody Negative Negative 07/02/2022 12:18 PM WAREHOUSE MAN [employer] [facility]) Ashanti-1 Antibody IgG 3 0 - 40 AU/mL 07/02/2022 12:18 PM [facility] [employer] ([facility]) Comment: INTERPRETIVE INFORMATION: Ashanti-1 Antibody, IgG 29 AU/mL or less.........Negative 30-40 AU/mL..............Equivocal 41 AU/mL or greater......Positive Presence of Ashanti-1 (antihistidyl transfer RNA [t-RNA] synthetase) antibody is associated with polymyositis and may also be seen in patients with dermatomyositis. Ashanti-1 antibody is associated with pulmonary involvement (interstitial lung disease), Raynaud phenomenon, arthritis, and senior mechanical estimator's hands (implicated in antisynthetase syndrome). KU Antibody Negative Negative 07/02/2022 12:18 PM [facility] [employer] ([facility]) Valerio/PRODUCT DEVELOPMENT ACTUARY (GWEN) Antibody IgG 3 0 - 19 Units 07/02/2022 12:18 PM [facility] [employer] ([facility]) Comment: INTERPRETIVE INFORMATION: Valerio/PRODUCT DEVELOPMENT ACTUARY (GWEN) Antibody, IgG 19 Units or Less ............. Negative 20 to 39 Units ............... Weak Positive 40 to 80 Units ............... Moderate Positive 81 Units or greater .......... Strong Positive Valerio/PRODUCT DEVELOPMENT ACTUARY antibodies are frequently seen in patients with mixed connective tissue disease (MCTD) and are also associated with other systemic autoimmune rheumatic diseases (SARDs) such as systemic lupus erythematosus (SLE), systemic sclerosis, and myositis. Antibodies targeting the Valerio/PRODUCT DEVELOPMENT ACTUARY antigenic complex also recognize Valerio antigens, therefore, the Valerio antibody response must be considered when interpreting these results. PM/Scl 100 Antibody IgG Negative Negative 07/02/2022 12:18 PM [facility] [employer] ([facility]) Comment: INTERPRETIVE INFORMATION: PM/Scl-100 Antibody, IgG by Immunoblot The presence of PM/Scl-100 IgG antibody along with a positive SIMONE IFA nucleolar pattern is associated with connective tissue diseases such as polymyositis (PM), dermatomyositis (DM), systemic sclerosis (SSc), and polymyositis/systemic sclerosis overlap syndrome. The clinical relevance of PM/Scl-100 IgG antibody with a negative SIMONE IFA nucleolar pattern is unknown. PM/Scl-100 is the main target epitope of the PM/Scl complex, although antibodies to other targets not detected by this assay may occur. This test was developed and its performance characteristics determined by [employer]. It has not been cleared or approved by the US Food and Drug Administration. This test was performed in a CLIA certified laboratory and is intended for clinical purposes. SS-A 52 Antibody 5 0 - 40 AU/mL 07/02/2022 12:18 PM WAREHOUSE MAN [employer] ([facility]) Comment: INTERPRETIVE INFORMATION: SSA-52 (Ro52) (GWEN) Antibody, IgG 29 AU/mL or Less ............. Negative 30 - 40 AU/mL ................ Equivocal 41 AU/mL or Greater .......... Positive SSA-52 (Ro52) and/or SSA-60 (Ro60) antibodies are associated with a diagnosis of Sjogren syndrome, systemic lupus erythematosus (SLE), and systemic sclerosis. SSA-52 antibody overlaps significantly with the major SSc-related antibodies. SSA-52 (Ro52) antibody occurs frequently in patients with inflammatory myopathies, often in the presence of interstitial lung disease. SS-A 60 Antibody 2 0 - 40 AU/mL 07/02/2022 12:18 PM WAREHOUSE MAN [employer] ([facility]) Comment: REFERENCE INTERVAL: SSA-60 (Ro60) (GWEN) Antibody, IgG 29 AU/mL or Less ............. Negative 30 - 40 AU/mL ................ Equivocal 41 AU/mL or Greater .......... Positive Fibrillarin (U3 PRODUCT DEVELOPMENT ACTUARY) Antibody IgG Negative Negative 07/02/2022 12:18 PM WAREHOUSE MAN [employer] ([facility]) Comment: Interpretive Information: Fibrillarin (U3 PRODUCT DEVELOPMENT ACTUARY) Antibody, IgG The presence of fibrillarin (U3-PRODUCT DEVELOPMENT ACTUARY) IgG antibodies in association with an SIMONE IFA nucleolar pattern is suggestive of systemic sclerosis (SSc). In SSc, these antibodies are associated with distinct clinical features, such as younger age at disease onset, frequent internal organ involvement (pulmonary hypertension, myositis and renal disease). Fibrillarin antibodies are detected more frequently in patients with SSc compared to other ethnic groups. Strong correlation with SIMONE IFA results is recommended. In a multi-ethnic cohort of SSc patients (n=98), U3-PRODUCT DEVELOPMENT ACTUARY antibodies detected by immunoblot had an agreement of 98.9 percent with the gold standard immunoprecipitation (IP) assay. Approximately 71 percent (5/7) of the borderline U3-PRODUCT DEVELOPMENT ACTUARY results with SIMONE nucleolar pattern in this cohort were IP negative. This test was developed and its performance characteristics determined by [employer]. It has not been cleared or approved by the US Food and Drug Administration. This test was performed in a CLIA certified laboratory and is intended for clinical purposes. Performed by [facility], [address] [place] [address] [email or web address], Steve Cuevas MD, PHD, Lab. Director Blood BLOOD SPECIMEN / Unknown Lab Venipuncture / Unknown 06/22/2022 12:36 PM WAREHOUSE MAN 06/22/2022 2:10 PM WAREHOUSE MAN Gaby Jamison MD LAB - CHEMISTRY KEITH VEGA [facility] [employer] [facility]) [address] [place] [address], [facility] * DNA ANTIBODY DS CRITHIDIA TITER (06/22/2022 12:36 PM WAREHOUSE MAN) dsDNA Antibody IgG <1:10 <1:10 2021 10:28 PM WAREHOUSE MAN [facility] ([facility]) Comment: INTERPRETIVE INFORMATION: Double-Stranded DNA (dsDNA) Antibody, IgG by IFA (using Crithidia luciliae) Positivity for anti-double stranded DNA (anti-dsDNA) IgG antibody is a diagnostic criterion of systemic lupus erythematosus (SLE). The presence of the anti-dsDNA IgG antibody is identified by IFA titer (Crithidia luciliae indirect fluorescent test [MARIA FERNANDA]). MARIA FERNANDA is highly specific for SLE with a sensitivity of 50-60 percent. Some patients with early or inactive SLE may be positive for anti-dsDNA IgG by SABRINA but negative by MARIA FERNANDA. If the MARIA FERNANDA result is negative but the patient has a positive SABRINA and clinical suspicion remains, consider antinuclear antibody (SIMONE) testing by IFA. Additional information and recommendations for testing may be found at [email or web address]/[email or web address] [email or web address]. Performed By: [facility] [employer] [address] [place] [address] [employer]olute Professional: Steve Cuevas MD, PhD Blood BLOOD SPECIMEN / Unknown Lab Venipuncture / Unknown 06/22/2022 12:36 PM WAREHOUSE MAN 06/22/2022 2:09 PM WAREHOUSE MAN Gaby Jamison MD LAB - SEROLOGY ORDER NAYANA Performing Organization Address [facility] Co de Phone Number [facility] ([facility]) [address] [place] [id number] [place] [address] * (ABNORMAL) IMMUNOFIXATION BLOOD (06/22/2022 12:36 PM WAREHOUSE MAN) Immunofixation Serum Abnormal Pattern(A) Normal Pattern 06/29/2022 9:24 PM WAREHOUSE MAN [facility] Comment: Serum immunosubtraction identifies an IgG kappa monoclonal immunoglobulin migrating in the gamma region. Sera Song PhD, [facility] Clinical Printing Machine Mechanic vice president integrated *The electrophoresis pattern and the interpretation have been reviewed and verified by the teaching physician. Blood BLOOD SPECIMEN / Unknown Lab Venipuncture / Unknown 06/22/2022 12:36 PM WAREHOUSE MAN 06/22/2022 2:09 PM WAREHOUSE MAN Gaby Jamison MD LAB - CHEMISTRY ORDE SILVIA Performing Organization Address City/[facility]/ZIP Co de Phone Number [address] [address], [facility] [phone] * URINALYSIS W/MICROSCOPIC REFLEX TO CULTURE (06/22/2022 12:36 PM WAREHOUSE MAN) Color UA Yellow Straw, Yellow 06/22/2022 2:24 PM WAREHOUSE MAN [facility] Clarity UA Clear Clear 06/22/2022 2:24 PM WAREHOUSE MAN [facility] Specific [place] UA 1.012 1.005 - 1.030 06/22/2022 2:24 PM WAREHOUSE MAN [facility] pH UA 7.0 5.0 - 8.0 pH 06/22/2022 2:24 PM [facility] Protein UA Negative Negative 06/22/2022 2:24 PM [facility] Glucose UA Negative Negative 06/22/2022 2:24 PM [facility] Ketone UA Negative Negative 06/22/2022 2:24 PM [facility] Bilirubin UA Negative Negative 06/22/2022 2:24 PM [facility] Blood UA Negative Negative 06/22/2022 2:24 PM [facility] Nitrite UA Negative Negative 06/22/2022 2:24 PM [facility] Leukocyte Esterase Negative Negative 06/22/2022 2:24 PM [facility] Urobilinogen UA Negative Negative mg/dL 06/22/2022 2:24 PM [facility] RBC UA 0-2 None Seen, 0-2, 3-5 /HPF 06/22/2022 2:24 PM [facility] WBC UA 0-5 None Seen, 0-5 /HPF 06/22/2022 2:24 PM [facility] Squamous Epithelial Cells UA 0-2 None Seen, 0-2, 3-5 /HPF 06/22/2022 2:24 PM [facility] Hyaline Casts UA 0-2 None Seen, 0-2 /LPF 06/22/2022 2:24 PM [facility] Urine URINE SPECIMEN OBTAINED BY CLEAN CATCH PROCEDURE / Unknown Collection / Unknown 06/22/2022 12:36 PM WAREHOUSE MAN 06/22/2022 2:09 PM [facility] - 06/22/2022 2:24 PM [facility] Culture Not Indicated Gaby Jamison MD LAB - URINALYSIS ORD ERABLES [address] [address], [facility] [phone] * PROTEIN ELECTROPHORESIS URINE RANDOM (06/22/2022 12:36 PM WAREHOUSE MAN) Interpretation Urine PE See Comment Normal Pattern 07/01/2022 7:14 PM [facility] Comment: Urine protein electrophoresis shows a band corresponding to albumin with small amounts of other nonspecific proteinuria. No monoclonal immunoglobulins detected. Sera Song PhD, [facility] Clinical Printing Machine Mechanic vice president integrated Protein Urine <7 Not Established mg/dL 07/01/2022 7:14 PM WAREHOUSE MAN [facility] Urine URINE SPECIMEN OBTAINED BY CLEAN CATCH PROCEDURE / Unknown Collection / Unknown 06/22/2022 12:36 PM WAREHOUSE MAN 06/22/2022 2:09 PM WAREHOUSE MAN Gaby Jamison MD LAB - URINE CHEMISTR Y ORDERABLES [facility] [address] [place] [address], [facility] [phone] * VALERIO (SM) ANTIBODY GWEN (06/22/2022 12:36 PM WAREHOUSE MAN) [facility] Valerio (GWEN) Antibody 2 0 - 40 AU/mL 06/24/2022 8:07 AM WAREHOUSE MAN [employer] [facility] ([facility]) Comment: INTERPRETIVE INFORMATION: Valerio (GWEN) Antibody, IgG 29 AU/mL or Less ............. Negative 30 - 40 AU/mL ................ Equivocal 41 AU/mL or Greater .......... Positive Valerio antibody is highly specific (greater than 90 percent) for systemic lupus erythematosus (SLE) but only occurs in 30-35 percent of SLE cases. The presence of antibodies to Valerio has variable associations with SLE clinical manifestations. Performed By: [employer] [address] [place] [address] Resolute Professional: Steve Cuevas MD, PhD Blood BLOOD SPECIMEN / Unknown Lab Venipuncture / Unknown 06/22/2022 12:36 PM WAREHOUSE MAN 06/22/2022 2:09 PM WAREHOUSE MAN Gaby Jamison MD LAB - CHEMISTRY ORDE RABKATHY [employer] [facility]) [address] [place] [address] * RHEUMATOID FACTOR BLOOD QUANTITATIVE (06/22/2022 12:36 PM WAREHOUSE MAN) [facility] Rheumatoid Factor <15 <30 IU/mL 06/22/2022 4:01 PM WAREHOUSE MAN [facility] Rheumatoid Factor Screen Negative Negative 06/22/2022 4:01 PM WAREHOUSE MAN [facility] Blood BLOOD SPECIMEN / Unknown Lab Venipuncture / Unknown 06/22/2022 12:36 PM WAREHOUSE MAN 06/22/2022 2:09 PM WAREHOUSE MAN Gaby Jamison MD LAB - CHEMISTRY KEITH VEGA Performing Organization Address City/[facility]/ZIP Co de Phone Number [facility] [address] [place] [address], [facility] [phone] * (ABNORMAL) SIMONE BLOOD SCREEN W/REFLEX TITER (06/22/2022 12:36 PM WAREHOUSE MAN) [facility] SIMONE IgG Detected (A) None Detected 06/23/2022 9:21 PM WAREHOUSE MAN [employer] ([facility]) Comment: Antibodies to Anti-Nuclear Antibodies (SIMONE) detected. Additional testing to follow. INTERPRETIVE INFORMATION: Anti-Nuclear Antibodies (SIMONE), IgG by SABRINA Antinuclear Antibodies (SIMONE), IgG by SABRINA: SIMONE specimens are screened using enzyme-linked immunosorbent assay (SABRINA) methodology. All SABRINA results reported as Detected are further tested by indirect fluorescent assay (IFA) using HEp-2 substrate with an IgG-specific conjugate. The SIMONE SABRINA screen is designed to detect antibodies against dsDNA, histones, SS-A (Ro), SS-B (La), Valerio, Valerio/PRODUCT DEVELOPMENT ACTUARY, Scl-70, Ashatni-1, centromeric proteins, other antigens extracted from the HEp-2 cell nucleus. SIMONE SABRINA assays have been reported to have lower sensitivities than SIMONE IFA for systemic autoimmune rheumatic diseases (SARD). Negative results do not necessarily rule out SARD. Performed By: [employer] [address] [place] [id number] Resolute Professional: Steve Cuevas MD, PhD Blood BLOOD SPECIMEN / Unknown Lab Venipuncture / Unknown 06/22/2022 12:36 PM WAREHOUSE MAN 06/22/2022 2:09 PM WAREHOUSE MAN Gaby Jamison MD LAB - CHEMISTRY [place] [employer] ([facility]) [address] * SS-B (SJOGREN'S) ANTIBODY (06/22/2022 12:36 PM WAREHOUSE MAN) Pathologist [facility] SS-B Antibody 0 0 - 40 AU/mL 06/23/2022 10:[address] [facility] [employer] ([facility]) Comment: INTERPRETIVE INFORMATION: SSB (La) (GWEN) Ab, IgG 29 AU/mL or Less ............. Negative 30 - 40 AU/mL ................ Equivocal 41 AU/mL or Greater .......... Positive SSB (La) antibody is seen in 50-60% of Sjogren syndrome cases and is specific if it is the only GWEN antibody present. 15-25% of patients with systemic lupus erythematosus (SLE) and 5-10% of patients with progressive systemic sclerosis (PSS) also have this antibody. Performed By: [employer] [address] [place] [address] Resolute Professional: Steve Cuevas MD, PhD Blood BLOOD SPECIMEN / Unknown Lab Venipuncture / Unknown 06/22/2022 12:36 PM WAREHOUSE MAN 06/22/2022 2:09 PM WAREHOUSE MAN Gaby Jamison MD LAB - CHEMISTRY KEITH VE[place] [facility] Organization Address City/State/ZIP Co de Phone Number [facility] [employer] [facility]) [address] * ALDOLASE (06/22/2022 12:36 PM WAREHOUSE MAN) [facility] Aldolase 4.0 1.2 - 7.6 U/L 06/23/2022 6:[address] [facility] [employer] ([facility]) Comment: REFERENCE INTERVAL: Aldolase Access complete set of age- and/or gender-specific reference intervals for this test in the [facility]Order Laboratory Test Directory ([employer]). Performed By: [employer] [address] [place] [address] Resolute Professional: Steve Cuevas MD, PhD Blood BLOOD SPECIMEN / Unknown Lab Venipuncture / Unknown 06/22/2022 12:36 PM WAREHOUSE MAN 06/22/2022 2:09 PM WAREHOUSE MAN Gaby Jamison MD LAB - CHEMISTRY [place] [facility] ([facility]) [address] [place] [id number], [facility] * CYCLIC CITRULLINATED PEPTIDE(CCP) AB IGG (06/22/2022 12:36 PM WAREHOUSE MAN) Pathologist [facility] CCP Antibody IgG 1.9 <5.0 U/mL 06/22/2022 4:24 PM WAREHOUSE MAN [facility] Blood BLOOD SPECIMEN / Unknown Lab Venipuncture / Unknown 06/22/2022 12:36 PM WAREHOUSE MAN 06/22/2022 2:09 PM WAREHOUSE MAN Gaby Jamison MD LAB - CHEMISTRY [place] Performing Organization Address [facility]/ZIP Co de Phone Number [address] [address], [place] [phone] * PROTEIN CREATININE RATIO URINE RANDOM PNL (06/22/2022 12:36 PM WAREHOUSE MAN) [facility] Protein Urine <7 Not Established mg/dL 06/22/2022 2:50 PM WAREHOUSE MAN [facility] Creatinine Urine 67 Not Established mg/dL 06/22/2022 2:50 PM WAREHOUSE MAN [facility] Protein/Creatinin e Ratio Urine 06/22/2022 2:50 PM W[employer]HOUSE MAN [facility] Comment:Unable to calculate ratio because the analyte concentration is outside the instrument measuring range. Urine URINE SPECIMEN OBTAINED BY CLEAN CATCH PROCEDURE / Unknown Collection / Unknown 06/22/2022 12:36 PM WAREHOUSE MAN 06/22/2022 2:09 PM WAREHOUSE MAN Gaby Jamison MD LAB - URINE CHEMISTR Y ORDERABLES Performing Organization Address [facility]/ZIP Co de Phone Number [address] [address], [place] [phone] * HEPATITIS B CORE ANTIBODY TOTAL (06/22/2022 12:36 PM WAREHOUSE MAN) HBc Antibody Total Non-reacti ve Non-reacti ve 06/22/2022 4:24 PM WAREHOUSE MAN [facility] Blood BLOOD SPECIMEN / Unknown Lab Venipuncture / Unknown 06/22/2022 12:36 PM WAREHOUSE MAN 06/22/2022 2:09 PM WAREHOUSE MAN Gaby Jamison MD LAB - CHEMISTRY [place] [address] [address], [place] [phone] * HEPATITIS B SURFACE ANTIGEN W RFLX CONFIRMATION (06/22/2022 12:36 PM WAREHOUSE MAN) Hepatitis B Virus Surface Antigen Non-reacti ve Non-reacti ve 06/22/2022 4:24 PM WAREHOUSE MAN [facility] Blood BLOOD SPECIMEN / Unknown Lab Venipuncture / Unknown 06/22/2022 12:36 PM WAREHOUSE MAN 06/22/2022 2:09 PM WAREHOUSE MAN Gaby Jamison MD LAB - CHEMISTRY [place] Performing Organization Address City/[facility]/ZIP Co de Phone Number [address] [address], [place] [phone] * CK BLOOD (06/22/2022 12:36 PM WAREHOUSE MAN) CK Total 51 30 - 200 U/L 06/22/2022 2:53 PM WAREHOUSE MAN [facility] Blood BLOOD SPECIMEN / Unknown Lab Venipuncture / Unknown 06/22/2022 12:36 PM WAREHOUSE MAN 06/22/2022 2:24 PM WAREHOUSE MAN Gaby Jamison MD LAB - CHEMISTRY [place] [address] [address], [place] [phone] * (ABNORMAL) PROTEIN ELECTROPHORESIS BLOOD (06/22/2022 12:36 PM WAREHOUSE MAN) Interpretation Serum PE Abnormal Pattern(A) Normal Pattern 06/29/2022 9:24 PM [facility] Comment: Serum capillary electrophoresis shows characteristic bands corresponding to albumin, alpha and beta globulins and polyclonal immunoglobulins. There is a band of restricted electrophoretic mobility in the gamma region that may represent a monoclonal immunoglobulin. Serum immunosubtraction studies to follow. Sera Song PhD, [facility] Clinical Printing Machine Mechanic vice president integrated *The electrophoresis pattern and the interpretation have been reviewed and verified by the teaching physician. Protein Total 7.1 6.0 - 8.3 g/dL 06/29/2022 9:24 PM [facility] Albumin 3.7 3.3 - 5.6 g/dL 06/29/2022 9:24 PM [facility] Alpha-1 Globulins 0.3 0.2 - 0.4 g/dL 06/29/2022 9:24 PM [facility] Alpha-2 Globulins 0.7 0.5 - 1.0 g/dL 06/29/2022 9:24 PM [facility] Beta Globulins 0.8 0.6 - 1.1 g/dL 06/29/2022 9:24 PM [facility] Gamma Globulins 1.6 0.6 - 1.6 g/dL 06/29/2022 9:24 PM [facility] Monoclonal Component(s) 0.6(H) None Detected g/dL 06/29/2022 9:24 PM [facility] Blood BLOOD SPECIMEN / Unknown Lab Venipuncture / Unknown 06/22/2022 12:36 PM WAREHOUSE MAN 06/22/2022 2:09 PM WAREHOUSE MAN Gaby Jamison MD LAB - CHEMISTRY [place] [facility] Organization Address City/State/ZIP Co de Phone Number [address] [address], [facility] [phone] * XR FOOT RIGHT WT BEARING 3VW (06/22/2022 11:52 AM WAREHOUSE MAN) Anatomical Region Laterality Modality Ankle / Foot Radiographic Marii ging 06/22/2022 12:3 9 PM WAREHOUSE MAN Impressions 06/22/2022 12:46 PM WAREHOUSE MAN IMPRESSION: 1. Right and left hands: Mild osteoarthritis at a several interphalangeal joints bilaterally. 2. Right wrist: Moderate osteoarthritis at the first carpometacarpal joint and radiocarpal compartment. Widening of the scapholunate interval consistent with ligament tear and DISI carpal malalignment. 3. Left wrist: Moderate osteoarthritis at the first carpometacarpal joint. 4. Right and left feet: Mild right and minimal left foot osteoarthritis at a few joints. 5. Right and left knees: Osteoarthritis, right greater than left. Right tibial osteochondroma. > Interpreting Provider: Mustapha Valencia MD on 06/22/2022 12:46 PM Narrative 06/22/2022 12:46 PM WAREHOUSE MAN PROCEDURE: XR HAND RIGHT 3VW OR MORE, XR KNEE BILAT STANDING 1VW, XR FOOT RIGHT WT BEARING 3VW, XR HAND LEFT 3VW OR MORE, XR FOOT LEFT WT BEARING 3VW, XR WRIST RIGHT 3VW OR MORE, XR WRIST LEFT 3VW OR MORE, DATE/TIME OF EXAM: 06/22/2022 11:52 AM, LOCATION [facility] INDICATION: J84.9: Interstitial lung disease (CMS/HCC) R76.8: Positive SIMNOE (antinuclear antibody) ADDITIONAL CLINICAL INFORMATION: Ordering Provider Reason For Exam: Technologist Note: Additional: COMPARISON: None. FINDINGS: Right hand: No fracture or dislocation. There is moderate osteoarthritis at the first carpometacarpal joint and mild involvement of several interphalangeal joints. No erosions. The bones are osteopenic. The soft tissues are normal. Left hand: No fracture or dislocation. There is moderate osteoarthritis at the first carpometacarpal joint and mild involvement of several interphalangeal joints. There are no erosions. The bones are osteopenic. The soft tissues are normal. Right wrist: No fracture or dislocation is present. There is widening of the scapholunate interval measuring 5 mm. There is carpal malalignment consistent with dorsal intercalated segment instability. There is moderate osteoarthritis affecting the first carpometacarpal joint and radiocarpal compartment. No erosions. The bones are osteopenic. Left wrist: No fracture or dislocation. The joint spaces are normal. Moderate osteoarthritis at the first carpometacarpal joint. No erosions. The bones are osteopenic. The soft tissues are normal. Right foot: No fracture or dislocation. There is mild osteoarthritis at the first metatarsophalangeal joint and a few interphalangeal joints. There are no erosions. There are small posterior and moderate plantar calcaneal spurs. No erosions. No soft tissue swelling. Left foot: No fracture or dislocation. There is minimal degenerative change at a few joints without narrowing. Small posterior and moderate plantar calcaneal spurs. No erosions. No soft tissue swelling. Bilateral knees, single AP view: The right there is moderate lateral compartment joint space narrowing. The medial compartment joint space is normal. On the left the medial and lateral compartment joint spaces are normal. Subchondral sclerosis and small to moderate osteophytes are visible bilaterally. A subchondral cyst is seen in the right lateral tibial plateau. An exophytic broad-based bone lesion measuring 2.1 x 0.7 cm seen arising from the medial aspect of the right proximal tibial metaphysis compatible with an osteochondroma. Procedure Note Mustapha Valencia MD - 06/22/2022 PROCEDURE: XR HAND RIGHT 3VW OR MORE, XR KNEE BILAT STANDING 1VW, XRFOOT RIGHT WT BEARING 3VW, XR HAND LEFT 3VW OR MORE, XR FOOT LEFT WT BEARING 3VW, XR WRIST RIGHT 3VW OR MORE, XR WRIST LEFT 3VW OR MORE, DATE/TIME OF EXAM: 06/22/2022 11:52 AM, LOCATION [facility] INDICATION: J84.9: Interstitial lung disease ([facility]) R76.8: Positive SIMONE (antinuclear antibody) ADDITIONAL CLINICAL INFORMATION: Ordering Provider Reason For Exam: Technologist Note: Additional: COMPARISON: None. FINDINGS: Right hand: No fracture or dislocation. There is moderate osteoarthritis at thefirst carpometacarpal joint and mild involvement of several interphalangeal joints. No erosions. The bones are osteopenic. The soft tissues arenormal. Left hand: No fracture or dislocation. There is moderate osteoarthritis at thefirst carpometacarpal joint and mild involvement of several interphalangeal joints. There are no erosions. The bones are osteopenic. The softtissues are normal. Right wrist: No fracture or dislocation is present. There is widening of the scapholunate interval measuring 5 mm. There is carpal malalignment consistent with dorsal intercalated segment instability. There ismoderate osteoarthritis affecting the first carpometacarpal joint and radiocarpal compartment. No erosions. The bones are osteopenic. Left wrist: No fracture or dislocation. The joint spaces are normal. Moderate osteoarthritis at the first carpometacarpal joint. No erosions. Thebones are osteopenic. The soft tissues are normal. Right foot: No fracture or dislocation. There is mild osteoarthritis at the first metatarsophalangeal joint and a few interphalangeal joints. There are no erosions. There are small posterior and moderate plantar calcanealspurs. No erosions. No soft tissue swelling. Left foot: No fracture or dislocation. There is minimal degenerative change at afew joints without narrowing. Small posterior and moderate plantar calcaneal spurs. No erosions. No soft tissue swelling. Bilateral knees, single AP view: The right there is moderate lateral compartment joint space narrowing.The medial compartment joint space is normal. On the left the medial and lateral compartment joint spaces are normal. Subchondral sclerosis and small to moderate osteophytes are visible bilaterally. A subchondralcyst is seen in the right lateral tibial plateau. An exophytic broad-basedbone lesion measuring 2.1 x 0.7 cm seen arising from the medial aspect of the right proximal tibial metaphysis compatible with an osteochondroma. IMPRESSION: 1. Right and left hands: Mild osteoarthritis at a severalinterphalangeal joints bilaterally. 2. Right wrist: Moderate osteoarthritis at the first carpometacarpaljoint and radiocarpal compartment. Widening of the scapholunate interval consistent with ligament tear and DISI carpal malalignment. 3. Left wrist: Moderate osteoarthritis at the first carpometacarpaljoint. 4. Right and left feet: Mild right and minimal left foot osteoarthritisat a few joints. 5. Right and left knees: Osteoarthritis, right greater than left. Right tibial osteochondroma. > Interpreting Provider: Mustapha Valencia MD on 06/22/2022 12:46 PM Gaby Jamison MD DIAGNOSTIC IMAGING O RDERABLES * XR FOOT LEFT WT BEARING 3VW (06/22/2022 11:52 AM WAREHOUSE MAN) Anatomical Region Laterality Modality Ankle / Foot Radiographic Marii ging 06/22/2022 12:3 9 PM WAREHOUSE MAN Impressions 06/22/2022 12:46 PM WAREHOUSE MAN IMPRESSION: 1. Right and left hands: Mild osteoarthritis at a several interphalangeal joints bilaterally. 2. Right wrist: Moderate osteoarthritis at the first carpometacarpal joint and radiocarpal compartment. Widening of the scapholunate interval consistent with ligament tear and DISI carpal malalignment. 3. Left wrist: Moderate osteoarthritis at the first carpometacarpal joint. 4. Right and left feet: Mild right and minimal left foot osteoarthritis at a few joints. 5. Right and left knees: Osteoarthritis, right greater than left. Right tibial osteochondroma. > Interpreting Provider: Mustapha Valencia MD on 06/22/2022 12:46 PM Narrative 06/22/2022 12:46 PM WAREHOUSE MAN PROCEDURE: XR HAND RIGHT 3VW OR MORE, XR KNEE BILAT STANDING 1VW, XR FOOT RIGHT WT BEARING 3VW, XR HAND LEFT 3VW OR MORE, XR FOOT LEFT WT BEARING 3VW, XR WRIST RIGHT 3VW OR MORE, XR WRIST LEFT 3VW OR MORE, DATE/TIME OF EXAM: 06/22/2022 11:52 AM, LOCATION [facility] INDICATION: J84.9: Interstitial lung disease (CMS/HCC) R76.8: Positive SIMONE (antinuclear antibody) ADDITIONAL CLINICAL INFORMATION: Ordering Provider Reason For Exam: Technologist Note: Additional: COMPARISON: None. FINDINGS: Right hand: No fracture or dislocation. There is moderate osteoarthritis at the first carpometacarpal joint and mild involvement of several interphalangeal joints. No erosions. The bones are osteopenic. The soft tissues are normal. Left hand: No fracture or dislocation. There is moderate osteoarthritis at the first carpometacarpal joint and mild involvement of several interphalangeal joints. There are no erosions. The bones are osteopenic. The soft tissues are normal. Right wrist: No fracture or dislocation is present. There is widening of the scapholunate interval measuring 5 mm. There is carpal malalignment consistent with dorsal intercalated segment instability. There is moderate osteoarthritis affecting the first carpometacarpal joint and radiocarpal compartment. No erosions. The bones are osteopenic. Left wrist: No fracture or dislocation. The joint spaces are normal. Moderate osteoarthritis at the first carpometacarpal joint. No erosions. The bones are osteopenic. The soft tissues are normal. Right foot: No fracture or dislocation. There is mild osteoarthritis at the first metatarsophalangeal joint and a few interphalangeal joints. There are no erosions. There are small posterior and moderate plantar calcaneal spurs. No erosions. No soft tissue swelling. Left foot: No fracture or dislocation. There is minimal degenerative change at a few joints without narrowing. Small posterior and moderate plantar calcaneal spurs. No erosions. No soft tissue swelling. Bilateral knees, single AP view: The right there is moderate lateral compartment joint space narrowing. The medial compartment joint space is normal. On the left the medial and lateral compartment joint spaces are normal. Subchondral sclerosis and small to moderate osteophytes are visible bilaterally. A subchondral cyst is seen in the right lateral tibial plateau. An exophytic broad-based bone lesion measuring 2.1 x 0.7 cm seen arising from the medial aspect of the right proximal tibial metaphysis compatible with an osteochondroma. Procedure Note Mustapha Valencia MD - 06/22/2022 PROCEDURE: XR HAND RIGHT 3VW OR MORE, XR KNEE BILAT STANDING 1VW, XRFOOT RIGHT WT BEARING 3VW, XR HAND LEFT 3VW OR MORE, XR FOOT LEFT WT BEARING 3VW, XR WRIST RIGHT 3VW OR MORE, XR WRIST LEFT 3VW OR MORE, DATE/TIME OF EXAM: 06/22/2022 11:52 AM, LOCATION [facility] INDICATION: J84.9: Interstitial lung disease ([facility]) R76.8: Positive SIMONE (antinuclear antibody) ADDITIONAL CLINICAL INFORMATION: Ordering Provider Reason For Exam: Technologist Note: Additional: COMPARISON: None. FINDINGS: Right hand: No fracture or dislocation. There is moderate osteoarthritis at thefirst carpometacarpal joint and mild involvement of several interphalangeal joints. No erosions. The bones are osteopenic. The soft tissues arenormal. Left hand: No fracture or dislocation. There is moderate osteoarthritis at thefirst carpometacarpal joint and mild involvement of several interphalangeal joints. There are no erosions. The bones are osteopenic. The softtissues are normal. Right wrist: No fracture or dislocation is present. There is widening of the scapholunate interval measuring 5 mm. There is carpal malalignment consistent with dorsal intercalated segment instability. There ismoderate osteoarthritis affecting the first carpometacarpal joint and radiocarpal compartment. No erosions. The bones are osteopenic. Left wrist: No fracture or dislocation. The joint spaces are normal. Moderate osteoarthritis at the first carpometacarpal joint. No erosions. Thebones are osteopenic. The soft tissues are normal. Right foot: No fracture or dislocation. There is mild osteoarthritis at the first metatarsophalangeal joint and a few interphalangeal joints. There are no erosions. There are small posterior and moderate plantar calcanealspurs. No erosions. No soft tissue swelling. Left foot: No fracture or dislocation. There is minimal degenerative change at afew joints without narrowing. Small posterior and moderate plantar calcaneal spurs. No erosions. No soft tissue swelling. Bilateral knees, single AP view: The right there is moderate lateral compartment joint space narrowing.The medial compartment joint space is normal. On the left the medial and lateral compartment joint spaces are normal. Subchondral sclerosis and small to moderate osteophytes are visible bilaterally. A subchondralcyst is seen in the right lateral tibial plateau. An exophytic broad-basedbone lesion measuring 2.1 x 0.7 cm seen arising from the medial aspect of the right proximal tibial metaphysis compatible with an osteochondroma. IMPRESSION: 1. Right and left hands: Mild osteoarthritis at a severalinterphalangeal joints bilaterally. 2. Right wrist: Moderate osteoarthritis at the first carpometacarpaljoint and radiocarpal compartment. Widening of the scapholunate interval consistent with ligament tear and DISI carpal malalignment. 3. Left wrist: Moderate osteoarthritis at the first carpometacarpaljoint. 4. Right and left feet: Mild right and minimal left foot osteoarthritisat a few joints. 5. Right and left knees: Osteoarthritis, right greater than left. Right tibial osteochondroma. > Interpreting Provider: Mustapha Valencia MD on 06/22/2022 12:46 PM Gaby Jamison MD DIAGNOSTIC IMAGING O RDERABLES * XR KNEE BILAT STANDING 1VW (06/22/2022 11:52 AM WAREHOUSE MAN) Anatomical Region Laterality Modality Lower Extremity Radiographic Marii ging 06/22/2022 12:3 9 PM WAREHOUSE MAN Impressions 06/22/2022 12:46 PM WAREHOUSE MAN IMPRESSION: 1. Right and left hands: Mild osteoarthritis at a several interphalangeal joints bilaterally. 2. Right wrist: Moderate osteoarthritis at the first carpometacarpal joint and radiocarpal compartment. Widening of the scapholunate interval consistent with ligament tear and DISI carpal malalignment. 3. Left wrist: Moderate osteoarthritis at the first carpometacarpal joint. 4. Right and left feet: Mild right and minimal left foot osteoarthritis at a few joints. 5. Right and left knees: Osteoarthritis, right greater than left. Right tibial osteochondroma. > Interpreting Provider: Mustapha Valencai MD on 06/22/2022 12:46 PM Narrative 06/22/2022 12:46 PM WAREHOUSE MAN PROCEDURE: XR HAND RIGHT 3VW OR MORE, XR KNEE BILAT STANDING 1VW, XR FOOT RIGHT WT BEARING 3VW, XR HAND LEFT 3VW OR MORE, XR FOOT LEFT WT BEARING 3VW, XR WRIST RIGHT 3VW OR MORE, XR WRIST LEFT 3VW OR MORE, DATE/TIME OF EXAM: 06/22/2022 11:52 AM, LOCATION [facility] INDICATION: J84.9: Interstitial lung disease ([facility]) R76.8: Positive SIMONE (antinuclear antibody) ADDITIONAL CLINICAL INFORMATION: Ordering Provider Reason For Exam: Technologist Note: Additional: COMPARISON: None. FINDINGS: Right hand: No fracture or dislocation. There is moderate osteoarthritis at the first carpometacarpal joint and mild involvement of several interphalangeal joints. No erosions. The bones are osteopenic. The soft tissues are normal. Left hand: No fracture or dislocation. There is moderate osteoarthritis at the first carpometacarpal joint and mild involvement of several interphalangeal joints. There are no erosions. The bones are osteopenic. The soft tissues are normal. Right wrist: No fracture or dislocation is present. There is widening of the scapholunate interval measuring 5 mm. There is carpal malalignment consistent with dorsal intercalated segment instability. There is moderate osteoarthritis affecting the first carpometacarpal joint and radiocarpal compartment. No erosions. The bones are osteopenic. Left wrist: No fracture or dislocation. The joint spaces are normal. Moderate osteoarthritis at the first carpometacarpal joint. No erosions. The bones are osteopenic. The soft tissues are normal. Right foot: No fracture or dislocation. There is mild osteoarthritis at the first metatarsophalangeal joint and a few interphalangeal joints. There are no erosions. There are small posterior and moderate plantar calcaneal spurs. No erosions. No soft tissue swelling. Left foot: No fracture or dislocation. There is minimal degenerative change at a few joints without narrowing. Small posterior and moderate plantar calcaneal spurs. No erosions. No soft tissue swelling. Bilateral knees, single AP view: The right there is moderate lateral compartment joint space narrowing. The medial compartment joint space is normal. On the left the medial and lateral compartment joint spaces are normal. Subchondral sclerosis and small to moderate osteophytes are visible bilaterally. A subchondral cyst is seen in the right lateral tibial plateau. An exophytic broad-based bone lesion measuring 2.1 x 0.7 cm seen arising from the medial aspect of the right proximal tibial metaphysis compatible with an osteochondroma. Procedure Note Mustapha Valencia MD - 06/22/2022 PROCEDURE: XR HAND RIGHT 3VW OR MORE, XR KNEE BILAT STANDING 1VW, XRFOOT RIGHT WT BEARING 3VW, XR HAND LEFT 3VW OR MORE, XR FOOT LEFT WT BEARING 3VW, XR WRIST RIGHT 3VW OR MORE, XR WRIST LEFT 3VW OR MORE, DATE/TIME OF EXAM: 06/22/2022 11:52 AM, LOCATION [facility] INDICATION: J84.9: Interstitial lung disease (CMS/HCC) R76.8: Positive SIMONE (antinuclear antibody) ADDITIONAL CLINICAL INFORMATION: Ordering Provider Reason For Exam: Technologist Note: Additional: COMPARISON: None. FINDINGS: Right hand: No fracture or dislocation. There is moderate osteoarthritis at thefirst carpometacarpal joint and mild involvement of several interphalangeal joints. No erosions. The bones are osteopenic. The soft tissues arenormal. Left hand: No fracture or dislocation. There is moderate osteoarthritis at thefirst carpometacarpal joint and mild involvement of several interphalangeal joints. There are no erosions. The bones are osteopenic. The softtissues are normal. Right wrist: No fracture or dislocation is present. There is widening of the scapholunate interval measuring 5 mm. There is carpal malalignment consistent with dorsal intercalated segment instability. There ismoderate osteoarthritis affecting the first carpometacarpal joint and radiocarpal compartment. No erosions. The bones are osteopenic. Left wrist: No fracture or dislocation. The joint spaces are normal. Moderate osteoarthritis at the first carpometacarpal joint. No erosions. Thebones are osteopenic. The soft tissues are normal. Right foot: No fracture or dislocation. There is mild osteoarthritis at the first metatarsophalangeal joint and a few interphalangeal joints. There are no erosions. There are small posterior and moderate plantar calcanealspurs. No erosions. No soft tissue swelling. Left foot: No fracture or dislocation. There is minimal degenerative change at afew joints without narrowing. Small posterior and moderate plantar calcaneal spurs. No erosions. No soft tissue swelling. Bilateral knees, single AP view: The right there is moderate lateral compartment joint space narrowing.The medial compartment joint space is normal. On the left the medial and lateral compartment joint spaces are normal. Subchondral sclerosis and small to moderate osteophytes are visible bilaterally. A subchondralcyst is seen in the right lateral tibial plateau. An exophytic broad-basedbone lesion measuring 2.1 x 0.7 cm seen arising from the medial aspect of the right proximal tibial metaphysis compatible with an osteochondroma. IMPRESSION: 1. Right and left hands: Mild osteoarthritis at a severalinterphalangeal joints bilaterally. 2. Right wrist: Moderate osteoarthritis at the first carpometacarpaljoint and radiocarpal compartment. Widening of the scapholunate interval consistent with ligament tear and DISI carpal malalignment. 3. Left wrist: Moderate osteoarthritis at the first carpometacarpaljoint. 4. Right and left feet: Mild right and minimal left foot osteoarthritisat a few joints. 5. Right and left knees: Osteoarthritis, right greater than left. Right tibial osteochondroma. > Interpreting Provider: Mustapha Valencia MD on 06/22/2022 12:46 PM Gaby Jamison MD DIAGNOSTIC IMAGING O RDERABLES * XR HAND RIGHT 3VW OR MORE (06/22/2022 11:52 AM [employer]) Anatomical Region Laterality Modality Wrist / Hand Radiographic Marii ging 06/22/2022 12:3 9 PM [employer] Impressions 06/22/2022 12:46 PM [employer] IMPRESSION: 1. Right and left hands: Mild osteoarthritis at a several interphalangeal joints bilaterally. 2. Right wrist: Moderate osteoarthritis at the first carpometacarpal joint and radiocarpal compartment. Widening of the scapholunate interval consistent with ligament tear and DISI carpal malalignment. 3. Left wrist: Moderate osteoarthritis at the first carpometacarpal joint. 4. Right and left feet: Mild right and minimal left foot osteoarthritis at a few joints. 5. Right and left knees: Osteoarthritis, right greater than left. Right tibial osteochondroma. > Interpreting Provider: Mustapha Valencia MD on 06/22/2022 12:46 PM Narrative 06/22/2022 12:46 PM [employer] PROCEDURE: XR HAND RIGHT 3VW OR MORE, XR KNEE BILAT STANDING 1VW, XR FOOT RIGHT WT BEARING 3VW, XR HAND LEFT 3VW OR MORE, XR FOOT LEFT WT BEARING 3VW, XR WRIST RIGHT 3VW OR MORE, XR WRIST LEFT 3VW OR MORE, DATE/TIME OF EXAM: 06/22/2022 11:52 AM, LOCATION [facility] INDICATION: J84.9: Interstitial lung disease (CMS/HCC) R76.8: Positive SIMONE (antinuclear antibody) ADDITIONAL CLINICAL INFORMATION: Ordering Provider Reason For Exam: Technologist Note: Additional: COMPARISON: None. FINDINGS: Right hand: No fracture or dislocation. There is moderate osteoarthritis at the first carpometacarpal joint and mild involvement of several interphalangeal joints. No erosions. The bones are osteopenic. The soft tissues are normal. Left hand: No fracture or dislocation. There is moderate osteoarthritis at the first carpometacarpal joint and mild involvement of several interphalangeal joints. There are no erosions. The bones are osteopenic. The soft tissues are normal. Right wrist: No fracture or dislocation is present. There is widening of the scapholunate interval measuring 5 mm. There is carpal malalignment consistent with dorsal intercalated segment instability. There is moderate osteoarthritis affecting the first carpometacarpal joint and radiocarpal compartment. No erosions. The bones are osteopenic. Left wrist: No fracture or dislocation. The joint spaces are normal. Moderate osteoarthritis at the first carpometacarpal joint. No erosions. The bones are osteopenic. The soft tissues are normal. Right foot: No fracture or dislocation. There is mild osteoarthritis at the first metatarsophalangeal joint and a few interphalangeal joints. There are no erosions. There are small posterior and moderate plantar calcaneal spurs. No erosions. No soft tissue swelling. Left foot: No fracture or dislocation. There is minimal degenerative change at a few joints without narrowing. Small posterior and moderate plantar calcaneal spurs. No erosions. No soft tissue swelling. Bilateral knees, single AP view: The right there is moderate lateral compartment joint space narrowing. The medial compartment joint space is normal. On the left the medial and lateral compartment joint spaces are normal. Subchondral sclerosis and small to moderate osteophytes are visible bilaterally. A subchondral cyst is seen in the right lateral tibial plateau. An exophytic broad-based bone lesion measuring 2.1 x 0.7 cm seen arising from the medial aspect of the right proximal tibial metaphysis compatible with an osteochondroma. Procedure Note Mustapha Valencia MD - 06/22/2022 PROCEDURE: XR HAND RIGHT 3VW OR MORE, XR KNEE BILAT STANDING 1VW, XRFOOT RIGHT WT BEARING 3VW, XR HAND LEFT 3VW OR MORE, XR FOOT LEFT WT BEARING 3VW, XR WRIST RIGHT 3VW OR MORE, XR WRIST LEFT 3VW OR MORE, DATE/TIME OF EXAM: 06/22/2022 11:52 AM, LOCATION [facility] INDICATION: J84.9: Interstitial lung disease (CMS/HCC) R76.8: Positive SIMONE (antinuclear antibody) ADDITIONAL CLINICAL INFORMATION: Ordering Provider Reason For Exam: Technologist Note: Additional: COMPARISON: None. FINDINGS: Right hand: No fracture or dislocation. There is moderate osteoarthritis at thefirst carpometacarpal joint and mild involvement of several interphalangeal joints. No erosions. The bones are osteopenic. The soft tissues arenormal. Left hand: No fracture or dislocation. There is moderate osteoarthritis at thefirst carpometacarpal joint and mild involvement of several interphalangeal joints. There are no erosions. The bones are osteopenic. The softtissues are normal. Right wrist: No fracture or dislocation is present. There is widening of the scapholunate interval measuring 5 mm. There is carpal malalignment consistent with dorsal intercalated segment instability. There ismoderate osteoarthritis affecting the first carpometacarpal joint and radiocarpal compartment. No erosions. The bones are osteopenic. Left wrist: No fracture or dislocation. The joint spaces are normal. Moderate osteoarthritis at the first carpometacarpal joint. No erosions. Thebones are osteopenic. The soft tissues are normal. Right foot: No fracture or dislocation. There is mild osteoarthritis at the first metatarsophalangeal joint and a few interphalangeal joints. There are no erosions. There are small posterior and moderate plantar calcanealspurs. No erosions. No soft tissue swelling. Left foot: No fracture or dislocation. There is minimal degenerative change at afew joints without narrowing. Small posterior and moderate plantar calcaneal spurs. No erosions. No soft tissue swelling. Bilateral knees, single AP view: The right there is moderate lateral compartment joint space narrowing.The medial compartment joint space is normal. On the left the medial and lateral compartment joint spaces are normal. Subchondral sclerosis and small to moderate osteophytes are visible bilaterally. A subchondralcyst is seen in the right lateral tibial plateau. An exophytic broad-basedbone lesion measuring 2.1 x 0.7 cm seen arising from the medial aspect of the right proximal tibial metaphysis compatible with an osteochondroma. IMPRESSION: 1. Right and left hands: Mild osteoarthritis at a severalinterphalangeal joints bilaterally. 2. Right wrist: Moderate osteoarthritis at the first carpometacarpaljoint and radiocarpal compartment. Widening of the scapholunate interval consistent with ligament tear and DISI carpal malalignment. 3. Left wrist: Moderate osteoarthritis at the first carpometacarpaljoint. 4. Right and left feet: Mild right and minimal left foot osteoarthritisat a few joints. 5. Right and left knees: Osteoarthritis, right greater than left. Right tibial osteochondroma. > Interpreting Provider: Mustapha Valencia MD on 06/22/2022 12:46 PM Gaby Jamison MD DIAGNOSTIC IMAGING O RDERABLES * XR HAND LEFT 3VW OR MORE (06/22/2022 11:52 AM [employer]) Anatomical Region Laterality Modality Wrist / Hand Radiographic Marii ging 06/22/2022 12:3 9 PM [employer] Impressions 06/22/2022 12:46 PM [employer] IMPRESSION: 1. Right and left hands: Mild osteoarthritis at a several interphalangeal joints bilaterally. 2. Right wrist: Moderate osteoarthritis at the first carpometacarpal joint and radiocarpal compartment. Widening of the scapholunate interval consistent with ligament tear and DISI carpal malalignment. 3. Left wrist: Moderate osteoarthritis at the first carpometacarpal joint. 4. Right and left feet: Mild right and minimal left foot osteoarthritis at a few joints. 5. Right and left knees: Osteoarthritis, right greater than left. Right tibial osteochondroma. > Interpreting Provider: Mustapha Valencia MD on 06/22/2022 12:46 PM Narrative 06/22/2022 12:46 PM [employer] PROCEDURE: XR HAND RIGHT 3VW OR MORE, XR KNEE BILAT STANDING 1VW, XR FOOT RIGHT WT BEARING 3VW, XR HAND LEFT 3VW OR MORE, XR FOOT LEFT WT BEARING 3VW, XR WRIST RIGHT 3VW OR MORE, XR WRIST LEFT 3VW OR MORE, DATE/TIME OF EXAM: 06/22/2022 11:52 AM, LOCATION [facility] INDICATION: J84.9: Interstitial lung disease (CMS/HCC) R76.8: Positive SIMONE (antinuclear antibody) ADDITIONAL CLINICAL INFORMATION: Ordering Provider Reason For Exam: Technologist Note: Additional: COMPARISON: None. FINDINGS: Right hand: No fracture or dislocation. There is moderate osteoarthritis at the first carpometacarpal joint and mild involvement of several interphalangeal joints. No erosions. The bones are osteopenic. The soft tissues are normal. Left hand: No fracture or dislocation. There is moderate osteoarthritis at the first carpometacarpal joint and mild involvement of several interphalangeal joints. There are no erosions. The bones are osteopenic. The soft tissues are normal. Right wrist: No fracture or dislocation is present. There is widening of the scapholunate interval measuring 5 mm. There is carpal malalignment consistent with dorsal intercalated segment instability. There is moderate osteoarthritis affecting the first carpometacarpal joint and radiocarpal compartment. No erosions. The bones are osteopenic. Left wrist: No fracture or dislocation. The joint spaces are normal. Moderate osteoarthritis at the first carpometacarpal joint. No erosions. The bones are osteopenic. The soft tissues are normal. Right foot: No fracture or dislocation. There is mild osteoarthritis at the first metatarsophalangeal joint and a few interphalangeal joints. There are no erosions. There are small posterior and moderate plantar calcaneal spurs. No erosions. No soft tissue swelling. Left foot: No fracture or dislocation. There is minimal degenerative change at a few joints without narrowing. Small posterior and moderate plantar calcaneal spurs. No erosions. No soft tissue swelling. Bilateral knees, single AP view: The right there is moderate lateral compartment joint space narrowing. The medial compartment joint space is normal. On the left the medial and lateral compartment joint spaces are normal. Subchondral sclerosis and small to moderate osteophytes are visible bilaterally. A subchondral cyst is seen in the right lateral tibial plateau. An exophytic broad-based bone lesion measuring 2.1 x 0.7 cm seen arising from the medial aspect of the right proximal tibial metaphysis compatible with an osteochondroma. Procedure Note Mustapha Valencia MD - 06/22/2022 PROCEDURE: XR HAND RIGHT 3VW OR MORE, XR KNEE BILAT STANDING 1VW, XRFOOT RIGHT WT BEARING 3VW, XR HAND LEFT 3VW OR MORE, XR FOOT LEFT WT BEARING 3VW, XR WRIST RIGHT 3VW OR MORE, XR WRIST LEFT 3VW OR MORE, DATE/TIME OF EXAM: 06/22/2022 11:52 AM, LOCATION [facility] INDICATION: J84.9: Interstitial lung disease (CMS/HCC) R76.8: Positive SIMONE (antinuclear antibody) ADDITIONAL CLINICAL INFORMATION: Ordering Provider Reason For Exam: Technologist Note: Additional: COMPARISON: None. FINDINGS: Right hand: No fracture or dislocation. There is moderate osteoarthritis at thefirst carpometacarpal joint and mild involvement of several interphalangeal joints. No erosions. The bones are osteopenic. The soft tissues arenormal. Left hand: No fracture or dislocation. There is moderate osteoarthritis at thefirst carpometacarpal joint and mild involvement of several interphalangeal joints. There are no erosions. The bones are osteopenic. The softtissues are normal. Right wrist: No fracture or dislocation is present. There is widening of the scapholunate interval measuring 5 mm. There is carpal malalignment consistent with dorsal intercalated segment instability. There ismoderate osteoarthritis affecting the first carpometacarpal joint and radiocarpal compartment. No erosions. The bones are osteopenic. Left wrist: No fracture or dislocation. The joint spaces are normal. Moderate osteoarthritis at the first carpometacarpal joint. No erosions. Thebones are osteopenic. The soft tissues are normal. Right foot: No fracture or dislocation. There is mild osteoarthritis at the first metatarsophalangeal joint and a few interphalangeal joints. There are no erosions. There are small posterior and moderate plantar calcanealspurs. No erosions. No soft tissue swelling. Left foot: No fracture or dislocation. There is minimal degenerative change at afew joints without narrowing. Small posterior and moderate plantar calcaneal spurs. No erosions. No soft tissue swelling. Bilateral knees, single AP view: The right there is moderate lateral compartment joint space narrowing.The medial compartment joint space is normal. On the left the medial and lateral compartment joint spaces are normal. Subchondral sclerosis and small to moderate osteophytes are visible bilaterally. A subchondralcyst is seen in the right lateral tibial plateau. An exophytic broad-basedbone lesion measuring 2.1 x 0.7 cm seen arising from the medial aspect of the right proximal tibial metaphysis compatible with an osteochondroma. IMPRESSION: 1. Right and left hands: Mild osteoarthritis at a severalinterphalangeal joints bilaterally. 2. Right wrist: Moderate osteoarthritis at the first carpometacarpaljoint and radiocarpal compartment. Widening of the scapholunate interval consistent with ligament tear and DISI carpal malalignment. 3. Left wrist: Moderate osteoarthritis at the first carpometacarpaljoint. 4. Right and left feet: Mild right and minimal left foot osteoarthritisat a few joints. 5. Right and left knees: Osteoarthritis, right greater than left. Right tibial osteochondroma. > Interpreting Provider: Mustapha Valencia MD on 06/22/2022 12:46 PM Gaby Jamison MD DIAGNOSTIC IMAGING O RDERABLES * XR WRIST RIGHT 3VW OR MORE (06/22/2022 11:52 AM [employer]) Anatomical Region Laterality Modality Wrist / Hand Radiographic Marii ging 06/22/2022 12:3 9 PM [employer] Impressions 06/22/2022 12:46 PM [employer] IMPRESSION: 1. Right and left hands: Mild osteoarthritis at a several interphalangeal joints bilaterally. 2. Right wrist: Moderate osteoarthritis at the first carpometacarpal joint and radiocarpal compartment. Widening of the scapholunate interval consistent with ligament tear and DISI carpal malalignment. 3. Left wrist: Moderate osteoarthritis at the first carpometacarpal joint. 4. Right and left feet: Mild right and minimal left foot osteoarthritis at a few joints. 5. Right and left knees: Osteoarthritis, right greater than left. Right tibial osteochondroma. > Interpreting Provider: Mustapha Valencia MD on 06/22/2022 12:46 PM Narrative 06/22/2022 12:46 PM [employer] PROCEDURE: XR HAND RIGHT 3VW OR MORE, XR KNEE BILAT STANDING 1VW, XR FOOT RIGHT WT BEARING 3VW, XR HAND LEFT 3VW OR MORE, XR FOOT LEFT WT BEARING 3VW, XR WRIST RIGHT 3VW OR MORE, XR WRIST LEFT 3VW OR MORE, DATE/TIME OF EXAM: 06/22/2022 11:52 AM, LOCATION [facility] INDICATION: J84.9: Interstitial lung disease (CMS/HCC) R76.8: Positive SIMONE (antinuclear antibody) ADDITIONAL CLINICAL INFORMATION: Ordering Provider Reason For Exam: Technologist Note: Additional: COMPARISON: None. FINDINGS: Right hand: No fracture or dislocation. There is moderate osteoarthritis at the first carpometacarpal joint and mild involvement of several interphalangeal joints. No erosions. The bones are osteopenic. The soft tissues are normal. Left hand: No fracture or dislocation. There is moderate osteoarthritis at the first carpometacarpal joint and mild involvement of several interphalangeal joints. There are no erosions. The bones are osteopenic. The soft tissues are normal. Right wrist: No fracture or dislocation is present. There is widening of the scapholunate interval measuring 5 mm. There is carpal malalignment consistent with dorsal intercalated segment instability. There is moderate osteoarthritis affecting the first carpometacarpal joint and radiocarpal compartment. No erosions. The bones are osteopenic. Left wrist: No fracture or dislocation. The joint spaces are normal. Moderate osteoarthritis at the first carpometacarpal joint. No erosions. The bones are osteopenic. The soft tissues are normal. Right foot: No fracture or dislocation. There is mild osteoarthritis at the first metatarsophalangeal joint and a few interphalangeal joints. There are no erosions. There are small posterior and moderate plantar calcaneal spurs. No erosions. No soft tissue swelling. Left foot: No fracture or dislocation. There is minimal degenerative change at a few joints without narrowing. Small posterior and moderate plantar calcaneal spurs. No erosions. No soft tissue swelling. Bilateral knees, single AP view: The right there is moderate lateral compartment joint space narrowing. The medial compartment joint space is normal. On the left the medial and lateral compartment joint spaces are normal. Subchondral sclerosis and small to moderate osteophytes are visible bilaterally. A subchondral cyst is seen in the right lateral tibial plateau. An exophytic broad-based bone lesion measuring 2.1 x 0.7 cm seen arising from the medial aspect of the right proximal tibial metaphysis compatible with an osteochondroma. Procedure Note Mustapha Valencia MD - 06/22/2022 PROCEDURE: XR HAND RIGHT 3VW OR MORE, XR KNEE BILAT STANDING 1VW, XRFOOT RIGHT WT BEARING 3VW, XR HAND LEFT 3VW OR MORE, XR FOOT LEFT WT BEARING 3VW, XR WRIST RIGHT 3VW OR MORE, XR WRIST LEFT 3VW OR MORE, DATE/TIME OF EXAM: 06/22/2022 11:52 AM, LOCATION [facility] INDICATION: J84.9: Interstitial lung disease (CMS/HCC) R76.8: Positive SIMONE (antinuclear antibody) ADDITIONAL CLINICAL INFORMATION: Ordering Provider Reason For Exam: Technologist Note: Additional: COMPARISON: None. FINDINGS: Right hand: No fracture or dislocation. There is moderate osteoarthritis at thefirst carpometacarpal joint and mild involvement of several interphalangeal joints. No erosions. The bones are osteopenic. The soft tissues arenormal. Left hand: No fracture or dislocation. There is moderate osteoarthritis at thefirst carpometacarpal joint and mild involvement of several interphalangeal joints. There are no erosions. The bones are osteopenic. The softtissues are normal. Right wrist: No fracture or dislocation is present. There is widening of the scapholunate interval measuring 5 mm. There is carpal malalignment consistent with dorsal intercalated segment instability. There ismoderate osteoarthritis affecting the first carpometacarpal joint and radiocarpal compartment. No erosions. The bones are osteopenic. Left wrist: No fracture or dislocation. The joint spaces are normal. Moderate osteoarthritis at the first carpometacarpal joint. No erosions. Thebones are osteopenic. The soft tissues are normal. Right foot: No fracture or dislocation. There is mild osteoarthritis at the first metatarsophalangeal joint and a few interphalangeal joints. There are no erosions. There are small posterior and moderate plantar calcanealspurs. No erosions. No soft tissue swelling. Left foot: No fracture or dislocation. There is minimal degenerative change at afew joints without narrowing. Small posterior and moderate plantar calcaneal spurs. No erosions. No soft tissue swelling. Bilateral knees, single AP view: The right there is moderate lateral compartment joint space narrowing.The medial compartment joint space is normal. On the left the medial and lateral compartment joint spaces are normal. Subchondral sclerosis and small to moderate osteophytes are visible bilaterally. A subchondralcyst is seen in the right lateral tibial plateau. An exophytic broad-basedbone lesion measuring 2.1 x 0.7 cm seen arising from the medial aspect of the right proximal tibial metaphysis compatible with an osteochondroma. IMPRESSION: 1. Right and left hands: Mild osteoarthritis at a severalinterphalangeal joints bilaterally. 2. Right wrist: Moderate osteoarthritis at the first carpometacarpaljoint and radiocarpal compartment. Widening of the scapholunate interval consistent with ligament tear and DISI carpal malalignment. 3. Left wrist: Moderate osteoarthritis at the first carpometacarpaljoint. 4. Right and left feet: Mild right and minimal left foot osteoarthritisat a few joints. 5. Right and left knees: Osteoarthritis, right greater than left. Right tibial osteochondroma. > Interpreting Provider: Mustapha Valencia MD on 06/22/2022 12:46 PM Gaby Jamison MD DIAGNOSTIC IMAGING O RDERABLES * XR WRIST LEFT 3VW OR MORE (06/22/2022 11:52 AM [employer]) Anatomical Region Laterality Modality Wrist / Hand Radiographic Marii ging 06/22/2022 12:3 9 PM [employer] Impressions 06/22/2022 12:46 PM [employer] IMPRESSION: 1. Right and left hands: Mild osteoarthritis at a several interphalangeal joints bilaterally. 2. Right wrist: Moderate osteoarthritis at the first carpometacarpal joint and radiocarpal compartment. Widening of the scapholunate interval consistent with ligament tear and DISI carpal malalignment. 3. Left wrist: Moderate osteoarthritis at the first carpometacarpal joint. 4. Right and left feet: Mild right and minimal left foot osteoarthritis at a few joints. 5. Right and left knees: Osteoarthritis, right greater than left. Right tibial osteochondroma. > Interpreting Provider: Mustapha Valencia MD on 06/22/2022 12:46 PM Narrative 06/22/2022 12:46 PM [employer] PROCEDURE: XR HAND RIGHT 3VW OR MORE, XR KNEE BILAT STANDING 1VW, XR FOOT RIGHT WT BEARING 3VW, XR HAND LEFT 3VW OR MORE, XR FOOT LEFT WT BEARING 3VW, XR WRIST RIGHT 3VW OR MORE, XR WRIST LEFT 3VW OR MORE, DATE/TIME OF EXAM: 06/22/2022 11:52 AM, LOCATION [facility] INDICATION: J84.9: Interstitial lung disease (CMS/HCC) R76.8: Positive SIMONE (antinuclear antibody) ADDITIONAL CLINICAL INFORMATION: Ordering Provider Reason For Exam: Technologist Note: Additional: COMPARISON: None. FINDINGS: Right hand: No fracture or dislocation. There is moderate osteoarthritis at the first carpometacarpal joint and mild involvement of several interphalangeal joints. No erosions. The bones are osteopenic. The soft tissues are normal. Left hand: No fracture or dislocation. There is moderate osteoarthritis at the first carpometacarpal joint and mild involvement of several interphalangeal joints. There are no erosions. The bones are osteopenic. The soft tissues are normal. Right wrist: No fracture or dislocation is present. There is widening of the scapholunate interval measuring 5 mm. There is carpal malalignment consistent with dorsal intercalated segment instability. There is moderate osteoarthritis affecting the first carpometacarpal joint and radiocarpal compartment. No erosions. The bones are osteopenic. Left wrist: No fracture or dislocation. The joint spaces are normal. Moderate osteoarthritis at the first carpometacarpal joint. No erosions. The bones are osteopenic. The soft tissues are normal. Right foot: No fracture or dislocation. There is mild osteoarthritis at the first metatarsophalangeal joint and a few interphalangeal joints. There are no erosions. There are small posterior and moderate plantar calcaneal spurs. No erosions. No soft tissue swelling. Left foot: No fracture or dislocation. There is minimal degenerative change at a few joints without narrowing. Small posterior and moderate plantar calcaneal spurs. No erosions. No soft tissue swelling. Bilateral knees, single AP view: The right there is moderate lateral compartment joint space narrowing. The medial compartment joint space is normal. On the left the medial and lateral compartment joint spaces are normal. Subchondral sclerosis and small to moderate osteophytes are visible bilaterally. A subchondral cyst is seen in the right lateral tibial plateau. An exophytic broad-based bone lesion measuring 2.1 x 0.7 cm seen arising from the medial aspect of the right proximal tibial metaphysis compatible with an osteochondroma. Procedure Note Mustapha Valencia MD - 06/22/2022 PROCEDURE: XR HAND RIGHT 3VW OR MORE, XR KNEE BILAT STANDING 1VW, XRFOOT RIGHT WT BEARING 3VW, XR HAND LEFT 3VW OR MORE, XR FOOT LEFT WT BEARING 3VW, XR WRIST RIGHT 3VW OR MORE, XR WRIST LEFT 3VW OR MORE, DATE/TIME OF EXAM: 06/22/2022 11:52 AM, LOCATION [facility] INDICATION: J84.9: Interstitial lung disease (CMS/HCC) R76.8: Positive SIMONE (antinuclear antibody) ADDITIONAL CLINICAL INFORMATION: Ordering Provider Reason For Exam: Technologist Note: Additional: COMPARISON: None. FINDINGS: Right hand: No fracture or dislocation. There is moderate osteoarthritis at thefirst carpometacarpal joint and mild involvement of several interphalangeal joints. No erosions. The bones are osteopenic. The soft tissues arenormal. Left hand: No fracture or dislocation. There is moderate osteoarthritis at thefirst carpometacarpal joint and mild involvement of several interphalangeal joints. There are no erosions. The bones are osteopenic. The softtissues are normal. Right wrist: No fracture or dislocation is present. There is widening of the scapholunate interval measuring 5 mm. There is carpal malalignment consistent with dorsal intercalated segment instability. There ismoderate osteoarthritis affecting the first carpometacarpal joint and radiocarpal compartment. No erosions. The bones are osteopenic. Left wrist: No fracture or dislocation. The joint spaces are normal. Moderate osteoarthritis at the first carpometacarpal joint. No erosions. Thebones are osteopenic. The soft tissues are normal. Right foot: No fracture or dislocation. There is mild osteoarthritis at the first metatarsophalangeal joint and a few interphalangeal joints. There are no erosions. There are small posterior and moderate plantar calcanealspurs. No erosions. No soft tissue swelling. Left foot: No fracture or dislocation. There is minimal degenerative change at afew joints without narrowing. Small posterior and moderate plantar calcaneal spurs. No erosions. No soft tissue swelling. Bilateral knees, single AP view: The right there is moderate lateral compartment joint space narrowing.The medial compartment joint space is normal. On the left the medial and lateral compartment joint spaces are normal. Subchondral sclerosis and small to moderate osteophytes are visible bilaterally. A subchondralcyst is seen in the right lateral tibial plateau. An exophytic broad-basedbone lesion measuring 2.1 x 0.7 cm seen arising from the medial aspect of the right proximal tibial metaphysis compatible with an osteochondroma. IMPRESSION: 1. Right and left hands: Mild osteoarthritis at a severalinterphalangeal joints bilaterally. 2. Right wrist: Moderate osteoarthritis at the first carpometacarpaljoint and radiocarpal compartment. Widening of the scapholunate interval consistent with ligament tear and DISI carpal malalignment. 3. Left wrist: Moderate osteoarthritis at the first carpometacarpaljoint. 4. Right and left feet: Mild right and minimal left foot osteoarthritisat a few joints. 5. Right and left knees: Osteoarthritis, right greater than left. Right tibial osteochondroma. > Interpreting Provider: Mustapha Valencia MD on 06/22/2022 12:46 PM Gaby Jamison MD DIAGNOSTIC IMAGING O RDERABLES * ECHO COMPLETE (03/17/2022 11:07 AM CDT) Anatomical Region Laterality Modality Chest Echo 03/17/2022 10:5 7 AM CDT Narrative Procedure Note Hanna Pacheco MD - 03/17/2022 Padmini Norris MD ECHOCARDIOGRAPHY RA DIANT * HEPATIC FUNCTION PANEL (03/13/2022 1:25 PM CDT) Only the most recent of3 resultswithin the time period is included. Protein Total 7.0 6.0 - 8.5 g/dL [facility] INSURANCE BILL Albumin 4.0 3.7 - 4.7 g/dL [facility] INSURANCE BILL Bilirubin Total 0.4 0.0 - 1.2 mg/dL [facility] INSURANCE BILL Bilirubin Direct 0.11 0.00 - 0.40 mg/dL [facility] INSURANCE BILL Alkaline Phosphatase 61 44 - 121 IU/L [facility] INSURANCE BILL AST 13 0 - 40 IU/L [facility] INSURANCE BILL ALT 10 0 - 32 IU/L [facility] INSURANCE BILL 03/13/2022 1:25 PM CDT 03/13/2022 Narrative Resulting Agency Comment Lab Testing performed at: [facility] [address] [facility] [id number] Jerardo Shin MD LAB - CHEMISTRY KEITH VEGA [facility] INSURANCE BILL [address] [place] [address] * LAB RESULTS ORDER (02/22/2022) 02/22/2022 Narrative 02/22/2022 Ordered by an unspecified provider. 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 No evidence of associated hemorrhage. This report was approved by Juliette Sanz M.D. on 05/09/2019 10:41 AM . I, Dr. CIRILO REINOSO have personally reviewed and interpreted this examination/study. This report was electronically signed by CIRILO REINOSO on 05/09/2019 10:41 AM . Narrative 05/09/2019 10:41 AM [facility]HOUSE [facility] MRI BRAIN WO CONTRAST Date: 05/09/2019 9:45 AM EXAMINATION: Magnetic resonance imaging (MRI) of the brain without contrast HISTORY: R53.1: Weakness TECHNIQUE: MRI of the brain was performed without contrast according to standard protocol. FINDINGS: Comparison is made with head CT from 05/09/2019 No evidence of acute or chronic hemorrhage is identified. Focal FLAIR/T2 signal abnormality is seen in the left marquez radiata, extending to the left caudate body and left basal ganglia, with corresponding increased signal on DWI sequence and decreased intensity on the ADC images. There is moderate cerebral volume loss with associated ex vacuo ventricular dilatation. No mass effect or midline shift is seen. Periventricular and subcortical white matter FLAIR hyperintensities likely represent sequelae of chronic small vessel ischemic disease. The corpus callosum and sella appear normal. The posterior fossa, brainstem, and craniocervical junction appear normal. Other than bilateral cataract extractions, the visualized portions of the orbits, paranasal sinuses, and mastoids appear normal. Normal flow voids are demonstrated in the carotid arteries and basilar artery. The calvarium and visualized cervical spine appear normal. Procedure Note Cirilo Reinoso MD - 05/09/2019 MRI BRAIN WO CONTRAST Date: 05/09/2019 9:45 AM EXAMINATION: Magnetic resonance imaging (MRI) of the brain withoutcontrast HISTORY: R53.1: Weakness TECHNIQUE: MRI of the brain was performed without contrast according to standard protocol. FINDINGS: Comparison is made with head CT from 05/09/2019 No evidence of acute or chronic hemorrhage is identified. Focal FLAIR/T2 signal abnormality is seen in the left marquez radiata, extending to the left caudate body and left basal ganglia, with corresponding increased signal on DWI sequence and decreased intensity on the ADC images. Thereis moderate cerebral volume loss with associated ex vacuo ventricular dilatation. No mass effect or midline shift is seen. Periventricular and subcortical white matter FLAIR hyperintensities likely representsequelae of chronic small vessel ischemic disease. The corpus callosum and sella appear normal. The posterior fossa, brainstem, and craniocervicaljunction appear normal. Other than bilateral cataract extractions, the visualized portions ofthe orbits, paranasal sinuses, and mastoids appear normal. Normal flow voids are demonstrated in the carotid arteries and basilar artery. Thecalvarium and visualized cervical spine appear normal. 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 No evidence of associated hemorrhage. This report was approved by Juliette Sanz M.D. on 05/09/2019 10:41 AM. IDr. CIRILO have personally reviewed and interpreted this examination/study. This report was electronically signed by CIRILO REINOSO on 05/09/2019 10:41 AM . Kishor Gonzales MD MR ORDERABLES * TROPONIN I (05/09/2019 4:23 AM [facility]HOUSE [employer]) Only the most recent of2 resultswithin the time period is included. Troponin I 0.012 <0.032 ng/mL 05/09/2019 4:53 AM [facility] Blood BLOOD SPECIMEN / Unknown Venipuncture / Unknown 05/09/2019 4:23 AM [facility]HOUSE [facility] 05/09/2019 4:26 AM [facility] [facility] Abdi Graham MD LAB - CHEMISTRY KEITH Alonso Organization Address City/State/ZIP Co de Phone Number [facility] [address] [place] [address] * (ABNORMAL) CBC W/O DIFFERENTIAL (05/09/2019 4:23 AM W[employer]HOUSE MAN) WBC 5.9 3.5 - 10.5 10 3/uL 05/09/2019 5:05 AM [facility] RBC 4.14 3.90 - 5.00 10 6/uL 05/09/2019 5:05 AM [facility] Hemoglobin 13.3 12.0 - 15.5 g/dL 05/09/2019 5:05 AM [facility] Hematocrit 39.4 35.0 - 45.0 % 05/09/2019 5:05 AM [facility] MCV 95.2 81.0 - 97.0 fL 05/09/2019 5:05 AM [facility] MCH 32.1 28.0 - 34.0 pg 05/09/2019 5:05 AM [facility] MCHC 33.8 32.0 - 36.0 g/dL 05/09/2019 5:05 AM [facility] Platelet Count 144(L) 150 - 400 10 3/uL 05/09/2019 5:05 AM [facility] RDW-SD 46.3 36.0 - 50.0 fL 05/09/2019 5:05 AM [facility] RDW-CV 13.2 11.2 - 14.8 % 05/09/2019 5:05 AM [facility] MPV 8.8(L) 9.3 - 12.8 fL 05/09/2019 5:05 AM [facility] nRBC Absolute 0.00 0 10 3/uL 05/09/2019 5:05 AM [facility] nRBC Auto 0.0 0 /100 WBC 05/09/2019 5:05 AM [facility] Blood BLOOD SPECIMEN / Unknown Venipuncture / Unknown 05/09/2019 4:23 AM [facility] 05/09/2019 4:26 AM [facility] Kishor Gonzales MD LAB - HEMATOLOGY ORD BRITT Performing Organization Address [facility] Co de Phone Number [address] [phone] * (ABNORMAL) TSH (05/09/2019 4:23 AM W[employer]HOUSE MAN) TSH 7.391(H) 0.350 - 4.940 uIU/mL 05/09/2019 9:18 AM [facility]HOU[employer] [facility] Blood BLOOD SPECIMEN / Unknown Venipuncture / Unknown 05/09/2019 4:23 AM [facility] [facility] 05/09/2019 4:26 AM [facility] Kevin Painting MD LAB - CHEMISTRY KEITH VEGA Performing Organization Address [facility] Co de Phone Number [address] [phone] * T4 FREE (05/09/2019 4:23 AM [facility]HOU[employer]) T4 Free 0.9 0.7 - 1.5 ng/dL 05/09/2019 9:18 AM [facility]HOU[facility] Blood BLOOD SPECIMEN / Unknown Venipuncture / Unknown 05/09/2019 4:23 AM [facility] [employer] 05/09/2019 4:26 AM [facility] [facility] Kevin Painting MD LAB - CHEMISTRY KEITH VEGA Performing Organization Address [facility] Co de Phone Number [address] [phone] * CT HEAD NON CONTRAST (05/09/2019 4:12 AM [facility]HOUSE MAN) Anatomical Region Laterality Modality Head Computed Tomogra phy 05/09/2019 8:33 AM [facility] Impressions 05/09/2019 8:35 AM [facility] MAN IMPRESSION: No acute intracranial CT abnormality. This report was electronically signed by KATARZYNA VEGA on 05/09/2019 8:35 AM . Narrative 05/09/2019 8:35 AM [facility] EXAM: CT HEAD WO CONTRAST CLINICAL INDICATION: Weakness COMPARISON: CT head without contrast 05/08/2019, 5:30 AM TECHNIQUE: CT of the head was performed without contrast according to standard protocol. Automated dose reduction techniques were employed. FINDINGS: No intracranial hemorrhage or extra-axial fluid collection. Orosco-white matter differentiation is preserved. Calcified plaque of the intracranial ICAs. No mass effect, or midline shift. No change in ventricle size, shape, and configuration. Cerebral volume loss. The bony calvarium appears unremarkable. Trace mucosal thickening of the maxillary antra and ethmoid air cells.. Procedure Note Katarzyna Vega MD - 05/09/2019 EXAM: CT HEAD WO CONTRAST CLINICAL INDICATION: Weakness COMPARISON: CT head without contrast 05/08/2019, 5:30 AM TECHNIQUE: CT of the head was performed without contrast according to standard protocol. Automated dose reduction techniques were employed. FINDINGS: No intracranial hemorrhage or extra-axial fluid collection. Orosco-white matter differentiation is preserved. Calcified plaque of the intracranial ICAs. No mass effect, or midline shift. No change in ventricle size, shape,and configuration. Cerebral volume loss. The bony calvarium appears unremarkable. Trace mucosal thickening of the maxillary antra and ethmoid air cells.. IMPRESSION: No acute intracranial CT abnormality. This report was electronically signed by KATARZYNA VEGA on 05/09/20198:35 AM . 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: ALEISHA TOPETE Blood BLOOD SPECIMEN / Unknown 05/09/2019 12:55 AM [facility]HOUSE MAN 05/09/2019 1:02 AM WAREHOUSE MAN See Pruitt MD LAB - POINT OF CARE ORDERABLES [facility] [address] [phone] * ECHO COMPLETE W BUBBLE STUDY (05/08/2019 12:24 PM [employer]HOUSE MAN) Anatomical Region Laterality Modality Echo 05/08/2019 9:00 AM [facility]HOU[employer] [facility] Narrative Procedure Note Heather Bermudez MD - 05/09/2019 Kishor Gonzales MD ECHOCARDIOGRAPHY RAD IANT * TYPE + SCREEN PANEL (05/08/2019 6:00 AM WAREHOUSE MAN) Antibody Screen NEG 9 7:17 AM [facility] LAB ABO Rh A POS 05/08/2019 7:17 AM [facility] LAB Blood Bank BLOOD SPECIMEN / Unknown Venipuncture / Unknown 05/08/2019 6:00 AM [facility]HOUSE MAN 05/08/2019 6:20 AM [employer]HOU[employer] MAN Abdi Graham MD LAB - BLOOD BANK ORD ERABLES [facility] [address] * HEMOGLOBIN A1C (05/08/2019 5:56 AM WAREHOUSE MAN) Hemoglobin A1c 5.4 4.4 - 6.3 % 05/08/2019 10:13 AM [facility] Estimated Average Glucose 108 mg/dL 05/08/2019 10:13 AM [facility] Comment: HbA1c Interpretation: Treatment target values recommended by ADA and other clinical organizations should be used to evaluate metabolic control in patients. Treatment Target Values: Normal : < 5.7% Pre-diabetes: 5.7-6.4% Diabetes: Equal to or greater than 6.5% Reference: [place] [employer] Standards of Care in Diabetes -2014 In patients 70 years and older consider HbA1c target range of 7.0-7.5% Reference: Diabetes Mellitus in Older People: Position Statement on behalf of the International Association of Gerontology and Geriatrics (IAGG), the Diabetes Working Constitution Party for Older People (EDWPOP), and the International Task Force of Experts in Diabetes. Ebenezer Mckeon et al. J [place] [employer]. 2012 Test results diagnostic of diabetes should be repeated for confirmation. The Sebia Capillary 2 assay for the measurement of HbA1c is a National Glycohemoglobin Standardization Program (NGSP)certified method. Blood BLOOD SPECIMEN / Unknown Venipuncture / Unknown 05/08/2019 5:56 AM WAREHOUSE MAN 05/08/2019 6:02 AM WAREHOUSE MAN Kishor Gonzales MD LAB - CHEMISTRY ORDE SILVIA Performing Organization Address City/[facility]/ZIP Co de Phone Number [facility] [address] [place] [address] * CREATININE BLOOD - POCT (IP) [facility] (05/08/2019 5:37 AM WAREHOUSE MAN) Creatinine POCT 0.9 0.3 - 1.3 mg/dL [facility] TEST[facility] eGFR POCT 60 60 ml/min [facility] Blood BLOOD SPECIMEN / Unknown 05/08/2019 5:37 AM [employer]HOUSE MAN Abran Joshi MD LAB - POINT OF CARE ORDERABLES Performing Organization Address [facility] Co de Phone Number [facility] POCT TESTING [address] [place] [address], [facility] [phone] * CT ANGIO BRAIN AND NECK (05/08/2019 5:35 AM WAREHOUSE MAN) Anatomical Region Laterality Modality Head Computed Tomogra phy 05/08/2019 8:29 AM [employer]HOUSE MAN Impressions 05/08/2019 8:35 AM [employer]HOUSE MAN IMPRESSION: No acute intracranial CT abnormality. CTA of the head and neck demonstrate no high-grade stenosis or occlusion of the major head and neck arteries. This report was electronically signed by KATARZYNA VEGA on 05/08/2019 8:35 AM . Narrative 05/08/2019 8:35 AM WAREHOUSE MAN EXAMINATION: 1. CT of the head without contrast 2. CT angiography of the head and neck with contrast HISTORY: Code Stroke TECHNIQUE: CT of the head was performed without contrast according to standard protocol. Then CT angiography of the head and neck was obtained after the uneventful administration of 75 mL Isovue-370 intravenous contrast. Three dimensional postprocessing was performed by the technologist and sent to the workstation for review. COMPARISON: CT head without contrast 05/08/2019, 3:01 AM FINDINGS: Noncontrast CT head: No intracranial hemorrhage or extra-axial fluid collection. Orosco-white matter differentiation is preserved. Calcified plaque of the intracranial ICAs. No mass effect, or midline shift. Cerebral volume loss. The bony calvarium appears intact. Minimal mucosal thickening of the paranasal sinuses.. CTA HEAD: In the anterior circulation, ICA cavernous and supraclinoid segments have calcified plaque, without significant stenosis. The MCAs, and the ACAs appear unremarkable. In the posterior circulation, the intracranial vertebrals, basilar artery, and the fighting vehicle systems maintainer appear unremarkable. CTA NECK: Imaged aortic arch and proximal great vessels have calcified plaque without significant stenosis.. In the right anterior circulation, mid and distal CCA,, carotid bifurcation, have calcified plaque, without significant measurable stenosis using NASCET calculation. In the left anterior circulation, mid and distal CCA, carotid bifurcation, and proximal cervical ICA have calcified plaque, without significant measurable stenosis using NASCET calculation. In the posterior circulation, the extracranial vertebrals appear unremarkable. Right vertebral is dominant. Note is made that portion of nondominant left vertebral is obscured by regional dense venous contrast.. Nonvascular related incidental findings: Procedure Note Katarzyna Vega MD - 05/08/2019 EXAMINATION: 1. CT of the head without contrast 2. CT angiography of the head and neck with contrast HISTORY: Code Stroke TECHNIQUE: CT of the head was performed without contrast according to standard protocol. Then CT angiography of the head and neck was obtained after the uneventful administration of 75 mL Isovue-370 intravenous contrast. Three dimensional postprocessing was performed by the technologist and sent to the workstation for review. COMPARISON: CT head without contrast 05/08/2019, 3:01 AM FINDINGS: Noncontrast CT head: No intracranial hemorrhage or extra-axial fluid collection. Orosco-white matter differentiation is preserved. Calcified plaque of the intracranial ICAs. No mass effect, or midline shift. Cerebral volume loss. The bony calvarium appears intact. Minimal mucosal thickening of the paranasal sinuses.. CTA HEAD: In the anterior circulation, ICA cavernous and supraclinoid segmentshave calcified plaque, without significant stenosis. The MCAs, and the ACAs appear unremarkable. In the posterior circulation, the intracranial vertebrals, basilarartery, and the fighting vehicle systems maintainer appear unremarkable. CTA NECK: Imaged aortic arch and proximal great vessels have calcified plaque without significant stenosis.. In the right anterior circulation, mid and distal CCA,, carotid bifurcation, have calcified plaque, without significant measurable stenosis using NASCET calculation. In the left anterior circulation, mid and distal CCA, carotidbifurcation, and proximal cervical ICA have calcified plaque, without significant measurable stenosis using NASCET calculation. In the posterior circulation, the extracranial vertebrals appear unremarkable. Right vertebral is dominant. Note is made that portion of nondominant left vertebral is obscured by regional dense venouscontrast.. Nonvascular related incidental findings: IMPRESSION: No acute intracranial CT abnormality. CTA of the head and neck demonstrate no high-grade stenosis or occlusion of the major head and neck arteries. This report was electronically signed by KATARZYNA VEGA on 05/08/20198:35 AM . Kishor Gonzales MD CT ORDERABLES * CT BRAIN - Stroke (05/08/2019 5:31 AM W[employer]HOUSE MAN) Anatomical Region Laterality Modality Head Computed Tomogra phy 05/08/2019 8:29 AM [employer]HOUSE MAN Impressions 05/08/2019 8:35 AM [employer]HOUSE MAN IMPRESSION: No acute intracranial CT abnormality. CTA of the head and neck demonstrate no high-grade stenosis or occlusion of the major head and neck arteries. This report was electronically signed by KATARZYNA VEGA on 05/08/2019 8:35 AM . Narrative 05/08/2019 8:35 AM [employer]HOU[employer] MAN EXAMINATION: 1. CT of the head without contrast 2. CT angiography of the head and neck with contrast HISTORY: Code Stroke TECHNIQUE: CT of the head was performed without contrast according to standard protocol. Then CT angiography of the head and neck was obtained after the uneventful administration of 75 mL Isovue-370 intravenous contrast. Three dimensional postprocessing was performed by the technologist and sent to the workstation for review. COMPARISON: CT head without contrast 05/08/2019, 3:01 AM FINDINGS: Noncontrast CT head: No intracranial hemorrhage or extra-axial fluid collection. Orosco-white matter differentiation is preserved. Calcified plaque of the intracranial ICAs. No mass effect, or midline shift. Cerebral volume loss. The bony calvarium appears intact. Minimal mucosal thickening of the paranasal sinuses.. CTA HEAD: In the anterior circulation, ICA cavernous and supraclinoid segments have calcified plaque, without significant stenosis. The MCAs, and the ACAs appear unremarkable. In the posterior circulation, the intracranial vertebrals, basilar artery, and the fighting vehicle systems maintainer appear unremarkable. CTA NECK: Imaged aortic arch and proximal great vessels have calcified plaque without significant stenosis.. In the right anterior circulation, mid and distal CCA,, carotid bifurcation, have calcified plaque, without significant measurable stenosis using NASCET calculation. In the left anterior circulation, mid and distal CCA, carotid bifurcation, and proximal cervical ICA have calcified plaque, without significant measurable stenosis using NASCET calculation. In the posterior circulation, the extracranial vertebrals appear unremarkable. Right vertebral is dominant. Note is made that portion of nondominant left vertebral is obscured by regional dense venous contrast.. Nonvascular related incidental findings: Procedure Note Katarzyna Vega MD - 05/08/2019 EXAMINATION: 1. CT of the head without contrast 2. CT angiography of the head and neck with contrast HISTORY: Code Stroke TECHNIQUE: CT of the head was performed without contrast according to standard protocol. Then CT angiography of the head and neck was obtained after the uneventful administration of 75 mL Isovue-370 intravenous contrast. Three dimensional postprocessing was performed by the technologist and sent to the workstation for review. COMPARISON: CT head without contrast 05/08/2019, 3:01 AM FINDINGS: Noncontrast CT head: No intracranial hemorrhage or extra-axial fluid collection. Orosco-white matter differentiation is preserved. Calcified plaque of the intracranial ICAs. No mass effect, or midline shift. Cerebral volume loss. The bony calvarium appears intact. Minimal mucosal thickening of the paranasal sinuses.. CTA HEAD: In the anterior circulation, ICA cavernous and supraclinoid segmentshave calcified plaque, without significant stenosis. The MCAs, and the ACAs appear unremarkable. In the posterior circulation, the intracranial vertebrals, basilarartery, and the fighting vehicle systems maintainer appear unremarkable. CTA NECK: Imaged aortic arch and proximal great vessels have calcified plaque without significant stenosis.. In the right anterior circulation, mid and distal CCA,, carotid bifurcation, have calcified plaque, without significant measurable stenosis using NASCET calculation. In the left anterior circulation, mid and distal CCA, carotidbifurcation, and proximal cervical ICA have calcified plaque, without significant measurable stenosis using NASCET calculation. In the posterior circulation, the extracranial vertebrals appear unremarkable. Right vertebral is dominant. Note is made that portion of nondominant left vertebral is obscured by regional dense venouscontrast.. Nonvascular related incidental findings: IMPRESSION: No acute intracranial CT abnormality. CTA of the head and neck demonstrate no high-grade stenosis or occlusion of the major head and neck arteries. This report was electronically signed by KATARZYNA VEGA on 05/08/20198:35 AM . Abdi Graham MD CT ORDERABLES Care Teams Certified Industrial Hygienist Relationship Specialty Start Date End Date Bar Gomez MD [address] [facility] [address] [place] [address] PCP - General Internal Medicine 05/08/19
--- OUTSIDE RECORDS SUMMARY | 2024-07-31 13:44 | XMS_ITS | Clinical Summary ---
Author Organization [facility] Address [address] [place] [address] Care Team Providers Care Air Cargo Specialist Name Role Phone Bar Gomez MD Primary Care Provider [phone] Source Comments [facility],non-owned Affiliates and Associated Physician Practices is amultiple site organization consisting of ambulatory clinics and hospital sitesin [place], [place], [place] and [place]. This disclosure is being madepursuant to the Care Everywhere program and may not contain all information available regarding this patient. Last updated 18.[facility] Allergies Active Allergy Reactions Criticality Noted Date [...] daily Active Cholecalciferol (VITAMIN D3) 1.25 MG (81709 UT) capsule Take 1 (one) capsule by [...] ILD (interstitial lung disease) 09/15/2022 Weakness 05/08/2019 Encounters Date Type Department Care Team Description 07/30/2024 Telephone [facility] - Pulmonology [address] [place] [phone] Brody Yoder MD 07/29/2024 6:55 PM [facility] - 07/29/2024 8:26 PM [facility] Emergency [facility] EMERGENCY DEPARTMENT [address] [place] [address] Shortness of breath Discharge Disposition: Left Against Medical Advice/Discontinued Care 07/29/2024 1:00 PM BIG MACHINE CONSULTANT Office Visit [facility] - Pulmonology [address] [place] [phone] Brody Yoder MD ILD (interstitial lung disease) (HCC) (Primary Dx); Pulmonary hypertension (HCC); Restrictive ventilatory defect; Dyspnea on exertion 07/29/2024 Travel 06/19/2024 Telephone [facility] - Pulmonology [address] [facility], [place] [address] Brody Yoder MD Results 06/04/2024 7:58 AM BIG MACHINE CONSULTANT - 06/04/2024 11:59 PM BIG MACHINE CONSULTANT Hospital Encounter [facility] PFT [address] [place] [address] Chano Du MD Discharge Disposition: Home or Self Care 06/04/2024 Travel 05/13/2024 3:30 PM BIG MACHINE CONSULTANT Office Visit [facility] - Pulmonology [address] [facility], [place] [address] Brody Yoder MD ILD (interstitial lung disease) (HCC) (Primary Dx); Pulmonary hypertension (HCC); Restrictive ventilatory defect; Encounter for immunization 05/13/2024 Travel from Last 3 Months Immunizations Name Administration Dates Next Due INFLUENZA VACCINE 04/05/2023 INFLUENZA VACCINE, HIGH-DOSE , QUADR. (FLUZONE HIGH-DOSE QUADRIVALENT; 65Y+), 0.7 ML (HD-IIV4) 04/06/2023,04/14/2022,06/08/2021,2019,05/20/2019 PNEUMOCOCCAL PPSV23 10/07/2015 PNEUMOCOCCAL PPV VACCINE 01/16/2007 Pneumococcal Pcv13 Conj 10/07/2015 Family History Medical History Relation Name Comments CAD (Coronary Artery Disease) Brother Hypertension Brother CAD (Coronary Artery Disease) Father Hypertension Father Diabetes - Type 1 Granddaughter Celiac Disease Grandson Cancer - Other Mother Crohn's Disease Son Relation Name Status Comments Brother Father Granddaughter Alive Grandson Alive Mother Son Alive Social History Tobacco Use Types Packs/Day Years [...] Comments Blood Pressure 145/72 07/29/2024 2:02 PM BIG MACHINE CONSULTANT Pulse 88 07/29/2024 2:02 PM BIG MACHINE CONSULTANT Temperature 36.6 C (97.8 F) 07/29/2024 2:02 PM BIG MACHINE CONSULTANT Respiratory Rate 20 07/29/2024 2:02 PM BIG MACHINE CONSULTANT Oxygen Saturation 97% 07/29/2024 2:02 PM BIG MACHINE CONSULTANT Inhaled Oxygen Concentration - - Weight 65.3 kg (144 lb) 07/29/2024 2:02 PM BIG MACHINE CONSULTANT Height 165.1 cm (5' 5 ) 07/29/2024 2:02 PM BIG MACHINE CONSULTANT Body Mass Index 23.96 07/29/2024 2:02 PM BIG MACHINE CONSULTANT Plan of Treatment Upcoming Encounters Date Type Department Care Team (Late st Contact Info) Description 03/18/2025 10:00 AM CDT Ancillary Procedure [facility] - Echosonography [facility] [phone] 03/18/2025 11:20 AM CDT Office Visit [facility] - Cardiology [address] [facility], [address] [phone] Verito Norris MD [facility] [address] [address] Health Maintenance Due Date Last Done Comments BONE DENSITY TESTING 1941 DTAP/TDAP/TD VACCINES (1 - Tdap) 1960 ZOSTER VACCINE (1 of 2) 1991 Respiratory Syncytial Virus (RSV) Vaccine Pt: or over 60 yrs (1 - 1-dose 75+ series) 2016 COVID-19 VACCINE (2 - season) 2024 09/28/2021 INFLUENZA VACCINE (#1) 2024 3, 04/05/2023, 04/14/2022, Additional history exists DEPRESSION SCREENING 06/25/2024 06/22/2022 MEDICARE AWV CALENDAR YEAR 2024 PNEUMOCOCCAL VACCINE 50+ Completed 016, 10/07/2015, 01/16/2007 HEPATITIS B VACCINE Aged Out No longe r eligible based on patient's age to complete this topic HIB VACCINE Aged Out No longer eligi ble based on patient's age to complete this topic HPV VACCINE Aged Out No longer eligi ble based on patient's age to complete this topic MENINGOCOCCAL (Group B) VACCINE Aged Out No longer eligible based on patient's age to complete this topic MENINGOCOCCAL VACCINE Aged Out No blayne mustapha eligible based on patient's age to complete this topic Procedures Procedure Name Priority Date/Time Associated Diagnosis Comments CT CHEST WO CONTRAST STAT 07/29/2024 4:18 PM BIG MACHINE CONSULTANT Shortness of breath RESPIRATORY PANEL WITH SARS-COV-2 BY PCR ([facility]) STAT 07/29/2024 3:33 PM BIG MACHINE CONSULTANT PT-INR [facility] STAT 07/29/2024 3:31 PM BIG MACHINE CONSULTANT MAGNESIUM BLOOD STAT 07/29/2024 3:31 PM BIG MACHINE CONSULTANT B-TYPE NATRIURETIC PEPTIDE STAT 07/29/2024 3:31 PM BIG MACHINE CONSULTANT COMPREHENSIVE METABOLIC PANEL STAT 07/29/2024 3:31 PM BIG MACHINE CONSULTANT CBC W AUTO DIFFERENTIAL STAT 07/29/19 3:31 PM BIG MACHINE CONSULTANT TROPONIN-I HIGH SENSITIVE BASELINE + 1HR STAT 07/29/2024 3:31 PM BIG MACHINE CONSULTANT EKG 12-LEAD STAT 07/29/2024 3:14 PM BIG MACHINE CONSULTANT Shortness of breath COMPLETE PFT W/WO BRONCHODILATOR Routine 06/04/2024 3:57 PM BIG MACHINE CONSULTANT ILD (interstitial lung disease) (HCC) SIX MINUTE WALK Routine 06/04/2024 2:29 PM BIG MACHINE CONSULTANT ILD (interstitial lung disease) (HCC) HOME O2 EVAL (DESATURATION SCREEN) Routine 06/04/2024 1:24 PM BIG MACHINE CONSULTANT ILD (interstitial lung disease) (HCC) from Last 3 Months Results * CT Chest Wo Contrast (07/29/2024 4:18 PM BIG MACHINE CONSULTANT) Anatomical Region Laterality Modality Chest Computed Tomogra phy 07/29/2024 5:20 PM BIG MACHINE CONSULTANT Impressions 07/29/2024 7:08 PM BIG MACHINE CONSULTANT Impression: Bilateral bronchiectasis, honeycombing at the lower lobes, as well as peripheral reticulation. The appearance is similar to prior and consistent with UIP pattern interstitial lung disease. No new acute process in the chest. > Dictated by Angela Ordoñez MD (vice president tax). IJosemanuel have personally reviewed and interpreted this examination/study. > Interpreting Provider: Josemanuel Shelby on 07/29/2024 7:08 PM Narrative 07/29/2024 7:08 PM BIG MACHINE CONSULTANT PROCEDURE: CT CHEST WO CONTRAST, DATE/TIME OF EXAM: 07/29/2024 4:18 PM, LOCATION [facility] INDICATION: R06.02: Shortness of breath ADDITIONAL [...] DATE/TIME OF EXAM: 07/29/2024 4:18 PM, LOCATION [facility] INDICATION: R06.02: Shortness of breath ADDITIONAL [...] chest. > Dictated by Angela Ordoñez MD (vice president tax). I, Josemanuel Shelby have personally reviewed and interpreted this examination/study. > Interpreting Provider: Josemanuel Shelby on 07/29/2024 7:08 PM Nicole Abernathy MACHINIST-DESIGN ENGINEER [facility] [employer] [facility] ORDERABLE S * RESPIRATORY PANEL WITH SARS-COV-2 BY PCR ([facility]) (07/29/2024 3:33 PM BIG MACHINE CONSULTANT) Adenovirus PCR Not detected Not detected 07/30/2024 12:03 AM [facility] Coronavirus 229E PCR Not detected Not detected 07/30/2024 12:03 AM [facility] Coronavirus HKU1 PCR Not detected Not detected 07/30/2024 12:03 AM [facility] Coronavirus NL63 PCR Not detected Not detected 07/30/2024 12:03 AM [facility] Coronavirus OC43 PCR Not detected Not detected 07/30/2024 12:03 AM [facility] COVID-19 PCR Not detected Not detected 07/30/2024 12:03 AM BIG MACHINE CONSULTANT [facility] Human Metapneumovirus PCR Not detected Not detected 07/30/2024 12:03 AM BIG MACHINE CONSULTANT [facility] Human Rhinovirus/Enterov irus PCR Not detected Not detected 07/30/2024 12:03 AM BIG MACHINE CONSULTANT [facility] Influenza A PCR Not detected Not detected 07/30/2024 12:03 AM BIG MACHINE CONSULTANT [facility] Influenza B PCR Not detected Not detected 07/30/2024 12:03 AM BIG MACHINE CONSULTANT [facility] Parainfluenza Virus 1 PCR Not detected Not detected 07/30/2024 12:03 AM BIG MACHINE CONSULTANT [facility] Parainfluenza Virus 2 PCR Not detected Not detected 07/30/2024 12:03 AM BIG MACHINE CONSULTANT [facility] Parainfluenza Virus 3 PCR Not detected Not detected 07/30/2024 12:03 AM BIG MACHINE CONSULTANT [facility] Parainfluenza Virus 4 PCR Not detected Not detected 07/30/2024 12:03 AM BIG MACHINE CONSULTANT [facility] Respiratory Syncytial Virus PCR Not detected Not detected 07/30/2024 12:03 AM BIG MACHINE CONSULTANT [facility] Bordetella parapertussis PCR Not detected Not detected 07/30/2024 12:03 AM BIG MACHINE CONSULTANT [facility] Bordetella pertussis PCR Not detected Not detected 07/30/2024 12:03 AM BIG MACHINE CONSULTANT [facility] Chlamydia pneumoniae PCR Not detected Not detected 07/30/2024 12:03 AM BIG MACHINE CONSULTANT [facility] Mycoplasma pneumoniae PCR Not detected Not detected 07/30/2024 12:03 AM BIG MACHINE CONSULTANT [facility] Microbiology SPECIMEN FROM NASOPHARYNGEAL STRUCTURE / Unknown Collection / Unknown 07/29/2024 3:33 PM BIG MACHINE CONSULTANT 07/29/2024 3:38 PM BIG MACHINE CONSULTANT Narrative [facility] - 07/30/2024 12:03 AM BIG MACHINE CONSULTANT This nucleic amplification assay has received FDA authorization via the [employer]. Nicole Abernathy MACHINIST-DESIGN ENGINEER [facility] - MICROB IOLOGY ORDERABLES [facility] [address] [place], [place] [address], [facility] [phone] * PT-INR [facility] (07/29/2024 3:31 PM BIG MACHINE CONSULTANT) [facility] PT 13.7 12.1 - 14.8 Seconds 07/29/2024 4:07 PM [facility] INR 1.1 See Comment 07/29/2024 4:07 PM [facility] Comment:The suggested therap eutic range for standard coumadin (warfarin) therapy is an INR of 2.0-3.0. For high-risk patients (Mechanical Mitral Valve Prosthesis, etc.), the suggested prophylactic therapeutic range is an INR of 2.5-3.5. Blood BLOOD SPECIMEN / Unknown Venipuncture / Unknown 07/29/2024 3:31 PM BIG MACHINE CONSULTANT 07/29/2024 3:38 PM BIG MACHINE CONSULTANT Nicole Abernathy [facility] - COAGUL ATION ORDERABLES Performing Organization Address [facility]/ZIP Co de Phone Number [address] [address], [facility] [phone] * TROPONIN-I HIGH SENSITIVE BASELINE + 1HR (07/29/2024 3:31 PM BIG MACHINE CONSULTANT) [facility] Troponin I High Sensitive 7 <=14 ng/L 07/29/2024 4:44 PM BIG MACHINE CONSULTANT [facility] Blood BLOOD SPECIMEN / Unknown Venipuncture / Unknown 07/29/2024 3:31 PM BIG MACHINE CONSULTANT 07/29/2024 3:41 PM BIG MACHINE CONSULTANT Nicole Abernathy [facility] - CHEMIS TRY ORDERABLES [address] [address], [facility] [phone] * (ABNORMAL) CBC W AUTO DIFFERENTIAL (07/29/2024 3:31 PM BIG MACHINE CONSULTANT) [facility] WBC 5.1 4.0 - 10.7 x10E9/L 07/29/2024 3:56 PM [facility] RBC Count 3.88(L) 3.90 - 5.20 x10E12/L 07/29/2024 3:56 PM [facility] Hemoglobin 12.0 11.9 - 15.8 g/dL 07/29/2024 3:56 PM [facility] Hematocrit 36.0 34.8 - 46.1 % 07/29/2024 3:56 PM [facility] MCV 92.8 80.0 - 98.0 fL 07/29/2024 3:56 PM [facility] MCH 30.9 26.7 - 33.6 pg 07/29/2024 3:56 PM [facility] MCHC 33.3 31.7 - 36.3 g/dL 07/29/2024 3:56 PM [facility] RDW-CV 13.4 11.3 - 14.8 % 07/29/2024 3:56 PM [facility] Platelet Count 224 150 - 420 x10E9/L 07/29/2024 3:56 PM [facility] MPV 8.7 7.8 - 11.4 fL 07/29/2024 3:56 PM [facility] Neutrophil % 64.0 41.0 - 74.0 % 07/29/2024 3:56 PM [facility] Lymphocyte % 25.1 17.0 - 47.0 % 07/29/2024 3:56 PM [facility] Monocyte % 7.2 3.0 - 11.0 % 07/29/2024 3:56 PM [facility] Eosinophil % 2.9 0.0 - 7.0 % 07/29/2024 3:56 PM [facility] Basophil % 0.2 0.0 - 1.6 % 07/29/2024 3:56 PM [facility] Immature Granulocytes % 0.6 0.0 - 1.0 % 07/29/2024 3:56 PM [facility] Neutrophil Absolute 3.28 1.60 - 7.50 x10E9/L 07/29/2024 3:56 PM [facility] Lymphocyte Absolute 1.29 1.00 - 4.40 x10E9/L 07/29/2024 3:56 PM [facility] Monocyte Absolute 0.37 0.15 - 1.00 x10E9/L 07/29/2024 3:56 PM [facility] Eosinophil Absolute 0.15 0.00 - 0.60 x10E9/L 07/29/2024 3:56 PM BIG MACHINE CONSULTANT [facility] Basophil Absolute 0.01 0.00 - 0.13 x10E9/L 07/29/2024 3:56 PM BIG MACHINE CONSULTANT [facility] Blood BLOOD SPECIMEN / Unknown Venipuncture / Unknown 07/29/2024 3:31 PM BIG MACHINE CONSULTANT 07/29/2024 3:41 PM BIG MACHINE CONSULTANT Nicole Abernathy [facility] - HEMATO LOGY ORDERABLES Performing Organization Address [facility]/ZIP Co de Phone Number [facility] [address] [place] [address], [facility] [phone] * (ABNORMAL) B-TYPE NATRIURETIC PEPTIDE (07/29/2024 3:31 PM BIG MACHINE CONSULTANT) BNP 102(H) <100 pg/mL 07/29/2024 4:41 PM [facility] Comment: A decision threshold of 100 [...] Unknown Venipuncture / Unknown 07/29/2024 3:31 PM BIG MACHINE CONSULTANT 07/29/2024 3:41 PM BIG MACHINE CONSULTANT Nicole Abernathy APRN-DESIGN ENGINEER [facility] - CHEMIS TRY ORDERABLES Performing Organization Address [facility]/ZIP Co de Phone Number [facility] [address] [place] [phone], [place] [phone] * (ABNORMAL) COMPREHENSIVE METABOLIC PANEL (07/29/2024 3:31 PM BIG MACHINE CONSULTANT) BUN 19 7 - 26 mg/dL 07/29/2024 4:39 PM [facility] Creatinine 1.07(H) 0.56 - 0.96 mg/dL 07/29/2024 4:39 PM [facility] Sodium 139 136 - 145 mmol/L 07/29/2024 4:39 PM [facility] Potassium 3.9 3.5 - 4.5 mmol/L 07/29/2024 4:39 PM [facility] Chloride 106 98 - 107 mmol/L 07/29/2024 4:39 PM [facility] CO2 25 22 - 29 mmol/L 07/29/2024 4:39 PM [facility] Glucose 101(H) 70 - 99 mg/dL 07/29/2024 4:39 PM [facility] Calcium 9.6 8.4 - 10.2 mg/dL 07/29/2024 4:39 PM [facility] Protein Total 7.5 6.0 - 8.3 g/dL 07/29/2024 4:39 PM [facility] Albumin 3.5 3.4 - 5.0 g/dL 07/29/2024 4:39 PM [facility] Bilirubin Total 0.4 0.2 - 1.2 mg/dL 07/29/2024 4:39 PM [facility] Alkaline Phosphatase 46 40 - 150 U/L 07/29/2024 4:39 PM [facility] ALT 9 5 - 55 U/L 07/29/2024 4:39 PM [facility] AST 18 5 - 34 U/L 07/29/2024 4:39 PM [facility] Anion Gap 8 6 - 16 07/29/2024 4:39 PM [facility] BUN/Creatinine Ratio 18 7 - 23 07/29/2024 4:39 PM [facility] Osmolality Calculated 290 275 - 295 mOsm/kg 07/29/2024 4:39 PM [facility] Albumin/Globulin Ratio 0.9(L) 1.1 - 2.3 07/29/2024 4:39 PM [facility] eGFR by CKD-EPI 52(L) >=90 mL/min/1.7 3 m2 07/29/2024 4:39 PM BIG MACHINE CONSULTANT [facility] Blood BLOOD SPECIMEN / Unknown Venipuncture / Unknown 07/29/2024 3:31 PM BIG MACHINE CONSULTANT 07/29/2024 3:41 PM BIG MACHINE CONSULTANT Nicole Calderontravis MACHINIST-DESIGN ENGINEER [facility] - CHEMIS TRY ORDERABLES [address] [address], [facility] [phone] * MAGNESIUM BLOOD (07/29/2024 3:31 PM BIG MACHINE CONSULTANT) Magnesium 2.0 1.6 - 2.6 mg/dL 07/29/2024 4:39 PM BIG MACHINE CONSULTANT [facility] Blood BLOOD SPECIMEN / Unknown Venipuncture / Unknown 07/29/2024 3:31 PM BIG MACHINE CONSULTANT 07/29/2024 3:41 PM BIG MACHINE CONSULTANT Nicole Cervantes Michela MACHINIST-DESIGN ENGINEER [facility] - CHEMIS TRY ORDERABLES Performing Organization Address City/[facility]/ZIP Co de Phone Number [address] [address], [place] [phone] * COMPLETE PFT W/WO BRONCHODILATOR (06/04/2024 3:57 PM BIG MACHINE CONSULTANT) Impressions [facility] - 06/04/2024 3:57 PM BIG MACHINE CONSULTANT [facility] DEPARTMENT OF PULMONARY, CRITICAL CARE, AND [...] of Pulmonary, Critical Care, and Sleep Medicine [facility] I have reviewed this study and agree with the interpretation by the Employee Communications Intern. Tung Jamil M.D. Blow Molder of Internal Medicine Division of Pulmonary, Critical Care and Sleep Medicine [facility] - 06/04/2024 3:57 PM BIG MACHINE CONSULTANT Al Arreola DO 06/06/2024 10:25 PM Chano Du MD RESPIRATORY THE RAPY ORDERABLES Performing Organization Address [facility]/State/ZIP Co de Phone Number [facility] [address] [place] [address], [facility] * SIX MINUTE WALK (06/04/2024 2:29 PM BIG MACHINE CONSULTANT) Impressions [facility] - 06/04/2024 2:29 PM BIG MACHINE CONSULTANT [facility] DEPARTMENT OF PULMONARY, CRITICAL CARE, AND SLEEP MEDICINE SIX MINUTE WALK TEST Nesha Bettencourt 06/07/2024 Interpretation: The patient walked for 6 [...] of Pulmonary, Critical Care, and Sleep Medicine [facility] I have reviewed this study and agree with the interpretation by the Employee Communications Intern. Tung Jamil M.D. Blow Molder of Internal Medicine Division of Pulmonary, Critical Care and Sleep Medicine [facility] - 06/04/2024 2:29 PM BIG MACHINE CONSULTANT Al Arreola DO 06/07/2024 2:28 PM Chano Du MD RESPIRATORY THE RAPY ORDERABLES Performing Organization Address [facility]/ZIP Co de Phone Number [facility] [address] [place] [address], [facility] * AMBULATORY OXIMETRY (06/04/2024 1:24 PM BIG MACHINE CONSULTANT) Impressions [facility] - 06/04/2024 1:24 PM BIG MACHINE CONSULTANT [facility] DEPARTMENT OF PULMONARY, CRITICAL CARE, AND SLEEP MEDICINE OXYGEN TITRATION STUDY Nesha Bettencourt 06/07/2024 INTERPRETATION The test was performed with [...] of Pulmonary, Critical Care, and Sleep Medicine [facility] I have reviewed this study and agree with the interpretation by the Employee Communications Intern. Tung Jamil M.D. Blow Molder of Internal Medicine Division of Pulmonary, Critical Care and Sleep Medicine [facility] Narrative [facility] - 06/04/2024 1:24 PM BIG MACHINE CONSULTANT Al Arreola DO 06/07/2024 2:32 PM hCano Du MD RESPIRATORY THE BENJYBlank ORDERABLES Performing Organization Address [facility]/State/ZIP Co de Phone Number [place] [phone] [place] [address], [facility] from Last 3 Months Advance Directives * Full Code (Latest Code Status on File) Date Activated Date Inactivated Comments 05/08/2019 5:40 AM 05/09/2019 1:57 PM Care Teams Air Cargo Specialist Relationship Specialty Start Date End Date Bar Gomez MD [address] [facility] [address] [place] [address] PCP - General Internal Medicine 05/08/19
--- OUTSIDE RECORDS SUMMARY | 2024-07-31 13:44 | XMS_ITS | Continuity of Care Document ---
Author Organization [facility] Address [address] Morse [address] [place] [id number] Phone Care Team Providers Care Missionary Coordinator Name Role Phone Amol Jean Unavailable Unavailable Procedures Procedure Date Eye Exam & Treatment Refraction TF Plastic Sphcyl [place] To +/-4d .12-2d Progressive Lens, Polycarb Anti-reflective Coating Polycarb Lens Per Lens Post-op Follow-up Visit Refraction Post-op Follow-up Visit Remove Cataract, Insert Lens PreOp Assessment Performed Eye Exam & Treatment Script Printed/Phoned Pt Requ Or Pharm N ot Availab IOLMaster-Professional Visual Field Examination(s) Office/outpatient Visit, Est TF Plastic Sphcyl [place] To +/-4d .12-2d Vision Svcs Frames Purchases [...] Diagnoses Date Provider Providers Copied on Encounter [facility], [address] [place] [address] [address], [place], [place], [id number], [place] tel:[phone] [facility] No Information Apr-2 6-201 0 Miranda Carmichael. [facility] , [address], [place], [place], [facility], [place]. tel:[phone] [facility], [address] [place] [address] [address], [place], [place], [id number], [place] tel:[phone] [facility] No Information 4200 9 [facility] . [address], [address], [place], [place], [address], [place]. tel:[phone] Referring Provider: Amol Mckeon [facility] [address], [place], [place], [facility]. tel:[phone] [facility], [address] [place] [address] [address], [place], [place], [address], [place] tel:[phone] [facility] No Information Mar-2 0-200 9 Miranda Carmichael. [facility] [address], [address], [place], [address], [place]. tel:[phone] [facility], [address] [place] [address] [address], [place], [place], [address], [place] tel:[phone] [facility] No Information Mar-0 6-200 9 Miranda Carmichael. [facility] [address], [address], [place], [address], [place]. tel:[phone] [facility], [address], [place], [place], [address], [place] tel:[phone] [facility] No Information 0 5-200 9 Miranda Carmichael. [facility] , [address], [place], [address], [place]. tel:[phone] [facility], [address], [place], [place], [address], [place] tel:[phone] [facility] No Information 2 0200 9 Miranda Carmichael. [facility] , [address], [place], [address], [place]. tel:[phone] Referring Provider: Amol Mckeon, [address] [place], [place] [address]ate Center [address], [place], [place], [facility]. tel:[phone] [facility], [address], [place], [place], [address], [place] tel:[phone] [facility] No Information 8200 8 Miranda Carmichael. [address] [place], [place] [address]ate Center , [address], [place], [address], [place]. tel:[phone] Referring Provider: Amol Mckeon, [facility] [address], [place], [facility]. tel:[phone] Office/outpat ient Visit, [facility], [address] [place] [address], [place], [place], [address], [place] tel:[phone] [facility] No Information 8 Miranda Carmichael. [address] [place], [place] [address]ate Center , [address], [place], [address], [place]. tel:[phone] [facility], [address], [place], [place], [address], [place] tel:[phone] [facility] No Information 5200 8 [facility] . [address] [facility] [address], [address], [place], [place], [address], [place]. tel:[phone] Referring Provider: Amol Mckeon, [facility] [address], [place], [address]. tel:[phone] sulting Provider: Jane Cox, [address] [facility], [place], [address]. tel:[phone] [facility], [address] [place] [address] [address], [place], [place], [address], [place] tel:[phone] SEC [facility] No Information 8 Miranda Carmichael. [facility] , [address], [place], [facility], [place]. tel:[phone] [facility], [address] [place] [address] [address], [place], [place], [address], [place] tel:[phone] [facility] No Information 8 Miranda Carmichael. [facility] [address], [address], [place], [address], [place]. tel:[phone] [facility], [address] [place] [address] [address], [place], [place], [address], [place] tel:[phone] [facility] No Information 8 Miranda Carmichael. [facility] [address], [address], [place], [address], [place]. tel:[phone] Office/outpat ient Visit, Est [facility], [address] [place] [address] [address], [place], [place], [address], [place] tel:[phone] [facility] No Information 8 Miranda Carmichael. [facility] [address], [address], [place], [address], [place]. tel:[phone] Referring Provider: Amol Mckeon, [facility] [address], [place], [address]. tel:[phone] [facility], [address] [address], [place], [place], [address], [place] tel:[phone] [facility] No Information Dec-0 5-200 7 Ortiz OD Kodi. [address] [facility] , [address], [place], [address], [place]. tel:[phone] Family History Family Member Type Diagnosis Age At Onset No Information Payers Payer name Insurance type Covered republican ID Authoriza tion(s) [place] [id number] Social History Type Description Quantity Date Captured [...]
--- OUTSIDE RECORDS SUMMARY | 2024-07-31 13:44 | XMS_ITS | CONTINUITY OF CARE DOCUMENT ---
Author Name breanna carlos Address Unknown Organization [facility] Address [address] [place] [address] Phone [phone] Care Team Providers Care Personnel Analyst Name Role Phone Andreas Barry MD Unavailable INSURANCE PROVIDERS Payer name Policy type / Coverage type Karina red alliance party ID [employer] OPEN ACCESS Other [id number] [facility] MEDICARE COMPLETE HMO Other [id number]
--- OUTSIDE RECORDS SUMMARY | 2024-07-31 13:44 | XMS_ITS | Data Portability ---
Author Organization [facility] Address [address] [place] [address] Assessment No assessment recorded. Plan of Treatment Reminders Order Date Submit Date Provider Last Modified By Organization Details Last Modified Time Details Appointments None recorded. Lab None recorded. Referral None recorded. Procedures None recorded. Surgeries None recorded. Imaging MAMMO, diagnostic , digital, bilateral 2014 015 [email or web address] [facility] ([facility]), [address] [place], [address], 6 09:36:08 MAMMO, screening, digital, bilateral 2015 016 [facility] ([facility]), [address] [place], [address], 6 04:31:28 Medication Orders None recorded. Patient TargetsNo targets recorded. Patient Instructions Encounter Date Encounter Id Patient Instructions Last Modified By Organization Details Last Modified Time 05/09/2016 [id number] mammogram: about this test raji Not available 05/09/2016 17:07:33 Reason for Referral None Reported. Results Created Date Observation Date Name Description Value Unit Range Abnormal Flag Note LastModifiedBy Organization Detail LastModifiedTime 08/11/19 16 05/03/2015 mammo gram, scree kanika No observ ation record ed. [email or web address] [facility] [address] [place], [address], 08/11/2015 14:40:02 05/08/20 16 04/14/2014 MAMMO , scree kanika, digit al, bilat eral No observ ation record ed. [email or web address] Not Available 2015 17:35:39 05/08/20 16 03/11/2012 MAMMO , scree kanika, digit al, bilat eral No observ ation record ed. [email or web address] Not Available 2015 17:36:05 05/08/20 16 03/06/2011 MAMMO , scree kanika, digit al, bilat eral No observ ation record ed. [email or web address] Not Available 2015 17:36:28 05/08/20 16 03/04/2010 bone densi ty No observ ation record ed. [email or web address] Not Available 2015 17:37:17 07/18/19 18 07/18/2017 MAMMO , scree kanika, bilat eral No observ ation record ed. [facility] (Imaging) [address] [place], [address], 07/21/2017 15:29:36 Result Notes None recorded. Procedures Surgical History Date Name Laterality Status Provider Name and Address Organization Details Recorded Time 06/25/19 15 Colonoscopy completed JET Pena SIYovanny 04/22/2015 14:56:20 04/14/20 14 Most Recent Mammogram completed JET Pena SIYovanny 04/22/2015 14:56:20 06/25/19 13 Hysterectomy completed JET Pena SIYovanny 04/22/2015 14:56:20 02/29/20 11 Date of Last Pap Smear completed JET Pena SIYovanny 04/22/2015 14:56:20 06/25/19 08 Other completed JET Pena SIYovanny 04/22/2015 15:08:37 Other completed JET Pena SIYovanny 04/22/2015 14:56:20 Breast Biopsy completed JET Pena SIYovanny 04/22/2015 14:56:20 Imaging Results Imaging Date Name Status LastModified by [facility] Details LastModified Time 05/03/2015 mammogram, screening completed [email or web address] [facility] [address] [place], [address], 08/11/2015 14:40:02 04/14/2014 MAMMO, screening, digital, bilateral completed Information not available 05/08/2016 17:35:39 03/11/2012 MAMMO, screening, digital, bilateral completed Information not available 05/08/2016 17:36:05 03/06/2011 MAMMO, screening, digital, bilateral completed Information not available 05/08/2016 17:36:28 03/04/2010 bone density completed Information not available 05/08/2016 17:37:17 07/18/2017 MAMMO, screening, bilateral completed [facility] (Imaging) [address] [place], [address], 07/21/2017 15:29:36 Procedure Notes None recorded. Medical Equipment None Reported. Allergies No known drug allergies Medications Name Sig Start Date Stop Date Status Note LastModified by Organization Details LastModified Time venlafaxine ER 75 mg capsule,extende d release 24 hr active Not Available Not Availa ble Not Available levothyroxine 25 mcg tablet active Not Available Not Availabl e Not Available levothyroxine 50 mcg tablet active Not Available Not Availabl e Not Available diclofenac sodium 75 mg tablet,delayed release active Not Available Not Available Not Available rosuvastatin 10 mg tablet active Not Available Not Available No t Available Vitals Date Recorded Body height Body mass index (BMI) Body weight Systolic blood pressure Diastolic blood pressure Provider Name and Address Organization Details Last Updated DateTime 04/22/2015 167.64 cm 27.9 kg/m2 43350.48 001 g 130 mm[Hg] 92 mm[Hg] Vickie Velazco MA [facility] 5 15:14:18 Date Recorded Body height Body weight Body mass index (BMI) Systolic blood pressure Diastolic blood pressure Provider Name and Address Organization Details Last Updated DateTime 05/09/2016 165.1 cm 45838.44 g 29.6 kg/m2 143 mm[Hg] 82 mm[Hg] Karon Loomis MA [facility] 6 10:53:22 Social History Question Answer Notes LastModified by Organizat ion Details LastModified Time Tobacco Smoking Status Former Smoker Vickie Velazco MA null, [facility] 04/22/2015 15:12:31 Do You Have An Advance Directive? Yes Information not available 04/22/2015 What Is Your Level Of Alcohol Consumption? Occasional Information not available 04/22/2015 Is Blood Transfusion Acceptable In An Emergency? Yes Information not available 04/22/2015 What Is Your Level Of Caffeine Consumption? Moderate Information not available 04/22/2015 How Much Tobacco Do You Chew? None Information not available 04/22/2015 Are You Currently Employed? Yes Information not available 04/22/2015 What Type Of Diet Are You Following? REGULAR Information not available 04/22/2015 Which Illicit Or Recreational Drugs Have You Used? None Information not available 04/22/2015 Education 2 Year College Informatio n not available 04/22/2015 What Is Your Occupation? Retired Information not available 04/22/2015 Live Alone Or With Others? With Others Information not available 04/22/2015 How Many Children Do You Have? 3 Information not available 04/22/2015 Performs Monthly Self-breast Exam? Yes Information no t available 04/22/2015 What Is Your Relationship Status? Information not available 04/22/2015 Seat Belts Used Routinely Yes Information not available 04/22/2015 Are You Sexually Active? No Information not available 04/22/2015 At What Age Did You Start Smoking Tobacco? 21 Information not available 04/22/2015 How Much Tobacco Do You Smoke? 0.5 PPD Information not available 04/22/2015 General Stress Level Low Information not available 04/22/2015 Do You Use Sunscreen Routinely? Yes Information not available 04/22/2015 How Many Years Have You Smoked Tobacco? 5 Information not available 04/22/2015 Sex: Unknown Functional Status Question Answer Note LastModified by Organizat ion Details LastModified Time What is your exercise level? Occasional Information not available 04/22/2015 Mental Status None recorded. Family History Relationship Description Onset Age of this Age Resolved Age Notes LastModified by Organization Details LastModified Time Mother Malignant tumor of pharynx Not available 2014 15:10:31 Father Myocardial infarction 77 Not available 04/22 15:10:31 Medical History Condition Response Heart Problems N Other N Breast Cancer N Thyroid Problems N Kidney or Bladder Problems N GI Problems N Lung Disease N Depression N Acne N Breast Problem N Eating Disorder N Anemia N Anesthesia Complications N Headaches/Migraines N Anxiety Disorder N Diabetes N Ovarian Cancer Y Blood Transfusions N Arthritis Y Polyps N Infertility N Acid Reflux (GERD) N Cancer N Stroke N Abuse/Domestic Violence N Asthma N Endometriosis N High Cholesterol N Hepatitis N Heart Disease N Fibromyalgia N Pre-Eclampsia N Hypertension N Osteoporosis N Kidney Disease N Gynecological History Statement/Question Response Abnormal Pap N On BCP's at Conception? N STIs/STDs N HPV Vaccine N Most Recent Mammogram 04/14/2014 Age at Menarche 14 Current Control Method None If Post Menopausal, Age at Menopause 9 Sexually Active? N Menses Monthly N Date of Last Pap Smear 02/28/2011 Sexual Problems? N Desired Control Method None Obstetrics History GPAL:G 3 P 3 0 0 3 Type Value Full Term 3 Living 3 Total 3 Past Encounters Encounter ID Performer Location Encounter Start Date Encounter Closed Date Diagnosis/Indication Diagnosis SNOMED-CT Code Diagnosis ICD10 Code Diagnosis Note [id number] Kodi Peralta ([employer]) [address] [place] [phone] 04/22/2015 14:20:47 04/22/2015 15:23:34 Gynecologic examination 26550843 Z01.419 Personal h istory of primary malignant neoplasm of breast 719117730 Z85.3 cancer free since 7114 [id number] Kodi Peralta ([employer]) [address] [place] [phone] 05/09/2016 10:29:00 05/10/2016 11:28:01 Screening mammography 57750308 Z12.31 History of malignant neoplasm of breast 013618000 Z85.3 History of malignant neoplasm of uterine body 240325152 Z85.42 Health Concerns Section Related Observation LastModified by Organization Detai ls LastModified Time None Recorded Concern Status LastModified by Organization Details LastModified Time None Recorded Advance Directives Directive Y: Payers Encounter Date Sequence Insurance Name Policy Number Policy Clark Covered Member ID Clark Member ID Guarantor Name 04/22/2015 1 [facility] (MEDICARE REPLACEMENT/A DVANTAGE - HMO) [id number] Nesha Bettencourt [id number] Nesha Bettencourt 05/09/2016 1 [facility] (MEDICARE REPLACEMENT/A DVANTAGE - HMO) [id number] Nesha Bettencourt [id number] Nesha Bettencourt Notes Date Note Type Note Provider Name and Address Organization Details Recorded Time 05/09/2016 text/html Breast ProblemsReported bypatient.Quality:asym ptomatic; no bloody discharge; no brown discharge; no milky discharge; no yellow-clear discharge; no yellow-green discharge; non-tender; improving; no mass Context:prior mammogram normal; performs breast self-examination; no breast implants; no family history of breast cancer; no history of breast cancer; no radiation treatment; no chemotherapy; no cancer; no previous biopsies; no miscarriages; recent MRI normal; lymph node status negative Modifying Factors:no recent change in exercise habits; no recent changes in weight; no recent changes in diet; no recent changes in medication dosage of hormone replacement therapy Aggravating Factors:none Associated Symptoms:no fever; no chills; no breast reddening; no nipple discharge; no sore nipples; no nipple inversion; breasts feel normal; no breast swelling; no arm pain; no arm swelling; no chest pain; no malaise; no breast lump; 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 Kodi Ferraro [facility] 05/09/2016 17:49:30 OBGyn Episode Ob Episode Information Episode Created Date Number of Fetuses Patient Bloodtype Patient rh Status Prepregnancy Weight lbs Domestic Partner Domestic Partner Phone Father Name Soil And Plant Scientist Status 04/22/20 15 1 CLOSED Fetus Data First Name Last Name Admitted to NICU Weight (g) Sex Living Outcome Pediatric Complications Fetus ID Race Codes Race Delivery Type 2381.35 8 F Full Term [id number] Vaginal Nicolas Calculation Initial Nicolas Date Initial Exam Date Initial Exam Provider Initial Ultrasound Date Last Menstrual Period Date Ultra Sound Weeks Gestation 0 Eighteen To Twenty Week Nicolas Update Ultra Sound Date Fundal Height At Umbil Quickening Date Ultra Sound Latest Weeks Gestation Final Nicolas Confirmed By Final Nicolas Confirmed Date Final Nicolas Date Ultra Sound Latest Days Gestation 0 0 Menstrual History Last Menstrual Date Menses Monthly On Bcp Conception Prior Menses Frequency Hcg Plus Date Menarche Onset Age Delivery Information Delivery Date Delivery Type Labor Anesthesia Weeks Gestation Incision Type Labor Labor Length Hrs Delivered By Post Complications Tubal Sterilization Discharge Date Comments 2 General 40 Discharge Information Feeding Method Contraceptive Method Maternal HG B and HCT Levels Ob Episode Information Episode Created Date Number of Fetuses Patient Bloodtype Patient rh Status Prepregnancy Weight lbs Domestic Partner Domestic Partner Phone Father Name Soil And Plant Scientist Status 04/22/20 15 1 CLOSED Fetus Data First Name Last Name Admitted to NICU Weight (g) Sex Living Outcome Pediatric Complications Fetus ID Race Codes Race Delivery Type 3628.73 6 M Full Term [id number] Vaginal Nicolas Calculation Initial Nicolas Date Initial Exam Date Initial Exam Provider Initial Ultrasound Date Last Menstrual Period Date Ultra Sound Weeks Gestation 0 Eighteen To Twenty Week Nicolas Update Ultra Sound Date Fundal Height At Umbil Quickening Date Ultra Sound Latest Weeks Gestation Final Nicolas Confirmed By Final Nicolas Confirmed Date Final Nicolas Date Ultra Sound Latest Days Gestation 0 0 Menstrual History Last Menstrual Date Menses Monthly On Bcp Conception Prior Menses Frequency Hcg Plus Date Menarche Onset Age Delivery Information Delivery Date Delivery Type Labor Anesthesia Weeks Gestation Incision Type Labor Labor Length Hrs Delivered By Post Complications Tubal Sterilization Discharge Date Comments 9 General 40 Discharge Information Feeding Method Contraceptive Method Maternal HG B and HCT Levels Ob Episode Information Episode Created Date Number of Fetuses Patient Bloodtype Patient rh Status Prepregnancy Weight lbs Domestic Partner Domestic Partner Phone Father Name Soil And Plant Scientist Status 04/22/20 15 1 CLOSED Fetus Data First Name Last Name Admitted to NICU Weight (g) Sex Living Outcome Pediatric Complications Fetus ID Race Codes Race Delivery Type 3345.24 1 M [id number] Vaginal Nicolas Calculation Initial Nicolas Date Initial Exam Date Initial Exam Provider Initial Ultrasound Date Last Menstrual Period Date Ultra Sound Weeks Gestation 0 Eighteen To Twenty Week Nicolas Update Ultra Sound Date Fundal Height At Umbil Quickening Date Ultra Sound Latest Weeks Gestation Final Nicolas Confirmed By Final Nicolas Confirmed Date Final Nicolas Date Ultra Sound Latest Days Gestation 0 0 Menstrual History Last Menstrual Date Menses Monthly On Bcp Conception Prior Menses Frequency Hcg Plus Date Menarche Onset Age Delivery Information Delivery Date Delivery Type Labor Anesthesia Weeks Gestation Incision Type Labor Labor Length Hrs Delivered By Post Complications Tubal Sterilization Discharge Date Comments 3 40 Discharge Information Feeding Method Contraceptive Method Maternal HG B and HCT Levels
--- OUTSIDE RECORDS SUMMARY | 2024-07-31 13:45 | XMS_ITS | CONTINUITY OF CARE DOCUMENT ---
Author Name breanna carlos Address Unknown Organization [facility] Address [address] [place] [address] Phone [phone] Care Team Providers Care Cell Installer Name Role Phone Andreas Barry MD Unavailable INSURANCE PROVIDERS Payer name Policy type / Coverage type Karina red constitution party ID [employer] OPEN ACCESS Other [id number] [facility] MEDICARE COMPLETE HMO Other [id number]
--- OUTSIDE RECORDS SUMMARY | 2024-07-31 13:46 | XMS_ITS | Continuity of Care Document ---
Author Organization [facility] Address [address] [place] [id number] Phone Care Team Providers Care Service Order Dispatcher Name Role Phone Amol Jean Unavailable Unavailable Procedures Procedure Date Eye Exam & Treatment Refraction TF Plastic Sphcyl Dryden To +/-4d .12-2d Progressive Lens, Polycarb Anti-reflective Coating Polycarb Lens Per Lens Post-op Follow-up Visit Refraction Post-op Follow-up Visit Remove Cataract, Insert Lens PreOp Assessment Performed Eye Exam & Treatment Script Printed/Phoned Pt Requ Or Pharm N ot Availab IOLMaster-Professional Visual Field Examination(s) Office/outpatient Visit, Est TF Plastic Sphcyl Dryden To +/-4d .12-2d Vision Svcs Frames Purchases [...] Diagnoses Date Provider Providers Copied on Encounter [facility], [address] [place] [address] [address], [place], [place], [id number], [place] tel:[phone] [facility] No Information Apr-2 6-201 0 Miranda Carmichael. [facility] , [address], [place], [place], [facility], [place]. tel:[phone] [facility], [address] [place] [address] [address], [place], [place], [id number], [place] tel:[phone] [facility] No Information 4200 9 [facility] . [address], [address], [place], [place], [id number], [place]. tel:[phone] Referring Provider: Amol Mckeon [facility] [address], [place], [place], [facility]. tel:[phone] [facility], [address] [place] [address] [address], [place], [place], [id number], [place] tel:[phone] [facility] [place] No Information Mar-2 0-200 9 Miranda Carmichael. [facility] [address], [address], [place], [address], [place]. tel:[phone] [facility], [address] [place] [address] [address], [place], [place], [id number], [place] tel:[phone] [facility] No Information Mar-0 6-200 9 Miranda Carmichael. [facility] [address], [address], [place], [address], [place]. tel:[phone] [facility], [address], [place], [place], [id number], [place] tel:[phone] [facility] No Information 0 5-[address] [facility] , [address], [place], [address], [place]. tel:[phone] [facility], [address], [place], [place], [id number], [place] tel:[phone] [facility] [place] No Information 2 0200 9 Miranda Carmichael. [facility] , [address], [place], [address], [place]. tel:[phone] Referring Provider: Amol Mckeon, [address] [place], [place] [address]ate [address], [place], [place], [facility]. tel:[phone] [facility], [address], [place], [place], [id number], [place] tel:[phone] [facility] No Information 8200 8 Miranda Carmichael. [address] [place], [place] [address] [address] , [address], [place], [address], [place]. tel:[phone] Referring Provider: Amol Mckeon, [facility] [address], [place], [place], [facility]. tel:[phone] Office/outpat ient Visit, [facility], [address], [place], [place], [id number], [place] tel:[phone] [facility] No Information 8 Miranda Carmichael. [address] [place], [place] [address] [address] , [address], [place], [address], [place]. tel:[phone] [facility], [address], [place], [place], [id number], [place] tel:[phone] [facility] No Information 5200 8 [facility] . [address], [address], [place], [place], [id number], [place]. tel:[phone] Referring Provider: Amol Mckeon, Gal [facility] [address], [place], [address]. tel:[phone] sulting Provider: Jane Cox, [address], [place], [address]. tel:[phone] [facility], [address] [place] [address] [address], [place], [place], [id number], [place] tel:[phone] SEC [facility] No Information 8 Miranda Carmichael. [facility] , [address], [place], [place], [facility], [place]. tel:[phone] [facility], [address] [place] [address] [address], [place], [place], [id number], [place] tel:[phone] [facility] No Information 8 Miranda Carmichael. [facility] [address], [address], [place], [address], [place]. tel:[phone] [facility], [address] [place] [address] [address], [place], [place], [id number], [place] tel:[phone] [facility] No Information 8 Miranda Carmichael. [facility] [address], [address], [place], [address], [place]. tel:[phone] Office/outpat ient Visit, Est [facility], [address] [place] [address] [address], [place], [place], [id number], [place] tel:[phone] [facility] [place] No Information 8 Miranda Carmichael. [facility] [address], [address], [place], [address], [place]. tel:[phone] Referring Provider: Amol Mckeon, Gal [facility] [address], [place], [address]. tel:[phone] [facility], [address], [place], [place], [id number], [place] tel:[phone] [facility] No Information Dec-0 5-200 7 Ortiz OD Kodi. [address] [facility] , [address], [place], [address], [place]. tel:[phone] Family History Family Member Type Diagnosis Age At Onset No Information Payers Payer name Insurance type Covered green party ID Authoriza tion(s) [place] [id number] Social History Type Description Quantity Date Captured [...]
[2024-07-31 13:48] VITALS: RESP 34; O2SAT 91
== END 2024-07-31 14:08 | disposition home or self-care (01) ==
PROVIDERS: Emergency Provider Nurse Practitioner Family
DX: J84.9 Interstitial pulmonary disease, unspecified (principal); R06.02 Shortness of breath; E03.9 Hypothyroidism, unspecified; I10 Essential (primary) hypertension; Z85.42 Personal history of malignant neoplasm of other parts of uterus; Z85.3 Personal history of malignant neoplasm of breast; Z86.73 Personal history of transient ischemic attack (TIA), and cerebral infarction without residual deficits; Z87.891 Personal history of nicotine dependence
CPT/HCPCS: 99211; G0463

== ENCOUNTER 2025-01-11 10:04 | Emergency (ER) | payer MEDICARE, SELFPAY ==
--- NOTE | ~2025-01-11 | XR_ITS ---
Right foot Technique: AP, oblique, and lateral views were obtained. Clinical History: Trauma Findings: There is acute fracture at the base of the fifth metatarsal, minimally displaced. No other fracture or dislocation seen. Joint spaces are preserved without erosive or degenerative change. Soft tissues are unremarkable. Impression: Acute fracture the base of the fifth metatarsal, as detailed above. Reviewed, dictated and finalized at location . Impression: Acute fracture the base of the fifth metatarsal, as detailed above.
--- NOTE | ~2025-01-11 | XR_ITS ---
Right ankle Technique: AP, oblique, and lateral views were obtained. Clinical History: Trauma Findings: There is a transverse, essentially nondisplaced fracture the base of fifth metatarsal. Ankl e mortise and other visualized joint spaces are preserved. Lateral soft tissue swelling noted. Impression: Acute fracture the base of the fifth metatarsal. Lateral soft tissue swelling. Reviewed, dictated and finalized at location . Impression: Acute fracture the base of the fifth metatarsal. Lateral soft tissue swelling.
--- OUTSIDE RECORDS SUMMARY | 2025-01-11 10:07 | XMS_ITS | Referral Summary ---
Author Organization [place] [id number] [facility] Address [address] [place] [address] Care Team Providers Care Talent Acquisition Relationship Manager Name Role Phone Bar Gomez MD Primary Care Provider [phone] Joshua Collins DO Unavailable [phone] Neisha Mathis MD Unavailable [phone] Kristopher Elizabeth MD Unavailable [phone] Krishna Keen MD Unavailable [phone] Encounters Date Type Department Care Team Description 12/08/2024 Telephone [facility] Oncology [address] [place] [address] [address] [place] [address] Juanita Hart RN 12/05/2024 3:15 PM CDT Ancillary Procedure [facility] Medical Group Imaging at [address] [address] Adhesive capsulitis of right shoulder; Acute pain of right shoulder 12/05/2024 2:15 PM CDT Office Visit [facility] Oncology [address] [place] [address] [address] [place] [address] Joshua Collins DO 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 [address] [place] [address] Malignant neoplasm of lower-outer quadrant of right female breast, unspecified estrogen receptor status (HCC); Screening mammogram for breast cancer Discharge Disposition: Discharge to home or self care from Last 3 Months Allergies Active Allergy Reactions Criticality Noted Date Comments Adhesive Rash Medium 11/19/2020 Lisinopril Cough Low 01/09/2022 Ltmklmw-Ari-Bmf Reductase Inhibitors Muscle pain,Unknown High 01/09/2022 Product containing 4-mgqrlqv-1-methylglu taryl-coenzyme A reductase inhibitor (product) Medications levothyroxine (SYNTHROID) 75 mcg tablet Take 1 tablet (75 mcg total) by mouth site surveyor before breakfast Active losartan (COZAAR) 100 mg [...] daily Active anastrozole (ARIMIDEX) 1 mg tablet TAKE 1 TABLET(1 MG) BY MOUTH DAILY 90 tablet 1 09/04/19 25 Active cetirizine (ZyrTEC) 10 mg tablet Take 1 tablet (10 mg total) by mouth daily 08/18/19 25 Active oxygenIndications:Dy spnea Administer 2 L/min into each nostril as needed at 120,000 mL/hr Active alpha lipoic acid 600 mg capsule Take 1 capsule (600 mg total) by mouth 2 (two) times a day after breakfast and dinner 60 capsule 3 12/06/19 25 Active pyridoxine (VITAMIN B-6) 100 mg tablet Take 2 tablets (200 mg total) by mouth daily 60 tablet 3 12/06/19 25 026 Active methylPREDNISolone (MEDROL DOSEPACK) 4 mg Dosepack Take as directed on package 1 packet 12/09/19 25 Active Active Problems Patient Care Coordination No [...] HX: anticoagulation 04/27/2021 Occlusion of central line 01/28/2021 Malignant neoplasm of lower- outer quadrant of right breast of female, estrogen receptor positive 11/17/2020 Cancer Staging:Clinical stage from 12/09/2020:Stage IA(cT1c, cN0, cM0, G3, ER+, AZ+, HER2-) - Signed by Neisha Mathis MD on 12/09/2020 Pathologic stage from 06/02/2021:No Stage Recommended(ypT1c, pN2, cM0, G3, ER+, AZ+, HER2+) - Signed by Neisha Mathis MD on 06/02/2021 Hot flashes due to menopause 10/09/2016 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 Urinary tract infection 03/21/2013 Bacterial vaginosis 08/22/2012 Postmenopausal bleeding 07/08/2012 Hyperlipidemia 07/08/2012 Immunizations Immunization Administration Dates Next Due Influenza, Quadrivalent, Hig [...] on file 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 Gender Identity Not on file Sexual Orientation Choose not to disclose 2023 10:51 AM CDT Sexual Orientation Straight 11/16/2023 10 :51 AM CDT 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 file Not on file Not on file Last Filed Vital Signs Vital Sign Reading Time Taken Comments Blood Pressure 148/83 12/05/2024 2:35 PM CDT Pulse 85 12/05/2024 2:35 PM CDT Temperature 36.6 C (97.8 F) 12/05/2024 2:35 PM CDT Respiratory Rate 18 12/05/2024 2:35 PM CDT Oxygen Saturation 96% 12/05/2024 2:3 5 PM CDT Inhaled Oxygen Concentration - - Weight 68.2 kg (150 lb 5.7 oz) 12/06/19 25 2:35 PM CDT with shoes Height 164 cm (5' 4.57) 12/05/2024 2:3 5 PM CDT Body Mass Index 25.36 12/05/2024 2:35 PM CDT Plan of Treatment Not on file Medical Devices Explanted Type Area Charcoal Kiln Burner Device Identifier Shelf Expiration Date Model / Serial / Lot [employer] [id number] Powerport Mri Airguard 8fr 1 Lumen Attachable Catheter Latex Free - [id number] Implanted:Qty: 1 on 01/20/2021 by Kristopher Elizabeth MD at [facility] Explanted:Qty: 1 on 05/05/2021 by Kristopher Elizabeth MD [employer] [id number] / / Fuel Cell Assembler Flashstock [id number] Aurora 20ga 7.5cm 2 Part Stabilizer Repositionable Depth Kodi - [id number] Explanted:Qty: 1 on 05/05/2021 at [facility] Right: Breast [employer] [id number] 10/22/2025 [id number] / / [id number] Procedures Procedure Name Priority Date/Time Associated Diagnosis Comments XR SHOULDER RIGHT 2 OR MORE VIEWS Schedule Routine, Read Routine (OP Routine) 12/05/2024 3:21 PM CDT Adhesive capsulitis of right shoulder Acute pain of right shoulder SCREENING MAMMOGRAM BILATERAL W MARGARITO Schedule Routine, Read Routine (OP Routine) 11/24/2024 10:57 AM CDT Malignant neoplasm of lower-outer quadrant of right female breast, unspecified estrogen receptor status (HCC) Screening mammogram for breast cancer from Last 3 Months Results * XR Shoulder Right 2 or More Views (12/05/2024 3:21 PM CDT) Anatomical Region Laterality Modality Upper Extremities, Shoulder Right Digi chiki Radiography 12/05/2024 7:23 PM CDT Narrative 12/05/2024 7:26 PM CDT EXAM DESCRIPTION: XR SHOULDER RIGHT 2 OR MORE VIEWS REASON FOR STUDY: R shoulder pain, frozen shoulder Pt complains of right shoulder pain x 3 weeks. No known injury or prior surgery TECHNIQUE: 4 radiographic view(s) of the right shoulder . COMPARISON: None FINDINGS: BONES/JOINTS: There is no acute fracture, malalignment or osseous abnormality. 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 SOFT TISSUES: Surgical clips are seen in the right axilla. Patchy reticular opacity is seen in the right lung. Whether this is due to pulmonary fibrosis or more acute inflammatory change is uncertain. IMPRESSION: 1. 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 2. Patchy reticular opacity in the right lung. Whether this is due to pulmonary fibrosis or more acute inflammatory change is uncertain. Correlation with the patient's symptoms is recommended. CT of the chest is recommended. THIS IS AN ELECTRONICALLY VERIFIED FINAL REPORT 12/05/2024 7:26 PM - Electronically signed by Ilya BOSE T: Report ID: [id number] Reading Location: [id number] Procedure Note Omer Lovell MD - 12/05/2024 EXAM DESCRIPTION: XR SHOULDER RIGHT 2 OR MORE VIEWS REASON FOR STUDY: R shoulder pain, frozen shoulder Pt complains of right shoulder pain x 3 weeks. No known injury or prior surgery TECHNIQUE: 4 radiographic view(s) of the right shoulder . COMPARISON: None FINDINGS: BONES/JOINTS: There is no acute fracture, malalignment orosseous abnormality. 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 SOFT TISSUES: Surgical clips are seen in the right axilla. Patchyreticular opacity is seen in the right lung. Whether this is due to pulmonaryfibrosis or more acute inflammatory change is uncertain. IMPRESSION: 1. 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 2. Patchy reticular opacity in the right lung. Whether this is due to pulmonary fibrosis or more acute inflammatory change is uncertain.Correlation with the patient's symptoms is recommended. CT of the chest isrecommended. THIS IS AN ELECTRONICALLY VERIFIED FINAL REPORT 12/05/2024 7:26 PM - Electronically signed by Ilya BOSE T: Report ID: [id number] Reading Location: [id number] Joshua Collins DO IMG XR PROCEDURES Final Resu lt * Screening Mammogram Bilateral W Margarito (11/24/2024 10:57 AM CDT) Anatomical Region Laterality Modality Breast Bilateral Mammography Impressions 11/24/2024 11:00 AM CDT Bilateral No evidence of malignancy in either breast. OVERALL BI-RADS FINAL ASSESSMENT: 2 - Benign RECOMMENDATION: Recommend bilateral annual screening mammography. Narrative 11/24/2024 11:00 AM CDT EXAMINATION: Screening Mammogram Bilateral W Margarito: 11/24/2024 COMPARISON: Relevant prior studies available at the time of interpretation were reviewed. TECHNIQUE: Mammography was performed with 2D and digital breast tomosynthesis (DBT) images. CAD was utilized. BREAST PARENCHYMAL COMPOSITION: The breasts are heterogeneously dense, which may obscure small masses. FINDINGS: Bilateral There is no suspicious mass, calcification, or architectural distortion in either breast.There are stable postlumpectomy changes in the left breast. There are vascular calcifications bilaterally. Krishna Keen MD IMG MAMMO PROCEDURES Final Res ult from Last 3 Months Insurance [facility] MEDICARE [facility] MEDICARE Care Teams Talent Acquisition Relationship Manager Relationship Specialty Start Date End Date Bar Gomez MD PCP - General 11/24/20 Joshua Collins DO [address] [place] [address] MEDICAL ONCOLOGY, [address] [address] Medical Oncologist/Forest Fire Prevention Manager Hematology and Oncology 11/17/20 Neisha Mathis MD [address] [place] [address] MEDICAL ONCOLOGY, [address] [address] Radiation Oncologist Radiation Oncology 12/09/20 Kristopher Elizabeth MD [address] [address] Surgeon Surgery 12/09/20 Krishna Keen MD [address] [address] Surgeon General Surgery 03/22/23
--- OUTSIDE RECORDS SUMMARY | 2025-01-11 10:07 | XMS_ITS | Clinical Summary ---
Author Organization [place] [id number] [facility] Address [address] [place] [address] Care Team Providers Care Miner Operator Name Role Phone Bar Gomez MD Primary Care Provider Joshua Collins DO Unavailable [phone] Neisha Mathis MD Unavailable [phone] Kristopher Elizabeth MD Unavailable [phone] Krishna Keen MD Unavailable [phone] Allergies Active Allergy Reactions Criticality Noted Date Comments Adhesive Rash Medium 11/19/2020 Lisinopril Cough Low 01/09/2022 Ndddyaq-Luu-Hur Reductase Inhibitors Muscle pain,Unknown High 01/09/2022 Product containing 0-rfjryfo-7-methylglu taryl-coenzyme A reductase inhibitor (product) Medications levothyroxine (SYNTHROID) 75 mcg tablet Take 1 tablet (75 mcg total) by mouth curtain stitcher before breakfast Active losartan (COZAAR) 100 mg [...] from 12/09/2020:Stage IA(cT1c, cN0, cM0, G3, ER+, VT+, HER2-) - Signed by Neisha Mathis MD on 12/09/2020 Pathologic stage from 06/02/2021:No Stage Recommended(ypT1c, pN2, cM0, G3, ER+, VT+, HER2+) - Signed by Neisha Mathis MD on 06/02/2021 Hot flashes due to menopause 10/09/2016 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 Urinary tract infection 03/21/2013 Bacterial vaginosis 08/22/2012 Postmenopausal bleeding 07/08/2012 Hyperlipidemia 07/08/2012 Encounters Date Type Department Care Team Description 12/08/2024 Telephone [facility] Oncology [address] [place] [address] [address] [place] [address] Juanita Hart RN 12/05/2024 3:15 PM CDT Ancillary Procedure [facility] Medical Group Imaging at [address] [address] Adhesive capsulitis of right shoulder; Acute pain of right shoulder 12/05/2024 2:15 PM CDT Office Visit [facility] Oncology [address] [place] [address] [address] [place] [address] Joshua Collins, 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, estrogen receptor positive (HCC) (Primary Dx); Adhesive capsulitis of right shoulder; Acute pain of right shoulder 11/24/2024 10:26 AM CDT - 11/24/2024 11:59 PM CDT Hospital Encounter [facility] Medical Office Bldg 1 Breast [facility] [address] [facility] [address] [place] [address] Malignant neoplasm of lower-outer quadrant of right female breast, unspecified estrogen receptor status (HCC); Screening mammogram for breast cancer Discharge Disposition: Discharge to home or self care from Last 3 Months Immunizations Immunization Administration Dates Next Due Influenza, Quadrivalent, Hig h Dose, Preservative Free, Intrr 04/14/2022 Influenza, Unspecified 06/08/2021 Pfizer SARS-CoV-2 Monovalent Vaccination (12+ Yrs) PURPLE 09/09/2020,08/17/2020 Surgical History Surgery Date Site/Laterality Comments VT COLONOSCOPY FLX DX W/COLLJ SPEC WHEN PFRMD Complete Colonoscopy - (Added by TW Conv) VT TOTAL ABDOMINAL HYSTERECT W/WO RMVL TUBE OVARY 06/25/2012 - 06/24/2013 Hysterectomy - (Added by TW Conv) CATARACT EXTRACTION Bilateral Cataract Surgery - (Added by TW Conv) COLONOSCOPY US GUIDED BIOPSY LYMPH NODE SUPERFICIAL LEFT 12/14/2020 N/A VT EXC CYST/ABERRANT BREAST TISSUE OPEN 1/> LESION [...] be related to xarelto Deep vein thrombosis (HCC) Breast cancer (HCC) Left breast- -approx [...] on file 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 Gender Identity Not on file Sexual [...] 12/05/2024 2:35 PM CDT Plan of Treatment Health Maintenance Due Date Last Done Comments Depression Screening 1941 DTaP/Tdap/Td Vaccine (1 - Tdap) 1952 Hepatitis B Screening 1959 Pneumococcal vaccine 65+ (1 of 2 - PCV) 1960 Zoster Vaccine (1 of 2) 1960 Well Visit 65+ 2006 Fall Risk Assessment 01/20/2022 01/20/2021 Osteoporosis Screening-Bone Density Scan 02/09/2024 02/08/2022 Covid-19 Vaccine ( season) 2024 09/28/2021, 09/09/2020, 08/17/2020 Influenza Vaccine (Season Ended) 2025 04/05/2023, 04/14/2022, 06/08/2021 Medical Devices Explanted Type Area Diamond Powder Technician Device Identifier Shelf Expiration Date Model / Serial / Lot [employer] [id number] Powerport Mri Airguard 8fr 1 Lumen Attachable Catheter Latex Free - [id number] Implanted:Qty: 1 on 01/20/2021 by Kristopher Elizabeth MD at [facility] Explanted:Qty: 1 on 05/05/2021 by Kristopher Elizabeth MD [employer] [id number] / / [employer] [id number] [place] 20ga 7.5cm 2 Part Stabilizer Repositionable Depth Kodi - [id number] Explanted:Qty: 1 on 05/05/2021 at [facility] Right: Breast [employer] [id number] 10/22/2025 [id number] / / [id number] Procedures Procedure Name Priority Date/Time Associated Diagnosis [...] 7:26 PM - Electronically signed by Ilya Lovell M.D. JUICE T: Report ID: [id number] Reading Location: [id number] Procedure Note Omer Lovell MD - 12/05/2024 [...] 7:26 PM - Electronically signed by Ilya Lovell M.D. JUICE T: Report ID: [id number] Reading Location: [id number] Joshua Collins DO IMG XR PROCEDURES Final [...] Res ult from Last 3 Months Insurance [employer] [facility] MEDIC[facility] Address: [facility] [id number] [place] [phone] [facility] MEDICARE Care Teams Miner Operator Relationship Specialty Start Date End Date Bar Gomez MD PCP - General 11/24/20 Joshua Collins DO [address] [place] [address] MEDICAL ONCOLOGY, [facility] [address] [place] [address] Medical Oncologist/Quill Skinner Hematology and Oncology 11/17/20 Neisha Mathis MD [address] [place] [address] [address] Radiation Oncologist Radiation Oncology 12/09/20 Kristopher Elizabeth MD [address] [place] [id number] Surgeon Surgery 12/09/20 Krishna Keen MD [address] [place] [address] [id number] Surgeon General Surgery 03/22/23
--- OUTSIDE RECORDS SUMMARY | 2025-01-11 10:08 | XMS_ITS | Data Portability ---
Author Organization [place] - [facility] [employer], Main Office Address [address] [place] [address] Care Team Providers Care Computer Lab Assistant Name Role Phone WILLIAM MILLER Primary Care Provider WILLIAM MILLER Referring Provider [phone] Assessment Encounter Date Assessment Date Assessment LastModified by Organization Details LastModified Time 11/12/2024 11/12/2024 Assessment: Bilateral breast ca s/p radiation, Taxol and Herceptin, on anastrozole Mod ILD with bronchiectasis Mild COPD Pulmonary hypertension Plan: The following were reviewed and explained to the patient: Chest CT 04/19/21 ILD, honeycombing Chest CT 06/03/21 ILD, honeycombing Chest CT 10/11/21 ILD, honeycombing, GGO, bronchiectasis Chest CT 07/06/23 ILD, honeycombing, traction bronchiectasis Chest CT 07/29/24 ILD, honeycombing, bilateral bronchiectasis 2-D echocardiogram 06/10/21 EF 60%, mild 2-D echocardiogram 12/15/21 EF 60%, severe aortic sclerosis, mod , mild MR, PASP 62 mmHg 6MW 10/17/21 oxygen desaturated from 97% to 85%, 1 Lpm O2 is needed to keep saturation > 88% 6MW 01/30/22 oxygen desaturated from 96% to 90% PFT 10/17/21 FEV1 1.33 L (72%), FVC 1.74 L (66%), TLC 3.36 L (67%), unable to do DLCO PFT 11/16/22 FEV1 1.59 L (89%), FVC 1.89 L (73%), TLC 3.13 L (63%), DLCO 32%, DLCO/VA 65% PFT 11/01/23 FEV1 1.44 L (82%), FVC 1.81 L (71%), TLC 3.11 L (63%), DLCO 25%, DLCO/VA 56% PFT 06/04/24 FEV1 1.53 L (80%), FVC 1.65 L (65%), TLC 2.74 L (53%), DLCO 30%, DLCO/VA 68% Lab data 10/17/21 (+) Aurebasidium pullulans antibodies, (+) SIMONE 1:640 homogeneous, (+) SIMONE 1:160 speckled, (+) CCP antibodies Advised the patient to discontinue magnesium supplements and monitor for improvement of diarrhea. Informed patient that her neuropathy (numbness in feet) may be the secondary effects of her anastrozole. Patient is following up with [facility] guide alpine Dr. Verito Norris for pulmonary hypertension and valvular heart disease. Patient is following up with [facility] giant tire repairer Dr. Mook Marie for fibrosing ILD, under the supervision of Dr. Jerardo Shin. Chest CT and PFT one week before return. Advised to continue not to smoke. Continue albuterol HFA as needed. Continue Spiriva Respimat 2 puffs daily. The patient does not know how to accurately administer the inhalers. Today, the patient was shown how to take these medications. The proper technique for delivering these medications was instructed. The patient expressed a clear understanding and demonstrated back how to use these medications. Without the proper technique, the patient will not reap the benefits of these medications as the contents will not reach the lower airways as intended to be. Adherence to therapy is advocated. Nonadherence may lead to treatment failure, further progression of the condition, and other complications. Hospitals admissions are often the result of individuals not taking prescription medications accurately. Alternatively, greater adherence to medication regimens have shown to lower rates of hospitalization and decrease total medical costs in patients with chronic medical conditions. Advocated influenza vaccination annually and pneumonia vaccination MICHELLE. Advocated weight loss through diet and exercise. Patient's ideal body weight according to height and gender is up to 135 lbs. Encouraged patient to adjust caloric intake to maintain/achieve ideal body weight, emphasizing on fruits, vegetables, whole grains, and fat-free or low-fat products. These include lean meats, poultry, fish, beans, eggs, and nuts and foods that are low in saturated fats, trans-fats, cholesterol, salt (sodium), and glycemic index. Stressed the importance of regular exercise up to the patient's capacity limits. In this case, we recommend regular (4 x a week or more) walking or other light activity. Patient to monitor BP daily and bring records to PCP for further management. Follow-up: 1 year, October 2025 [facility] Not available 11/12/2024 14:47:09 Plan of Treatment Reminders Order Date Submit Date Provider Last Modified By Organization Details Last Modified Time Details Appointments Medicar e Vanessa s 15 2024 11:00A M William Miller MD Not available Not available Not available Follow Up 2025 01:30P M Chance Jones MD Not available Not available Not available Lab vitamin D, 25-hydr oxy, total, serum 2024 025 [facility] (Lab), [address] [place], [address], 09/20/2024 11:23:51 CMP, serum or plasma 2024 025 [facility] (Lab), [address] [place], [address], 09/20/2024 11:23:51 CBC w/ auto diff 2024 025 [facility] (Lab), [address] [place], [address], 09/20/2024 11:23:51 TSH, serum or plasma 2024 025 [facility] (Lab), [address] [place], [address], 09/20/2024 11:23:51 Referral None recorde d. Procedures None recorde d. Surgeries None recorde d. Imaging CT, chest, w/o contras t 2024 026 [facility] Not available 11/12/2024 14:34:50 XR, foot, 3 or more view 2023 024 [email or web address] [facility] [place], [address], [place], [address], 03/10/2024 08:53:26 Medication Orders benzona roberson 200 mg capsule 2024 025 [facility] #[id number], [address], [place], [place], [id number], 01/05/2025 15:28:27 doxycyc line hyclate 100 mg tablet 2024 025 [facility] #98329, [address], [place], [id number], 01/05/2025 15:28:31 Medrol (Raúl) 4 mg tablets in a dose pack 2024 025 [facility] #[id number], [address] [place] [address], [id number], 01/05/2025 15:28:25 Spiriva Respima t 2.5 mcg/act uation solutio n for inhalat ion 2024 025 [facility] #63271, [address] [place] [address], [id number], 11/12/2024 14:34:57 albuter ol sulfate HFA 90 mcg/act uation aerosol inhaler 2024 025 [facility] #23515, [address], [place], [id number], 11/12/2024 14:34:59 pregaba kristin 50 mg capsule 2023 024 alfonzo [facility] #10988, [address] [place] [address], [id number], 09/11/2024 12:23:28 Patient Targets Encounter Date Encounter Id Patient Goals Patient Target Last Modified By Organization Details Last Modified Time 03/06/2024 [id number] This note is dictated and transcribed by [employer]. Crane Rigger variances may occur. Despite proofreading, typographical errors may occur. Occasional wrong-word or '[id number]' substitutions may have occurred due to the inherent limitations of voice recording. Read the chart carefully and recognize, using context, where substitutions have occurred. [email or web address] Not available 03/10/2024 08:52:20 Patient Instructions Encounter Date Encounter Id Patient Instructions Last Modified By Organization Details Last Modified Time 11/12/2024 [id number] complete PFT w/ post bronchodilator spirometry* [email or web address] Not available 11/12/2024 14:34:51 01/05/2025 [id number] Discussed the importance of antibiotic therapy compliance. Patient needs to take medication as prescribed, including completing entire course even if symptoms improve/resolve. Discussed possible side effects of medication. Instructed patient to take medication with food to prevent stomach upset and increase daily water intake. Patient will follow up in 3-4 days if symptoms are not improving or worsen while taking antibiotics. [email or web address] Not available 01/05/2025 15:26:23 Discussed viral and bacterial infections. Discussed symptom management and treatment plan. All questions and concerned addressed at this time [email or web address] Not available 01/05/2025 15:27:35 Reason for Referral None Reported. Results Created Date Observation Date Name Description Value Unit Range Abnormal Flag Note LastModifiedBy Organization Detail LastModifiedTime 03/10/20 24 XR, foot, 3 or more view No observ ation record ed. [email or web address] [facility] [place] [address], [place], [address], 03/10/2024 08:53:24 08/18/19 25 07/29/2024 CT, chest , w/o contr ast No observ ation record ed. [facility] [address] [facility] [address], [place], [address], 09/11/2024 12:34:13 11/13/19 25 06/04/2024 compl ete PFT w/ post [facility] * No observ ation record ed. [facility] ([facility]) [address] [place], [address], 11/12/2024 14:23:14 11/25/19 25 11/24/2024 MAMMO , scree kanika, digit al, bilat eral No observ ation record ed. [email or web address] Not Available 2024 15:51:53 Result Notes None recorded. Problems Name Problem SNOMED Code Status Onset Date Resolution Date Notes Provider Name and Address Organization Details Recorded Time Laboratory test result abnormal [id number] Completed Not Available [facility] 3 02:55:29 Impacted cerumen 52683645 Completed Not Available [facility] 3 02:55:29 Knee pain Completed Not Available [facility] 3 02:55:30 Osteopenia 922963135 Active Not Available [facility] 4 12:21:56 Vitamin D deficiency 25931060 Active Not Available [facility] 4 12:21:56 Diverticul ar disease 892473042 Active Not Available [facility] 4 12:21:56 Hypothyroi dism 49040101 Active Not Available [facility] 4 12:21:56 Hyperlipid emia 34247099 Active Not Available [facility] 4 12:21:56 Neck pain 96260946 Completed Not Available [facility] 3 02:55:31 Dystrophia unguium 48353013 Completed 201702/08/2022 Not Available [facility] 3 02:55:31 Onychomyco sis of toenails 623769352 Completed 201809/12/2018 Not Available [facility] 3 02:55:30 Essential hypertensi on 40266681 Active 2018 Not Available [facility] 4 12:21:56 Tinea pedis 5543304 Completed 201802/08/2022 Not Available [facility] 3 02:55:31 History of cerebrovas cular disease 002625217 Active 2020 Not Available [facility] 4 12:21:55 Acute urinary tract infection 981931222 Completed 202102/08/2022 SWETA Linares [address], [address], [place], [address] , [place] [facility] 5 13:36:08 Interstiti al lung disease 359739780 Active 2021 Not Available [facility] 4 12:21:55 Malignant tumor of breast 984580620 Active 2021 Not Available [facility] 4 12:21:55 Aortic valve stenosis 81124996 Active 2021 Not Available [facility] 4 12:21:56 Pulmonary hypertensi on 41592778 Active 2021 Chance Jones MD [address], [address], [place], [address] , [facility] 5 14:25:42 Mild chronic obstructiv e pulmonary disease 038882982 Active 2022 Chance Jones MD [address], [address], [place], [address] , [facility] 5 14:25:29 Hearing loss 57048198 Active 2022 Chance Jones MD [address], [address], [place], [address] , [facility] 5 14:32:54 Mixed hyperlipid emia 373043240 Active 2022 Chance Jones MD [address], [address], [place], [address] , [facility] 5 14:25:33 Closed fracture of fifth metatarsal bone 21625460 Active 2023 Chance Jones MD [address], [address], [place], [address] , [place] [facility] 5 14:32:49 Chronic kidney disease stage 3 109846740 Active 2023 Chance Jones MD [address], [address], [place], [address] , [facility] [employer] [facility] 5 14:27:19 Acute urinary tract infection 829039092 Active 2024 JULIETTE Linares-Margy [address], [address], [place], [address] , [facility] [employer] [facility] [employer] [facility] 5 13:36:08 Bronchitis 15487000 Active 2024 SWETA Linares [address], [address], [place], [address] , [facility] [employer] [facility] [employer] [facility] 5 15:22:02 Notes:Medical History: 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 Depression Left hearing loss COVID infection 05/2021 Rhinitis with postnasal drip Eosinophils 160/uL IgE 31 IU/mL Hypothyroidism Mixed hyperlipidemia Hypertension HFpEF 60% Mild MR Mod Alpha-1 antitrypsin PiMM 191 mg% Mild COPD Mod ILD with bronchiectasis, on 2 Lpm exertional O2 c/o IVRC (+) Aurebasidium pullulans antibodies (+) SIMONE 1:640 homogeneous (+) SIMONE 1:160 speckled (+) CCP antibodies Severe pulm hypertension Small hiatal hernia Left hepatic cysts Diverticulosis CKD Vit D deficiency Osteopenia Left 5th metatarsal fracture Thoracic spondylosis DVT on Xarelto Tinea pedis Procedure History: Colonoscopy 2008 [facility] for ca Left breast lumpectomy + radiation 1994 Right breast lumpectomy + chemo + radiation 2020 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 Procedures Surgical History Date Name Laterality Status Provider Name and Address Organization Details Recorded Time 01/10/20 24 Medicare Wellness CPT Code, subsequent completed Juanita Richards RN [facility] [employer] 01/10/2024 10:54:16 12/07/19 23 Medicare Wellness CPT Code, subsequent completed Kerri De Guzman RN [facility] [employer] 12/06/2022 10:23:44 10/30/19 20 Date of Last Colonoscopy completed Not Available [facility] 08/23/2022 02:48:28 09/22/19 20 Most Recent Bone Density completed Not Available formerly [facility] 08/23/2022 02:48:28 screening for malignant neoplasm of breast completed Sandra ROWAN [facility] [employer] [facility] 09/03/2023 14:55:32 Imaging Results None recorded. Procedure Notes None recorded. Medical Equipment None Reported. Allergies Allergen ID Allergen Name Allergen Category Reaction Reaction Severity Criticality Documentation Date Start Date Code Code System Note Provider Name and Address Organization Details Recorded Time 4852 Product containin g 3-hydroxy -3-methyl glutaryl- coenzyme A reductase inhibitor (product) medicatio n Not available Not available Not available 08/23/2022 53585 009 SNOMED muscl e cramp s Not Available formerly [facility] 3 03:04:07 4853 lisinopri l medicatio n cough Not available Not available 08/23/2022 59925 RxNorm Not Available formerly [facility] 3 03:04:07 Medications Name Sig Start Date [...] completed Not Available Not Available Not Available prednison e 10 mg tablet TAKE 2 TABLETS BY MOUTH DAILY FOR 7 DAYS THEN TAKE 1 TABLET BY MOUTH DAILY FOR 7 DAYS 09/11 completed Not Available Not Available Not Available venlafaxi ne ER 75 mg capsule,e xtended release 24 hr TAKE 1 CAPSULE BY MOUTH EVERY DAY active Not Available Not Available No t Available cetirizin e 10 mg tablet TAKE 1 TABLET BY MOUTH ONCE DAILY active Not Available Not Available No t Available azithromy natalia 250 mg tablet 2 tabs po qd x 1 day then 1 tab po qd x 4 days 07/31 completed Not Available Not Available Not Available benzonata te 200 mg capsule TAKE 1 CAPSULE BY MOUTH THREE TIMES DAILY FOR 7 DAYS NEEDED FOR COUGHING active Not Available Not Available No t Available lisinopri l 20 mg tablet TAKE [...] TABLET BY MOUTH EVERY DAY 2024 active HARPAL 09/11/24 NOV 01/12/25 ok to rf Not Available Not Available Not Available ciproflox acin 250 mg tablet TAKE 1 [...] TABLET BY MOUTH EVERY DAY 2024 active HARPAL 09/11/24 NOV 01/12/25 ok to rf Not Available Not Available Not Available ciclopiro x 8 % topical solution APPLY [...] administ ered by the provider 12/16 completed ND: [id number] 10-12 Not Available Not Available Not Available phenazopy [...] Not Available Not Available No t Available prednison e 50 mg tablet TAKE 1 TABLET BY MOUTH DAILY FOR 5 DAYS 09/11 completed Not Available Not Available Not Available triamcino lone acetonide 55 mcg nasal [...] completed Not Available Not Available Not Available pyridoxin e (vitamin B6) 100 mg tablet TAKE 2 TABLETS BY MOUTH DAILY 01/05 completed Not Available Not Available Not Available levofloxa natalia 500 mg tablet 06/08 completed Not Available Not Available Not Available methylpre dnisolone 4 mg tablets in a dose pack FOLLOW PACKAGE DIRECTIO NS active Not Available Not Available No t Available albuterol sulfate HFA 90 mcg/actua tion aerosol inhaler INHALE 1 PUFF BY MOUTH EVERY 4 HOURS NEEDED 2024 active Not Available Not Available Not Avai lable Vitamin D2 1,250 mcg (50,000 unit) capsule Take 1 capsule every week by oral route. active Not Available Not Available No t Available losartan 100 mg tablet TAKE 1 TABLET BY MOUTH EVERY DAY active Not Available Not Available No t Available doxycycli ne hyclate 100 mg tablet TAKE 1 TABLET BY MOUTH TWICE DAILY FOR 5 DAYS active Not Available Not Available No t Available amoxicill in 875 mg-potass ium clavulana te 125 mg tablet TAKE 1 TABLET BY MOUTH TWICE DAILY WITH THE MORNING AND EVENING MEAL FOR 5 DAYS 09/11 completed Not Available Not Available Not Available amoxicill in 500 mg-potass ium clavulana te 125 mg tablet 08/21 completed Not Available Not Available Not Available oxycodone 5 mg tablet 06/08 completed Not Available Not Available Not Available neomycin 3.5 mg/g-poly myxin B 10,000 unit/g-de xameth 0.1 % eye oint 08/21 completed Not Available Not Available Not Available azithromy natalia 500 mg tablet TAKE 1 TABLET BY MOUTH DAILY FOR 3 DAYS 09/11 completed Not Available Not Available Not Available ezetimibe 10 mg tablet TAKE 1 TABLET BY MOUTH EVERY DAY active Not Available Not Available No t Available cyclobenz aprine 5 mg tablet TAKE [...] capsule TAKE 1 CAPSULE BY MOUTH EVERY 12 HOURS FOR 5 DAYS 01/05 completed Not Available Not Available Not Available Vytorin 10 mg-40 mg tablet Take 1 tablet(s ) every day by oral route. active Not Available Not Available No t Available pregabali n 50 mg capsule Take 1 capsule twice a day by oral route. 09/11 completed Not Available Not Available Not Available Aspir-81 05/17 completed Not Available Not Available Not Available Vitamin D3 50mcg 10/12 completed Not Available Not Available Not Available Centrum 10/12 completed Not Available Not Available Not Available Calcium with Vitamin D QD 12/31 completed Not Available Not Available Not Available Calcium 600 + D(3) 10/12 completed Not Available Not Available Not Available fenofibra te 09/05 completed Not Available Not Available Not Available lidocaine (PF) 10 mg/mL (1 %) injection solution In office injectio n administ ered by the provider 12/16 completed [facility]: 0409-427 6-17 Not Available Not Available Not Available fenofibra te nanocryst allized 145 mg tablet TAKE 1 TABLET BY MOUTH EVERY DAY active Not Available Not Available No t Available FeroSul 325 mg (65 mg iron) tablet TAKE 1 TABLET BY MOUTH DAILY WITH BREAKFAS T 10/17 completed Not Available Not Available Not Available Gavilyte- C 240 gram-22.7 2 gram-6.72 gram-5.84 gram oral solution MIX AND DRINK UTD active Not Available Not Available No t Available B12 10/12 completed Not Available Not Available Not Available Suprep Bowel Prep Kit 17.5 gram-3.13 [...] Not Available Vitals Date Recorded Body height Body mass index (BMI) Body weight Body temperature Heart rate Oxygen saturation Oxygen saturation in Arterial blood by Pulse oximetry Systolic And Diastolic Provider Name and Address Organization Details Last Updated DateTime 5 165.1 cm 24.8 kg/m2 18587.2 6 g 97.6 [degF] 103 /min 95 % 95 % 119/76 mm[Hg] Lupis lockwood [place] [employer] [facility] [employer] 5 12:28:15 Date Recorded Heart rate Oxygen saturation Oxygen saturation in Arterial blood by Pulse oximetry Heart rate Respiratory rate Provider Name and Address Organization Details Last Updated DateTime 5 79 /min 96 % 96 % 79 /min 15 /min Chance Jones MD [address] [place] [address], [facility] [address], [place], [address], [employer] 5 14:36:44 Date Recorded Body height Body mass index (BMI) Body weight Body temperature Systolic And Diastolic Provider Name and Address Organization Details Last Updated DateTime 11/12/2024 165.1 cm 25.1 kg/m2 04022.4 5 g 98.2 [degF] 124/78 mm[Hg] Kellie Valencia MA [employer] [facility] [employer] 5 14:13:39 Date Recorded Body height Body mass index (BMI) Body weight Body temperature Heart rate Oxygen saturation Oxygen saturation in Arterial blood by Pulse oximetry Systolic And Diastolic Provider Name and Address Organization Details Last Updated DateTime 5 165.1 cm 26.1 kg/m2 59235 g 96.7 [degF] 89 /min 92 % 92 % 122/90 mm[Hg] Lupis lockwood [employer] [facility] [employer] 5 14:55:47 Date Recorded Body height Body mass index (BMI) Body weight Heart rate Respiratory rate Body temperature Systolic And Diastolic Provider Name and Address Organization Details Last Updated DateTime 4 165.1 cm 25 kg/m2 40389.8 6 g 86 /min 14 /min 98.6 [degF] 130/70 mm[Hg] Kerri Lorenzo MA [place] [employer] [facility] [employer] 4 16:13:39 Date Recorded Body height Body mass index (BMI) Body weight Body temperature Heart rate Oxygen saturation Oxygen saturation in Arterial blood by Pulse oximetry Systolic And Diastolic Provider Name and Address Organization Details Last Updated DateTime 4 165.1 cm 25 kg/m2 78795.8 6 g 97.4 [degF] 94 /min 98 % 98 % 136/72 mm[Hg] MARYBEL Olmedo [place] [employer] [facility] [employer] 4 09:52:38 Social History Question Answer Notes LastModified by Organization Details LastModified Time Tobacco Smoking Status Former Smoker Sandra tovar [facility] [employer] 05/08/2023 10:19:54 Do You Have An Advance Directive? Yes [id number] Information not available 08/23/2022 How Many Years Have You Consumed Alcohol? 21 [email or web address] Information not available 01/10/2024 Are You Blind Or Do You Have Difficulty Seeing? No Information not available 05/08/2023 Is Blood Transfusion Acceptable In An Emergency? Yes [email or web address] Information not available 01/10/2024 What Is Your Level Of Caffeine Consumption? Occasional Information not available 09/03/2023 What Is Your Code Status? Other [email or web address] Information not available 01/10/2024 In The 14 [...] No Information not available 05/08/2023 Are You Deaf Or Do You Have Serious Difficulty Hearing? Yes Has A Hearing Aid For The Left Ear, Since Mar 2023 [email or web address] Information not available 01/10/2024 What Type Of Diet Are You Following? [id number] [id number] Information not available 08/23/2022 What Is The Highest Grade Or Level Of School You Have Completed Or The Highest Degree You Have Received? [id number] [email or web address] Information not available 01/10/2024 Do You Have An Electrostatic Air Filter? No Information not available 05/08/2023 How Many Days Of Moderate To Strenuous Exercise, Like A Brisk Walk, Did You Do In The Last 7 Days? 5 [email or web address] Information not available 01/10/2024 On Those Days That You Engage In Moderate To Strenuous Exercise, How Many Minutes, On Average, Do You Exercise? 20 [email or web address] Information not available 01/10/2024 Have There Been Any Changes To Your Family Or Social Situation? No [email or web address] Information not available 01/10/2024 What Is The Fluoride Status Of Your Home? Fluoridated Information not available 05/08/2023 When Did You Quit Smoking? [email or web address] igarette Information not available 05/08/2023 Are There Any Guns Present In Your Home? No Information not available 05/08/2023 Do You Have A Humidifier? Yes Information not available 05/08/2023 Do You Use Insect Repellent Routinely? No [email or web address] Information not available 01/10/2024 Where Do You Live? SingleLevelHouse Information not available 05/08/2023 Presence Of Domestic Violence No [email or web address] Information not available 01/10/2024 Guns Present In The Home? No [email or web address] Information not available 01/10/2024 Are You Able To Care For Yourself? Yes [email or web address] Information not available 01/10/2024 Are You Blind Or Do Yo Have Difficulty Seeing? No [email or web address] Information not available 01/10/2024 Are You Deaf Or Do You Have Serious Difficulty Hearing? Yes [email or web address] Information not available 01/10/2024 General Stress Level? Low [email or web address] Information not available 01/10/2024 Live Alone Of With Others? Alone [email or web address] Information not available 01/10/2024 Do You Have A Medical Power Of Service Plumber? Yes Information not available 05/08/2023 Do You Have Moisture Problems In Your Home? No Information not available 05/08/2023 What Was The Date Of Your Most Recent Tobacco Screening? 11/12/2024 Information not available 11/12/2024 How Many Children Do You Have? 3 [email or web address] Information not available 01/10/2024 What Is Your Current Pack Years? 10packyears [email or web address] Information not available 01/10/2024 Have You Ever Been Counseled For Unhealthy Alcohol Use? No Information not available 05/08/2023 Do You Have Any Pets? No Information not available 05/08/2023 What Is Your Relationship Status? [email or web address] Information not available 01/10/2024 Do You Use Your Seat Belt Or Car Seat Routinely? Yes Information not available 05/08/2023 Are You Sexually Active? No [email or web address] Information not available 01/10/2024 Do You Have Smoke And Carbon Monoxide Detectors In Your Home? Yes Information not available 05/08/2023 At What Age Did You Start Smoking Tobacco? 21 Information not available 05/08/2023 Are You Passively Exposed To Smoke? No Information not available 05/08/2023 Are There Any Smokers In Your House? No [email or web address] Information not available 01/10/2024 How Much Tobacco Do You Smoke? 0.5 PPD [id number] Information not available 08/23/2022 What Types Of Sporting Activities Do You Participate In? None [email or web address] Information not available 01/10/2024 Do You Use Sunscreen Routinely? Yes Information not available 05/08/2023 Has Tobacco Cessation Counseling Been Provided? No Information not available 09/03/2023 How Many Years Have You Smoked Tobacco? 10 Information not available 05/08/2023 Have You Recently Traveled Abroad? No Information not available 05/08/2023 Do You Have Difficulty Walking Or Climbing Stairs? No Information not available 05/08/2023 Do You Have Any Dietary Restrictions? No Information not available 05/08/2023 How Many Days In The Past Year Have You Consumed 4 Or More Drinks? 0 [email or web address] Information not available 01/10/2024 Sex: Unknown Functional Status Question Answer Note LastModified by Organizat ion Details LastModified Time Do you or have you ever used smokeless tobacco? Never used smokeless tobacco [id number] Information not available 08/23/2022 Are you currently employed? No [email or web address] Information not available 01/10/2024 Have you been exposed to chemicals or toxins? not that aware of Information not available 11/12/2024 Do you have transportation difficulties? No Information not available 05/08/2023 Are you able to care for yourself? Yes Information n ot available 05/08/2023 Do you have difficulty dressing or bathing? No Information not available 05/08/2023 Do you or have you ever used e-cigarettes or vape? Never used electronic cigarettes Information not available 05/08/2023 What is your exercise level? Occasional [email or web address] Information not available 01/10/2024 Do you use any illicit or recreational drugs? No Information not available 05/08/2023 Do you or have you ever used any other forms of tobacco or nicotine? No Information not available 05/08/2023 What is your level of alcohol consumption? Occasional [id number] Information not available 08/23/2022 Are you able to walk? [email or web address] Information not available 05/08/2023 Do you have difficulty doing errands alone? No Information not available 05/08/2023 What is your occupation? Retired Information not available 05/08/2023 Mental Status Question Answer Note LastModified by Organizat ion Details LastModified Time Do you feel stressed (tense, restless, nervous, or anxious, or unable to sleep at night)? [id number] [email or web address] Information not available 01/10/2024 Do you have difficulty concentrating, remembering or making decisions? No Information no t available 05/08/2023 Family History Relationship Description Onset Age of this Age Resolved Age Notes LastModified by Organization Details LastModified Time Father Hypertensive disorder [id number] Not available 08/23/2022 02:48:34 Father Coronary arterioscler osis [email or web address] Not available 11/12 13:51:49 Father Heart disease [email or web address] Not available 2023 14:54:43 Brother Coronary arterioscler [email or web address] Not available 11/12 13:51:49 Brother Heart disease [email or web address] Not available 2023 14:54:43 Brother Hypertensive disorder [id number] Not available 08/23/2022 02:48:34 Son Crohn's disease [email or web address] Not available 11/12 13:51:49 Mother Family history of malignant neoplasm [email or web address] Not available 11/12 13:51:49 Notes:cancer - mother Medical History Condition Response MRSA N SLEEP APNEA N ALLERGIES/HAYFEVER N LUNG DISEASE/DISORDER Y HISTORY OF DRUG ABUSE N INSOMNIA N COPD N RADIATION / CHEMOTHERAPY Y HIGH CHOLESTEROL / HYPERLIPIDEMIA Y HYPERTHYROIDISM N BLOOD DISEASES N EAR OR HEARING PROBLEMS N HYPOTHYROIDISM N SHINGLES N DEPRESSION (INCLUDING POST ) N BOWEL PROBLEMS Y HAVE YOU BEEN HOSPITALIZED OR SEEN IN [facility] IN THE PAST YEAR ? N STROKE/TIA Y THYROID DISEASE Y ULCERS N OBESITY N HISTORY WITH COMPLICATIONS WITH ANESTHES IA ? N ANEURYSM N URINARY/BLADDER/KIDNEY PROBLEMS Y ARTHRITIS Y USE [...] influenza, unspecified formulation 3 completed Not Available formerly [facility] 08/04/2023 12:21:57 pneumococcal polysaccharide PPV23 7 completed Not Available formerly [facility] 08/04/2023 12:21:57 SARS-COV-2 (COVID-19) vaccine, UNSPECIFIED 1 completed Not Available formerly [facility] 08/04/2023 12:21:57 SARS-COV-2 (COVID-19) vaccine, UNSPECIFIED 1 completed Not Available formerly [facility] 08/04/2023 12:21:57 pneumococcal polysaccharide PPV23 6 completed Not Available formerly [facility] 08/04/2023 12:21:57 Influenza, high-dose, quadrivalent, PF 1 completed Not Available [facility] 08/04/2023 12:21:57 Influenza, high-dose, quadrivalent, PF 0 completed Not Available formerly [facility] 08/04/2023 12:21:57 Influenza, high-dose, trivalent, PF 9 completed Not Available formerly [facility] 08/04/2023 12:21:57 Pneumococcal conjugate PCV 13 6 completed Not Available formerly [facility] 08/04/2023 12:21:57 Past Encounters Encounter ID Performer Location Encounter Start Date Encounter Closed Date Diagnosis/Indication Diagnosis SNOMED-CT Code Diagnosis ICD10 Code Diagnosis Note [id number] William Miller MD [facility] Internal Med [address] [place] [address] 09/13/2020 00:00:00 09/13/2020 14:02:06 [id number] Travis Martinez MD [facility] Ortho Tam[address] [place] [address] 10/15/2020 00:00:00 10/15/2020 09:54:52 [id number] William Miller MD [facility] Internal Med [address] [place] [address] 01/06/2021 00:00:00 01/06/2021 13:38:02 [id number] [facility] ENT Tamiko Howard [address] [place] [address] 02/03/2021 00:00:00 02/03/2021 16:47:16 [id number] William Miller MD [facility] Internal Med [address] [place] [address] 06/08/2021 00:00:00 06/08/2021 17:22:17 [id number] William Miller MD [facility] Internal Med [address] [place] [address] 10/07/2021 00:00:00 10/10/2021 13:16:22 [id number] Chance Jones MD [facility] [address] [address] 10/17/2021 00:00:00 10/17/2021 16:59:01 [id number] Chance Jones MD [facility] [address] [address] 10/31/2021 00:00:00 10/31/2021 19:10:59 [id number] Chance Jones MD [facility]mon[facility] [address] [address] 01/30/2022 00:00:00 01/30/2022 14:43:49 [id number] William Miller MD [facility] Internal Med [address] [place] [address] 02/10/2022 00:00:00 02/10/2022 11:56:12 [id number] William Miller MD [facility] Internal Med [address] [place] [place] [address] 06/06/2022 00:00:00 06/06/2022 09:49:52 [id number] Chance Jones MD [facility] Pulmonolo gy [place] [address] [place] [address] 11/16/2022 09:44:06 11/17/2022 08:29:03 Interstitial lung disease 279819507 J84.9 Mild chron ic obstructive pulmonary disease 845036165 J44.9 [id number] William Miller MD [facility] Internal Med [address] [place] [address] 12/06/2022 09:37:57 12/06/2022 10:20:14 Essential hypertension 57511395 I10 under control Hyperlipidemia 01953277 E78.5 watch diet Malignant tumor of breast 575092988 C50.919 s/p right lumpectomy Menopausal syndrome 1237 04732 N95.9 Off Effexor and has no symptoms Osteopenia 132624957 M85 .80 Dexa up to date Vitamin D deficiency 347 76113 E55.9 on otc Hypothyroidism 88661833 E03.9 TSH Diverticular disease 397 462361 K57.90 s/p colonoscop y and barium enema due to incomplete colon exam in 2013 Heart murmur 72066896 R0 1.1 echo 01/2022 History of cerebrovascular disease 544996005 Z86.79 plavix Idiopathic pulmonary fibrosis 692570199 J84.112 seeing pulmonary Pulmonary hypertension 51174587 I27.20 seeing pulmonary Neuropathy 797530786 G62 .9 no meds History of deep vein thrombosis 330426704 Z86.718 off meds Adult heal th examination 575727546 Z00.00 Colonoscop y- 07/08/2018 , then 2013, was not complete, Had CT, Colonogram 10/2019 Mammogram- 10/27/20 DEXA- 06/2022 Pneumovax- 01/16/2007 Prevnar 13- 10/07/2015 FLU- 05/2021 COVID- 08/17/20, 09/09/20 Interstiti al lung disease 531611133 J84.9 Aortic valve stenosis 60 777191 I35.0 gets echo at cardiology Hearing loss 35970616 H9 1.92 wants to wait for the hearing testing Screening for disorder 126964758 Z13.9 [id number] William Miller MD [facility] Internal Med [address] [place] [address] 05/08/2023 10:19:26 05/08/2023 11:10:00 Mixed hyperlipidemia 709449233 E78.2 watch diet Essential hypertension 82015584 I10 under control Malignant tumor of breast 652156419 C50.919 s/p right lumpectomy Menopausal syndrome 1237 61218 N95.9 Off Effexor and has no symptoms Osteopenia 114646907 M85 .80 Dexa up to date Vitamin D deficiency 347 74558 E55.9 on otc Hypothyroidism 48255518 E03.9 TSH Diverticular disease 397 379514 K57.90 s/p colonoscop y and barium enema due to incomplete colon exam in 2013 Heart murmur 95081044 R0 1.1 echo 01/2022 History of cerebrovascular disease 805676997 Z86.79 plavix Idiopathic pulmonary fibrosis 415916474 J84.112 seeing pulmonary Pulmonary hypertension 56165207 I27.20 seeing pulmonary Neuropathy 660860123 G62 .9 no meds History of deep vein thrombosis 341377211 Z86.718 off meds Adult heal th examination 242563841 Z00.00 Colonoscop y- 07/08/2018 , then 2013, was not complete, Had CT, Colonogram 10/2019Mam mogram- 10/27/20DEXA - ne umovax- 01/16/2007 Prevnar 13- 10/07/2015 FLU- 05/08/2023 COVID- 08/17/20, 09/09/20 Interstiti al lung disease 661750563 J84.9 seeing pulm Aortic valve stenosis 60 095406 I35.0 gets echo at cardiology Hearing loss 66044758 H9 1.92 needs hearing testing Chronic diarrhea 4788416 09 K52.9 otc, metamucil [id number] Tej Madrigal DPM [facility] Podiatry [address] [place] [address] 09/03/2023 14:44:50 09/03/2023 17:24:11 Closed fracture of fifth metatarsal bone 47644497 S92.352A Crutches dispensedR x cam boot, dispenseri ce therapyrec ommend nonweightb earing left foot- 5 weeksfollo w-up 3 weeks for repeat x-rays [id number] William Miller MD [facility] Internal Med [address] [place] [address] 09/06/2023 09:58:24 09/06/2023 10:38:26 Mixed hyperlipidemia 868089549 E78.2 watch diet Essential hypertension 62238249 I10 under control Malignant tumor of breast 288988793 C50.919 s/p right lumpectomy Menopausal syndrome 1237 36442 N95.9 Off Effexor and has no symptoms Osteopenia 112426034 M85 .80 Dexa up to date Vitamin D deficiency 347 92771 E55.9 on otc Hypothyroidism 55194122 E03.9 TSH Diverticular disease 397 493260 K57.90 s/p colonoscop y and barium enema due to incomplete colon exam in 2013 Heart murmur 45159135 R0 1.1 echo 01/2022 History of cerebrovascular disease 836353002 Z86.79 plavix Pulmonary hypertension 62127767 I27.20 seeing pulmonary Neuropathy 491087407 G62 .9 no meds History of deep vein thrombosis 420975012 Z86.718 off meds Adult heal th examination 241528669 Z00.00 Colonoscop y- 07/08/2018 , then 2013, was not complete, Had CT, Colonogram 10/2019Mam mogram- gets it sitemanDEX A- 07/19/2022 Pneumovax- 01/16/2007 Prevnar 13- 10/07/2015 FLU- 05/08/2023 COVID- 08/17/20, 09/09/20 Interstiti al lung disease 257879452 J84.9 seeing pulm Aortic valve stenosis 60 102408 I35.0 gets echo at cardiology Hearing loss 42538466 H9 1.92 had hearing testing Chronic diarrhea 6229310 09 K52.9 otc, metamucil Kidney disease 56832463 N08 stop HCTZ Fracture of foot 1693555 5 S92.902A has a boot [id number] Tej Madrigal DPM [facility] Podiatry [place] [address] [place] [address] 09/24/2023 14:11:16 09/24/2023 16:20:51 Closed fracture of fifth metatarsal bone 12926143 S92.352A Crutches dispensed , not usingRx cam boot, dispenseri ce therapyrec ommend nonweightb earing left foot- 5 weeksfollo w-up 4 weeks for repeat x-rays [id number] Tej Madrigal DPM [facility] Pod[facility] [place] [address] [place] [address] 10/29/2023 17:31:11 10/30/2023 13:22:15 Closed fracture of fifth metatarsal bone 48354552 S92.352D Crutches dispensed , not usingRx cam boot, continuedr ecommend completely nonweightb earingreco mmend crutches/w heelchair- not usingrice therapyrec ommend nonweightb earing left foot- 5 weeksfollo w-up 4-5 weeks for repeat x-rays [id number] Chance Jones MD [facility] Pulmonolo gy [address] [address] 11/14/2023 14:03:53 11/14/2023 15:41:50 Mild chronic obstructive pulmonary disease 585325784 J44.9 Interstiti al lung disease 992219439 J84.9 [id number] Tej Madrigal DPM [facility] Podiat[facility] [place] [address] [place] [address] 11/26/2023 15:34:26 12/20/2023 14:05:20 Fracture of foot 58916892 S92.902A continue minimal weight-trisha ringmay transition to normal shoe gearfollow -up 5 weeks for repeat x-rays [id number] Tej Madrigal DPM [facility] Podiat[facility] [place] [address] [place] [address] 12/31/2023 14:13:20 12/31/2023 16:12:15 Fracture of foot 06833611 S92.902A continue minimal weight-trisha ringmay transition to normal shoe gearfollow -up 5 weeks for repeat x-rays [id number] William Miller MD [facility] Internal Med [address] [place] [address] 01/10/2024 10:21:42 01/10/2024 11:17:39 Mixed hyperlipidemia 525338680 E78.2 watch diet Essential hypertension 16873581 I10 BP was high, rechecked and was 144/88, watch Malignant tumor of breast 576463481 C50.919 s/p right lumpectomy Menopausal syndrome 1237 78776 N95.9 Off Effexor and has no symptoms Osteopenia 036409369 M85 .80 Dexa 07/17 Vitamin D deficiency 347 13171 E55.9 on otc Hypothyroidism 12192795 E03.9 Diverticular disease 397 161159 K57.90 s/p colonoscop y and barium enema due to incomplete colon exam in 2013 Heart murmur 74236531 R0 1.1 echo 01/2022 History of cerebrovascular disease 304114839 Z86.79 plavix Pulmonary hypertension 89489140 I27.20 seeing pulmonary Neuropathy 727750749 G62 .9 no meds History of deep vein thrombosis 030335765 Z86.718 off meds Interstiti al lung disease 491776604 J84.9 seeing pulm Aortic valve stenosis 60 682939 I35.0 gets echo at cardiology Hearing loss 62240407 H9 1.92 had hearing testing Chronic diarrhea 5572316 09 K52.9 otc, metamucil Adult heal th examination 433347618 Z00.00 Colonoscop y- 07/08/2018 , then 2013, was not complete, Had CT, Colonogram 10/2019Mam [facility]- gets it siteman. Last one was EXA - 07/19/2022 Pneumovax- 01/16/2007 Prevnar - 10/07/2015 FLU- 05/08/2023 COVID- 08/17/20, 09/09/20 Kidney disease 58178126 N08 SEEING NEPHROLOGY Fracture of foot 9884282 5 S92.902A has a boot Screening for disorder 007240237 Z13.9 [id number] William Miller MD [facility] Internal [address] [place] [address] 02/01/2024 14:15:29 02/01/2024 14:59:37 Pain in left lower limb 988183534 M79.605 has no transporta tion to go [...] see if PT will help her first. [id number] Tej Madrigal DPM [facility] Podiat[place] [address] [place] [address] 03/06/2024 15:49:40 03/10/2024 10:49:12 Fracture of foot 28016889 S92.902A continue minimal weight-trisha ringmay transition to normal shoe gearfollow -up 5 weeks for repeat x-rays Closed fra cture of fifth metatarsal bone 14688581 S92.352D x-rays reviewed with the patientPat ient may wear normal shoe gearIf pain or swelling starts to the area of fracture she needs to return to the boot.Follo w-up as needed, no strenuous activities for 1 month [id number] William Miller MD [facility] Internal Med [address] [place] [address] 05/15/2024 09:44:46 05/15/2024 10:37:30 Essential hypertension 32149822 I10 under control Mixed hyperlipidemia 267 182368 E78.2 watch diet, better Malignant tumor of breast 714690485 C50.919 s/p right lumpectomy Menopausal syndrome 1237 02777 N95.9 Off Effexor and has no symptoms Osteopenia 643648288 M85 .80 Dexa 07/17 Vitamin D deficiency 347 84578 E55.9 on otc Hypothyroidism 18492072 E03.9 under control Diverticular disease 397 756415 K57.90 s/p colonoscop y and barium enema due to incomplete colon exam in 2013 History of cerebrovascular disease 023154551 Z86.79 plavix Pulmonary hypertension 53302112 I27.20 seeing pulmonary Neuropathy 158175786 G62 .9 no meds History of deep vein thrombosis 701796705 Z86.718 off meds Interstiti al lung disease 223114671 J84.9 seeing pulm Aortic valve stenosis 60 077342 I35.0 gets echo at cardiology Hearing loss 25042329 H9 1.92 had hearing testing Chronic diarrhea 3293717 09 K52.9 otc Adult heal th examination 473320275 Z00.00 Colonoscop y- 07/08/2018 , then 2013, was not complete, Had CT, [facility]. Last one was EXA - 07/19/2022 Pneumovax- 01/16/2007 Prevnar 13- 10/07/2015 FLU- 03/27/2024 ([facility] )RSV- 03/27/2024 OVID- 08/17/20, 09/09/20 Kidney disease 46172973 N08 improving [id number] William Miller MD [facility] Internal Med [address] [place] [address] 09/11/2024 12:11:24 09/11/2024 12:45:58 Essential hypertension 45960638 I10 under control Malignant tumor of breast 185894973 C50.919 s/p right lumpectomy Menopausal syndrome 1237 72269 N95.9 Off Effexor and has no symptoms Osteopenia 539923998 M85 .80 Dexa 07/17 Vitamin D deficiency 347 01511 E55.9 on otc Hypothyroidism 45383773 E03.9 under control Diverticular disease 397 661070 K57.90 s/p colonoscop y and barium enema due to incomplete colon exam in 2013 History of cerebrovascular disease 771044227 Z86.79 plavix Pulmonary hypertension 24259146 I27.20 seeing pulmonary Neuropathy 980083959 G62 .9 no meds, better History of deep vein thrombosis 932049070 Z86.718 off meds Interstiti al lung disease 012805200 J84.9 seeing pulm, getting worse, may need o2, being evaluated next week Aortic valve stenosis 60 237694 I35.0 gets echo at cardiology Hearing loss 68675832 H9 1.92 had hearing testing Chronic diarrhea 1155244 09 K52.9 otc Adult heal th examination 048341520 Z00.00 Colonoscop y- 07/08/2018 , then 2013, was not complete, Had CT, Colonogram 10/2019Mam mogram- gets it siteman. Last one was EXA - 07/19/2022 Pneumovax- 01/16/2007 Prevnar 13- 10/07/2015 FLU- 03/27/2024 ([facility] )RSV- 03/27/2024 OVID- 08/17/20, 09/09/20 Kidney disease 05243816 N08 improving Hyperlipidemia 35172396 E78.5 better [id number] Chance Jones MD [facility] Pulmonolo gy [address] [place] [address] 11/12/2024 13:50:29 11/13/2024 14:10:36 Mild chronic obstructive pulmonary disease 871769288 J44.9 Interstiti al lung disease 410717210 J84.9 [id number] William Miller MD [facility] Internal Med [address] [place] [address] 01/05/2025 14:43:50 01/06/2025 11:53:55 Bronchitis 47010168 J40 Use albuterol as needed. Health Concerns Section Related Observation LastModified by Organization Detai ls LastModified Time None Recorded Concern Status LastModified by Organization Details LastModified Time None Recorded Advance Directives Directive Y: Payers Insurance Date Sequence Insurance Name Policy Number Policy Clark Covered Member ID Clark Member ID Guarantor Name 01/11/2025 1 [employer] (MEDICARE REPLACEMENT/ ADVANTAGE - PPO) [id number] Nesha Bettencourt [id number] Nesha Bettencourt Notes Date Note Type Note Provider Name and Address Organization Details Recorded Time 03/06/2024 text/html . Patient is an 83-year-old female she returns the office for follow-up on metatarsal fracture of the left foot. Patient had x-rays today which shows healing she states she has been walking she has absolutely no pain or swelling to the area. Patient denies any other complaints or difficulty with weight-bearing. Tej Madrigal, DPM [address] [facility], [place], [address], [place] [facility] [employer] 03/10/2024 08:53:44 05/15/2024 text/html Here for her 4 m [facility] follow up. compliant with meds. HEARING LOSS, [...] HTN- Aortic stenosis- moderate, seeing cardiology, Dr johnston [place] Neuropathy- was on gabapentin, seen neurology, some times gets stiffness in the legs in the morning. Dr. Madrigal started her on Vitamin B12 to see if that helps, not helpingsymptoms are getting worseRecurrent uti- nothing recent Chronic diarrhea- imodium helps , TR- HAD echo, seen cardiology at [place], no symptoms Kidney disease- GFR was 36, seeing nephrology, Dr Dedrick Miller MD [address] [facility], [facility] [address], [place], [address], [place] [facility] [employer] 05/15/2024 10:31:42 09/11/2024 text/html Here for her 4 m [facility] follow up. compliant with meds. HEARING LOSS, [...] dr Shin, had PFT 11/01/2023, Does have SOB on walking, getting worseMeds- spiriva daily, alb prn Pulm HTN- Aortic stenosis- moderate, seeing cardiology, Dr at [place] Neuropathy- was on gabapentin and Pregablin, seen neurology, some times gets stiffness in the legs in the morning. Dr. Madrigal started her on Vitamin B12 to see if that helps, not sure if its helping with tingling/numbness Recurrent uti- nothing recent Chronic diarrhea- imodium helps , TR- HAD echo, seen cardiology at [place], no symptoms Kidney disease- GFR was 36, seeing nephrology, Dr Dedrick Miller MD [address] [facility], [facility] [address], [place], [address], [place] [facility] [employer] 09/11/2024 12:43:54 11/12/2024 text/html Primary care/Ref erring provider: William Miller MD Patient discontinued OFEV 150 mg BID (12/2021 - 01/2022) after 1 month due to hypertension, fatigue and diarrhea. She has worsening diarrhea and neuropathy.Patient is here to go over her ILD management.Initial development of shortness of breath: uration of shortness of breath: 2 yearsCondition of shortness of breath: stableTiming of shortness of breath: noneFrequency: up to 4 times a dayLimits activities: yesAggravating factors: walking, going up steps, vacuuming, taking a showerAlleviating factors: restModified Medical Research [place] (mMRC) Dyspnea Scale - Grade 2Grade 0 I only get breathless with strenuous exercise .Grade 1 I get short of breath when hurrying on the level or walking up a slight hill .Grade 2 I walk slower than people of the same age on the level because of breathlessness or have to stop for breath when walking at my own pace on the level .Grade 3 I stop for breath after walking about 100 yards or after a few minutes on the level .Grade 4 I am too breathless to leave the house or I am breathless when dressing .Treatment history:albuterol HFA as needed since 10/12/21Other symptoms:Productive cough: noWheezing: noChest tightness: yesOrthopnea: noFrequent throat clearing or swallowing: noPalpitations: noHeartburn: noDysphagia: noEdema: yesEnvironmental exposures:Nicotine smoke: 1/2 ppd 7462-8463 = 5 pack yearsPaint: noDye: noDust mites: yesMold: noDamp basement: noWood burning stove: noAnimal dander: noCockroaches: noPollen: yesArsenic: noAsbestos: noBeryllium: noCadmium: noChromium: noCoal smoke: noDiesel fumes: noNickel: noSilica: noSoot: noEPWORTH SLEEPINESS SCALE (ESS)CHANCE OF DOZING SCORE0 = would never doze1 = slight chance of dozing2 = moderate chance of dozing3 = high chance of dozingSITUATION AND CHANCE OF DOZINGSitting and reading - 2Watching television - 2Sitting inactive in a public place (e.g. a theater or meeting) - 0As a passenger in a car for an hour without a break - 1Lying down to rest in the afternoon when circumstances permit - 2Sitting and talking to someone - 0Sitting quietly after lunch without alcohol - 0In a car, while stopped for a few minutes in the traffic - 0TOTAL SCORE 7Subjectively, patient has a slight chance of dozing. Chance Jones MD [address] [address], [place], [address], [employer] 11/12/2024 14:47:29 01/05/2025 text/html Upper Respirator y SymptomsReported bypatient.Location[facility]; [facility] Quality:productive cough;congested;bark-l maría elena cough;wheezy cough Severity:mild Duration:cannot identify Context:sick contact Modifying Factors:OTC medication Associated Symptoms:no sore throat; no vomiting; no diarrhea; no rash; no nausea;yellow sputum;wheezing;fatigu eNotes: SWETA Hamm [address] [address], [place], [address], [employer] 01/05/2025 15:28:25 OBGyn Episode No OBEpisode recorded.
--- OUTSIDE RECORDS SUMMARY | 2025-01-11 10:08 | XMS_ITS | Clinical Summary ---
Author Organization [facility] Facility Address [address] [place] [address] Care Team Providers Care House Worker Name Role Phone Patricia Dinero MD Primary Care Provider [phone] Social History Tobacco Use Types Packs/Day Years [...] Description 04/21/2025 12:30 PM CDT Office Visit [facility], [facility] [address] [facility] [address] [place] [address] Kishor Tse DO [address] [facility] [address] [place] [address] Health Maintenance Due Date Last Done Comments Influenza Vaccine (#1) 2025 3, 06/08/2021, 05/20/2019 Pneumococcal Vaccine: 50+ Years Completed 10/07/2015, 10/07/2015, 01/16/2007 Hepatitis B Vaccine Aged Out No longe r eligible based on patient's age to complete this topic Insurance [employer] MCR Adv PPO ([id number]) Advance Directives Documents on File Type Date Recorded Patient Wheel Alignment Technician Expl anation Advance Care Planning 10/12/2023 2:00 PM Care Teams House Worker Relationship Specialty Start Date End Date Patricia Dinero MD [address] [place] [address] PCP - General Internal Medicine 09/06/23
--- OUTSIDE RECORDS SUMMARY | 2025-01-11 10:08 | XMS_ITS ---
Author Organization [id number] [facility] Address [address] [place] [address] Care Team Providers Care Rouge Presser Name Role Phone Bar Gomez MD Primary Care Provider [phone] Joshua Collins DO Unavailable [phone] Neisha Mathis MD Unavailable [phone] Kristopher Elizabeth MD Unavailable [phone] Krishna Keen MD Unavailable [phone] Active Problems Patient Care Coordination No te [...] from 12/09/2020:Stage IA(cT1c, cN0, cM0, G3, ER+, IL+, HER2-) - Signed by Neisha Mathis MD on 12/09/2020 Pathologic stage from 06/02/2021:No Stage Recommended(ypT1c, pN2, cM0, G3, ER+, IL+, HER2+) - Signed by Neisha Mathis MD on 06/02/2021 Hot flashes due to menopause 10/09/2016 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 Past Treatment and Therapy Plans Line Care Plan Name Start Date Discontinue Date Treatment Medications Discontinue Reason Plan Provider IV Maintenance Therapy Plan 01/28/2021 11/29/2021 No medications scheduled. Therapy Complete Joshua Collins DO Oncology Chemotherapy Treatment Plan Name Start Date Discontinue Date Treatment Medications Discontinue Reason Plan Provider Cycles PACLItaxel / Trastuzumab Weekly x 4 Cycles then Trastuzumab Q21 Days - Breast 11/29/2021 PACLitaxel (TAXOL)PACLItaxe l (TAXOL) IVPB in 250 mLtrastuzumab (HERCEPTIN)trast uzumab (HERCEPTIN) IVPB Therapy Complete Joshua Collins DO 5 of 17 cycles started Radiation Treatments * Course C1 R BREAST 202006/13/2021 - 08/08/2021 Treatment Period Energy Fraction Dose Fractions Total Dose Plans Planned R BREAST 06/13/2021 - 08/08/2021 200 25 / 5,000 R SCV 06/13/2021 - 08/08/2021 200 25 / 5,000 RLOQ RBRS BST 07/20/2021 - 08/01/2021 200 5 / 1,000 Reference Points Delivered scv dpv 06/13/2021 - 08/08/2021 5,000 saucedo dpv 06/13/2021 - 08/08/2021 5,000 BST DPV 07/20/2021 - 08/01/2021 1,000 Lifetime Dose Tracking * Chemical Lifetime Dose [...] from the original note were not included. 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, estrogen receptor positive (CMS/HCC) (HCC) Diagnosis date 11/17/2020 Staging information Cancer Staging 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, estrogen receptor positive (CMS/HCC) (HCC) Staging form: Breast, AJCC 8th Edition - Clinical stage from 12/09/2020: Stage IA (cT1c, cN0, cM0, G3, ER+, IL+, HER2-) - Signed by Neisha Mathis MD [...] breast cancer could run in the family: Faith heritage History of ovarian cancer in the [...] monitoring Every 3 months while on Herceptin SCHOOL PSYCHOLOGIST ASSISTANT: No care care team coordinator scheduler to display Pap/pelvic exam (woman only) As [...] Help learning to eat healthier, call the spring former at: Nicole Fisher [phone] Have an active lifestyle, strive for 30 [...] man. Resources you may be interested in: [facility] A National Cancer [place] [facility] http://www.[facility]/ [facility] 1st floor of [facility] Advanced Medicine [phone]. Computer access, educational material, counseling services (FREE) Cancer Resources: www.cancer.net [place] Disabilities Act: The U.S. Department of Justice provides information about the Americans with Disabilities Act (ADA). Toll free number http://www.ada.gov/ Occupational Therapy at [facility]. Improve memory and thinking following chemotherapy. Improve your performance at home, work and in the community. or Toll free www.ot.[facility]/patients Managing your weight after a cancer diagnosis: http://www.cancer.net/sites/cancer.net/files/weight_after_cancer_diagnosis.pdf National Coalition for Cancer Survivorship: http://www.canceradvocacy.org/ [place] Cancer Society Cancer Survivors Network: http://csn.cancer.org/ Springboard Beyond Cancer: https://survivorship.cancer.gov/ an online tool for cancer survivors andcaregivers created by the [place] Cancer Society and the National Cancer [place]. It provides: Information on dealing with side effects from cancer and treatment Caregivers with support and resources Practical advice about talking to friends and family about cancer Questions to ask their health care team Help understanding their rights in the workplace
--- OUTSIDE RECORDS SUMMARY | 2025-01-11 10:08 | XMS_ITS | Clinical Summary ---
Author Organization [facility] Address [address] [place] [address] Care Team Providers Care Flight Test Shop Mechanic Name Role Phone Bar Gomez MD Primary Care Provider [phone] Source Comments [facility],non-owned Affiliates and Associated Physician Practices is amultiple site organization consisting of ambulatory clinics and hospital sitesin [place], [place], [place] and [place]. This disclosure is being madepursuant to the Care Everywhere program and may not contain all information available regarding this patient. Last updated 18.[facility] Allergies Active Allergy Reactions Criticality Noted Date Comments 5-Alpha Reductase Inhibitors Unknown 023 Hmg-Coa-R Inhibitors Myalgias High 01/09/2022 Lisinopril Cough Medium 01/09/2022 Medications * Be aware that medications may not be up to date on this document. Alwaysverify current medications with the patient. clopidogrel (PLAVIX) 75 MG tablet Take 1 tablet by mouth once daily 30 tablet 05/10/2019 Active Calcium Carbonate+Vitam in D 600-200 MG-UNIT TABS Take 1 tablet by mouth once daily Active tiotropium (SPIRIVA RESPIMAT) 2.5 MCG/ACT inhaler 2 (two) puffs once daily Active Cholecalciferol (VITAMIN D3) 1.25 MG (52282 UT) capsule Take 1 (one) capsule by [...] tablet by mouth once daily 04/10/2022 Active hydroCHLOROthia zide (Hydrodiuril) 25 MG tablet Take 1 (one) tablet by mouth once daily 07/10/2022 Active Albuterol Sulfate 108 (90 Base) MCG/ACT Inhale 2 puffs by mouth every 6 hours as needed Active Multiple Vitamin (MULTI-VITAMINS PO) Active fenofibrate (Tricor) 145 MG tablet Take 1 (one) tablet by mouth once daily 05/10/2023 Active levothyroxine (Synthroid) 75 MCG tablet Take 1 (one) tablet by mouth once daily 04/05/2023 Active cetirizine (ZyrTEC) 10 MG tablet Take 1 (one) tablet by mouth once daily 90 tablet 4 2024 Active predniSONE (Deltasone) 10 MG tablet Take 1 (one) tablet by mouth as directed Take 20 mg (2 tablets daily) for 7 days followed by 10 mg (1 tablet) daily for 7 days 21 tablet 2024 Active Active Problems Problem Noted Date Diagnosed Date Aortic stenosis 09/15/2022 Pulmonary hypertension 09/15/2022 Dyslipidemia 09/15/2022 Atherosclerosis of aorta 09/15/2022 Dyspnea 09/15/2022 ILD (interstitial lung disease) 09/15/2022 Weakness 05/08/2019 Encounters Date Type Department Care Team Description 10/21/2024 Telephone [facility] - Pulmonology [address] [place] [phone] Brody Yoder MD 10/14/2024 Telephone [facility] - Pulmonology [address] [place] [phone] Brody Yoder MD Appointment from Last 3 Months Immunizations Immunization Administration Dates Next Due INFLUENZA VACCINE 04/05/2023 [...] Date Recorded PHQ2 TOTAL SCORE 0 06/22/2022 Comments No Sex and Gender Information Value Date Recorded Sex Assigned at Not on file Legal Sex Female 5:28 AM GRAIN SAMPLER Gender Identity Not on file Sexual Orientation Not on file Last Filed Vital Signs Vital Sign Reading Time Taken Comments Blood Pressure 155/86 10/07/2024 1:20 PM CDT Pulse 85 10/07/2024 1:20 PM CDT Temperature 36.8 C (98.3 F) 10/07/2024 1:20 PM CDT Respiratory Rate 17 10/07/2024 1:20 PM CDT Oxygen Saturation 98% 10/07/2024 1:20 PM CDT Inhaled Oxygen Concentration - - Weight 68.6 kg (151 lb 3.2 oz) 10/07/2024 1:20 P M CDT Height 165.1 cm (5' 5) 10/07/2024 1:20 PM CDT Body Mass Index 25.16 10/07/2024 1:20 PM CDT Plan of Treatment Upcoming Encounters Date Type Department Care Team (Late st Contact Info) Description 02/09/2025 3:30 PM CDT Office Visit [facility] - Pulmonology [address] [facility] [place] [address] Mook Marie MD [address] [place] [address] 03/18/2025 10:00 AM CDT Ancillary Procedure [facility] - Echosonography [address] [facility], [address] [place] [phone] 03/18/2025 11:30 AM CDT Office Visit [facility] - Cardiology [address] [facility] [place] [address] Birdie Samayoa, SCRAP CARRIER-SURGICAL MANAGER [address] [facility] [address] [facility] [place] [address] Health Maintenance Due Date Last Done Comments BONE DENSITY TESTING 1941 DTAP/TDAP/TD VACCINES (1 - Tdap) 1960 ZOSTER VACCINE (1 of 2) 1991 Respiratory Syncytial Virus (RSV) Vaccine Pt: or over 60 yrs (1 - 1-dose 75+ series) 2016 COVID-19 VACCINE (2 - season) 2024 09/28/2021 DEPRESSION SCREENING 06/25/2024 06/22/2022 MEDICARE AWV CALENDAR YEAR 2024 INFLUENZA VACCINE (#1) 2025 3, 04/05/2023, 04/14/2022, Additional history exists PNEUMOCOCCAL VACCINE 50+ Completed 016, 10/07/2015, 01/16/2007 HEPATITIS B VACCINE Aged Out No longe r eligible based on patient's age to complete this topic HIB VACCINE Aged Out No longer eligi ble based on patient's age to complete this topic HPV VACCINE Aged Out No longer eligi ble based on patient's age to complete this topic MENINGOCOCCAL (Group B) VACCINE SHARED DECISION-MAKING Aged Out No longer eligible based on patient's age to complete this topic MENINGOCOCCAL GROUPS A/C/Y/W VACCINE Aged Out No longer eligible based on patient's age to complete this topic Insurance AETNA MEDICARE ADV Advance Directives * Full Code (Latest Code Status on File) Date Activated Date Inactivated Comments 05/08/2019 5:40 AM 05/09/2019 1:57 PM Care Teams Flight Test Shop Mechanic Relationship Specialty Start Date End Date Bar Gomez MD [address] [address] PCP - General Internal Medicine 05/08/19
--- OUTSIDE RECORDS SUMMARY | 2025-01-11 10:08 | XMS_ITS | Continuity of Care Document ---
Author Organization [email or web address] Address [address] [place] [address] Phone Care Team Providers Care Nailing Machine Feeder Name Role Phone Amol Jean Unavailable Unavailable Procedures Procedure Date Eye Exam & Treatment Refraction TF Plastic Sphcyl Buda To +/-4d .12-2d Progressive Lens, Polycarb Anti-reflective Coating Polycarb Lens Per Lens Post-op Follow-up Visit Refraction Post-op Follow-up Visit Remove Cataract, Insert Lens PreOp Assessment Performed Eye Exam & Treatment Script Printed/Phoned Pt Requ Or Pharm N ot Availab IOLMaster-Professional Visual Field Examination(s) Office/outpatient Visit, Est TF Plastic Sphcyl Buda To +/-4d .12-2d Vision Svcs Frames Purchases [...] Date Provider Providers Copied on Encounter [facility] Eye [facility], [address] [place] [address] [address], [place], [place], [id number], [place] tel:[phone] SEC [facility] [place] No Information Apr-2 6-201 0 Miranda Carmichael. [facility] , [address], [place], [address], [place]. tel:[phone] [facility] Eye [facility], [address] [place] [address] [address], [place], [place], [id number], [place] tel:[phone] SEC [facility] [place] No Information [address] [facility] . [address] [facility], [address], [place], [place], [address], [place]. tel:[phone] Referring Provider: Amol Mckeon [facility] [address], [place], [place], [facility]. tel:[phone] [facility], [address] [place] [address] [address], [place], [place], [address], [place] tel:[phone] [facility] [place] No Information Mar-2 0-200 9 Miranda Carmichael. Gal [address], [address], [place], [address], [place]. tel:[phone] [facility] Eye [facility], [address] [place] [address] [address], [place], [place], [id number], [place] tel:[phone] SEC [facility] [place] No Information Mar-0 6-200 9 Miranda Carmichael. Gal Cox [address] [address], [address], [place], [address], [place]. tel:[phone] [facility] Eye [facility], [address], [place], [place], [address], [place] tel:[phone] [facility] No Information 0 5-200 9 Miranda Carmichael. [facility] , [address], [place], [address], [place]. tel:[phone] [facility] Eye [facility], [address], [place], [place], [address], [place] tel:[phone] [facility] [place] No Information 2 0200 9 Miranda Carmichael. [facility] Center , [address], [place], [address], [place]. tel:[phone] Referring Provider: Amol Mckeon, [address] [place], [place] [address]ate Center [address], [place], [place], [facility]. tel:[phone] [facility] Eye [facility], [address], [place], [place], [address], [place] tel:[phone] [facility] [place] No Information 8[address] 8 Miranda Carmichael. [address] [place], [place] [address]ate Center , [address], [place], [address], [place]. tel:[phone] Referring Provider: Amol Mckeon, [facility] [address], [place], [place], [facility]. tel:[phone] Office/outpat ient Visit, [facility] Eye [facility], [address], [place], [place], [address], [place] tel:[phone] [facility] No Information 8 Miranda Carmichael. [address] [place], [place] [address]ate Center , [address], [place], [address], [place]. tel:[phone] [facility] Eye [facility], [address], [place], [place], [address], [place] tel:[phone] [facility] No Information [address] [facility] . [address] [facility], [address], [place], [place], [address], [place]. tel:[phone] Referring Provider: Amol Mckeon, Gal [facility] [address], [place], [address]. tel:[phone] sulting Provider: Jane Cox, [address] [facility], [place], [address]. tel:[phone] [facility] Eye [facility], [address] [place] [address] [address], [place], [place], [address], [place] tel:[phone] SEC [facility] No Information 8 Miranda Carmichael. [facility] , [address], [place], [place], [facility], [place]. tel:[phone] [facility], [address] [place] [address] [address], [place], [place], [address], [place] tel:[phone] [facility] No Information 8 Miranda Carmichael. [facility] [address], [address], [place], [address], [place]. tel:[phone] [facility], [address] [place] [address] [address], [place], [place], [address], [place] tel:[phone] [facility] No Information 8 Miranda Carmichael. [facility] [address], [address], [place], [address], [place]. tel:[phone] Office/outpat ient Visit, Est [facility] Eye [facility], [address] [place] [address] [address], [place], [place], [address], [place] tel:[phone] [facility] [place] No Information 8 Miranda Carmichael. [facility] [address], [address], [place], [address], [place]. tel:[phone] Referring Provider: mAol Mckeon, Gal [facility] [address], [place], [address]. tel:[phone] [facility] Eye [facility], [address], [place], [place], [address], [place] tel:[phone] [facility] [place] No Information Dec-0 5-200 7 Ortiz OD Kodi. [address] [facility] [place] , [address], [place], [address], [place]. tel:[phone] Family History Family Member Type Diagnosis Age At Onset No Information Payers Payer name Insurance type Covered republican ID Authoriza tion(s) [place] [id number] Social History Type Description Quantity Date Captured [...]
--- OUTSIDE RECORDS SUMMARY | 2025-01-11 10:08 | XMS_ITS | Data Portability ---
Author Organization [facility] Address [address] [place] [address] Assessment No assessment recorded. Plan of Treatment Reminders Order Date Submit Date Provider Last Modified By Organization Details Last Modified Time Details Appointments None recorded. Lab None recorded. Referral None recorded. Procedures None recorded. Surgeries None recorded. Imaging MAMMO, screening, digital, bilateral 2015 016 [facility] ([facility]), [address] [place], [address], 6 04:31:28 MAMMO, diagnostic , digital, bilateral 2014 015 [email or web address] [facility] ([facility]), [address] [place], [address], 6 09:36:08 Medication Orders None recorded. Patient TargetsNo targets recorded. Patient Instructions Encounter Date Encounter Id Patient Instructions Last Modified By Organization Details Last Modified Time 05/09/2016 [id number] mammogram: about this test [email or web address] Not available 05/09/2016 17:07:33 Reason for Referral None Reported. Results Created Date Observation Date Name Description Value Unit Range Abnormal Flag Note LastModifiedBy Organization Detail LastModifiedTime 08/11/19 16 05/03/2015 mammo gram, scree kanika No observ ation record ed. [email or web address] [facility] [address] [place], [address], 08/11/2015 14:40:02 05/08/20 16 04/14/2014 MAMMO , [...] bilat eral No observ ation record ed. [facility] (Imaging) [address] [place], [address], 07/21/2017 15:29:36 Result Notes None recorded. Procedures Surgical History Date Name Laterality Status Provider Name and Address Organization Details Recorded Time 06/25/19 15 Colonoscopy completed JET Pena SIYovanny 04/22/2015 14:56:20 04/14/20 14 Most Recent Mammogram completed JET Pena 04/22/2015 14:56:20 06/25/19 13 Hysterectomy completed JET Pena 04/22/2015 14:56:20 02/29/20 11 Date of Last Pap Smear completed JET Pena 04/22/2015 14:56:20 06/25/19 08 Other completed JET Pena 04/22/2015 15:08:37 Other completed JET Pena 04/22/2015 14:56:20 Breast Biopsy completed JET Pena 04/22/2015 14:56:20 Imaging Results None recorded. Procedure Notes None [...] Body mass index (BMI) Body weight Systolic And Diastolic Provider Name and Address Organization Details Last Updated DateTime 04/22/2015 167.64 cm 27.9 kg/m2 58100.480 01 g 130/92 mm[Hg] Vickie Velazco MA [facility] 04/22/2015 15:14:18 Date Recorded Body height Body weight Body mass index (BMI) Systolic And Diastolic Provider Name and Address Organization Details Last Updated DateTime 05/09/2016 165.1 cm 30941.44 g 29.6 kg/m2 143/82 mm[Hg] Karon Loomis MA [facility] 05/09/2016 10:53:22 Social History Question Answer Notes LastModified by Organizat ion Details LastModified Time Tobacco Smoking Status Former Smoker Vickie Velazco MA [facility] 04/22/2015 15:12:31 Do You Have An Advance Directive? Yes Information not available 04/22/2015 Is Blood Transfusion Acceptable In An Emergency? Yes Information not available 04/22/2015 What Is Your Level Of Caffeine Consumption? Moderate Information not available 04/22/2015 How Much Tobacco Do You Chew? None Information not available 04/22/2015 What Type Of Diet Are You Following? REGULAR Information not available 04/22/2015 Which Illicit Or Recreational Drugs Have You Used? None Information not available 04/22/2015 Education 2 Year College Information not available 04/22/2015 Live Alone Or [...] ion Details LastModified Time What is your level of alcohol consumption? Occasional Information not available 04/22/2015 Are you currently employed? Yes Information not available 04/22/2015 What is your occupation? retired Information not available 04/22/2015 What is your exercise level? Occasional Information not available 04/22/2015 Mental Status None recorded. Family History Relationship Description Onset Age of this Age Resolved Age Notes LastModified by Organization Details LastModified Time Mother Malignant tumor of pharynx Not available 2014 15:10:31 Father Myocardial infarction 77 Not available 04/22 15:10:31 Medical History Condition Response Other N Breast Cancer N Lung Disease N Depression N Breast Problem N Anesthesia Complications N Headaches/Migraines N Anxiety Disorder N Arthritis Y Infertility N Polyps N Acid Reflux (GERD) N Cancer N Stroke N Endometriosis N High Cholesterol N Fibromyalgia N Kidney Disease N Heart Problems N Kidney or Bladder Problems N Thyroid Problems N GI Problems N Acne N Eating Disorder N Anemia N Ovarian Cancer Y Diabetes N Blood Transfusions N Abuse/Domestic Violence N Asthma N Hepatitis N Heart Disease N Pre-Eclampsia N Hypertension N Osteoporosis N Gynecological History Statement/Question Response Abnormal Pap [...] SNOMED-CT Code Diagnosis ICD10 Code Diagnosis Note [id number] MD Fabian Skinner (OBSTETRICS NURSE PRACTITIONER) [address] [place] [phone] 04/22/2015 14:20:47 04/22/2015 15:23:34 Gynecologic examination 61800256 Z01.419 Personal h istory of primary malignant neoplasm of breast 435357983 Z85.3 cancer free since [id number] MD Fabian Skinner (OBSTETRICS NURSE PRACTITIONER) [address] [place] [address] 05/09/2016 10:29:00 05/10/2016 11:28:01 Screening mammography 81360410 Z12.31 History of malignant neoplasm of breast 635083692 Z85.3 History of malignant neoplasm of uterine body 920763523 Z85.42 Health Concerns Section Related Observation LastModified by Organization Detai ls LastModified Time None Recorded Concern Status LastModified by Organization Details LastModified Time None Recorded Advance Directives Directive Y: Payers Insurance Date Sequence Insurance Name Policy Number Policy Clark Covered Member ID Clark Member ID Guarantor Name 05/08/2016 1 [facility] (MEDICARE REPLACEMENT/A DVANTAGE - HMO) [id number] Nesha Bettencourt [id number] Nesha Bettencourt Notes Date Note Type Note [...] lump; no change in breast skin 75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 F here for CBE [place], [place] - [place] 05/09/2016 17:49:30 OBGyn Episode Ob Episode Information Episode Created Date Number of Fetuses Patient Bloodtype Patient rh Status Prepregnancy Weight lbs Domestic Partner Domestic Partner Phone Father Name Data Analyst Report Writer Status 04/22/20 15 1 CLOSED Fetus Data First Name Last Name Admitted to NICU Weight (g) Sex Living Outcome Pediatric Complications Fetus ID Race Codes Race Delivery Type 2381.35 8 F Full Term 04140 Vaginal Nicolas Calculation Initial Nicolas Date Initial [...] Domestic Partner Domestic Partner Phone Father Name Data Analyst Report Writer Status 04/22/20 15 1 CLOSED Fetus Data First Name Last Name Admitted to NICU Weight (g) Sex Living Outcome Pediatric Complications Fetus ID Race Codes Race Delivery Type 3628.73 6 M Full Term 78282 Vaginal Nicolas Calculation Initial Nicolas Date Initial [...] Domestic Partner Domestic Partner Phone Father Name Data Analyst Report Writer Status 04/22/20 15 1 CLOSED Fetus Data First Name Last Name Admitted to NICU Weight (g) Sex Living Outcome Pediatric Complications Fetus ID Race Codes Race Delivery Type 3345.24 1 M 59209 Vaginal Nicolas Calculation Initial Nicolas Date Initial [...]
--- OUTSIDE RECORDS SUMMARY | 2025-01-11 10:08 | XMS_ITS | Encounter Summary ---
Author Organization [facility] Address [address] [place] [address] Care Team Providers Care Stitcher Utility Name Role Phone Bra Gomez MD Primary Care Provider Encounter Details Date Type Department Care Team (Late st Contact Info) Description 10/21/2024 Telephone [facility] - Pulmonology [address] [facility] [place] [address] Brody Yoder MD [address] [place] [address] Social History Tobacco Use Types Packs/Day Years Used Date Smoking Tobacco: Former Cigarettes Smokeless Tobacco: Never Alcohol Use Standard Drinks/Week Comments Yes 0 (1 standard drink = 0.6 oz pur e alcohol) social, infrequent PHQ-2 Answer Date Recorded PHQ2 TOTAL SCORE 0 06/22/2022 Comments No Sex and Gender Information Value Date Recorded Sex Assigned at Not on file 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 Answer Date of Assessment Author No 05/08/2019 10:37 PM Shama Hope RN * Is person blind or have serious difficulty seeing? Answer Date of Assessment Author No 05/08/2019 10:37 PM Shama Hope RN * Does person have serious difficulty walking/climbing stairs? Answer Date of Assessment Author No 05/08/2019 10:37 PM Shama Hope RN * Does person have difficulty dressing/bathing? Answer Date of Assessment Author No 05/08/2019 10:37 PM Shama Hope RN * Does person have difficulty doing errands alone? Answer Date of Assessment Author No 05/08/2019 10:37 PM Shama Hope RN documented as of this encounter Mental Status * Does person have difficulty concentrating/remembering/making decisions? Answer Entry Date Author No 05/08/2019 10:37 PM Shama Hope RN documented in this encounter Miscellaneous Notes * Telephone Encounter - Jennifer Dennis RN - 10/21/2024 2:18 PM CDT Telephoned patient to update that we attempting call DME provider no answer. Will call back when information is updated for O2 documented in this encounter Plan of Treatment Upcoming Encounters Date Type Department Care Team (Late st Contact Info) Description 02/09/2025 3:30 PM CDT Office Visit [facility] - Pulmonology [address] [facility] [place] [address] Mook Marie MD [address] [place] [address] 03/18/2025 10:00 AM CDT Ancillary Procedure [facility] - Echosonography [address] [phone] 03/18/2025 11:30 AM CDT Office Visit [facility] - Cardiology [address] [phone] Birdie Samayoa, HYPERCIL CORE TRANSFORMER ASSEMBLER-BENCH BORING MACHINE OPERATOR [address] [phone] documented as of this encounter Visit Diagnoses Not on filedocumented in this encounter Care Teams Stitcher Utility Relationship Specialty Start Date End Date Bar Gomez MD [address] [place] [address] PCP - General Internal Medicine 05/08/19 documented as of this encounter
[2025-01-11 10:11] VITALS: BP 148/81; PULSE 102; RESP 20; TEMP 36.4; O2SAT 95
--- NOTE | 2025-01-11 10:18 | ED.GENADULT ---
HPI - General Adult General Chief complaint: Fall Stated complaint: FALL LAST NIGHT, R ANKLE/FOOT PAIN Time Seen by Provider: 01/11/25 10:07 History of Present Illness HPI narrative: 84-year-old female presenting to the emergency department for evaluation for lateral right ankle and right foot pain. Patient reports that she stood up off her couch last night and lost her balance and injured her right ankle. Patient denies any other pain or injury. Patient denies striking head denies loss of consciousness. Patient states immediately after the fall she did have pain and the right ankle and right lateral foot. Patient states that she was able to wrap the foot ice it and she reports she did sleep with the wrap on her foot last night. Patient reports short this morning the pain was worsened. Patient does have prior history of CVA, chronic interstitial lung disease, high cholesterol, hypertension, hypothyroidism Related Data Home Medications ?Medication ?Instructions ?Recorded ?Confirmed ?Last Taken ?Type calcium carbonate (Calcium 600) 600 mg PO HS 03/01/21 01/20/24 Unknown History clopidogrel 75 mg tablet 75 mg PO QAM 03/01/21 01/20/24 Unknown History levothyroxine 75 mcg capsule 75 mcg PO DAILY 03/01/21 01/19/24 Unknown History losartan 100 mg tablet 100 mg PO HS 03/01/21 01/20/24 Unknown History albuterol sulfate 90 mcg/actuation 2 puff inhalation QID PRN 01/19/24 01/19/24 Unknown History aerosol inhaler Shortness Of Breath Or Wheezing ezetimibe 10 mg tablet 10 mg PO HS 01/19/24 01/20/24 Unknown History fenofibrate nanocrystallized 145 145 mg PO QAM 01/19/24 01/20/24 Unknown History mg tablet tiotropium bromide 2.5 2 puff inhalation QNOON 01/19/24 01/19/24 Unknown History mcg/actuation mist for inhalation (Spiriva Respimat) anastrozole 1 mg tablet 1 mg PO QAM 01/20/24 01/20/24 Unknown History cholecalciferol (vitamin D3) 50 50 mcg PO HS 01/20/24 01/20/24 Unknown History mcg (2,000 unit) capsule (Vitamin D3) cyanocobalamin (vitamin B-12) 500 mcg PO DAILY 07/31/24 Unknown History 1,000 mcg tablet (Vitamin B-12) Allergies Allergy/AdvReac Type Severity Reaction Status Date / Time No Known Allergies Allergy Verified 01/11/25 10:05 Review of Systems Review of Systems: All systems reviewed & are unremarkable except as noted in HPI and below PMFSH Past Medical History Medical History Hypothyroidism Cerebrovascular accident (2019) Chronic interstitial lung disease Hypercholesterolemia Hypertension Uterine cancer Breast cancer Surgical History Surgical History History of hysterectomy History of lumpectomy Family History Family History Father Acute myocardial infarction Sibling Acute myocardial infarction Mother Asthma Son Diabetes mellitus Social History Social History Social History: Surrogate medical decision maker: Mitch Bettencourt, son. Code status: Full code. Smoking packs per day: 0.75 Smoking cigarettes per day: 15.0 Years smoked: 10 Smoking pack-years: 7.50 Smoking status: Former smoker Tobacco type: cigarettes Additional smoking assessment comments: Quit 40 years ago Alcohol intake: never Substance use: never Substance use type: does not use Do You Feel Safe in your Home?: Yes Lack of Transportation: No Lack of Food: Never True Current Housing: I Have Housing Concerned About Future Housing: No Difficulty Paying Gas/Electric Bills: No Difficulty Paying for Meds: No Currently Unemployed: No Education: Decline to Answer Difficulty w/ Childcare or Family Care: No Spiritual care concerns: No Exam Narrative: APPEARANCE: Well appearing, no pain, no distress, well-nourished. HEAD: normocephalic, atraumatic. EYES: PERRLA/EOMI, conjunctivae clear. NOSE: Normal no drainage EARS:TMS clear with good light reflex. THROAT: Pharynx clear, no exudate. NECK: Supple. No adenopathy, no masses. RESPIRATORY: Airway patent, respirations nonlabored. Clear to auscultation bilaterally, no rales, rhonchi, wheezing. CARDIOVASCULAR: Regular rate and rhythm without murmurs rubs or gallops. ABDOMINAL: Soft, nontender, nondistended, normal bowel sounds MUSCULOSKELETAL: No proximal tib-fib tenderness to palpation, patient does have lateral malleolus and right lateral foot tenderness with ecchymosis NEURO: Alert. Cranial nerves II through XII intact. Good gait. Good coordination SKIN: Warm, dry. Normal Color Course Vital Signs Vital signs: Vital Signs Temperature 97.6 F 01/11/25 10:11 Pulse Rate 102 H 01/11/25 10:11 Respiratory Rate 01/11/25 10:11 Blood Pressure 148/81 H 01/11/25 10:11 Pulse Oximetry 95 01/11/25 10:11 Oxygen Delivery Room Air 01/11/25 10:11 Temperature 97.6 F 01/11/25 10:11 Pulse Rate 102 H 01/11/25 10:11 Respiratory Rate 01/11/25 10:11 Blood Pressure 148/81 H 01/11/25 10:11 Pulse Oximetry 95 01/11/25 10:11 Oxygen Delivery Room Air 01/11/25 10:11 Procedures Orthopedic Splinting/Casting Injury #1: Splinting/Casting Time: 11:09 Side: right Lower Extremity Injury Location: lower leg Lower Extremity Immobilizer: posterior splint Splint: customized in ED Pre-Procedure Neuro Vascular Exam: normal Post-Procedure Neuro Vascular Exam: normal Other Orthopedic Equipment: walker Medical Decision Making MDM Narrative Medical decision making narrative: 84-year-old female presenting to the emergency department for evaluation for a right injury. X-ray was positive for a 5th metatarsal fracture. Patient was splinted. Patient does have a walker that she utilize at home. Patient family were updated on the results of the workup and treatment plan. Patient will have follow-up with Orthopedics. All questions concerns were addressed. Differential Diagnosis Differential Diagnosis: Ankle fracture, ankle sprain, foot fracture, foot sprain Vital Signs Vital Signs: Vital Signs Temperature 97.6 F 01/11/25 10:11 Pulse Rate 102 H 01/11/25 10:11 Respiratory Rate 01/11/25 10:11 Blood Pressure 148/81 H 01/11/25 10:11 Pulse Oximetry 95 01/11/25 10:11 Oxygen Delivery Room Air 01/11/25 10:11 Temperature 97.6 F 01/11/25 10:11 Pulse Rate 102 H 01/11/25 10:11 Respiratory Rate 01/11/25 10:11 Blood Pressure 148/81 H 01/11/25 10:11 Pulse Oximetry 95 01/11/25 10:11 Oxygen Delivery Room Air 01/11/25 10:11 Imaging Data Radiologist's impression: Impressions Ankle X-Ray 01/11/25 10:33 Impression: Acute fracture the base of the fifth metatarsal. Lateral soft tissue swelling. Foot X-Ray 01/11/25 10:34 Impression: Acute fracture the base of the fifth metatarsal, as detailed above. Discharge Plan Discharge Clinical Impression: Closed fracture of fifth metatarsal bone Patient Disposition: Home Condition: Stable Instructions: Antibiotic Form, Foot Fracture in Adults (ED), Splint Care (ED) Additional Instructions: Splint care as directed. Utilize a walker for nonweightbearing on the affected foot. Have close follow-up with Orthopedics. Tylenol and ibuprofen for pain control. If you have any worsening symptoms then please call or return to the emergency department. Patient Language: Ukrainian Prescriptions: No Action cyanocobalamin (vitamin B-12) [Vitamin B-12] 1,000 mcg tablet 500 mcg PO DAILY levothyroxine 75 mcg capsule 75 mcg PO DAILY clopidogrel 75 mg tablet 75 mg PO QAM losartan 100 mg tablet 100 mg PO HS calcium carbonate [Calcium 600] 600 mg calcium (1,500 mg) tablet 600 mg PO HS albuterol sulfate 90 mcg/actuation HFA aerosol inhaler 2 puff INHALATION QID PRN (Reason: Shortness Of Breath Or Wheezing) ezetimibe 10 mg tablet 10 mg PO HS Spiriva Respimat 2.5 mcg/actuation mist 2 puff INHALATION QNOON fenofibrate nanocrystallized 145 mg tablet 145 mg PO QAM anastrozole 1 mg Tablet 1 mg PO QAM cholecalciferol (vitamin D3) [Vitamin D3] 50 mcg (2,000 unit) Capsule 50 mcg PO HS Follow-up/Referrals: Patricia,Bar Bui MD [Primary Care Provider] - Barry Lua MD [Physician] -
--- OUTSIDE RECORDS SUMMARY | 2025-01-11 10:42 | XMS_ITS | Clinical Summary ---
Author Organization [facility] [place] [id number] Address [address] [place] [address] Care Team Providers Care Bar Host Name Role Phone Bar Gomez MD Primary Care Provider Joshua Collins DO Unavailable [phone] Neisha Mathis MD Unavailable [phone] Kristopher Elizabeth MD Unavailable [phone] Krishna Keen MD Unavailable [phone] Allergies Active Allergy Reactions Criticality Noted Date Comments Adhesive Rash Medium 11/19/2020 Lisinopril Cough Low 01/09/2022 Azonbmc-Ogm-Giq Reductase Inhibitors Muscle pain,Unknown High 01/09/2022 Product containing 8-mnaxddz-8-methylglu taryl-coenzyme A reductase inhibitor (product) Medications levothyroxine (SYNTHROID) 75 mcg tablet Take 1 tablet (75 mcg total) by mouth marine rigger before breakfast Active losartan (COZAAR) 100 mg [...] from 12/09/2020:Stage IA(cT1c, cN0, cM0, G3, ER+, MN+, HER2-) - Signed by Neisha Mathis MD on 12/09/2020 Pathologic stage from 06/02/2021:No Stage Recommended(ypT1c, pN2, cM0, G3, ER+, MN+, HER2+) - Signed by Neisha Mathis MD on 06/02/2021 Hot flashes due to menopause 10/09/2016 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 Urinary tract infection 03/21/2013 Bacterial vaginosis 08/22/2012 Postmenopausal bleeding 07/08/2012 Hyperlipidemia 07/08/2012 Encounters Date Type Department Care Team Description 12/08/2024 Telephone [facility] Oncology [address] [place] [address] [address] [place] [address] Juanita Hart RN 12/05/2024 3:15 PM CDT Ancillary Procedure [facility] Imaging at [address] [address] Adhesive capsulitis of right shoulder; Acute pain of right shoulder 12/05/2024 2:15 PM CDT Office Visit [facility] Oncology [address] [place] [address] [address] [place] [address] Joshua Collins, 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, estrogen receptor positive (HCC) (Primary Dx); Adhesive capsulitis of right shoulder; Acute pain of right shoulder 11/24/2024 10:26 AM CDT - 11/24/2024 11:59 PM CDT Hospital Encounter [facility] Medical Office Bldg 1 Breast [facility] [address] [facility] [address] [place] [address] Malignant neoplasm of lower-outer quadrant of right female breast, unspecified estrogen receptor status (HCC); Screening mammogram for breast cancer Discharge Disposition: Discharge to home or self care from Last 3 Months Immunizations Immunization Administration Dates Next Due Influenza, Quadrivalent, Hig h Dose, Preservative Free, Intrr 04/14/2022 Influenza, Unspecified 06/08/2021 Pfizer SARS-CoV-2 Monovalent Vaccination (12+ Yrs) PURPLE 09/09/2020,08/17/2020 Surgical History Surgery Date Site/Laterality Comments MN COLONOSCOPY FLX DX W/COLLJ SPEC WHEN PFRMD Complete Colonoscopy - (Added by TW Conv) MN TOTAL ABDOMINAL HYSTERECT W/WO RMVL TUBE OVARY 06/25/2012 - 06/24/2013 Hysterectomy - (Added by TW Conv) CATARACT EXTRACTION Bilateral Cataract Surgery - (Added by TW Conv) COLONOSCOPY US GUIDED BIOPSY LYMPH NODE SUPERFICIAL LEFT 12/14/2020 N/A MN EXC CYST/ABERRANT BREAST TISSUE OPEN 1/> LESION [...] on file 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 Gender Identity Not on file Sexual Orientation [...] 04/14/2022, 06/08/2021 Medical Devices Explanted Type Area Inletter Device Identifier Shelf Expiration Date Model / Serial / Lot [employer] [id number] Powerport Mri Airguard 8fr 1 Lumen Attachable Catheter Latex Free - [id number] Implanted:Qty: 1 on 01/20/2021 by Kristopher Elizabeth MD at [facility] Explanted:Qty: 1 on 05/05/2021 by Kristopher Elizabeth MD [employer] [id number] / / [employer] [id number] [place] 20ga 7.5cm 2 Part Stabilizer Repositionable Depth [place] - [id number] Explanted:Qty: 1 on 05/05/2021 at [facility] Right: Breast [employer] [id number] 10/22/2025 [id number] / / [id number] Procedures Procedure Name Priority Date/Time Associated Diagnosis [...] Ilya Lovell M.D. JUICE T: Report ID: [id number] Reading Location: [id number] Procedure Note Omer Lovell MD - 12/05/2024 [...] Ilya Lovell M.D. JUICE T: Report ID: [id number] Reading Location: [id number] Joshua Collins DO IMG XR PROCEDURES Final [...] from Last 3 Months Insurance [employer] [facility] Address: [facility] [id number] [place] [phone] [facility] MEDICARE Care Teams Bar Host Relationship Specialty Start Date End Date Bar Gomez MD PCP - General 11/24/20 Joshua Collins DO [address] [place] [address] MEDICAL ONCOLOGY, [facility] [address] [place] [address] Medical Oncologist/Assembling Fabricator Hematology and Oncology 11/17/20 Neisha Mathis MD [address] [place] [address] [address] Radiation Oncologist Radiation Oncology 12/09/20 Kristopher Elizabeth MD [address] [place] [id number] Surgeon Surgery 12/09/20 Krishna Keen MD [address] [place] [address] [phone] Surgeon General Surgery 03/22/23
--- OUTSIDE RECORDS SUMMARY | 2025-01-11 10:42 | XMS_ITS | Referral Summary ---
Author Organization [place] [id number] [facility] Address [address] [place] [address] Care Team Providers Care Guide Dog Trainer Name Role Phone Bar Gomez MD Primary Care Provider Joshua Collins DO Unavailable [phone] Neisha Mathis MD Unavailable [phone] Kristopher Elizabeth MD Unavailable [phone] Krishna Keen MD Unavailable [phone] Encounters Date Type Department Care Team Description 12/08/2024 Telephone [facility] Oncology [address] [place] [address] [address] [place] [address] Juanita Hart RN 12/05/2024 3:15 PM CDT Ancillary Procedure [facility] Imaging at [address] [address] Adhesive capsulitis of right shoulder; Acute pain of right shoulder 12/05/2024 2:15 PM CDT Office Visit [facility] Oncology [address] [place] [address] [address] [place] [address] Joshua Collins DO 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, estrogen receptor positive (HCC) (Primary Dx); Adhesive capsulitis of right shoulder; Acute pain of right shoulder 11/24/2024 10:26 AM CDT - 11/24/2024 11:59 PM CDT Hospital Encounter [facility] Medical Office Bldg 1 [facility] [address] [place] [address] Malignant neoplasm of lower-outer quadrant of right female breast, unspecified estrogen receptor status (HCC); Screening mammogram for breast cancer Discharge Disposition: Discharge to home or self care from Last 3 Months Allergies Active Allergy Reactions Criticality Noted Date Comments Adhesive Rash Medium 11/19/2020 Lisinopril Cough Low 01/09/2022 Usphmbm-Kjo-Qnk Reductase Inhibitors Muscle pain,Unknown High 01/09/2022 Product containing 7-yygfbkv-4-methylglu taryl-coenzyme A reductase inhibitor (product) Medications levothyroxine (SYNTHROID) 75 mcg tablet Take 1 tablet (75 mcg total) by mouth mirror installer before breakfast Active losartan (COZAAR) 100 mg [...] from 12/09/2020:Stage IA(cT1c, cN0, cM0, G3, ER+, AK+, HER2-) - Signed by Neisha Mathis MD on 12/09/2020 Pathologic stage from 06/02/2021:No Stage Recommended(ypT1c, pN2, cM0, G3, ER+, AK+, HER2+) - Signed by Neisha Mathis MD [...] on file 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 Gender Identity Not on file Sexual Orientation [...] on file Medical Devices Explanted Type Area Salvage Mend Worker Device Identifier Shelf Expiration Date Model / Serial / Lot [employer] [id number] Powerport Mri Airguard 8fr 1 Lumen Attachable Catheter Latex Free - [id number] Implanted:Qty: 1 on 01/20/2021 by Kristopher Elizabeth MD at [facility] Explanted:Qty: 1 on 05/05/2021 by Kristopher Elizabeth MD [employer] [id number] / / Mushroom Picker [employer] [id number] [place] 20ga 7.5cm 2 Part Stabilizer Repositionable Depth Kodi - [id number] Explanted:Qty: 1 on 05/05/2021 at [facility] Right: Breast [employer] [id number] 10/22/2025 [id number] / / [id number] Procedures Procedure Name Priority Date/Time Associated Diagnosis [...] signed by Ilya BOSE T: Report ID: [id number] Reading Location: [id number] Procedure Note Omer Lovell MD - 12/05/2024 [...] signed by Ilya BOSE T: Report ID: [id number] Reading Location: [id number] us Joshua Collins DO IMG XR PROCEDURES [...] Res ult from Last 3 Months Insurance [facility] MEDICARE Member Subscriber Plan / Payer (Ef fective 2022-Present) Name:Nesha Bettencourt Relation to Subscriber:Self Name:Nesha Bettencourt Payer ID:[id number] ([facility]) Type:T MEDICARE Address: [facility] [id number] [place] [address] [facility] MEDICARE Care Teams Guide Dog Trainer Relationship Specialty Start Date End Date Bar Gomez MD PCP - General 11/24/20 Joshua Collins DO [address] [place] [address] MEDICAL ONCOLOGY, [address] [address] Medical Oncologist/Screw Down Hematology and Oncology 11/17/20 Neisha Mathsi MD [address] [place] [address] MEDICAL ONCOLOGY, [address] [address] Radiation Oncologist Radiation Oncology 12/09/20 Kristopher Elizabeth MD [address] [address] Surgeon Surgery 12/09/20 Krishna Keen MD [address] [address] Surgeon General Surgery 03/22/23
--- OUTSIDE RECORDS SUMMARY | 2025-01-11 10:42 | XMS_ITS | Clinical Summary ---
Author Organization [facility] Address [address] [place] [address] Care Team Providers Care Submarine Diver Name Role Phone Bar Gomez MD Primary Care Provider [phone] Source Comments [facility],non-owned Affiliates and Associated Physician Practices is amultiple site organization consisting of ambulatory clinics and hospital sitesin [place], [place], [place] and [place]. This disclosure is being madepursuant to the Care Everywhere program and may not contain all information available regarding this patient. 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 Gender Identity Not on file Sexual Orientation [...] Visit [facility] - Pulmonology [address] [facility], [place] [address] Mook Marie MD [address] [place] [address] 03/18/2025 10:00 AM CDT Ancillary Procedure [facility] - Echosonography [address] [facility], [place] [address] [place] [phone] 03/18/2025 11:30 AM CDT Office Visit [facility] - Cardiology [address] [facility] [place] [address] [place] [address] Birdie Samayoa, INSTRUMENT MAKER APPRENTICE-CAR REPOSSESSOR [address] [address] [place] [address] Health Maintenance Due Date Last [...] 5:40 AM 05/09/2019 1:57 PM Care Teams Submarine Diver Relationship Specialty Start Date End Date Bar Gomez MD [address] [address] PCP - General Internal Medicine 05/08/19
--- OUTSIDE RECORDS SUMMARY | 2025-01-11 10:42 | XMS_ITS | Continuity of Care Document ---
Author Organization [employer] [facility] Address [address] [place] [address] Phone Care Team Providers Care Line Operator Name Role Phone Amol Jean Unavailable Unavailable Procedures Procedure Date Eye Exam & Treatment Refraction TF Plastic Sphcyl [place] To +/-4d .12-2d Progressive Lens, Polycarb Anti-reflective Coating Polycarb Lens Per Lens Post-op Follow-up Visit Refraction Post-op Follow-up Visit Remove Cataract, Insert Lens PreOp Assessment Performed Eye Exam & Treatment Script Printed/Phoned Pt Requ Or Pharm N ot Availab IOLMaster-Professional Visual Field Examination(s) Office/outpatient Visit, Est TF Plastic Sphcyl [place] To +/-4d .12-2d Vision Svcs Frames Purchases [...] Date Provider Providers Copied on Encounter [facility], [address] [place] [address] [address], [place], [place], [address], [place] tel:[phone] [facility] No Information Apr-2 6-201 0 Miranda Carmichael. [facility] , [address], [place], [address], [place]. tel:[phone] [facility], [address] [place] [address] [address], [place], [place], [address], [place] tel:[phone] [facility] No Information 4200 9 [facility] . [address] [facility], [address], [place], [place], [address], [place]. tel:[phone] Referring Provider: Amol Mckeon [facility] [address], [place], [place], [facility]. tel:[phone] [facility], [address] [place] [address] [address], [place], [place], [address], [place] tel:[phone] SEC [facility] [place] No Information Mar-2 0-200 9 Miranda Carmichael. [facility] [address], [address], [place], [address], [place]. tel:[phone] [facility], [address] [place] [address] [address], [place], [place], [address], [place] tel:[phone] [facility] No Information Mar-0 6-200 9 Miranda Carmichael. Gal [facility] [address], [address], [place], [address], [place]. tel:[phone] [facility], [address], [place], [place], [address], [place] tel:[phone] [facility] No Information 0 5-200 9 Miranda Carmichael. [facility] Corporate Center , [address], [place], [address], [place]. tel:[phone] [facility], [address], [place], [place], [address], [place] tel:[phone] SEC [facility] [place] No Information 2 0200 9 Miranda Carmichael. [facility] , [address], [place], [address], [place]. tel:[phone] Referring Provider: Amol Mckeon, [address] [place], [place] [address]ate Center [address], [place], [place], [facility]. tel:[phone] [facility], [address], [place], [place], [address], [place] tel:[phone] SEC [facility] [place] No Information 8200 8 Miranda Carmichael. [address] [place], [place] [address]ate Center , [address], [place], [address], [place]. tel:[phone] Referring Provider: Amol Mckeon, [facility] [address], [place], [place], [facility]. tel:[phone] Office/outpat ient Visit, [facility], [address], [place], [place], [address], [place] tel:[phone] SEC [facility] No Information 8 Miranda Carmichael. [address] [place], [place] [address]ate Center , [address], [place], [address], [place]. tel:[phone] [facility], [address], [place], [place], [address], [place] tel:[phone] SEC [facility] No Information 5200 8 [facility] . [address] [facility], [address], [place], [place], [address], [place]. tel:[phone] Referring Provider: Amol Mckeon, Gal [facility] [address], [place], [address]. tel:[phone] sulting Provider: Jane Cox, [address] [facility], [place], [address]. tel:[phone] [facility], [address] [place] [address] [address], [place], [place], [address], [place] tel:[phone] SEC [facility] Corporate Center No Information 8 Miranda Carmichael. [facility] , [address], [place], [place], [facility], [place]. tel:[phone] [facility], [address] [place] [address] [address], [place], [place], [address], [place] tel:[phone] SEC [facility] No Information 8 Miranda Carmichael. [facility] [address], [address], [place], [address], [place]. tel:[phone] [facility], [address] [place] [address] [address], [place], [place], [address], [place] tel:[phone] [facility] No Information 8 Miranda Carmichael. [facility] Taj [address]iel, [address], [place], [address], [place]. tel:[phone] Office/outpat ient Visit, Est [facility], [address] [place] [address] [address], [place], [place], [address], [place] tel:[phone] SEC [facility] [place] No Information 8 Miranda Carmichael. [facility] [address], [address], [place], [address], [place]. tel:[phone] Referring Provider: Amol Mckeon, Gal [facility] [address], [place], [address]. tel:[phone] [facility], [address], [place], [place], [address], [place] tel:[phone] SEC [facility] [place] No Information Dec-0 5-200 7 Ortiz OD Kodi. [address] [facility] [place] , [address], [place], [address], [place]. tel:[phone] Family History Family Member Type Diagnosis Age At Onset No Information Payers Payer name Insurance type Covered democrat ID Authoriza tion(s) [place] [id number] Social History Type Description Quantity Date Captured [...]
--- OUTSIDE RECORDS SUMMARY | 2025-01-11 10:42 | XMS_ITS ---
Author Organization [place] 189664 [facility] Address [address] [place] [address] Care Team Providers Care Flow Floor Attendant Name Role Phone Bar Gomez MD Primary Care Provider [phone] Joshua Collins DO Unavailable [phone] Neisha Mathis MD Unavailable [phone] Kristopher Elizabeth MD Unavailable [phone] Krishna Keen MD Unavailable [phone] Active Problems Patient Care Coordination No te [...] from 12/09/2020:Stage IA(cT1c, cN0, cM0, G3, ER+, RI+, HER2-) - Signed by Neisha Mathis MD on 12/09/2020 Pathologic stage from 06/02/2021:No Stage Recommended(ypT1c, pN2, cM0, G3, ER+, RI+, HER2+) - Signed by Neisha Mathis MD [...] from the original note were not included. [facility] [address] [facility], [address] [place] [address] This Survivorship Care Plan is a cancer [...] for Breast Cancer General Information Patient name Nehsa Bettencourt (home) Date of 1940 Health Care Providers (Including Names, Institutions) Provider Name: Contact Information: Primary Care Physician Bar Gomez MD [phone] Surgeon Kristopher Elizabeth MD [phone] Radiation Oncologist Neisha Mathis MD [phone] Medical Oncologist Joshua Collins DO [phone] Treatment Summary Cancer Diagnosis Information Diagnosis 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, estrogen receptor positive (CMS/HCC) (HCC) Diagnosis date 11/17/2020 Staging information Cancer Staging 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, estrogen receptor positive (CMS/HCC) (HCC) Staging form: Breast, AJCC 8th Edition - Clinical stage from 12/09/2020: Stage IA (cT1c, cN0, cM0, G3, ER+, RI+, HER2-) - Signed by Neisha Mathis MD [...] breast cancer could run in the family: [employer] heritage History of ovarian cancer in the [...] monitoring Every 3 months while on Herceptin IPHONE DEVELOPER: No care seam steamer to display Pap/pelvic exam (woman only) As [...] Help learning to eat healthier, call the jig builder at: Nicole Fisher [phone] Have an active lifestyle, strive for 30 [...] man. Resources you may be interested in: [facility] A National Cancer [place] [facility] http://www.[facility]/ [facility] Information Center 1st floor of [facility] Advanced Medicine [phone]. Computer access, educational material, counseling services (FREE) Cancer Resources: www.cancer.net [place] Disabilities Act: The U.S. Department of Justice provides information about the Americans with Disabilities Act (ADA). Toll free number http://www.ada.gov/ Occupational Therapy at [facility]. Improve memory and thinking following chemotherapy. Improve your performance at home, work and in the community. or Toll free www.ot.[facility]/patients Managing your weight after a cancer diagnosis: http://www.cancer.net/sites/cancer.net/files/weight_after_cancer_diagnosis.pdf National Coalition for Cancer Survivorship: http://www.canceradvocacy.org/ [place] Cancer Society Cancer Survivors Network: http://csn.cancer.org/ Springboard Beyond Cancer: https://survivorship.cancer.gov/ an online tool for cancer survivors andcaregivers created by the [place] Cancer Society and the National Cancer [place]. It provides: Information on dealing with side effects from cancer and treatment Caregivers with support and resources Practical advice about talking to friends and family about cancer Questions to ask their health care team Help understanding their rights in the workplace
--- OUTSIDE RECORDS SUMMARY | 2025-01-11 10:42 | XMS_ITS | Encounter Summary ---
Author Organization [facility] Address [address] [facility] [place] [address] Care Team Providers Care Water Valve Mechanic Name Role Phone Bar Gomez MD Primary Care Provider Encounter Details Date Type Department Care Team (Late st Contact Info) Description 10/21/2024 Telephone [facility] - Pulmonology [address] [facility] [place] [address] Brody Yoder MD [address] [place] [address] Social History Tobacco Use Types Packs/Day Years Used Date Smoking Tobacco: Former Cigarettes Smokeless Tobacco: Never Alcohol Use Standard Drinks/Week Comments Yes 0 (1 standard drink = 0.6 oz pur e alcohol) social, infrequent PHQ-2 Answer Date Recorded PHQ2 TOTAL SCORE 0 06/22/2022 Comments No Sex and Gender Information Value Date Recorded Sex Assigned at Not on file 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 [place] [place] [address] Mook Marie MD [address] [place] [address] 03/18/2025 10:00 AM CDT Ancillary Procedure [facility] - Echosonography [address] [phone] 03/18/2025 11:30 AM CDT Office Visit [facility] - Cardiology [address] [phone] Birdie Samayoa, TEACHER ASST-BATHHOUSE KEEPER [address] [phone] documented as of this encounter Visit Diagnoses Not on filedocumented in this encounter Care Teams Water Valve Mechanic Relationship Specialty Start Date End Date Bar Gomez MD [address] [place] [address] PCP - General Internal Medicine 05/08/19 documented as of this encounter
--- OUTSIDE RECORDS SUMMARY | 2025-01-11 10:42 | XMS_ITS | Clinical Summary ---
Author Organization [facility] Address [address] [place] [address] Care Team Providers Care Diesel Engine Pipe Fitter Name Role Phone Patricia Dinero MD Primary Care Provider [phone] Social History Tobacco Use Types Packs/Day Years [...] Description 04/21/2025 12:30 PM CDT Office Visit [facility], [facility] [address] [facility] [address] [place] [address] Kishor Tse DO [address] [facility] [address] [place] [address] Health Maintenance Due Date Last Done Comments Influenza Vaccine (#1) 2025 3, 06/08/2021, 05/20/2019 Pneumococcal Vaccine: 50+ Years Completed 10/07/2015, 10/07/2015, 01/16/2007 Hepatitis B Vaccine Aged Out No longe r eligible based on patient's age to complete this topic Insurance [employer] MCR Adv PPO ([id number]) Advance Directives Documents on File Type Date Recorded Patient X Ray Inspector Expl anation Advance Care Planning 10/12/2023 2:00 PM Care Teams Diesel Engine Pipe Fitter Relationship Specialty Start Date End Date Patricia Dinero MD [address] [place] [address] PCP - General Internal Medicine 09/06/23
== END 2025-01-11 11:31 | disposition home or self-care (01) ==
PROVIDERS: Emergency Provider Emergency Medicine; PCP Internal Medicine
DX: S92.351A Displaced fracture of fifth metatarsal bone, right foot, initial encounter for closed fracture (principal); I10 Essential (primary) hypertension; J84.9 Interstitial pulmonary disease, unspecified; E78.00 Pure hypercholesterolemia, unspecified; E03.9 Hypothyroidism, unspecified; Z85.3 Personal history of malignant neoplasm of breast; Z85.42 Personal history of malignant neoplasm of other parts of uterus; Z86.73 Personal history of transient ischemic attack (TIA), and cerebral infarction without residual deficits; Z87.891 Personal history of nicotine dependence; Z90.710 Acquired absence of both cervix and uterus; W18.39XA Other fall on same level, initial encounter
CPT/HCPCS: 29515; 73610; 73630; 99284

== ENCOUNTER 2025-02-27 17:22 | Emergency (ER) | payer MEDICARE, SELFPAY ==
--- OUTSIDE RECORDS SUMMARY | 2009-10-18 08:45 | XMS_ITS | Continuity of Care Document ---
Author Organization [facility] [facility] Address [address] [place] [id number] Phone Care Team Providers Care Patient Financial Services Specialist Name Role Phone Amol Jean Unavailable Unavailable Procedures Procedure Date Eye Exam & Treatment Refraction TF Plastic Sphcyl [place] To +/-4d .12-2d Progressive Lens, Polycarb Anti-reflective Coating Polycarb Lens Per Lens Post-op Follow-up Visit Refraction Post-op Follow-up Visit Remove Cataract, Insert Lens PreOp Assessment Performed Eye Exam & Treatment Script Printed/Phoned Pt Requ Or Pharm N ot Availab IOLMaster-Professional Visual Field Examination(s) Office/outpatient Visit, Est TF Plastic Sphcyl [place] To +/-4d .12-2d Vision Svcs Frames Purchases Frames Deluxe Anti-reflective Coating Polycarb Lens Per Lens Progressive Lens, Polycarb Post-op Follow-up Visit Refraction Post-op Follow-up Visit Remove Cataract, Insert Lens Office/outpatient Visit, Est IOLMaster Optic Nerve Head Eval Tim-07-2008 Eye Exam & Treatment Visual Functional Status Assessed Advance Directives Directive Yes / No Effective Date File Name No Information Encounters Encounter Description Practice Location Reason(s) For Visit Diagnoses Date Provider Providers Copied on Encounter [facility], [address] [place] [address] [address], [place], [place], [address], [place] tel:[phone] SEC [facility] No Information Apr-2 6-201 0 Miranda Carmichael. [facility] , [address], [place], [place], [facility], [place]. tel:[phone] [facility] Eye [facility], [address] [place] [address] [address], [place], [place], [address], [place] tel:[phone] SEC [facility] No Information 4200 9 [facility] . [address] [facility], [address], [place], [place], [address], [place]. tel:[phone] Referring Provider: Amol Mckeon [facility] [address], [place], [place], [facility]. tel:[phone] [facility], [address] [place] [address] [address], [place], [place], [address], [place] tel:[phone] [facility] [place] No Information Mar-2 0-200 9 Miranda Carmichael. [facility] [address], [address], [place], [address], [place]. tel:[phone] [facility] Eye [facility], [address] [place] [address] [address], [place], [place], [address], [place] tel:[phone] [facility] No Information Mar-0 6-200 9 Miranda Carmichael. [facility] [address], [address], [place], [address], [place]. tel:[phone] [facility] Eye [facility], [address], [place], [place], [address], [place] tel:[phone] [facility] No Information 0 5-200 9 Miranda Carmichael. [facility] , [address], [place], [address], [place]. tel:[phone] [facility] Eye [facility], [address], [place], [place], [address], [place] tel:[phone] [facility] [place] No Information 2 0200 9 Miranad Carmichael. [facility] , [address], [place], [address], [place]. tel:[phone] Referring Provider: Amol Mckeon, [address] [place], [place] [address]ate Center [address], [place], [place], [facility]. tel:[phone] [facility], [address], [place], [place], [address], [place] tel:[phone] [facility] [place] No Information 8200 8 Miranda Carmichael. [address] [place], [place] [address]ate Center , [address], [place], [address], [place]. tel:[phone] Referring Provider: Amol Mckeon, [facility] [address], [place], [place], [facility]. tel:[phone] Office/outpat ient Visit, [facility], [address], [place], [place], [address], [place] tel:[phone] [facility] No Information 8 Miranda Carmichael. [address] [place], [place] [address]ate Center , [address], [place], [address], [place]. tel:[phone] [facility], [address], [place], [place], [address], [place] tel:[phone] [facility] No Information 5200 8 [facility] . [address] [facility], [address], [place], [place], [address], [place]. tel:[phone] Referring Provider: Amol Mckeon, Gal [facility] [address], [place], [address]. tel:[phone] sulting Provider: Jane Cox, [address] [facility], [place], [address]. tel:[phone] [facility], [address] [place] [address] [address], [place], [place], [address], [place] tel:[phone] SEC [facility] No Information 8 Miranda Carmichael. [facility] , [address], [place], [facility], [place]. tel:[phone] [facility], [address] [place] [address] [address], [place], [place], [address], [place] tel:[phone] [facility] No Information 8 Miranda Carmichael. [facility] [address], [address], [place], [address], [place]. tel:[phone] [facility], [address] [place] [address] [address], [place], [place], [address], [place] tel:[phone] [facility] No Information 8 Miranda Carmichael. [facility] [address], [address], [place], [address], [place]. tel:[phone] Office/outpat ient Visit, Est [facility], [address] [place] [address] [address], [place], [place], [address], [place] tel:[phone] [facility] [place] No Information 8 Miranda Carmichael. [facility] [address], [address], [place], [address], [place]. tel:[phone] Referring Provider: Amol Mckeon, Gal [facility] [address], [place], [address]. tel:[phone] [facility] Eye [facility], [address], [place], [place], [address], [place] tel:[phone] [facility] [place] No Information Dec-0 5-200 7 Ortiz OD Kodi. [address] [facility] [place] , [address], [place], [address], [place]. tel:[phone] Family History Family Member Type Diagnosis Age At Onset No Information Payers Payer name Insurance type Covered democrat ID Authoriza tion(s) [place] [id number] Social History Type Description Quantity Date Captured Comments Sex Female Smoking Status No Information Chief Complaint And Reason For Visit No Information Reason For Referral Reason For Referral No Information History Of Present Illness Encounter Date Complaint History Of Prese nt Illness No Information Functional Status Date Functional Assessmen t No Information Instructions Date Instruction Additional Infor mation No Information Assessments Type Assessment Date No Information Patient Care Teams Name Effective Dates (start - stop) Status Members No Information
--- OUTSIDE RECORDS SUMMARY | 2009-10-18 08:45 | XMS_ITS | Continuity of Care Document ---
Author Organization [employer] [facility] Address [address] [facility] [address] [place] [phone] Phone Care Team Providers Care Technical Support Agent Name Role Phone Amol Jean Unavailable Unavailable Procedures Procedure Date Eye Exam & Treatment Refraction TF Plastic Sphcyl [place] To +/-4d .12-2d Progressive Lens, Polycarb Anti-reflective Coating Polycarb Lens Per Lens Post-op Follow-up Visit Refraction Post-op Follow-up Visit Remove Cataract, Insert Lens PreOp Assessment Performed Eye Exam & Treatment Script Printed/Phoned Pt Requ Or Pharm N ot Availab IOLMaster-Professional Visual Field Examination(s) Office/outpatient Visit, Est TF Plastic Sphcyl [place] To +/-4d .12-2d Vision Svcs Frames Purchases [...] Diagnoses Date Provider Providers Copied on Encounter [facility], [address] [place] [address] [address], [place], [place], [address], [place] tel:[phone] SEC [facility] No Information Apr-2 6-201 0 Miranda Carmichael. [facility] , [address], [place], [place], [facility], [place]. tel:[phone] [facility], [address] [place] [address] [address], [place], [place], [address], [place] tel:[phone] SEC [facility] No Information 4200 9 [facility] . [address] [facility], [address], [place], [place], [address], [place]. tel:[phone] Referring Provider: Amol Mckeon [facility] [address], [place], [place], [facility]. tel:[phone] [facility], [address] [place] [address] [address], [place], [place], [address], [place] tel:[phone] SEC [facility] [place] No Information Mar-2 0-200 9 Miranda Carmichael. Gal [facility] [address], [address], [place], [address], [place]. tel:[phone] [facility], [address] [place] [address] [address], [place], [place], [address], [place] tel:[phone] SEC [facility] No Information Mar-0 6-200 9 Miranda Carmichael. Gal [facility] [address], [address], [place], [address], [place]. tel:[phone] [facility], [address], [place], [place], [address], [place] tel:[phone] [facility] No Information 0 5-200 9 Miranda Carmichael. [facility] , [address], [place], [address], [place]. tel:[phone] [facility], [address], [place], [place], [address], [place] tel:[phone] SEC [facility] [place] No Information 2 0200 9 Miranda Carmichael. [facility] , [address], [place], [address], [place]. tel:[phone] Referring Provider: Amol Mckeon, [address] [place], [place] [address]ate Center [address], [place], [place], [facility]. tel:[phone] [facility], [address], [place], [place], [address], [place] tel:[phone] SEC [facility] [place] No Information 8200 8 Miranda Carmichael. [address] [place], [place] [address]ate Center , [address], [place], [address], [place]. tel:[phone] Referring Provider: Amol Mckeon, [facility] [address], [place], [facility]. tel:[phone] Office/outpat ient Visit, [facility], [address], [place], [place], [address], [place] tel:[phone] [facility] No Information 8 Miranda Carmichael. [address] [place], [place] [address]ate Center , [address], [place], [address], [place]. tel:[phone] [facility], [address], [place], [place], [address], [place] tel:[phone] [facility] No Information 5200 8 [facility] . [address] [facility], [address], [place], [place], [address], [place]. tel:[phone] Referring Provider: Amol Mckeon, Gal [facility] [address], [place], [address]. tel:[phone] sulting Provider: Jane Cox, [address] [facility], [place], [address]. tel:[phone] [facility], [address] [place] [address] [address], [place], [place], [address], [place] tel:[phone] SEC [facility] No Information 8 Miranda Carmichael. [facility] , [address], [place], [facility], [place]. tel:[phone] [facility], [address] [place] [address] [address], [place], [place], [address], [place] tel:[phone] [facility] No Information 8 Miranda Carmichael. [facility] [address], [address], [place], [address], [place]. tel:[phone] [facility], [address] [place] [address] [address], [place], [place], [address], [place] tel:[phone] [facility] No Information 8 Miranda Carmichael. [facility] [address], [address], [place], [address], [place]. tel:[phone] Office/outpat ient Visit, Est [facility], [address] [place] [address] [address], [place], [place], [address], [place] tel:[phone] SEC [facility] [place] No Information 8 Miranda Carmichael. [facility] [address], [address], [place], [address], [place]. tel:[phone] Referring Provider: Amol Mckeon, Gal [facility] [address], [place], [address]. tel:[phone] [facility], [address], [place], [place], [address], [place] tel:[phone] SEC [facility] [place] No Information Dec-0 5-200 7 Ortiz OD Kodi. [address] [facility] [place] , [address], [place], [address], [place]. tel:[phone] Family History Family Member Type Diagnosis Age At Onset No Information Payers Payer name Insurance type Covered democrat ID Authoriza tion(s) [place] [id number] Social History Type Description Quantity Date Captured [...]
--- OUTSIDE RECORDS SUMMARY | 2025-02-27 17:24 | XMS_ITS | Clinical Summary ---
Author Organization [facility] Address [address] [place] [address] Care Team Providers Care Cloth Boil Off Machine Operator Name Role Phone Bar Gomez MD Primary Care Provider [phone] Source Comments [facility],non-owned Affiliates and Associated Physician Practices is amultiple site organization consisting of ambulatory clinics and hospital sitesin [place], [place], [place] and [place]. This disclosure is being madepursuant to the Care Everywhere program and may not contain all information available regarding this patient. Last updated 18.[facility] Allergies Active Allergy Reactions Criticality Noted Date [...] daily Active Cholecalciferol (VITAMIN D3) 1.25 MG (24513 UT) capsule Take 1 (one) capsule by [...] Encounters Date Type Department Care Team Description 02/09/2025 3:30 PM CDT Office Visit [facility] - Pulmonology [address] [facility] [place] [id number] Mook Marie MD ILD (interstitial lung disease) (HCC) (Primary Dx); Restrictive ventilatory defect; Chronic respiratory failure with hypoxia (HCC) 02/09/2025 Travel from Last 3 Months Immunizations Immunization Administration [...] on file 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 Gender Identity Not on file Sexual Orientation Not on file Last Filed Vital Signs Vital Sign Reading Time Taken Comments Blood Pressure 120/72 02/09/2025 3:18 PM CDT Pulse 100 02/09/2025 3:18 PM CDT Temperature 37.3 C (99.2 F) 02/09/2025 3:18 PM CDT Respiratory Rate 17 02/09/2025 3:18 PM CDT Oxygen Saturation 90% 02/09/2025 3:18 PM CDT Inhaled Oxygen Concentration - - Weight 67.7 kg (149 lb 3.2 oz) 02/09/2025 3:18 P M CDT Height 166.4 cm (5' 5.5) 02/09/2025 3:18 PM CDT Body Mass Index 24.45 02/09/2025 3:18 PM CDT Plan of Treatment Upcoming Encounters Date Type Department Care Team (Late st Contact Info) Description 03/18/2025 10:00 AM CDT Ancillary Procedure [facility] - Echosonography [address] [place] [address] 03/18/2025 11:30 AM CDT Office Visit [facility] - Cardiology [address] [facility] [facility] [address] [place] [address] Birdie Samayoa, STEAM POWER PLANT OPERATOR-LOG PREPARER [address] [facility] [address] [place] [address] 08/31/2025 3:30 PM CDT Office Visit [facility] - Pulmonology [address] [facility] [place] [address] Mook Marie MD [address] [place] [address] Health Maintenance Due Date Last Done Comments [...] 5:40 AM 05/09/2019 1:57 PM Care Teams Cloth Boil Off Machine Operator Relationship Specialty Start Date End Date Bar Gomez MD [address] [facility] [address] [place] [address] PCP - General Internal Medicine 05/08/19
--- OUTSIDE RECORDS SUMMARY | 2025-02-27 17:24 | XMS_ITS ---
Author Organization [place] [id number] [facility] Address [address] [place] [address] Care Team Providers Care Central Supply Nurse Name Role Phone Bar Gomez MD Primary Care Provider [phone] Joshua Collins DO Unavailable [phone] Neisha Mathis MD Unavailable [phone] Kristopher Elizabeth MD Unavailable [phone] Krishna Keen MD Unavailable [phone] Active Problems Patient Care Coordination No te [...] from 12/09/2020:Stage IA(cT1c, cN0, cM0, G3, ER+, IA+, HER2-) - Signed by Neisha Mathis MD on 12/09/2020 Pathologic stage from 06/02/2021:No Stage Recommended(ypT1c, pN2, cM0, G3, ER+, IA+, HER2+) - Signed by Neisha Mathis MD [...] from the original note were not included. [facility] [address], [address] [place] [address] This Survivorship Care Plan is a cancer [...] Information: Primary Care Physician Bar Gomez MD [phone] Surgeon Kristopher Elizabeth MD [phone] Radiation Oncologist Neisha Mathis MD [phone] Medical Oncologist Joshua Collins DO [phone] Treatment Summary Cancer Diagnosis Information Diagnosis 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, estrogen receptor positive (CMS/HCC) (HCC) Diagnosis date 11/17/2020 Staging information Cancer Staging 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, estrogen receptor positive (CMS/HCC) (HCC) Staging form: Breast, AJCC 8th Edition - Clinical stage from 12/09/2020: Stage IA (cT1c, cN0, cM0, G3, ER+, IA+, HER2-) - Signed by Neisha Mathis MD [...] breast cancer could run in the family: Jew heritage History of ovarian cancer in the [...] monitoring Every 3 months while on Herceptin PLAQUE MAKER: No care steam presser to display Pap/pelvic exam (woman only) As [...] Help learning to eat healthier, call the carpet winder at: Nicole Fisher [phone] Have an active lifestyle, strive for 30 [...] man. Resources you may be interested in: [facility] A National Cancer [place] [facility] http://www.[facility]/ [facility] Cancer Information Center 1st floor of [facility] Advanced Medicine [phone]. Computer access, educational material, counseling services (FREE) Cancer Resources: www.cancer.net Welsh Disabilities Act: The U.S. Department of Justice provides information about the Americans with Disabilities Act (ADA). Toll free number http://www.ada.gov/ Occupational Therapy at [facility]. Improve memory and thinking following chemotherapy. Improve your performance at home, work and in the community. or Toll free www.ot.[facility]/patients Managing your weight after a cancer diagnosis: http://www.cancer.net/sites/cancer.net/files/weight_after_cancer_diagnosis.pdf National Coalition for Cancer Survivorship: http://www.canceradvocacy.org/ Welsh Cancer Society Cancer Survivors Network: http://csn.cancer.org/ Springboard Beyond Cancer: https://survivorship.cancer.gov/ an online tool for cancer survivors andcaregivers created by the Welsh Cancer Society and the National Cancer [place]. It provides: Information on dealing with side effects from cancer and treatment Caregivers with support and resources Practical advice about talking to friends and family about cancer Questions to ask their health care team Help understanding their rights in the workplace
--- OUTSIDE RECORDS SUMMARY | 2025-02-27 17:24 | XMS_ITS | Encounter Summary ---
Author Organization [facility] Address [address] [facility] [place] [address] Care Team Providers Care Loader Helper Name Role Phone Bar Gomez MD Primary Care Provider Encounter Details Date Type Department Care Team (Late st Contact Info) Description 10/21/2024 Telephone [facility] - Pulmonology [address] [facility] [place] [address] Brody Yoder MD [address] [place] [address] Social History Tobacco Use Types Packs/Day Years Used Date Smoking Tobacco: Former Cigarettes Smokeless Tobacco: Never Alcohol Use Standard Drinks/Week Comments Yes 0 (1 standard drink = 0.6 oz pur e alcohol) social, infrequent PHQ-2 Answer Date Recorded PHQ2 TOTAL SCORE 0 06/22/2022 Comments No Sex and Gender Information Value Date Recorded Sex Assigned at Not on file 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 [place] [address] Mook Marie MD [address] [place] [address] documented as of this encounter Visit Diagnoses Not on filedocumented in this encounter Care Teams Loader Helper Relationship Specialty Start Date End Date Bar Gomez MD [address] [place] [address] PCP - General Internal Medicine 05/08/19 documented as of this encounter
--- OUTSIDE RECORDS SUMMARY | 2025-02-27 17:24 | XMS_ITS | Clinical Summary ---
Author Organization [facility] Address [address] [place] [address] Care Team Providers Care Contract Driver Name Role Phone Patricia Dinero MD Primary Care Provider [phone] Social History Tobacco Use Types Packs/Day Years [...] Description 04/21/2025 12:30 PM CDT Office Visit [facility], [facility] [address] [facility] [address] [place] [address] Kishor Tse DO [address] [facility] 1 [place] [address] Health Maintenance Due Date Last Done Comments Influenza Vaccine (#1) 2025 3, 06/08/2021, 05/20/2019 Pneumococcal Vaccine: 50+ Years Completed 10/07/2015, 10/07/2015, 01/16/2007 Hepatitis B Vaccine Aged Out No longe r eligible based on patient's age to complete this topic Insurance Aetna MCR Adv PPO ([id number]) Advance Directives Documents on File Type Date Recorded Patient Climate Change Analyst Expl anation Advance Care Planning 10/12/2023 2:00 PM Care Teams Contract Driver Relationship Specialty Start Date End Date Patricia Dinero MD [address] [place] [address] PCP - General Internal Medicine 09/06/23
--- OUTSIDE RECORDS SUMMARY | 2025-02-27 17:26 | XMS_ITS | Clinical Summary ---
Author Organization [place] [address] [facility] Address [address] [place] [address] Care Team Providers Care Middleware Consultant Name Role Phone Bar Gomez MD Primary Care Provider [phone] Joshua Collins DO Unavailable [phone] Neisha Mathis MD Unavailable [phone] Kristopher Elizabeth MD Unavailable [phone] Krishna Keen MD Unavailable [phone] Allergies Active Allergy Reactions Criticality Noted Date Comments Adhesive Rash Medium 11/19/2020 Lisinopril Cough Low 01/09/2022 Nuqhfce-Ajx-Vgm Reductase Inhibitors Muscle pain,Unknown High 01/09/2022 Product containing 0-ihpdvhd-7-methylglu taryl-coenzyme A reductase inhibitor (product) Medications levothyroxine (SYNTHROID) 75 mcg tablet Take 1 tablet (75 mcg total) 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 Active losartan (COZAAR) 100 mg [...] from 12/09/2020:Stage IA(cT1c, cN0, cM0, G3, ER+, GA+, HER2-) - Signed by Neisha Mathis MD on 12/09/2020 Pathologic stage from 06/02/2021:No Stage Recommended(ypT1c, pN2, cM0, G3, ER+, GA+, HER2+) - Signed by Neisha Mathis MD on 06/02/2021 Hot flashes due to menopause 10/09/2016 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 Urinary tract infection 03/21/2013 Bacterial vaginosis 08/22/2012 Postmenopausal bleeding 07/08/2012 Hyperlipidemia 07/08/2012 Encounters Date Type Department Care Team Description 12/08/2024 Telephone [facility] Oncology [address] [place] [address] [address] [place] [address] Juanita Hart RN 12/05/2024 3:15 PM CDT Ancillary Procedure [facility] Medical [facility] Imaging at [address] [address] Adhesive capsulitis of right shoulder; Acute pain of right shoulder 12/05/2024 2:15 PM CDT Office Visit [facility] Oncology [address] [place] [address] [address] [place] [address] Joshua Collins DO 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, estrogen receptor positive (HCC) (Primary Dx); Adhesive capsulitis of right shoulder; Acute pain of right shoulder from Last 3 Months Immunizations Immunization Administration Dates Next Due Influenza, Quadrivalent, Hig h Dose, Preservative Free, Intrr 04/14/2022 Influenza, Unspecified 06/08/2021 Pfizer SARS-CoV-2 Monovalent Vaccination (12+ Yrs) PURPLE 09/09/2020,08/17/2020 Surgical History Surgery Date Site/Laterality Comments GA COLONOSCOPY FLX DX W/COLLJ SPEC WHEN PFRMD Complete Colonoscopy - (Added by TW Conv) GA TOTAL ABDOMINAL HYSTERECT W/WO RMVL TUBE OVARY 06/25/2012 - 06/24/2013 Hysterectomy - (Added by TW Conv) CATARACT EXTRACTION Bilateral Cataract Surgery - (Added by TW Conv) COLONOSCOPY US GUIDED BIOPSY LYMPH NODE SUPERFICIAL LEFT 12/14/2020 N/A GA EXC CYST/ABERRANT BREAST TISSUE OPEN 1/> LESION [...] cancer, right breast (HCC) 07/2020 Stroke (cerebrum) 04/2019 no residual--h ad TPA Hypertension 2017 Frequent nosebleeds 04/26/2021 pt [...] on file 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 Gender Identity Not on file Sexual Orientation [...] Density Scan 02/09/2024 02/08/2022 Covid-19 Vaccine ( - season) 2024 09/28/2021, 09/09/2020, 08/17/2020 Influenza Vaccine (#1) 2025 3, 04/14/2022, 06/08/2021 Medical Devices Explanted Type Area Actionscript Developer Device Identifier Shelf Expiration Date Model / Serial / Lot [employer] [id number] Powerport Mri Airguard 8fr 1 Lumen Attachable Catheter Latex Free - [id number] Implanted:Qty: 1 on 01/20/2021 by Kristopher Elizabeth MD at [facility] Explanted:Qty: 1 on 05/05/2021 by Kristopher Elizabeth MD [employer] [id number] / / Senior Research Engineer SPIRIT Navigation [id number] [place] 20ga 7.5cm 2 Part Stabilizer Repositionable Depth Kodi - [id number] Explanted:Qty: 1 on 05/05/2021 at [facility] Right: Breast Senior Research Engineer [employer] [id number] 10/22/2025 [id number] / / [id number] Procedures Procedure Name Priority Date/Time Associated Diagnosis Comments XR SHOULDER RIGHT 2 OR MORE VIEWS Schedule Routine, Read Routine (OP Routine) 12/05/2024 3:21 PM CDT Adhesive capsulitis of right shoulder Acute pain of right shoulder from Last 3 Months Results * XR [...] signed by Ilya BOSE T: Report ID: [id number] Reading Location: [id number] Procedure Note Omer Lovell MD - 12/05/2024 [...] signed by Ilya BOSE T: Report ID: [id number] Reading Location: [id number] Joshua Collins DO IMG XR PROCEDURES Final Resu lt from Last 3 Months Insurance AETNA MEDICARE MEDICARE Care Teams Middleware Consultant Relationship Specialty Start Date End Date Bar Gomez MD PCP - General 11/24/20 Joshua Collins DO [address] [place] [address] MEDICAL ONCOLOGY, [address] [address] Medical Oncologist/Rn Ambulatory Hematology and Oncology 11/17/20 Neisha Mathis MD [address] [place] [address] MEDICAL ONCOLOGY, [address], [place] [address] Radiation Oncologist Radiation Oncology 12/09/20 Kristopher Elizabeth MD [address] [place] [address] [id number] Surgeon Surgery 12/09/20 Krishna Keen MD [address] [place] [address] Surgeon General Surgery 03/22/23
--- NOTE | 2025-02-27 17:29 | ED.FEMALEGU ---
HPI - Female Genitourinary General Chief complaint: Urogenital-Female Stated complaint: UTI Time Seen by Provider: 02/27/25 17:29 Source: patient, RN notes reviewed and old records reviewed Mode of arrival: ambulatory Limitations: no limitations History of Present Illness HPI Narrative: 84 year old female accompanied by daughter who presents to express care with complaints of urinary pressure, frequency of urination and burning with urination which started around noon today. Patient reports history of frequent UTI's. Patient denies any problems with constipation had normal BM today. Patient reports no nausea or vomiting or any noted fevers or chills or sweats. MD elicited complaint: UTI Pertinent past history: recurrent UTIs Onset (ago): hour(s) (at noon today) Location of symptoms: perineum (pressure) and urethra Severity: moderate Related Data Home Medications ?Medication ?Instructions ?Recorded ?Confirmed ?Last Taken ?Type calcium carbonate (Calcium 600) 600 mg PO HS 03/01/21 02/18/25 Unknown History clopidogrel 75 mg tablet 75 mg PO QAM 03/01/21 02/18/25 Unknown History levothyroxine 75 mcg capsule 75 mcg PO DAILY 03/01/21 02/18/25 Unknown History losartan 100 mg tablet 100 mg PO HS 03/01/21 02/18/25 Unknown History albuterol sulfate 90 mcg/actuation 2 puff inhalation QID PRN 01/19/24 02/18/25 Unknown History aerosol inhaler Shortness Of Breath Or Wheezing ezetimibe 10 mg tablet 10 mg PO HS 01/19/24 02/18/25 Unknown History fenofibrate nanocrystallized 145 145 mg PO QAM 01/19/24 02/18/25 Unknown History mg tablet tiotropium bromide 2.5 2 puff inhalation QNOON 01/19/24 02/18/25 Unknown History mcg/actuation mist for inhalation (Spiriva Respimat) anastrozole 1 mg tablet 1 mg PO QAM 01/20/24 02/18/25 Unknown History Held on 01/23/24. Instructions: HOLD - resume when okay with your doctor cholecalciferol (vitamin D3) 50 50 mcg PO HS 01/20/24 02/18/25 Unknown History mcg (2,000 unit) capsule (Vitamin D3) alendronate 70 mg tablet 70 mg PO WEEKLY 02/18/25 02/18/25 Unknown History cetirizine 10 mg tablet 10 mg PO DAILY PRN 02/18/25 02/18/25 Unknown History xbvqaljnbdbu-Kk-jnoj-minerals tablet PO 02/18/25 02/18/25 Unknown History pyridoxine (vitamin B6) 100 mg 100 mg PO DAILY 02/18/25 02/18/25 Unknown History tablet Allergies Allergy/AdvReac Type Severity Reaction Status Date / Time No Known Allergies Allergy Verified 02/27/25 17:23 Review of Systems Review of Systems: CONSTITUTIONAL: Denies fever, chills, or sweats. CARDIOVASCULAR: Denies chest pain, palpitations, or edema. RESPIRATORY: Denies cough or dyspnea. GASTROINTESTINAL: Denies abdominal pain, nausea, vomiting, or diarrhea. GENITOURINARY: Reports dysuria, frequency, urgency. Denies flank pain or hematuria. SKIN: Denies rash or itching. MUSCULOSKELETAL: Denies back pain or myalgia. Denies CVA tenderness NEUROLOGIC: Denies headache All systems reviewed & are unremarkable except as noted in HPI and below PMFSH Past Medical History Medical History (Updated 02/28/25 @ 18:18 by Marilyn Stubbs NP) UTI (urinary tract infection) Hypothyroidism Cerebrovascular accident (2019) Chronic interstitial lung disease Hypercholesterolemia Hypertension Uterine cancer Breast cancer Surgical History Surgical History History of hysterectomy History of lumpectomy Family History Family History Father Acute myocardial infarction Sibling Acute myocardial infarction Mother Asthma Son Diabetes mellitus Social History Social History Social History: Surrogate medical decision maker: Mitch Bettencourt, son. Code status: Full code. Smoking packs per day: 0.75 Smoking cigarettes per day: 15.0 Years smoked: 10 Smoking pack-years: 7.50 Smoking status: Former smoker Tobacco type: cigarettes Additional smoking assessment comments: Quit 40 years ago Alcohol intake: never Substance use: never Substance use type: does not use Do You Feel Safe in your Home?: Yes Lack of Transportation: No Lack of Food: Never True Current Housing: I Have Housing Concerned About Future Housing: No Difficulty Paying Gas/Electric Bills: No Difficulty Paying for Meds: No Currently Unemployed: No Education: Associate Degree Difficulty w/ Childcare or Family Care: No Spiritual care concerns: No Comments At time of signature, agree with nursing past medical, surgical, social and family history. There is no relevant family history pertinent to the presenting complaint Exam Narrative: GENERAL: Well-appearing, well-nourished, and in no acute distress. HEAD: Normocephalic, atraumatic. NECK: Supple.no lymphadenopathy CHEST: Clear to auscultation. No respiratory distress. HEART: Regular rate and rhythm. No murmur heard. Normal peripheral pulses. ABDOMEN: Soft, nontender, nondistended, normal active bowel sounds. No CVA tenderness, burning with urination , frequency and pressure perineum EXTREMITIES: Normal range of motion. No edema. SKIN: Warm, dry, no rash. NEURO: No focal deficits. Alert and oriented x3. Course Course Emergency Course: Patient is aware of diagnosis, understands and agrees to treatment plan.? Anticipatory guidance given.? Patient agrees to follow-up as directed and is aware of reasons to seek care at the emergency department. Portions of this record may have been created with voice recognition software Level of Care: Express Care Visit Vital Signs Vital signs: Vital Signs Temperature 36.6 C 02/27/25 17:32 Pulse Rate 88 02/27/25 17:32 Respiratory Rate 18 02/27/25 17:32 Blood Pressure 157/75 H 02/27/25 17:32 Pulse Oximetry 94 02/27/25 17:32 Oxygen Delivery Room Air 02/27/25 17:32 Temperature 36.6 C 02/27/25 17:32 Pulse Rate 88 02/27/25 17:32 Respiratory Rate 18 02/27/25 17:32 Blood Pressure 157/75 H 02/27/25 17:32 Pulse Oximetry 94 02/27/25 17:32 Oxygen Delivery Room Air 02/27/25 17:32 reviewed MDM - Female Genitourinary MDM Narrative Medical decision making narrative: Exam findings and UA show no acute concerns or changes; patient is non-toxic appearing and is in no distress.? Patient is appropriate for outpatient treatment and follow-up. Differential Diagnosis Differential diagnosis: Likely urinary tract infection, cystitis and other (dysuria) Medical Records Attestation: I reviewed the patient's medical records. Lab Data Attestation: I reviewed the patient's lab results. Lab results narrative: Urine dip: Glucose negative, ketones negative, Protein negative, bilirubin negative, specific gravity 1/020, PH 7.5.. blood 1+ nitrite negative, urobilinogen 0.2,leukocyte esterase 1+ Labs: Lab Results 02/27/25 Range/Units 17:39 POC Urine Color Yellow POC Urine Clarity Clear POC Urine pH 7.5 POC Ur Specif [place] 1.020 POC Urine Protein Negative (Negative) POC Ur Glucose (UA) Negative (Negative) POC Urine Ketones Negative (Negative) POC Urine Blood 1+ (Negative) POC Urine Nitrite Negative (Negative) POC Urine Bilirubin Negative (Negative) POC Urine Urobilinogen 0.2 POC U Leukocyte Esteras 1+ (Negative) reviewed Critical Care Time Critical Care Time Critical Care Time: No Discharge Plan Discharge Clinical Impression: Acute UTI Patient Disposition: Home Condition: Stable Instructions: Antibiotic Form, Urinary Tract Infection in Women (ED) Additional Instructions: Increase fluids especially cranberry juice and water Avoid caffeine and carbonated beverages Antibiotic as directed Tylenol for pain or fever Follow-up with her primary care provider if further problems or concerns Recheck if you have fever over 101, nausea and vomiting. If your symptoms persist, change or worsen significantly before you can contact your personal physician then please, without delay, go to the emergency department for further evaluation. Follow-up with PCP in 7-10 days or sooner if needed Follow up with PCP soon in regards to your blood pressure which is elevated above threshold for referral. Blood pressure above 120/80 may indicate pre-hypertension. 157/75 Complete all doses of oral antibiotic and take probiotic while taking this medication. Patient Language: Nigerien Prescriptions: New amoxicillin-pot clavulanate 875-125 mg tablet 1 tablet PO Q12H Qty: 10 0RF No Action levothyroxine 75 mcg capsule 75 mcg PO DAILY clopidogrel 75 mg tablet 75 mg PO QAM losartan 100 mg tablet 100 mg PO HS calcium carbonate [Calcium 600] 600 mg calcium (1,500 mg) tablet 600 mg PO HS cetirizine 10 mg tablet 10 mg PO DAILY PRN alendronate 70 mg tablet 70 mg PO WEEKLY pyridoxine (vitamin B6) 100 mg tablet 100 mg PO DAILY pxrdjszsnajc-Xt-ebus-minerals Tablet PO albuterol sulfate 90 mcg/actuation HFA aerosol inhaler 2 puff INHALATION QID PRN (Reason: Shortness Of Breath Or Wheezing) ezetimibe 10 mg tablet 10 mg PO HS Spiriva Respimat 2.5 mcg/actuation mist 2 puff INHALATION QNOON fenofibrate nanocrystallized 145 mg tablet 145 mg PO QAM anastrozole 1 mg Tablet 1 mg PO QAM cholecalciferol (vitamin D3) [Vitamin D3] 50 mcg (2,000 unit) Capsule 50 mcg PO HS Follow-up/Referrals: Jozef Gomez M.D. [Primary Care Provider, Anesthesiology] Time of Disposition: 17:51 Quality Dnaita Coma Scale Eyes: Open Verbal: Oriented and Alert Motor: Follows Commands [place] Coma Total Score: 15
[2025-02-27 17:32] VITALS: BP 157/75; PULSE 88; RESP 18; TEMP 36.6; O2SAT 94
[2025-02-27 17:42] LABS: EDUAAPPEAR Clear; EDUABILI Negative (Negative); EDUABLOOD 1+ (Negative); EDUACOLOR1 Yellow; EDUAGLUCOSE Negative (Negative); EDUAKETONE Negative (Negative); EDUALEUKO 1+ (Negative); EDUANITRATE Negative (Negative); EDUAPH 7.5; EDUAPROTEIN Negative (Negative); EDUASPGRAVITY 1.020; EDUAUROBILI 0.2
== END 2025-02-27 17:53 | disposition home or self-care (01) ==
PROVIDERS: Emergency Provider Registered Nurse; PCP Anesthesiology
DX: N39.0 Urinary tract infection, site not specified (principal); I10 Essential (primary) hypertension; E03.9 Hypothyroidism, unspecified; E78.00 Pure hypercholesterolemia, unspecified; J84.9 Interstitial pulmonary disease, unspecified; Z86.73 Personal history of transient ischemic attack (TIA), and cerebral infarction without residual deficits; Z85.3 Personal history of malignant neoplasm of breast; Z85.42 Personal history of malignant neoplasm of other parts of uterus
CPT/HCPCS: 81003; 87086; 99213; G0463

== ENCOUNTER 2025-05-15 13:32 | Emergency (ER) | payer MEDICARE, SELFPAY ==
--- OUTSIDE RECORDS SUMMARY | 2025-05-15 13:34 | XMS_ITS | Encounter Summary ---
Author Organization [employer] [facility] Address [address] [facility] [place] [address] Phone Care Team Providers Care Machine Operators Name Role Phone Patricia Dinero MD Primary Care Provider Reason for Visit * Reason Onset Date Comments Med Refill 04/21/2025 Encounter Details Date Type Department Care Team (Late st Contact Info) Description 04/21/2025 Refill [facility] [employer], [facility] [address] [facility] [address] [place] [phone] Lynda Ventura CMA [address] [place] [address] Social History Tobacco Use Types Packs/Day Years Used Date Smoking Tobacco: Never Assessed Comments Unknown Sex and Gender Information Value Date Recorded Sex Assigned at Not on file Legal Sex Female 3:26 PM EDT Gender Identity Not on file Sexual Orientation Not on file documented as of this encounter Functional Status * BP Answer Date of Assessment Author 160/80 04/21/2025 12:31 PM EDT Lynda Ventura CMA * Temp Answer Date of Assessment Author 98 04/21/2025 12:31 PM EDT Lynda Ventura CMA * Pulse Answer Date of Assessment Author 86 04/21/2025 12:31 PM EDT Lynda Ventura CMA * Resp Answer Date of Assessment Author 18 04/21/2025 12:31 PM EDT Lynda Ventura CMA * SpO2 Answer Date of Assessment Author 94 04/21/2025 12:31 PM EDT Lynda Ventura CMA * Weight Answer Date of Assessment Author 2348.8 04/21/2025 12:31 PM EDT Lynda Ventura CMA * BP Answer Date of Assessment Author 160/80 04/21/2025 12:31 PM EDT Lynda Ventura CMA * Weight Answer Date of Assessment Author 2348.8 04/21/2025 12:31 PM EDT Lynda Ventura CMA documented as of this encounter Plan of Treatment Upcoming Encounters Date Type Department Care Team (Late st Contact Info) Description 11/24/2025 12:30 PM CDT Office Visit [facility], [facility] [address] [facility] [address] [place] [address] [place] [address] [place] [address] 1 [place] [address] documented as of this encounter Visit Diagnoses Not on filedocumented in this encounter Care Teams Machine Operators Relationship Specialty Start Date End Date Patricia Dinero MD [facility] [place] [address] PCP - General Internal Medicine 09/06/23 documented as of this encounter
--- OUTSIDE RECORDS SUMMARY | 2025-05-15 13:34 | XMS_ITS | Encounter Summary ---
Author Organization [facility] Address [address] [facility] [place] [address] Care Team Providers Care Career Consultant Name Role Phone Bar Gomez MD Primary Care Provider [phone] Encounter Details Date Type Department Care Team (Late st Contact Info) Description 10/21/2024 Telephone [facility] - Pulmonology [address] [facility] [place] [address] Brody Yoder MD [address] [place] [address] Social History Tobacco Use Types Packs/Day Years Used Date Smoking Tobacco: Former Cigarettes Smokeless Tobacco: Never Alcohol Use Standard Drinks/Week Comments Yes 0 (1 standard drink = 0.6 oz pur e alcohol) social, infrequent PHQ-2 Answer Date Recorded PHQ2 TOTAL SCORE 0 06/22/2022 Comments No Sex and Gender Information Value Date Recorded Sex Assigned at Not on file 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 Gender Identity Not on file Sexual Orientation [...] Care Team (Late st Contact Info) Description 08/31/2025 3:30 PM CDT Office Visit [facility] - Pulmonology [address] [facility] [place] [address] Mook Marie MD [address] [place] [address] 09/09/2025 1:00 PM CDT Ancillary Procedure [facility] - Echosonography [address] [place] [phone] 09/09/2025 2:00 PM CDT Office Visit [facility] - Cardiology [address] [place] [phone] Rae Martinez APRN-HVAC MECHANICAL ENGINEER [address] [place] [address] documented as of this encounter Visit Diagnoses Not on filedocumented in this encounter Care Teams Career Consultant Relationship Specialty Start Date End Date Bar Gomez MD [address] [place] [address] PCP - General Internal Medicine 05/08/19 documented as of this encounter
--- OUTSIDE RECORDS SUMMARY | 2025-05-15 13:34 | XMS_ITS | Clinical Summary ---
Author Organization [facility] Address [address] [address] Care Team Providers Care Finisher Screwdown Name Role Phone Patricia Dinero MD Primary Care Provider [phone] Encounters Date Type Department Care Team Description 04/21/2025 12:30 PM CDT [facility] [address] [facility] [address] [place] [phone] Kishor Tse DO Stage 3 chronic kidney disease, not otherwise specified (HCC) (Primary Dx); Stroke, not otherwise specified (HCC); Aortic valve stenosis; 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); Progressive fibrotic interstitial lung disease (HCC); Hypertensive chronic kidney disease; Pure hypercholesterolemia, not otherwise specified; Hypothyroidism, not otherwise specified 04/21/2025 Refill [facility], [facility] [address] [facility] [address] [place] [address] Lynda Ventura CMA 03/25/2025 Orders Only [facility], [facility] [address] [phone] Kishor Tse DO from Last 3 Months Social History Tobacco Use Types Packs/Day Years Used Date Smoking Tobacco: Never Assessed Comments Unknown Sex and Gender Information Value Date Recorded Sex Assigned at Not on file Legal Sex Female 3:26 PM EDT Gender Identity Not on file Sexual Orientation Not on file Last Filed Vital Signs Vital Sign Reading Time Taken Comments Blood Pressure 160/80 04/21/2025 12:31 PM CDT Pulse 86 04/21/2025 12:31 PM CDT Temperature 36.7 C (98 F) 04/21/2025 12:31 PM CDT Respiratory Rate 18 04/21/2025 12:3 1 PM CDT Oxygen Saturation 94% 04/21/2025 12: 31 PM CDT Inhaled Oxygen Concentration - - Weight 66.6 kg (146 lb 12.8 oz) 025 12:31 PM CDT Height - - Body Mass Index - - Plan of Treatment Upcoming Encounters Date Type Department Care Team (Late st Contact Info) Description 11/24/2025 12:30 PM CDT Office Visit [facility], [facility] [address] [facility] [address] [place] [address] Kishor Tse DO [address] [place] [phone] Health Maintenance Due Date Last Done Comments Influenza Vaccine (#1) 2025 , 04/05/2023, 06/08/2021, Additional history exists Pneumococcal Vaccine: 50+ Years Completed 10/07/2015, 10/07/2015, 01/16/2007 Hepatitis B Vaccine Aged Out No longe r eligible based on patient's age to complete this topic Procedures Procedure Name Priority Date/Time Associated Diagnosis Comments MAGNESIUM Routine 03/25/2025 10:45 AM CDT VITAMIN D 25 HYDROXY Routine 03/25/2025 10:45 AM CDT CYSTATIN C WITH EGFR Routine 03/25/2025 10:45 AM CDT URINE ALBUMIN / CREATININE RATIO Routine 03/25/2025 10:45 AM CDT PROTEIN / CREATININE RATIO, URINE Routine 03/25/2025 10:45 AM CDT RENAL FUNCTION PANEL Routine 03/25/2025 10:45 AM CDT URINALYSIS WITH MICROSCOPIC Routine 03/25/2025 10:45 AM CDT CBC AND DIFFERENTIAL Routine 03/25/2025 10:45 AM CDT MICROSCOPIC EXAMINATION - DO NOT USE Routine 03/25/2025 10:45 AM CDT from Last 3 Months Results * (ABNORMAL) Cystatin C w/GFR (03/25/2025 10:45 AM CDT) Cystatin C 1.48(H) 0.87 - 1.12 mg/L [facility] eGFR by Cystatin C 39(L) >59 mL/min/1.7 3 [facility] 03/25/2025 10:4 5 AM CDT 03/24/2025 11:00 PM CDT Kishor Tse DO LAB BLOOD ORDERABLES Final R esult Performing Organization Address City/[facility]/ZIP Co de Phone Number [facility] [address] [place] [address] * Microscopic Examination (03/25/2025 10:45 AM CDT) WBC, Urine None seen 0 - 5 /hpf [facility] RBC, Urine None seen 0 - 2 /hpf [facility] Squamous Epithelial, Urine None seen 0 - 10 /hpf [facility] Casts None seen None seen /lpf [facility] Bacteria, Urine None seen None seen/Few [facility] 03/25/2025 10:4 5 AM CDT 03/24/2025 11:00 PM CDT Kishor Tse DO LAB MICROBIOLOGY - GENERAL O RDERABLES Final Result [email or web address] [address] [place] [address] * Protein, Total, Random Urine w/Creatinine (Protein/Creat Ratio) (03/25/2025 10:45 AM CDT) Creatinine, Ur 88.4 Not Estab. mg/dL [facility] Protein, Ur 9.8 Not Estab. mg/dL [facility] Urine Protein/Creatin ine Ratio 111 0 - 200 mg/g creat [facility] 03/25/2025 10:4 5 AM CDT 03/24/2025 11:00 PM CDT Kishor Tse DO LAB URINE ORDERABLES Final R esult Performing Organization Address [facility] Co de Phone Number [facility] [address] [place] [address] * Urine Albumin / Creatinine Ratio (03/25/2025 10:45 AM CDT) Albumin, Urine 8.1 Not Estab. ug/mL [facility] Albumin/Creatin ine Ratio 9 0 - 29 mg/g creat [facility] Comment: Normal: 0 - 29 Moderately increased: 30 - 300 Severely increased: >300 03/25/2025 10:4 5 AM CDT 03/24/2025 11:00 PM CDT Kishor Tse DO LAB URINE ORDERABLES Final R esult [facility] [address] [place] [address] * Vitamin D 25 Hydroxy (03/25/2025 10:45 AM CDT) Vitamin D, 25-OH, Total 51.2 30.0 - 100.0 ng/mL [facility] Comment: Vitamin D deficiency has been defined by the [place] of [employer] and an Endocrine Society practice guideline as a level of serum 25-OH vitamin D less than 20 ng/mL (1,2). The Endocrine Society went on to further define vitamin D insufficiency as a level between 21 and 29 ng/mL (2). 1. IOM ([place] of Medicine). 2010. Dietary reference intakes for calcium and D. [place]: The National Academies Press. 2. Arbaella MF, Lavinia VELA, Carisa HUITRON, et al. Evaluation, treatment, and prevention of vitamin D deficiency: an Endocrine Society clinical practice guideline. JCEM. 2010; 96(7):1911-30. 03/25/2025 10:4 5 AM CDT 03/24/2025 11:00 PM CDT Kishor Tse DO LAB BLOOD ORDERABLES Final R esult [facility] [address] [place] [address] * (ABNORMAL) Urinalysis with microscopic (03/25/2025 10:45 AM CDT) Specific [place], Urine 1.022 1.005 - 1.030 [facility] pH Urine 6.5 5.0 - 7.5 [facility] Color, Urine Yellow Yellow [facility] Appearance Urine Clear Clear [facility] WBC Esterase Urine Negative Negative [facility] Protein, Ur Negative Negative/Tra ce [facility] Glucose, Ur 3+(A) Negative [facility] Ketones, Urine Negative Negative [facility] Blood Urine Negative Negative [facility] Bilirubin Urine Negative Negative [facility] Urobilinogen Urine 0.2 0.2 - 1.0 mg/dL [facility] Nitrite, Urine Negative Negative [facility] Microscopic Examination Comment [facility] Comment:Microscopic follows if indicated. Other Microsc. Observations See below: [facility] Comment:Microscopic was beto cated and was performed. 03/25/2025 10:4 5 AM CDT 03/24/2025 11:00 PM CDT us Kishor Tse DO LAB URINE ORDERABLES Final R esult [facility] [address] [place] [address] * CBC and Differential (03/25/2025 10:45 AM CDT) WBC 4.5 3.4 - 10.8 x10E3/uL [facility] RBC 4.05 3.77 - 5.28 x10E6/uL [facility] Hemoglobin 12.6 11.1 - 15.9 g/dL [facility] Hematocrit 39.3 34.0 - 46.6 % [facility] MCV 97 79 - 97 fL [facility] MCH 31.1 26.6 - 33.0 pg [facility] MCHC 32.1 31.5 - 35.7 g/dL [facility] RDW 12.4 11.7 - 15.4 % [facility] Platelets 162 150 - 450 x10E3/uL [facility] Neutrophils Relative 64 Not Estab. % [facility] Lymphocytes Relative 28 Not Estab. % [facility] Monocytes 6 Not Estab. % [facility] Eosinophils Relative 2 Not Estab. % [facility] Basophils Relative 0 Not Estab. % [facility] Neutrophils Absolute 2.9 1.4 - 7.0 x10E3/uL [facility] Lymphocytes Absolute 1.3 0.7 - 3.1 x10E3/uL [facility] Monocytes Absolute 0.3 0.1 - 0.9 x10E3/uL [facility] Eosinophils Absolute 0.1 0.0 - 0.4 x10E3/uL [facility] Basophils Absolute 0.0 0.0 - 0.2 x10E3/uL [facility] Immature Granulocytes 0 Not Estab. % [facility] Immature Grans (Absolute) 0.0 0.0 - 0.1 x10E3/uL [facility] 03/25/2025 10:4 5 AM CDT 03/24/2025 11:00 PM CDT Kishor Tse DO LAB BLOOD ORDERABLES Final R esult [facility] [address] [place] [address] * Magnesium (03/25/2025 10:45 AM CDT) Magnesium 2.0 1.6 - 2.3 mg/dL [facility] 03/25/2025 10:4 5 AM CDT 03/24/2025 11:00 PM CDT Kishor Tse DO LAB BLOOD ORDERABLES Final R esult [facility] [address] [place] [address] * (ABNORMAL) Renal Function Panel (03/25/2025 10:45 AM CDT) Glucose 107(H) 70 - 99 mg/dL [facility] BUN 25 8 - 27 mg/dL [facility] Creatinine 1.44(H) 0.57 - 1.00 mg/dL [facility] eGFR CKD-EPI CR 2020 36(L) >59 mL/min/1.7 3 [facility] BUN/Creatinine Ratio 17 12 - 28 [facility] Sodium 142 134 - 144 mmol/L [facility] Potassium 3.9 3.5 - 5.2 mmol/L [facility] Chloride 103 96 - 106 mmol/L [facility] Bicarbonate (CO2) 24 20 - 29 mmol/L [facility] Calcium 9.1 8.7 - 10.3 mg/dL [facility] Phosphorus 3.4 3.0 - 4.3 mg/dL [facility] Albumin 4.2 3.7 - 4.7 g/dL [facility] 03/25/2025 10:4 5 AM CDT 03/24/2025 11:00 PM CDT us Kishor Tse DO LAB BLOOD ORDERABLES Final R esult [facility] [address] [place] [address] from Last 3 Months Insurance [employer] MCR Adv PPO ([id number]) Advance Directives Documents on File Type Date Recorded Patient Nurse Unit Manager Expl anation Advance Care Planning 10/12/2023 2:00 PM Care Teams Finisher Screwdown Relationship Specialty Start Date End Date Patricia Dinero MD [address] [place] [address] PCP - General Internal Medicine 09/06/23
--- OUTSIDE RECORDS SUMMARY | 2025-05-15 13:34 | XMS_ITS | Clinical Summary ---
Author Organization [place] [id number] [facility] Address [address] [place] [address] Care Team Providers Care Die Mounter Name Role Phone Bar Gomez MD Primary Care Provider Joshua Collins DO Unavailable [phone] Neisha Mathis MD Unavailable [phone] Kristopher Elizabeth MD Unavailable [phone] Krishna Keen MD Unavailable [phone] Allergies Active Allergy Reactions Criticality Noted Date Comments Adhesive Rash Medium 11/19/2020 Lisinopril Cough Low 01/09/2022 Jvtbvku-Yrt-Ggb Reductase Inhibitors Muscle pain,Unknown High 01/09/2022 Product containing 0-twgedhh-5-methylglu taryl-coenzyme A reductase inhibitor (product) Medications levothyroxine (SYNTHROID) 75 mcg tablet Take 1 tablet (75 mcg total) by mouth health outcomes liaison before breakfast Active losartan (COZAAR) 100 mg [...] daily 16.9 mL 3 03/02/20 23 Active Additional Information Patient not taking.Reported on 04/15/2025 multivitamin capsule Take by mouth Active fenofibrate [...] dinner 60 capsule 3 12/06/19 25 Active Additional Information Patient not taking.Reported on 04/15/2025 pyridoxine (VITAMIN B-6) 100 mg tablet Take 2 tablets (200 mg total) by mouth daily 60 tablet 3 12/06/19 25 026 Active methylPREDNISolone (MEDROL DOSEPACK) 4 mg Dosepack Take as directed on package 1 packet 12/09/19 25 Active Additional Information Patient not taking.Reported on 04/15/2025 Active Problems Patient Care Coordination No te [...] from 12/09/2020:Stage IA(cT1c, cN0, cM0, G3, ER+, OR+, HER2-) - Signed by Neisha Mathis MD on 12/09/2020 Pathologic stage from 06/02/2021:No Stage Recommended(ypT1c, pN2, cM0, G3, ER+, OR+, HER2+) - Signed by Neisha Mathis MD on 06/02/2021 Hot flashes due to menopause 10/09/2016 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 Urinary tract infection 03/21/2013 Bacterial vaginosis 08/22/2012 Postmenopausal bleeding 07/08/2012 Hyperlipidemia 07/08/2012 Encounters Date Type Department Care Team Description 04/15/2025 1:15 PM CDT Office Visit [facility] On[facility] [address] [place] [phone] Joshua Collins DO 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, estrogen receptor positive (HCC) (Primary Dx) 04/15/2025 12:45 PM CDT Lab [facility] at [address] [address] 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, estrogen receptor positive (HCC) 03/26/2025 Orders Only [facility] [address] [place] [phone] Juanita Hart RN 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, estrogen receptor positive (HCC) (Primary Dx) from Last 3 Months Immunizations Immunization Administration Dates Next Due Influenza, Quadrivalent, Hig h Dose, Preservative Free, Intrr 04/14/2022 Influenza, Unspecified 06/08/2021 Pfizer SARS-CoV-2 Monovalent Vaccination (12+ Yrs) PURPLE 09/09/2020,08/17/2020 Surgical History Surgery Date Site/Laterality Comments OR COLONOSCOPY FLX DX W/COLLJ SPEC WHEN PFRMD Complete Colonoscopy - (Added by TW Conv) OR TOTAL ABDOMINAL HYSTERECT W/WO RMVL TUBE OVARY 06/25/2012 - 06/24/2013 Hysterectomy - (Added by TW Conv) CATARACT EXTRACTION Bilateral Cataract Surgery - (Added by TW Conv) COLONOSCOPY US GUIDED BIOPSY LYMPH NODE SUPERFICIAL LEFT 12/14/2020 N/A OR EXC CYST/ABERRANT BREAST TISSUE OPEN 1/> LESION [...] Given: Not Answered AUDIT-C Answer Date Recorded Frequency of Alcohol Consumption Not on file 04/15/2025 Q2: How many drinks containi ng alcohol do you have on a typical day when you are drinking? 1 or 2 04/15/2025 Q3: How often do you have si x or more drinks on one occasion? 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 Not on file Not on file Obstetrics History Para Term AB IAB SAB Ectopic Multiple Livin g Live Births 3 3 3 Date Outcome GA Total Labor Labor//3rd Weight Sex Type Anes PTL Jonelle A1 A5 Name Clin Term Term Term Last Filed Vital Signs Vital Sign Reading Time Taken Comments Blood Pressure 138/83 04/15/2025 1:13 PM CDT Pulse 85 04/15/2025 1:13 PM CDT Temperature 36.6 C (97.8 F) 04/15/2025 1:13 PM CDT Respiratory Rate 18 04/15/2025 1:13 PM CDT Oxygen Saturation 96% 04/15/2025 1:13 PM CDT Inhaled Oxygen Concentration - - Weight 66.4 kg (146 lb 6.2 oz) 04/15/2025 1:13 P M CDT Height 164 cm (5' 4.57) 12/05/2024 2:35 PM CDT Body Mass Index 24.69 12/05/2024 2:35 PM CDT Plan of Treatment Health Maintenance Due Date Last Done Comments Depression Screening 1941 DTaP/Tdap/Td Vaccine (1 - Tdap) 1952 Hepatitis B Screening 1959 Pneumococcal vaccine 65+ (1 of 2 - PCV) 1960 Zoster Vaccine (1 of 2) 1960 Well Visit 65+ 2006 Fall Risk Assessment 01/20/2022 01/20/2021 Osteoporosis Screening-Bone Density Scan 02/09/2024 02/08/2022 Covid-19 Vaccine (4 - 2024-2 6 season) 2025 09/28/2021, 09/09/2020, 08/17/2020 Influenza Vaccine (#1) 2025 , 04/05/2023, 04/14/2022, Additional history exists Medical Devices Explanted Type Area Dementia Program Director Device Identifier Shelf Expiration Date Model / Serial / Lot [employer] [id number] Powerport Mri Airguard 8fr 1 Lumen Attachable Catheter Latex Free - [id number] Implanted:Qty: 1 on 01/20/2021 by Kristopher Elizabeth MD at [facility] Explanted:Qty: 1 on 05/05/2021 by Kristopher Elizabeth MD [employer] [id number] / / [employer] [id number] Northport 20ga 7.5cm 2 Part Stabilizer Repositionable Depth Kodi - [id number] Explanted:Qty: 1 on 05/05/2021 at [facility] Right: Breast [employer] [id number] 10/22/2025 [id number] / / [id number] Procedures Procedure Name Priority Date/Time Associated Diagnosis Comments EGFR Routine 04/15/2025 12:36 PM CDT 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, estrogen receptor positive (HCC) DIFFERENTIAL AUTO Routine 04/15/2025 12: 36 PM CDT 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 73 m2 Comment: Interpretive Data Reference Interval Normal >/= 90 mL/min/1.73m2 Mildly decreased* 60 - 89 mL/min/1.73m2 Mildly to moderately decreased 45 - 59 mL/min/1.73m2 Moderately to severely decreased 30 - 44 mL/min/1.73m2 Severely decreased 15 - 29 mL/min/1.73m2 Kidney Failure < 15 mL/min/1.73m2 *Relative to young adult level Estimated glomerular filtration rate is determined by the 2020 CKD-EPI equation recommended by the National Kidney Foundation (A Unifying Approach to GFR Estimation: Recommendations of the NKF-ASK Task Force on Reassessing the Inclusion of Race in Diagnosing Kidney Disease, JASN 2020). The CKD-EPI equation should not be used for patients with unstable renal function and has not been validated in children and those over 70. Current interpretive data was last reviewed 2021. Testing performed by: [address] [address] Blood 04/15/2025 12:3 6 PM CDT 04/15/2025 12:38 PM CDT us Joshua Collins DO LAB BLOOD ORDERABLES Final R esult [facility] [address] [facility] [place] [address] * Differential, auto (04/15/2025 12:36 PM CDT) Neutrophil abs 2.44 1.50 - 6.50 K/cumm Comment:Testing performed by : [address] [address] Imm gran abs 0.01 0.00 - 0.10 K/cumm BIN Comment:Testing performed by : [address] [address] Lymphocyte abs 1.75 0.80 - 3.30 K/cumm BIN Comment:Testing performed by : [address] [address] Monocyte abs 0.35 0.20 - 0.80 K/cumm BIN Comment:Testing performed by : [address] [address] Eosinophil abs 0.12 0.00 - 0.50 K/cumm [facility] Comment:Testing performed by : [address] [address] Basophil abs 0.01 0.00 - 0.10 K/cumm [facility] Comment:Testing performed by : [address] [address] Neutrophil pct 52.1 % [facility] Comment: Interpretive Data Percent cell count reference ranges are not reported, since discordance with absolute values may lead to misinterpretation of CBC data. Current Interpretive Data was last revised on 2017. Testing performed by: [address] [address] Imm gran pct 0.2 % [facility] Comment: Interpretive Data Percent cell count reference ranges are not reported, since discordance with absolute values may lead to misinterpretation of CBC data. Current Interpretive Data was last revised on 2017. Testing performed by: [address] [address] Lymphocyte pct 37.4 % [facility] Comment: Interpretive Data Percent cell count reference ranges are not reported, since discordance with absolute values may lead to misinterpretation of CBC data. Current Interpretive Data was last revised on 2017. Testing performed by: [address] [address] Monocyte pct 7.5 % [facility] Comment: Interpretive Data Percent cell count reference ranges are not reported, since discordance with absolute values may lead to misinterpretation of CBC data. Current Interpretive Data was last revised on 2017. Testing performed by: [address] [address] Eosinophil pct 2.6 % [facility] Comment: Interpretive Data Percent cell count reference ranges are not reported, since discordance with absolute values may lead to misinterpretation of CBC data. Current Interpretive Data was last revised on 2017. Testing performed by: [address] [address] Basophil pct 0.2 % [facility] Comment: Interpretive Data Percent cell count reference ranges are not reported, since discordance with absolute values may lead to misinterpretation of CBC data. Current Interpretive Data was last revised on 2017. Testing performed by: [address] [address] Blood 04/15/2025 12:3 6 PM CDT 04/15/2025 12:38 PM CDT us Joshua Collins DO LAB BLOOD ORDERABLES Final R esult [facility] [address] [facility] [place] [address] * (ABNORMAL) CBC with auto differential (04/15/2025 12:36 PM CDT) WBC 4.68 3.80 - 9.90 K/cumm Comment:Testing performed by : [address] [address] Hgb 12.6 11.9 - 15.5 g/dL BIN Comment:Testing performed by : [address] [address] Hct 37.9 35.6 - 45.5 % BIN Comment:Testing performed by : [address] [address] Plt 180 150 - 400 K/cumm BIN Comment:Testing performed by : [address] [address] MPV 8.6(L) 9.1 - 12.3 fL BIN Comment:Testing performed by : [address] [address] RBC 4.03 3.90 - 5.20 M/cumm BIN Comment:Testing performed by : [address] [address] MCV 94.0 81.3 - 96.4 fL BIN Comment:Testing performed by : [address] [address] MCH 31.3 27.1 - 33.3 pg BIN Comment:Testing performed by : [address] [address] MCHC 33.2 32.3 - 35.7 g/dL BIN RUIZ Comment:Testing performed by : [address] [address] RDW CV 13.0 11.1 - 14.9 % BIN RUIZ Comment:Testing performed by : [address] [address] RDW SD 44.7 35.7 - 48.1 fL BIN Comment:Testing performed by : [address] [address] NRBC abs 0.00 0.00 - 0.01 K/cumm BIN Comment:Testing performed by : [address] [address] ANC Prelim 2.44 1.50 - 6.50 K/cumm BIN [facility]Z Comment: Interpretive Data The rapid ANC is a preliminary automated count and may vary from the final ANC (Neut Abs) reported in the WBC differential that follows. Current interpretive data was last revised 2024. Testing performed by: [address] [address] Blood 04/15/2025 12:3 6 PM CDT 04/15/2025 12:38 PM CDT us Joshua Collins DO LAB BLOOD ORDERABLES Final R esult BIN [address] [facility] Department [place] [address] * (ABNORMAL) Comprehensive metabolic panel (04/15/2025 12:36 PM CDT) Sodium 144 135 - 145 mmol/L Comment:Testing performed by : [address] [address] Potassium, pl 4.1 3.3 - 4.9 mmol/L BIN RUIZ Comment:Testing performed by : [address] [address] Chloride 105 97 - 110 mmol/L BIN Comment:Testing performed by : [address] [address] CO2 27 22 - 32 mmol/L BIN Comment:Testing performed by : [address] [address] Anion gap 12 2 - 15 mmol/L BIN Comment:Testing performed by : [address] [address] BUN 17 6 - 25 mg/dL BIN Comment:Testing performed by : [address] [address] Creatinine 1.20(H) 0.60 - 1.10 mg/dL BIN Comment:Testing performed by : [address] [address] Glucose 89 70 - 199 mg/dL BIN Comment: Interpretive Data Fasting glucose >/= 126 mg/dl is diagnostic for diabetes. Fasting is defined as no caloric intake for at least 8 hours. Fasting glucose between 100 mg/dl to 125 mg/dl is diagnostic of prediabetes. In a patient with classic symptoms of hyperglycemia or hyperglycemic crisis, a random glucose >/= 200 mg/dl is diagnostic for diabetes. In the absence of unequivocal hyperglycemia, results should be confirmed by repeat testing. The classification and Diagnosis of Diabetes Diabetes Care 202; 46: S19-S40. Current interpretive data was last revised 2022. Testing performed by: [address] [address] Calcium 10.1 8.5 - 10.3 mg/dL BIN Comment:Testing performed by : [address] [address] Bilirubin, total 0.3 0.1 - 1.2 mg/dL BIN Comment:Testing performed by : [address] [address] Protein, pl 7.8 6.5 - 8.5 g/dL BIN Comment:Testing performed by : [address] [address] Albumin 4.1 3.5 - 5.0 g/dL BIN Comment:Testing performed by : [address] [address] Alk phos 38(L) 40 - 130 Units/L BIN RUIZ Comment:Testing performed by : [facility], [address] [place] [address]., [address] ALT 10 7 - 45 Units/L BIN RUIZ Comment:Testing performed by : [facility], [address] [place] [address]., [address] AST 27 10 - 45 Units/L BIN RUIZ Comment:Testing performed by : [facility], [address] [place] [address]., [address] Blood 04/15/2025 12:3 6 PM CDT 04/15/2025 12:38 PM CDT Joshua Collins DO LAB BLOOD ORDERABLES Final R esult Performing Organization Address City/State/[facility] Co de Phone Number BIN R[facility] [address] [facility] Department [place] [address] from Last 3 Months Insurance T MEDICARE T MEDICARE Care Teams Die Mounter Relationship Specialty Start Date End Date Bar Gomez MD PCP - General 11/24/20 Joshua Collins DO [address] [place] [address] MEDICAL ONCOLOGY, [address] [address] Medical Oncologist/Senior Oracle Database Developer Hematology and Oncology 11/17/20 Neisha Mathis MD [address] [place] [address] MEDICAL ONCOLOGY, [address] [address] Radiation Oncologist Radiation Oncology 12/09/20 Kristopher Elizabeth MD [address] [address] Surgeon Surgery 12/09/20 Krishna Keen MD [address] [address] Surgeon General Surgery 03/22/23
--- OUTSIDE RECORDS SUMMARY | 2025-05-15 13:34 | XMS_ITS ---
Author Organization [place] [id number] [facility] Address [address] [place] [address] Care Team Providers Care Internal Audit Senior Manager Name Role Phone Bar Gomez MD Primary Care Provider [phone] Joshua Collins DO Unavailable [phone] Neisha Mathis MD Unavailable [phone] Kristopher Elizabeth MD Unavailable [phone] Krishna Keen MD Unavailable [phone] Active Problems Patient Care Coordination No te [...] from 12/09/2020:Stage IA(cT1c, cN0, cM0, G3, ER+, DE+, HER2-) - Signed by Neisha Mathis MD on 12/09/2020 Pathologic stage from 06/02/2021:No Stage Recommended(ypT1c, pN2, cM0, G3, ER+, DE+, HER2+) - Signed by Neisha Mathis MD [...] from the original note were not included. [facility] [address] [facility], [address] [place] [address] This Survivorship Care Plan is a cancer [...] Information: Primary Care Physician Bar Gomez MD [phone] Surgeon Kristopher Elizabeth MD [phone] Radiation Oncologist Neisha Mathis MD [phone] Medical Oncologist Joshua Collins DO [phone] Treatment Summary Cancer Diagnosis Information Diagnosis 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, estrogen receptor positive (CMS/HCC) (HCC) Diagnosis date 11/17/2020 Staging information Cancer Staging 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, estrogen receptor positive (CMS/HCC) (HCC) Staging form: Breast, AJCC 8th Edition - Clinical stage from 12/09/2020: Stage IA (cT1c, cN0, cM0, G3, ER+, DE+, HER2-) - Signed by Neisha Mathis MD [...] breast cancer could run in the family: Baptist heritage History of ovarian cancer in the [...] monitoring Every 3 months while on Herceptin 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 Resources you may be interested in: [facility] Cancer Center A National Cancer [place] [facility] http://www.[facility]/ [facility] Cancer Information Center 1st floor of Advanced Medicine [phone]. Computer access, educational material, counseling services (FREE) Cancer Resources: www.cancer.net Chinese Disabilities Act: The U.S. Department of Justice provides information about the Americans with Disabilities Act (ADA). Toll free number http://www.ada.gov/ Occupational Therapy at [facility]. Improve memory and thinking following chemotherapy. Improve your performance at home, work and in the community. or Toll free www.ot.[facility]/patients Managing your weight after a cancer diagnosis: http://www.cancer.net/sites/cancer.net/files/weight_after_cancer_diagnosis.pdf National Coalition for Cancer Survivorship: http://www.canceradvocacy.org/ Chinese Cancer Society Cancer Survivors Network: http://csn.cancer.org/ [employer] Cancer: https://survivorship.cancer.gov/ an online tool for cancer survivors andcaregivers created by the Chinese Cancer Society and the National Cancer [place]. It provides: Information on dealing with side effects from cancer and treatment Caregivers with support and resources Practical advice about talking to friends and family about cancer Questions to ask their health care team Help understanding their rights in the workplace
--- OUTSIDE RECORDS SUMMARY | 2025-05-15 13:34 | XMS_ITS | Clinical Summary ---
Author Organization [facility] Commissioner Address [address] [place] [address] Care Team Providers Care Sales And Service Technician Name Role Phone Bar Gomez MD Primary Care Provider [phone] Source Comments [facility] Commissioner,non-owned Affiliates and Associated Physician Practices is amultiple site organization consisting of ambulatory clinics and hospital sitesin [place], [place], [place] and [place]. This disclosure is being madepursuant to the Care Everywhere program and may not contain all information available regarding this patient. Last updated 18.[facility] Commissioner Allergies Active Allergy Reactions Criticality Noted Date Comments 5-Alpha Reductase Inhibitors Unknown 023 Hmg-Coa-R Inhibitors Myalgias High 01/09/2022 Lisinopril Cough Medium 01/09/2022 Medications * Be aware that medications may not be up to date on this document. Alwaysverify current medications with the patient. clopidogrel (PLAVIX) 75 MG tablet Take 1 tablet by mouth once daily 30 tablet 9 Active Calcium Carbonate+Vitami n D 600-200 MG-UNIT TABS Take 1 tablet by mouth once daily Active tiotropium (SPIRIVA RESPIMAT) 2.5 MCG/ACT inhaler 2 (two) puffs once daily Active Cholecalciferol (VITAMIN D3) 1.25 MG (67164 UT) capsule Take 1 (one) capsule by mouth every 7 days Active ezetimibe (Zetia) 10 MG tablet Take 1 (one) tablet by mouth once daily Active anastrozole (ARIMIDEX) 1 MG tablet Take 1 (one) tablet by mouth once daily 2 Active losartan (Cozaar) 100 MG tablet Take 1 (one) tablet by mouth once daily 2 Active Albuterol Sulfate 108 (90 Base) MCG/ACT Inhale 2 puffs by mouth every 6 hours as needed Active Multiple Vitamin (MULTI-VITAMINS PO) Active fenofibrate (Tricor) 145 MG tablet Take 1 (one) tablet by mouth once daily 3 Active levothyroxine (Synthroid) 75 MCG tablet Take 1 (one) tablet by mouth once daily 3 Active cetirizine (ZyrTEC) 10 MG tablet Take 1 (one) tablet by mouth once daily 90 tablet 4 5 Active predniSONE (Deltasone) 10 MG tablet Take 1 (one) tablet by mouth as directed Take 20 mg (2 tablets daily) for 7 days followed by 10 mg (1 tablet) daily for 7 days 21 tablet 5 Active Additional Information Patient not taking.Reported on 03/18/2025 alendronate (Fosamax) 70 MG tablet Take 1 (one) tablet by mouth Active dapagliflozin propanediol (Farxiga) 10 MG tabletIndication s:Chronic heart failure with preserved ejection fraction (HCC) Take 1 (one) tablet by mouth every morning 100 tablet 3 5 Active Active Problems Problem Noted Date Diagnosed Date Aortic stenosis 09/15/2022 Pulmonary hypertension 09/15/2022 Dyslipidemia 09/15/2022 Atherosclerosis of aorta 09/15/2022 Dyspnea 09/15/2022 ILD (interstitial lung disease) 09/15/2022 Weakness 05/08/2019 Encounters Date Type Department Care Team Description 03/18/2025 11:00 AM CDT Office Visit [facility] - Cardiology [address], [facility] [address] [place] [address] Rae Martinez, DISTRIBUTION OPERATION SUPERVISOR-BEAM [employer]ER RECESSED VAT Nonrheumatic aortic valve stenosis (Primary Dx); Chronic heart failure with preserved ejection fraction (HCC); Dyslipidemia; Pulmonary hypertension (HCC); ILD (interstitial lung disease) (HCC); Dyspnea, unspecified type; Statin intolerance; Coronary artery disease involving [place] coronary artery of [place] heart without angina pectoris 03/18/2025 10:00 AM CDT Ancillary Procedure [facility] - Echosonography [address] [facility], [facility] [address] [place] [address] Nonrheumatic aortic (valve) stenosis 03/18/2025 Travel from Last 3 Months Immunizations Immunization [...] on file Legal 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 Gender Identity Not on file Sexual Orientation Not on file Last Filed Vital Signs Vital Sign Reading Time Taken Comments Blood Pressure 128/82 03/18/2025 10:29 AM CDT Pulse 92 03/18/2025 10:29 AM CDT Temperature 37.3 C (99.2 F) 02/09/2025 3:18 PM CDT Respiratory Rate 17 02/09/2025 3:18 PM CDT Oxygen Saturation 94% 03/18/2025 10:29 AM CDT Inhaled Oxygen Concentration - - Weight 66.2 kg (146 lb) 03/18/2025 10:29 AM CDT Height 166.4 cm (5' 5.5) 03/18/2025 10:29 AM CD T Body Mass Index 23.93 03/18/2025 10:29 AM CDT Plan of Treatment Upcoming Encounters Date Type Department Care Team (Late st Contact Info) Description 08/31/2025 3:30 PM CDT Office Visit [facility] - Pulmonology [address] [facility] [place] [address] Mook Marie MD [address] [place] [address] 09/09/2025 1:00 PM CDT Ancillary Procedure [facility] Echosonography [address] [phone] 09/09/2025 2:00 PM CDT [facility] [address] [facility], [address] [phone] Rae Martinez, DISTRIBUTION OPERATION SUPERVISOR-BE[employer] REC[employer] VAT [address] [address] Health Maintenance Due Date Last Done Comments BONE DENSITY TESTING 1940 DTAP/TDAP/TD VACCINES (1 - Tdap) 1960 ZOSTER VACCINE (1 of 2) 1991 Respiratory Syncytial Virus (RSV) Vaccine Pt: or over 60 yrs (1 - 1-dose 75+ series) 2016 COVID-19 VACCINE (2 - Pfizer risk series) 10/19/2021 09/28/2021 DEPRESSION SCREENING 06/25/2024 06/22/2022 MEDICARE AWV [...] Procedure Name Priority Date/Time Associated Diagnosis Comments ECHO COMPLETE Routine 03/18/2025 10:33 AM CDT Nonrheumatic aortic (valve) stenosis from Last 3 Months Results * ECHO COMPLETE (03/18/2025 10:33 AM CDT) RVOT diam Doppler 2.632 cm SS M CV FUJI PACS PV VTI 17.588 cm SSM CV FUJ I PACS MV lat a' parvez 7.703 cm/s SSM CV FUJI PACS MV lat S' parvez 5.805 cm/s SSM CV FUJI PACS RV-babin mid diam 3.925 cm SSM CV FUJI PACS AV area index 0.521 cm /m SSM CV FUJI PACS LA vol index 0.047 l/m SSM CV FUJI PACS Dimensionless Index 0.268 unitless SSM CV FUJI PACS Myocardial strain charge 2 unitless SSM CV FUJI PACS Aortic annulus 2.362 cm SSM C V FUJI PACS Sinus of Valsalva 2.971 cm SS M CV FUJI PACS ST junction 2.781 cm SSM CV F UJI PACS RVIDd 3.031 cm SSM CV FUJ I PACS IVSd 2D 1.556 cm SSM CV FUJ I PACS LVIDd 4.955 cm SSM CV FUJ I PACS LVIDs 2.917 cm SSM CV FUJ I PACS LVOT diam 2.094 cm SSM CV FUJ I PACS LVPWd 1.473 cm SSM CV FUJ I PACS LV biplane EF 70.721 % SSM CV FUJI PACS LV A2C EF 73.922 % SSM CV FUJ I PACS LV A4C EF 68.98 % SSM CV FUJ I PACS LV EDV A2C 76.167 ml SSM CV FU JI PACS LV EDV A4C 73.617 ml SSM CV FU JI PACS LV ESV A2C 19.863 ml SSM CV FU JI PACS LV ESV A4C 22.836 ml SSM CV FU JI PACS LVOT pk grad 2.484 mmHg SSM CV FUJI PACS LVOT pk parvez 78.809 cm/s SSM CV F UJI PACS LVOT VTI 15.559 cm SSM CV FUJ I PACS RV-babin basal diam 3.827 cm SSM CV FUJI PACS RVOT pk parvez 50.24 cm/s SSM CV F UJI PACS RVOT VTI 9.845 cm SSM CV FUJ I PACS LA size 4.832 cm SSM CV FUJ I PACS LA vol BP 82.748 ml SSM CV FUJ I PACS RA area 21.523 cm SSM CV FUJI PACS AV area pk parvez 0.932 cm SSM CV FUJI PACS AV area cont VTI 0.922 cm SSM CV FUJI PACS AV pk grad 33.959 mmHg SSM CV FU JI PACS AV mn grad 19.702 mmHg SSM CV FU JI PACS AV pk parvez 291.37 cm/s SSM CV FUJ I PACS AV VTI 58.107 cm SSM CV FUJ I PACS MV A pk parvez 110.774 cm/s SSM CV F UJI PACS MV E pk parvez 103.705 cm/s SSM CV F UJI PACS MV E' lateral parvez 7.276 cm/s SS M CV FUJI PACS MV mn grad 2.55 mmHg SSM CV FU JI PACS MV VTI 23.823 cm SSM CV FUJ I PACS PV pk parvez 82.204 cm/s SSM CV FUJ I PACS TAPSE 1.81 cm SSM CV FUJ I PACS TR pk parvez 310.559 cm/s SSM CV FUJ I PACS Ascending aorta 3.326 cm SSM CV FUJI PACS IVC Diam Expiration 1.795 cm SSM CV FUJI PACS Anatomical Region Laterality Modality Ultrasound 03/18/2025 10:2 8 AM CDT Narrative 03/18/2025 4:19 PM CDT Summary * Findings consistent with worse severe aortic stenosis (compared to 03/19/2024 ECHO), worse LVH, worse LV diastolic dysfunction, larger LA, higher LA pressure, normal LV systolic function, mild to moderate pulmonary vascular dysfunction, similar normal RA pressure, similar mild TR, similar normal RV, similar dilated RA, and mild secondary pulmonary hypertension. No effusion and similar aorta. * The left ventricle is normal in size, with normal systolic function and an estimated ejection fraction of 71 % by biplane method of disks. Left ventricular wall motion is normal. * Right ventricle is normal in size with normal systolic function. * The left ventricle is normal in size. * Left ventricular systolic function is normal with an estimated ejection fraction of 71 % by biplane method of disks. * Left ventricular segmental wall motion is normal. * Left ventricular wall thickness is moderately increased. * The left ventricular mass is severely increased with concentric hypertrophy. LV mass index 182 gm/M2. RWT 0.59. * The left ventricular diastolic function is consistent with grade II diastolic dysfunction and increased left atrial filling pressure. Average E/e' ratio 21. Pulm vein - MV A duration difference 46 msec. * The right ventricle is normal in size. * Right ventricular systolic function is normal. * Right ventricular wall thickness is normal. * The left atrium is moderately dilated with a left atrial volume index of 47 ml/m2 by BP MOD. * The right atrium is mildly-moderately dilated. Volume index 39 ml/M2. * Moderate aortic annular calcification. * The aortic valve is trileaflet, moderately severely thickened and moderately severely calcified. * Severe decreased mobility of the coronary cusps. * There is severe aortic valve stenosis with a peak velocity of 2.9 m/s, mean gradient of 20 mmHg, and aortic valve area of 0.92 cm2. Valve area index 0.52-0.53 cm2/M2. Stroke volume index 30 ml/M2. Cardiac index 2.7 L/min/M2. * There is no significant aortic valve regurgitation. * Moderate mitral annular calcification. * The mitral valve is moderately thickened, calcified and displaying moderately severely restricted posterior leaflet motion. * There is no clinically significant mitral valve stenosis. * Mitral valve area by 2D Planimetry is 3.52 cm2. * There is no significant mitral valve regurgitation. * There is mild tricuspid valve regurgitation. * Tricuspid valve effective regurgitant orifice by PISA is 0.10 cm2. R volume 8 ml/fraction 13%. * The pulmonary artery systolic pressure is mildly elevated, 42 mmHg. Mean PA pressure of 31 mmHg. PVR 4.2 Wood units. * The pulmonic valve is normal. * The ascending aorta is normal in size measuring 3.3 cm with an index of 1.9 cm/m2. Height index 2.0 cm/m. Z score 2. * Moderate plaque in the ascending aorta and aortic arch. * Normal inferior vena cava with > 50% collapse upon inspiration consistent with normal right atrial pressure, 3 mmHg. * There is no pericardial effusion. Patient Info Name: Nesha Bettencourt Age: 84 years : 1940 Gender: Female Ht: 65 in Wt: 149 lb BSA: 1.77 m2 HR: 94 bpm BP: 120 / 72 mmHg Exam Date: 03/18/2025 10:28 AM Patient Status: O Study Site: [facility] Primary Location: [facility] Info Exam Type: ECHO COMPLETE Indications I35.0 - Nonrheumatic aortic (valve) stenosis Procedure(s) * A complete 2D, color Doppler, spectral Doppler, and M-Mode transthoracic echocardiogram was performed. Staff Referring Physician: Verito Norris Ordering Provider: Verito Norris Stone Sandblaster: Quin Calzada Left Ventricle The left ventricle is normal in size. Left ventricular systolic function is normal with an estimated ejection fraction of 71 % by biplane method of disks. Left ventricular segmental wall motion is normal. Left ventricular wall thickness is moderately increased. The left ventricular mass is severely increased with concentric hypertrophy. LV mass index 182 gm/M2. RWT 0.59. The left ventricular diastolic function is consistent with grade II diastolic dysfunction and increased left atrial filling pressure. Average E/e' ratio 21. Pulm vein - MV A duration difference 46 msec. Right Ventricle The right ventricle is normal in size. Right ventricular systolic function is normal. Right ventricular wall thickness is normal. Ventricular Septum Intact interventricular septum visualized by 2D and color Doppler imaging. Left Atrium The left atrium is moderately dilated with a left atrial volume index of 47 ml/m2 by BP MOD. No mass or thrombus formation in the left atrium. Right Atrium The right atrium is mildly-moderately dilated. Volume index 39 ml/M2. No mass or thrombus formation in the right atrium. Atrial Septum Intact interatrial septum visualized by 2D and color Doppler imaging. Aortic Valve Moderate aortic annular calcification. The aortic valve is trileaflet, moderately severely thickened and moderately severely calcified. Severe decreased mobility of the coronary cusps. There is severe aortic valve stenosis with a peak velocity of 2.9 m/s, mean gradient of 20 mmHg, and aortic valve area of 0.92 cm2. Valve area index 0.52-0.53 cm2/M2. Stroke volume index 30 ml/M2. Cardiac index 2.7 L/min/M2. There is no significant aortic valve regurgitation. Pulmonic Valve The pulmonic valve is normal. There is no pulmonic valve stenosis. There is no pulmonic regurgitation. Pulmonary valve area by Continuity Equation is 3.0 cm2. Mitral Valve Moderate mitral annular calcification. The mitral valve is moderately thickened, calcified and displaying moderately severely restricted posterior leaflet motion. There is no clinically significant mitral valve stenosis. Mitral valve diastolic mean gradient is 3 mmHg. Mitral valve area by 2D Planimetry is 3.52 cm2. There is no significant mitral valve regurgitation. Tricuspid Valve The tricuspid valve is normal. There is no significant tricuspid valve stenosis. There is mild tricuspid valve regurgitation. Tricuspid valve effective regurgitant orifice by PISA is 0.10 cm2. R volume 8 ml/fraction 13%. The pulmonary artery systolic pressure is mildly elevated, 42 mmHg. Mean PA pressure of 31 mmHg. PVR 4.2 Wood units. Inferior Vena Cava The inferior vena cava is normal in size (< 2.1 cm). There is > 50% collapse of the IVC upon inspiration with an estimated right atrial pressure of 3 mmHg. Normal inferior vena cava with > 50% collapse upon inspiration consistent with normal right atrial pressure, 3 mmHg. Pericardium/Pleural There is no pericardial effusion. Aorta The aortic root at the sinus of Valsalva is normal in size. The ascending aorta is normal in size. The aortic root at the sinus of Valsalva is normal in size measuring 3.0 cm with an index of 1.7 cm/m2. The ascending aorta is normal in size measuring 3.3 cm with an index of 1.9 cm/m2. Height index 2.0 cm/m. Z score 2. Moderate plaque in the ascending aorta and aortic arch. Wall Motion Scoring Index: 1.00 Measurements Left Ventricular Outflow Tract Name Value Normal LVOT 2D LVOT Diameter 2.1 cm LVOT Area 3.4 cm2 LVOT Doppler LVOT Peak Velocity 0.8 m/s LVOT Peak Gradient 2 mmHg LVOT Mean Velocity 51.01 cm/s LVOT Mean Gradient 1 mmHg LVOT VTI 15.6 cm LVOT VTI/AV VTI Ratio 0.3 LVOT Stroke Volume 54 ml LVOT Stroke Volume Index 30 ml/m2 35-58 LVOT CO 5.2 l/min LVOT CI 2.9 l/min/m2 Pulmonic Valve Name Value Normal PV 2D RVOT Diameter (2D) 2.6 cm 1.7-2.7 RVOT Doppler RVOT Peak Velocity 0.5 m/s RVOT Peak Gradient 1 mmHg RVOT Mean Gradient 1 mmHg PV Doppler PV Peak Velocity 0.8 m/s PV Peak Gradient 3 mmHg PV Mean Gradient 1 mmHg PV Area (Cont Eq VTI) 3.04 cm2 PV Area Index (Cont Eq VTI) 1.72 cm2/m2 PV Area (Cont Eq Parvez) 3.3 cm2 PV Area Index (Cont Eq Parvez) 1.88 cm2/m2 Mitral Valve Name Value Normal MV 2D/MM MV Area (Planimetry) 3.52 cm2 4.00-5.00 MV Annulus Diameter (PLAX) 2.0 cm MV Annulus Diameter (2C) 2.8 cm MV Annulus Diameter (4C) 2.8 cm <=4.4 MV Doppler MV Peak Gradient 5 mmHg MV Mean Gradient 3 mmHg MV DI (VTI) 1.53 MV Decel Time (CW) 171 ms MV PHT 50 ms MV Area (PHT) 4.42 cm2 4.00-5.00 MV Area (Cont Eq VTI) 2.25 cm2 MV Regurgitation Doppler MR Volume (Cont Eq) 0 ml MR Fraction (Cont Eq) 0 % MV Diastolic Function MV E Peak Velocity 1.0 m/sec MV A Peak Velocity 1.1 m/sec MV E/A 0.9 MV Decel Time (PW) 182 ms MV A Wave Duration 127 ms MV Annular TDI MV Septal s' Velocity 4 cm/s MV Septal e' Velocity 4 cm/s >=8 MV Septal a' Velocity 8 cm/s MV E/e' (Septal) 27 <=8 MV A/a' (Septal) 13 MV Lateral s' Velocity 6 cm/s MV Lateral e' Velocity 7 cm/s >=10 MV Lateral a' Velocity 8 cm/s MV E/e' (Lateral) 14 <=8 MV A/a' (Lateral) 14 MV e' Average 6 cm/s MV E/e' (Average) 21 Tricuspid Valve Name Value Normal TV Doppler TV Peak Velocity 0.6 m/s TV Peak Gradient 1 mmHg TV Mean Gradient 1 mmHg TV PHT 41 ms TV Area (PHT) 5.41 cm2 TV Regurgitation Doppler TR Peak Velocity 3.1 m/s TR Peak Gradient 39 mmHg TR ERO (PISA) 0.10 cm2 TR Volume (PISA) 8 ml TR Vena Contracta 1.78 mm Estimated PAP/RSVP RA Pressure 3 mmHg <=5 PA Systolic Pressure 42 mmHg <35 RV Systolic Pressure 42 mmHg <36 TV Diastolic Function TV E Peak Velocity 0.6 m/sec TV A Peak Velocity 0.6 m/sec TV E/A 1.0 0.8-2.0 TV Decel Time 140 ms >=120 RV IVRT (PW) 46 ms TV Annular TDI TV Lateral Gris s' Velocity 12 cm/s 10-19 TV Lateral Gris e' Velocity 6 cm/s 8-20 TV Lateral Gris a' Velocity 15 cm/s TV E/e' 10 2-6 TV A/a' 4 Pulmonary Vessels Name Value Normal Pulmonary Veins Pulm Vein Peak Systolic Velocity 51.0 cm/s Pulm Vein Peak Diastolic Velocity 44.0 cm/s Pulm Vein S/D Velocity Ratio 1 Pulm Vein Ar Velocity 31.1 cm/s Pulm Vein Ar Dur - MV A Dur 46 ms Aorta Name Value Normal Ascending Aorta Ao Root Diameter (2D) 3.0 cm Ao Root Diam Index (2D) 1.7 cm/m2 Ao Annulus Diameter 2.4 cm 2.1-2.5 Ao Annulus Diam Index 1.3 cm/m2 1.2-1.4 Sinus of Valsalva Diameter 3.0 cm 2.4-3.6 Sinus of Valsalva Index 1.7 cm/m2 1.4-2.2 Ao Sinotub Junction Diameter 2.8 cm 2.3-2.9 Asc Ao Diameter 3.3 cm 1.9-3.5 Asc Ao Diameter Index 1.9 cm/m2 1.0-2.2 Mid Asc Ao Diameter 3.2 cm Distal Asc Ao Diameter 3.2 cm Septae/Shunt/Generic Name Value Normal Qp/Qs Qp/Qs 1.0 Miscellaneous Measurements MV posterior MAC circumferential width 2D MV SAX plane Length 3.97 cm MV posterior MAC diameter 2D LAX plane Length 0.94 cm Venous Name Value Normal IVC/SVC IVC Diameter 1.8 cm <=2.1 IVC Diameter (Insp 2D) 0.4 cm IVC Diameter Percent Change (2D) 77 % >=50 Aortic Valve Name Value Normal AV 2D/MM AV Area (Planimetry) 0.93 cm2 >=3.00 AV Cusp Separation (2D) 0.4 cm AV Cusp Sep (MM) 0.4 cm AV Doppler AV Peak Velocity 2.91 m/s AV Peak Gradient 34 mmHg AV Mean Gradient 20 mmHg AV VTI 58 cm AV Area (Cont Eq VTI) 0.92 cm2 >=2.00 AV Area (Cont Eq Parvez) 0.93 cm2 AV DI (VTI) 0.27 AV DI (Parvez) 0.27 AV Regurgitation 2D LVOT Area 3.44 cm2 AV Regurgitation Doppler AR Fraction (Cont Eq) -1 % AR Volume (Cont Eq) -0 ml Ventricles Name Value Normal LV Dimensions 2D/MM IVS Diastolic Thickness (2D) 1.6 cm 0.6-0.9 LVID Diastole (2D) 5.0 cm 3.8-5.2 LVPW Diastolic Thickness (2D) 1.5 cm 0.6-0.9 LVID Systole (2D) 2.9 cm 2.2-3.5 LV Systolic Endo Area 8 cm2 LV Diastolic Endo Area 17 cm2 LV Systolic Epic Area 40 cm2 LV Diastolic Epic Area 52 cm2 LV Mass (2D Cubed) 323 g 67-162 LV Mass Index (2D Cubed) 182 g/m2 43-95 Relative Wall Thickness (2D) 0.59 <=0.42 LV Fractional Shortening/Ejection Fraction 2D/MM LV Fractional Shortening (2D) 35 % 27-45 LV EF (2D Teicholz) 72 % 54-74 LV Diastolic Volume (4C MOD) 74 ml LV EF (4C MOD) 69 % LV Diastolic Volume (2C MOD) 76 ml LV EF (2C MOD) 74 % LV Diastolic Volume (BP MOD) 76 ml 46-106 LV Diastolic Volume Index (BP MOD) 43 ml/m2 29-61 LV Systolic Volume (BP MOD) 22 ml 14-42 LV Systolic Volume Index (BP MOD) 13 ml/m2 8-24 LV EF (BP MOD) 71 % 54-74 LV Diastolic Length (4C) 7.7 cm LV Systolic Length (4C) 6.3 cm LV End Diastolic Volume (BP A-L) 111 ml LV End Systolic Volume (BP A-L) 39 ml LV EF (BP A-L) 65 % LV Stroke Volume (4C MOD) 51 ml RV Dimensions 2D/MM RVID Diastole (2D) 3.0 cm 2.5-3.5 RVID Systole (2D) 2.0 cm RV Diastolic Wall Thickness (2D) 0.5 cm 0.1-0.5 RV Systolic Wall Thickness (2D) 0.8 cm RV Basal Diastolic Dimension 3.8 cm 2.5-4.1 RV Mid-Cavity Diastolic Dimension 3.9 cm 1.9-3.5 RV Diastolic Length (4C) 6.2 cm 5.9-8.3 RV Diastolic Area (4C) 20 cm2 8-20 RV Systolic Area (4C) 8 cm2 3-11 TAPSE 1.8 cm >=1.7 RV Fractional Shortening 2D RV FAC (4C) 58 % >=35 Atria Name Value Normal LA Dimensions LA Dimension (2D) 4.8 cm 2.7-3.8 LA Dimen Index (2D) 2.7 cm/m2 LA Volume (BP MOD) 83 ml LA Volume Index (BP MOD) 47 ml/m2 16-34 RA Dimensions RA Area (4C) 22 cm2 <=18 RA Area (4C) Index 12 cm2/m2 RA ESV (4C MOD) 70 ml 15-27 RA ESV Index (4C MOD) 39 ml/m2 16-34 Pericardium Name Value Normal Pericardium 2D/MM Pericardial Effusion Diastole (2D) 0.0 cm Report Signatures Finalized by Abran Duff MD on 03/18/2025 04:19 PM Procedure Note Abran Duff MD - 03/18/2025 Summary * Findings consistent with worse severe aortic stenosis (compared to 03/19/2024 ECHO), worse LVH, worse LV diastolic dysfunction, larger LA,higher LA pressure, normal LV systolic function, mild to moderate pulmonaryvascular dysfunction, similar normal RA pressure, similar mild TR, similar normalRV, similar dilated RA, and mild secondary pulmonary hypertension. No effusionand similar aorta. * The left ventricle is normal in size, with normal systolic functionand an estimated ejection fraction of 71 % by biplane method of disks. Left ventricular wall motion is normal. * Right ventricle is normal in size with normal systolic function. * The left ventricle is normal in size. * Left ventricular systolic function is normal with an estimatedejection fraction of 71 % by biplane method of disks. * Left ventricular segmental wall motion is normal. * Left ventricular wall thickness is moderately increased. * The left ventricular mass is severely increased with concentric hypertrophy. LV mass index 182 gm/M2. RWT 0.59. * The left ventricular diastolic function is consistent with grade II diastolic dysfunction and increased left atrial filling pressure. AverageE/e' ratio 21. Pulm vein - MV A duration difference 46 msec. * The right ventricle is normal in size. * Right ventricular systolic function is normal. * Right ventricular wall thickness is normal. * The left atrium is moderately dilated with a left atrial volume indexof 47 ml/m2 by BP MOD. * The right atrium is mildly-moderately dilated. Volume index 39ml/M2. * Moderate aortic annular calcification. * The aortic valve is trileaflet, moderately severely thickened and moderately severely calcified. * Severe decreased mobility of the coronary cusps. * There is severe aortic valve stenosis with a peak velocity of 2.9m/s, mean gradient of 20 mmHg, and aortic valve area of 0.92 cm2. Valve areaindex 0.52-0.53 cm2/M2. Stroke volume index 30 ml/M2. Cardiac index 2.7L/min/M2. * There is no significant aortic valve regurgitation. * Moderate mitral annular calcification. * The mitral valve is moderately thickened, calcified and displaying moderately severely restricted posterior leaflet motion. * There is no clinically significant mitral valve stenosis. * Mitral valve area by 2D Planimetry is 3.52 cm2. * There is no significant mitral valve regurgitation. * There is mild tricuspid valve regurgitation. * Tricuspid valve effective regurgitant orifice by PISA is 0.10 cm2. R volume 8 ml/fraction 13%. * The pulmonary artery systolic pressure is mildly elevated, 42 mmHg.Mean PA pressure of 31 mmHg. PVR 4.2 Wood units. * The pulmonic valve is normal. * The ascending aorta is normal in size measuring 3.3 cm with an indexof 1.9 cm/m2. Height index 2.0 cm/m. Z score 2. * Moderate plaque in the ascending aorta and aortic arch. * Normal inferior vena cava with > 50% collapse upon inspirationconsistent with normal right atrial pressure, 3 mmHg. * There is no pericardial effusion. Patient Info Name: Nesha Bettencourt Age: 84 years : 1940 Gender: Female Ht: 65 in Wt: 149 lb BSA: 1.77 m2 HR: 94 bpm BP: 120 / 72 mmHg Exam Date: 03/18/2025 10:28 AM Patient Status: O Study Site: [facility] Primary Location: [facility] EStudy Info Exam Type: ECHO COMPLETE Indications I35.0 - Nonrheumatic aortic (valve) stenosis Procedure(s) * A complete 2D, color Doppler, spectral Doppler, and M-Modetransthoracic echocardiogram was performed. Staff Referring Physician: Verito Norris Ordering Provider: Verito Norris Stone Sandblaster: Quin Calzada Left Ventricle The left ventricle is normal in size. Left ventricular systolic functionis normal with an estimated ejection fraction of 71 % by biplane method ofdisks. Left ventricular segmental wall motion is normal. Left ventricular wall thickness is moderately increased. The left ventricular mass is severely increased with concentric hypertrophy. LV mass index 182 gm/M2. RWT 0.59.The left ventricular diastolic function is consistent with grade IIdiastolic dysfunction and increased left atrial filling pressure. Average E/e' ratio21. Pulm vein - MV A duration difference 46 msec. Right Ventricle The right ventricle is normal in size. Right ventricular systolicfunction is normal. Right ventricular wall thickness is normal. Ventricular Septum Intact interventricular septum visualized by 2D and color Dopplerimaging. Left Atrium The left atrium is moderately dilated with a left atrial volume index of47 ml/m2 by BP MOD. No mass or thrombus formation in the left atrium. Right Atrium The right atrium is mildly-moderately dilated. Volume index 39 ml/M2.No mass or thrombus formation in the right atrium. Atrial Septum Intact interatrial septum visualized by 2D and color Doppler imaging. Aortic Valve Moderate aortic annular calcification. The aortic valve is trileaflet, moderately severely thickened and moderately severely calcified. Severe decreased mobility of the coronary cusps. There is severe aortic valve stenosis with a peak velocity of 2.9 m/s, mean gradient of 20 mmHg, andaortic valve area of 0.92 cm2. Valve area index 0.52-0.53 cm2/M2. Strokevolume index 30 ml/M2. Cardiac index 2.7 L/min/M2. There is no significantaortic valve regurgitation. Pulmonic Valve The pulmonic valve is normal. There is no pulmonic valve stenosis. Thereis no pulmonic regurgitation. Pulmonary valve area by Continuity Equation is3.0 cm2. Mitral Valve Moderate mitral annular calcification. The mitral valve is moderately thickened, calcified and displaying moderately severely restrictedposterior leaflet motion. There is no clinically significant mitral valvestenosis. Mitral valve diastolic mean gradient is 3 mmHg. Mitral valve area by 2D Planimetry is 3.52 cm2. There is no significant mitral valveregurgitation. Tricuspid Valve The tricuspid valve is normal. There is no significant tricuspid valve stenosis. There is mild tricuspid valve regurgitation. Tricuspid valve effective regurgitant orifice by PISA is 0.10 cm2. R volume 8 ml/iinggsvk71%. The pulmonary artery systolic pressure is mildly elevated, 42 mmHg. MeanPA pressure of 31 mmHg. PVR 4.2 Wood units. Inferior Vena Cava The inferior vena cava is normal in size (< 2.1 cm). There is > 50%collapse of the IVC upon inspiration with an estimated right atrial pressure of 3mmHg. Normal inferior vena cava with > 50% collapse upon inspiration consistentwith normal right atrial pressure, 3 mmHg. Pericardium/Pleural There is no pericardial effusion. Aorta The aortic root at the sinus of Valsalva is normal in size. Theascending aorta is normal in size. The aortic root at the sinus of Valsalva isnormal in size measuring 3.0 cm with an index of 1.7 cm/m2. The ascending aorta is normal in size measuring 3.3 cm with an index of 1.9 cm/m2. Height index2.0 cm/m. Z score 2. Moderate plaque in the ascending aorta and aortic arch. Wall Motion Scoring Index: 1.00 Measurements Left Ventricular Outflow Tract Name Value Normal LVOT 2D LVOT Diameter 2.1 cm LVOT Area 3.4 cm2 LVOT Doppler LVOT Peak Velocity 0.8 m/s LVOT Peak Gradient 2 mmHg LVOT Mean Velocity 51.01 cm/s LVOT Mean Gradient 1 mmHg LVOT VTI 15.6 cm LVOT VTI/AV VTI Ratio 0.3 LVOT Stroke Volume 54 ml LVOT Stroke Volume Index 30 ml/m2 35-58 LVOT CO 5.2 l/min LVOT CI 2.9 l/min/m2 Pulmonic Valve Name Value Normal PV 2D RVOT Diameter (2D) 2.6 cm 1.7-2.7 RVOT Doppler RVOT Peak Velocity 0.5 m/s RVOT Peak Gradient 1 mmHg RVOT Mean Gradient 1 mmHg PV Doppler PV Peak Velocity 0.8 m/s PV Peak Gradient 3 mmHg PV Mean Gradient 1 mmHg PV Area (Cont Eq VTI) 3.04 cm2 PV Area Index (Cont Eq VTI) 1.72 cm2/m2 PV Area (Cont Eq Parvez) 3.3 cm2 PV Area Index (Cont Eq Parvez) 1.88 cm2/m2 Mitral Valve Name Value Normal MV 2D/MM MV Area (Planimetry) 3.52 cm2 4.00-5.00 MV Annulus Diameter (PLAX) 2.0 cm MV Annulus Diameter (2C) 2.8 cm MV Annulus Diameter (4C) 2.8 cm <=4.4 MV Doppler MV Peak Gradient 5 mmHg MV Mean Gradient 3 mmHg MV DI (VTI) 1.53 MV Decel Time (CW) 171 ms MV PHT 50 ms MV Area (PHT) 4.42 cm2 4.00-5.00 MV Area (Cont Eq VTI) 2.25 cm2 MV Regurgitation Doppler MR Volume (Cont Eq) 0 ml MR Fraction (Cont Eq) 0 % MV Diastolic Function MV E Peak Velocity 1.0 m/sec MV A Peak Velocity 1.1 m/sec MV E/A 0.9 MV Decel Time (PW) 182 ms MV A Wave Duration 127 ms MV Annular TDI MV Septal s' Velocity 4 cm/s MV Septal e' Velocity 4 cm/s >=8 MV Septal a' Velocity 8 cm/s MV E/e' (Septal) 27 <=8 MV A/a' (Septal) 13 MV Lateral s' Velocity 6 cm/s MV Lateral e' Velocity 7 cm/s >=10 MV Lateral a' Velocity 8 cm/s MV E/e' (Lateral) 14 <=8 MV A/a' (Lateral) 14 MV e' Average 6 cm/s MV E/e' (Average) 21 Tricuspid Valve Name Value Normal TV Doppler TV Peak Velocity 0.6 m/s TV Peak Gradient 1 mmHg TV Mean Gradient 1 mmHg TV PHT 41 ms TV Area (PHT) 5.41 cm2 TV Regurgitation Doppler TR Peak Velocity 3.1 m/s TR Peak Gradient 39 mmHg TR ERO (PISA) 0.10 cm2 TR Volume (PISA) 8 ml TR Vena Contracta 1.78 mm Estimated PAP/RSVP RA Pressure 3 mmHg <=5 PA Systolic Pressure 42 mmHg <35 RV Systolic Pressure 42 mmHg <36 TV Diastolic Function TV E Peak Velocity 0.6 m/sec TV A Peak Velocity 0.6 m/sec TV E/A 1.0 0.8-2.0 TV Decel Time 140 ms >=120 RV IVRT (PW) 46 ms TV Annular TDI TV Lateral Gris s' Velocity 12 cm/s 10-19 TV Lateral Gris e' Velocity 6 cm/s 8-20 TV Lateral Gris a' Velocity 15 cm/s TV E/e' 10 2-6 TV A/a' 4 Pulmonary Vessels Name Value Normal Pulmonary Veins Pulm Vein Peak Systolic Velocity 51.0 cm/s Pulm Vein Peak Diastolic Velocity 44.0 cm/s Pulm Vein S/D Velocity Ratio 1 Pulm Vein Ar Velocity 31.1 cm/s Pulm Vein Ar Dur - MV A Dur 46 ms Aorta Name Value Normal Ascending Aorta Ao Root Diameter (2D) 3.0 cm Ao Root Diam Index (2D) 1.7 cm/m2 Ao Annulus Diameter 2.4 cm 2.1-2.5 Ao Annulus Diam Index 1.3 cm/m2 1.2-1.4 Sinus of Valsalva Diameter 3.0 cm 2.4-3.6 Sinus of Valsalva Index 1.7 cm/m2 1.4-2.2 Ao Sinotub Junction Diameter 2.8 cm 2.3-2.9 Asc Ao Diameter 3.3 cm 1.9-3.5 Asc Ao Diameter Index 1.9 cm/m2 1.0-2.2 Mid Asc Ao Diameter 3.2 cm Distal Asc Ao Diameter 3.2 cm Septae/Shunt/Generic Name Value Normal Qp/Qs Qp/Qs 1.0 Miscellaneous Measurements MV posterior MAC circumferential width 2D MV SAX plane Length 3.97 cm MV posterior MAC diameter 2D LAX plane Length 0.94 cm Venous Name Value Normal IVC/SVC IVC Diameter 1.8 cm <=2.1 IVC Diameter (Insp 2D) 0.4 cm IVC Diameter Percent Change (2D) 77 % >=50 Aortic Valve Name Value Normal AV 2D/MM AV Area (Planimetry) 0.93 cm2 >=3.00 AV Cusp Separation (2D) 0.4 cm AV Cusp Sep (MM) 0.4 cm AV Doppler AV Peak Velocity 2.91 m/s AV Peak Gradient 34 mmHg AV Mean Gradient 20 mmHg AV VTI 58 cm AV Area (Cont Eq VTI) 0.92 cm2 >=2.00 AV Area (Cont Eq Parvez) 0.93 cm2 AV DI (VTI) 0.27 AV DI (Parvez) 0.27 AV Regurgitation 2D LVOT Area 3.44 cm2 AV Regurgitation Doppler AR Fraction (Cont Eq) -1 % AR Volume (Cont Eq) -0 ml Ventricles Name Value Normal LV Dimensions 2D/MM IVS Diastolic Thickness (2D) 1.6 cm 0.6-0.9 LVID Diastole (2D) 5.0 cm 3.8-5.2 LVPW Diastolic Thickness (2D) 1.5 cm 0.6-0.9 LVID Systole (2D) 2.9 cm 2.2-3.5 LV Systolic Endo Area 8 cm2 LV Diastolic Endo Area 17 cm2 LV Systolic Epic Area 40 cm2 LV Diastolic Epic Area 52 cm2 LV Mass (2D Cubed) 323 g 67-162 LV Mass Index (2D Cubed) 182 g/m2 43-95 Relative Wall Thickness (2D) 0.59 <=0.42 LV Fractional Shortening/Ejection Fraction 2D/MM LV Fractional Shortening (2D) 35 % 27-45 LV EF (2D Teicholz) 72 % 54-74 LV Diastolic Volume (4C MOD) 74 ml LV EF (4C MOD) 69 % LV Diastolic Volume (2C MOD) 76 ml LV EF (2C MOD) 74 % LV Diastolic Volume (BP MOD) 76 ml 46-106 LV Diastolic Volume Index (BP MOD) 43 ml/m2 29-61 LV Systolic Volume (BP MOD) 22 ml 14-42 LV Systolic Volume Index (BP MOD) 13 ml/m2 8-24 LV EF (BP MOD) 71 % 54-74 LV Diastolic Length (4C) 7.7 cm LV Systolic Length (4C) 6.3 cm LV End Diastolic Volume (BP A-L) 111 ml LV End Systolic Volume (BP A-L) 39 ml LV EF (BP A-L) 65 % LV Stroke Volume (4C MOD) 51 ml RV Dimensions 2D/MM RVID Diastole (2D) 3.0 cm 2.5-3.5 RVID Systole (2D) 2.0 cm RV Diastolic Wall Thickness (2D) 0.5 cm 0.1-0.5 RV Systolic Wall Thickness (2D) 0.8 cm RV Basal Diastolic Dimension 3.8 cm 2.5-4.1 RV Mid-Cavity Diastolic Dimension 3.9 cm 1.9-3.5 RV Diastolic Length (4C) 6.2 cm 5.9-8.3 RV Diastolic Area (4C) 20 cm2 8-20 RV Systolic Area (4C) 8 cm2 3-11 TAPSE 1.8 cm >=1.7 RV Fractional Shortening 2D RV FAC (4C) 58 % >=35 Atria Name Value Normal LA Dimensions LA Dimension (2D) 4.8 cm 2.7-3.8 LA Dimen Index (2D) 2.7 cm/m2 LA Volume (BP MOD) 83 ml LA Volume Index (BP MOD) 47 ml/m2 16-34 RA Dimensions RA Area (4C) 22 cm2 <=18 RA Area (4C) Index 12 cm2/m2 RA ESV (4C MOD) 70 ml 15-27 RA ESV Index (4C MOD) 39 ml/m2 16-34 Pericardium Name Value Normal Pericardium 2D/MM Pericardial Effusion Diastole (2D) 0.0 cm Report Signatures Finalized by Abran Duff MD on 03/18/2025 04:19 PM us Verito Norris MD [facility] Final Resul t from Last 3 Months Insurance [employer] MEDICARE ADV Advance Directives * Full Code (Latest Code Status on File) Date Activated Date Inactivated Comments 05/08/2019 5:40 AM 05/09/2019 1:57 PM Care Teams Sales And Service Technician Relationship Specialty Start Date End Date Bar Gomez MD [id number] [address] PCP - General Internal Medicine 05/08/19
[2025-05-15 13:41] VITALS: BP 133/85; PULSE 105; RESP 18; TEMP 36.9; O2SAT 94
--- NOTE | 2025-05-15 14:06 | ED_ITS ---
HPI - Female Genitourinary General Chief complaint: Urogenital-Female Stated complaint: UTI Time Seen by Provider: 05/15/25 13:56 Source: patient, RN notes reviewed and old records reviewed Mode of arrival: ambulatory Limitations: no limitations History of Present Illness HPI Narrative: 84-year-old female patient history of frequent UTI presents today complaining of dysuria frequency, and hematuria since last. Patient has not had any hematuria so far today. No OTC treatment prior to arrival. Denies abdominal pain or back pain. In February, patient was seen at [facility] diagnosed with a UTI, and placed on Augmentin. Her subsequent urine culture showed no growth. Patient has never seen a urologist. Related Data Home Medications ?Medication ?Instructions ?Recorded ?Confirmed ?Last Taken ?Type calcium carbonate (Calcium 600) 600 mg PO HS 03/01/21 02/18/25 Unknown History clopidogrel 75 mg tablet 75 mg PO QAM 03/01/21 Unknown History levothyroxine 75 mcg capsule 75 mcg PO DAILY 03/01/21 02/18/25 Unknown History losartan 100 mg tablet 100 mg PO HS 03/01/21 Unknown History albuterol sulfate 90 mcg/actuation 2 puff inhalation Q ID PRN 01/19/24 02/18/25 Unknown History aerosol inhaler Shortness Of Breath Or Wheez ing ezetimibe 10 mg tablet 10 mg PO HS 01/19/24 5 Unknown History fenofibrate nanocrystallized 145 145 mg PO QAM 4 02/18/25 Unknown History mg tablet tiotropium bromide 2.5 2 puff inhalation QNOON 12/2402/18/25 Unknown History mcg/actuation mist for inhalation (Spiriva Respimat) anastrozole 1 mg tablet 1 mg PO QAM 01/20/24 5 Unknown History Held on 01/23/24. Instructions: HOLD - resume when okay with your doctor cholecalciferol (vitamin D3) 50 50 mcg PO HS 01/20/24 02/18/25 Unknown History mcg (2,000 unit) capsule (Vitamin D3) alendronate 70 mg tablet 70 mg PO WEEKLY 02/18/25 Unknown History cetirizine 10 mg tablet 10 mg PO DAILY PRN 02/18/25 02/18/25 Unknown History sbffkofnytmy-Qx-tnfq-minerals tablet PO 02/18/2502/18 Unknown History pyridoxine (vitamin B6) 100 mg 100 mg PO DAILY 5 02/18/25 Unknown History tablet Allergies Allergy/AdvReac Type Severity Reaction Status Date / Time adhesive tape Allergy Rash Verified 05/15/25 13:44 PMFSH Past Medical History Medical History UTI (urinary tract infection) Hypothyroidism Cerebrovascular accident (2019) Chronic interstitial lung disease Hypercholesterolemia Hypertension Uterine cancer Breast cancer Surgical History Surgical History History of hysterectomy History of lumpectomy Family History Family History Father Acute myocardial infarction Sibling Acute myocardial infarction Mother Asthma Son Diabetes mellitus Social History Social History Social History: Surrogate medical decision maker: Mitch Bettencourt, son. Code status: Full code. Smoking packs per day: 0.75 Smoking cigarettes per day: 15.0 Years smoked: 10 Smoking pack-years: 7.50 Smoking status: Former smoker Tobacco type: cigarettes Additional smoking assessment comments: Quit 40 years ago Alcohol intake: never Substance use: never Substance use type: does not use Do You Feel Safe in your Home?: Yes Lack of Transportation: No Lack of Food: Never True Current Housing: I Have Housing Concerned About Future Housing: No Difficulty Paying Gas/Electric Bills: No Difficulty Paying for Meds: No Currently Unemployed: No Education: Associate Degree Difficulty w/ Childcare or Family Care: No Spiritual care concerns: No Comments At time of signature, I have reviewed and agree with nursing past medical, surgical, social and family history unless otherwise noted. Please see nursing chart for further information. There is no relevant family history pertinent to the presenting complaint Exam Narrative: GENERAL: Well-appearing, well-nourished, and in no acute distress. HEAD: Normocephalic, atraumatic. EYES: EOMI. No redness or drainage. Conjunctivae normal. ENT: Mucous membranes pink and moist. NECK: Normal AROM. CHEST: No respiratory distress. Clear to auscultation. HEART: Regular rate and rhythm. + murmur ABDOMEN: Soft, nontender, nondistended, normal active bowel sounds. -CVAT EXTREMITIES: Normal range of motion. No edema. SKIN: Warm, dry, no rash. Capillary refill normal. Normal skin turgor. NEURO: No focal deficits. Alert and oriented x3. Gait steady. PSYCH: Normal affect. No signs of depression or anxiety. Course Course Level of Care: [facility] Visit Vital Signs Vital signs: Vital Signs Temperature 98.5 F 05/15/25 13:41 Pulse Rate 105 H 05/15/25 13:41 Respiratory Rate 18 05/15/25 13:41 Blood Pressure 133/85 05/15/25 13:41 Pulse Oximetry 94 05/15/25 13:41 Oxygen Delivery Room Air 05/15/25 13:41 Temperature 98.5 F 05/15/25 13:41 Pulse Rate 105 H 05/15/25 13:41 Respiratory Rate 18 05/15/25 13:41 Blood Pressure 133/85 05/15/25 13:41 Pulse Oximetry 94 05/15/25 13:41 Oxygen Delivery Room Air 05/15/25 13:41 Reviewed MDM - Female Genitourinary MDM Narrative Medical decision making narrative: 84-year-old female patient history of frequent UTI presents today complaining of dysuria frequency, and hematuria since last. Patient has not had any hematuria so far today. No OTC treatment prior to arrival. Denies abdominal pain or back pain. In February, patient was seen at [facility] diagnosed with a UTI, and placed on Augmentin. Her subsequent urine culture showed no growth. Patient has never seen a urologist. Normal physical exam. Urinalysis shows 2+ blood 1+ leukocytes. Will start patient on some Keflex while culture is pending. Previous urine culture showed no growth with similar urinalysis. Discussed with patient that if this culture shows no growth she needs to follow up with her PCP for further evaluation regarding her symptoms. Patient agrees with plan. Vital signs stable. Anticipatory guidance given. Differential Diagnosis Differential diagnosis: Likely urinary tract infection, vaginitis and cystitis Lab Data Attestation: I reviewed the patient's lab results. Lab results narrative: UA Glucose negative Bilirubin negative Ketones negative Specific gravity 1.010 Blood 2+ PH 7.0 Protein negative Urobilinogen 0.2 Nitrites negative Leukocytes 1+ Critical Care Time Critical Care Time Critical Care Time: No Discharge Plan Discharge Clinical Impression: Urinary tract infection Qualifiers: Urinary tract infection type: acute cystitis Hematuria presence: with hematuria Qualified Code(s): N30.01 - Acute cystitis with hematuria Patient Disposition: Home Condition: Stable Instructions: Antibiotic Form, Urinary Tract Infection in Women (DC) Additional Instructions: Your urine shows infection today. Take cephalexin as prescribed until gone. Your urine will be sent of for a culture to identify what type of bacteria is causing your infection. If the culture shows that your medication will not get rid of your infection, you will be notified and a new antibiotic will be called in for you. If your culture shows that you do not have an infection present, you will also be notified. If your symptoms worsen to include fever, sweats, chills, nausea, vomiting, severe abdominal or back pain, please go to the ER for further evaluation. Patient Language: Luxembourgish Prescriptions: New cephalexin 500 mg capsule 500 mg PO BID 7 Days Qty: 14 0RF No Action levothyroxine 75 mcg capsule 75 mcg PO DAILY clopidogrel 75 mg tablet 75 mg PO QAM losartan 100 mg tablet 100 mg PO HS calcium carbonate [Calcium 600] 600 mg calcium (1,500 mg) tablet 600 mg PO HS cetirizine 10 mg tablet 10 mg PO DAILY PRN alendronate 70 mg tablet 70 mg PO WEEKLY pyridoxine (vitamin B6) 100 mg tablet 100 mg PO DAILY ppyokrogxaqf-Rn-dcse-minerals Tablet PO albuterol sulfate 90 mcg/actuation HFA aerosol inhaler 2 puff INHALATION QID PRN (Reason: Shortness Of Breath Or Wheezing) ezetimibe 10 mg tablet 10 mg PO HS Spiriva Respimat 2.5 mcg/actuation mist 2 puff INHALATION QNOON fenofibrate nanocrystallized 145 mg tablet 145 mg PO QAM anastrozole 1 mg Tablet 1 mg PO QAM cholecalciferol (vitamin D3) [Vitamin D3] 50 mcg (2,000 unit) Capsule 50 mcg PO HS Follow-up/Referrals: Jozef Gomez M.D. [Primary Care Provider, Anesthesiology] Time of Disposition: 14:05
[2025-05-18 11:48] LABS: EDUAAPPEAR Cloudy; EDUABILI Negative (Negative); EDUABLOOD 2+ (Negative); EDUACOLOR1 Yellow; EDUAGLUCOSE Negative (Negative); EDUAKETONE Negative (Negative); EDUALEUKO 1+ (Negative); EDUANITRATE Negative (Negative); EDUAPH 7.0; EDUAPROTEIN Negative (Negative); EDUASPGRAVITY 1.010; EDUAUROBILI 0.2
== END 2025-05-15 14:08 | disposition home or self-care (01) ==
PROVIDERS: Emergency Provider Nurse Practitioner; PCP Anesthesiology
DX: N30.01 Acute cystitis with hematuria (principal); I10 Essential (primary) hypertension; E78.00 Pure hypercholesterolemia, unspecified; J84.9 Interstitial pulmonary disease, unspecified; E03.9 Hypothyroidism, unspecified; Z86.73 Personal history of transient ischemic attack (TIA), and cerebral infarction without residual deficits; Z85.42 Personal history of malignant neoplasm of other parts of uterus; Z85.3 Personal history of malignant neoplasm of breast; Z87.891 Personal history of nicotine dependence
CPT/HCPCS: 81003; 87086; 99213; G0463